=== PATIENT | male | born 1935 | race Caucasian/White ===

== ENCOUNTER 2016-07-07 04:50 | Inpatient (IN) | payer MEDICARE ==
[~2016-07-07] VITALS: Ht 175.3 cm; Wt 82.2 kg
[2016-07-07] MEDS ORDERED: KETO120S TP (05:42)
[2016-07-07] MEDS ORDERED: GLIM2TAB2 PO (05:42)
[2016-07-07] MEDS ORDERED: HALO5TAB PO (05:42)
[2016-07-07] MEDS ORDERED: HALO5AMP IM (05:42)
[2016-07-07] MEDS ORDERED: METH5TAB6 PO (05:42)
[2016-07-07] MEDS ORDERED: FOLI1TAB16 PO (05:42)
[2016-07-07] MEDS ORDERED: DOXA2TAB2 PO (05:42)
[2016-07-07] MEDS ORDERED: BUDE0.5A NEB (05:42)
[2016-07-07] MEDS ORDERED: FORM20VI NEB (05:42)
[2016-07-07] MEDS ORDERED: MULT-681 PO (05:45)
[2016-07-07] MEDS ORDERED: MAGN400O4 PO (05:45)
[2016-07-07] MEDS ORDERED: DABI150C PO (05:48)
[2016-07-07] MEDS ORDERED: NYST15CR TP (05:48)
[2016-07-07] MEDS ORDERED: QUET100T4 PO (05:50)
[2016-07-07] MEDS ORDERED: SOTA80TA PO (05:50)
[2016-07-07] MEDS ORDERED: QUET50TA5 PO (05:50)
[2016-07-07] MEDS ORDERED: TRAM50TA PO ×2 (05:52)
[2016-07-07] MEDS ORDERED: THIA100T8 PO (05:52)
[2016-07-07] MEDS ORDERED: ASCO500T2 PO (05:52)
[2016-07-07 05:55] LABS: ALBUMIN 3.3 g/dL (3.4-5.0); ALBUMIN/GLOBULIN RATIO 0.8 (1.0-1.7); CALCIUM 9.1 mg/dL (8.5-10.1); CREATININE 1.4 mg/dL (0.7-1.3); GFR 48.5; POTASSIUM 3.9 mmol/L (3.5-5.1); TOTAL BILIRUBIN 0.4 mg/dL (0.2-1.0); TOTAL PROTEIN 7.5 g/dL (6.4-8.2)
[2016-07-07] MEDS ORDERED: ZINC220C5 PO (05:57)
[2016-07-07] MEDS ORDERED: PROHEAL PO (05:57)
--- NOTE | 2016-07-07 05:58 | EKG ---
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
--- NOTE | 2016-07-07 06:02 | ED.ADGEN ---
Past History Past Medical History: A-Fib, COPD, Dementia, Diabetes, Hypertension, Other Past Surgical History: Pacemaker Alcohol Use: None Drug Use: None Adult General Chief Complaint Chief Complaint Agitation HPI HPI Patient is a 81-year-old snf patient with history of dementia with behavioral disturbance and presents for medical clearance for psychiatric admission. Patient reportedly was agitated at snf complaining of visual hallucination of insects [place] over patient's body. Patient given 15 mg of Haldol prior to ED arrival. History is limited given the patient's dementia and recent sedation. No other complaints per patient, EMS or NH staff reported. Review of Systems Review of Systems ROS as per HPI. Allergies Allergies Allergies Coded Allergies Type Severity Reaction Last Updated Verified No Known Drug Allergies 07/07/16 No Physical Exam Physical Exam Constitutional: Well developed, well nourished, no acute distress, non-toxic appearance. HENT: Normocephalic, atraumatic, bilateral external ears normal, oropharynx moist, no oral exudates, nose normal. Eyes: PERRL. Neck: Normal range of motion. Cardiovascular:Heart rate regular rhythm, no murmur. Lungs & Thorax: Bilateral breath sounds clear to auscultation. Abdomen: Bowel sounds normal, soft, no tenderness. Skin: Warm, dry, no erythema, no rash. Extremities: No tenderness. Neurologic: Alert and oriented X 1, normal motor function, normal sensory function, no focal deficits noted. Psychologic: Affect, flat. Current Patient Data Vital Signs Vital Signs Date Time Temp Pulse Resp B/P Pulse Ox O2 Delivery O2 Flow Rate FiO2 07/07/16 04:55 97.9 81 20 93 Room Air EKG EKG [] Radiology/Procedures Radiology/Procedures [] Impressions: Agitation Course & Med Decision Making Course & Med Decision Making Pertinent Labs and Imaging studies reviewed. (See chart for details) [Work up pending. ] Final Impression Final Impression [1. Agitation 2. Medical clearance for psychiatric admission] Problems: Dragon Disclaimer Dragon Disclaimer This electronic medical record was generated, in whole or in part, using a voice recognition dictation system. KATHERYN RENDON DO Jul 07, 2016 06:01
--- NOTE | 2016-07-07 06:02 | RAD ---
Examination: CT head without contrast History: History of altered mental status, confusion. Exposure: One or more of the following dose reduction technique were utilized for this examination: 1. Automated exposure control. 2.Adjustment of MA and /or KV according to patient size. 3. Use of iterative reconstruction technique. COMPARISON 06/20/2016. Findings : There is no evidence of midline shift. Mild bilateral periventricular white matter hypodensities likely chronic small vessel ischemic disease. There is no acute intracranial bleed or extra-axial fluid collection identified. The basal cisterns are not effaced. Mild prominent appearing ventricles likely age-related cerebral atrophic changes. The visualized paranasal sinuses, mastoid air cells are clear. IMPRESSION No acute intracranial findings. Electronically signed by: Tanner Casey (Jul 07, 2016 05:59:58)
[2016-07-07 06:19] LABS: BASO # 0.1 x10^3/uL (0.0-0.2); BASO % 1 % (0-3); EOS # 0.6 x10^3/uL (0.0-0.7); EOS % 8 % (0-3); HEMOGLOBIN 12.1 g/dL (13.0-17.5); LYMPH # 1.4 x10^3/uL (1.0-4.8); LYMPH % 20 % (24-48); MEAN CORPUSCULAR HEMOGLOBIN 27 pg (25-35); MEAN CORPUSCULAR HGB CONC 32 g/dL (31-37); MEAN CORPUSCULAR VOLUME 84 fL (79-100); MONO # 0.9 x10^3/uL (0.0-1.1); MONO % 12 % (0-9); NEUT # 4.2 x10^3uL (1.8-7.7); NEUT % 59 % (31-73); PLATELET COUNT 207 x10^3/uL (140-400); RED BLOOD COUNT 4.55 x10^6/uL (4.30-5.70); RED CELL DISTRIBUTION WIDTH 17.2 % (11.5-14.5); WHITE BLOOD COUNT 7.1 x10^3/uL (4.0-11.0)
[2016-07-07 06:28] LABS: BILIRUBIN,URINE NEG (NEG); CLARITY,URINE CLEAR; COLOR,URINE YELLOW; GLUCOSE,URINE 250 mg/dL (NEG); NITRITE,URINE NEG (NEG); UROBILINOGEN,URINE 0.2 mg/dL (0.2 mg/dL)
[2016-07-07 06:29] LABS: BACTERIA,URINE 0 /HPF (0-FEW); SQUAMOUS EPITHELIAL CELL,UR OCC /LPF; YEAST,URINE PRESENT /HPF
[2016-07-07] MEDS ORDERED: MAG HYDROX/AL HYDROX/SIMETH 30 ML ORAL.SUSP PO PRN (06:45)
[2016-07-07] MEDS ORDERED: ACETAMINOPHEN 325 MG TABLET PO PRN ×2 (06:45)
[2016-07-07] MEDS ORDERED: METHYL SALICYLATE/MENTHOL TOPICAL OINTMENT 29GM TUBE. TP PRN (06:45)
[2016-07-07] MEDS ORDERED: NYSTATIN 100,000 UNIT/GM TOPICAL CREAM 15GM TUBE. TP PRN (07:00)
[2016-07-07] MEDS: QUEtiapine 50 MG TABLET. PO SCH (08:43)
[2016-07-07] MEDS: ASCORBIC ACID 500 MG TABLET PO SCH ×2 (08:43→20:52)
[2016-07-07] MEDS: THIAMINE 100 MG TABLET. PO SCH (08:43)
[2016-07-07] MEDS: FOLIC ACID 1 MG TABLET PO SCH (08:43)
[2016-07-07] MEDS: TRAMADOL 50 MG TABLET. PO SCH ×2 (08:43→20:52)
[2016-07-07] MEDS: ZINC SULFATE 220 MG CAPSULE. PO SCH (08:43)
[2016-07-07] MEDS: MULTIVITAMIN with MINERAL TABLET. PO SCH (08:43)
[2016-07-07] MEDS: METHIMAZOLE 5 MG TABLET PO SCH ×3 (08:43→20:52)
[2016-07-07] MEDS: GLIMEPIRIDE 2 MG TABLET PO SCH ×2 (08:43→20:52)
[2016-07-07] MEDS: DABIGATRAN ETEXILATE 150 MG CAPSULE. PO SCH ×2 (08:44→20:52)
[2016-07-07] MEDS: DOXAZOSIN MESYLATE 1 MG TABLET PO SCH (08:44)
[2016-07-07] MEDS: SOTALOL 80 MG TABLET. PO SCH ×2 (08:44→20:52)
[2016-07-07] MEDS ORDERED: ALBUTEROL SULFATE 2.5 MG/3 ML NEBU. ONE (09:54)
[2016-07-07 10:16] VITALS: BP 192/54
[2016-07-07] MEDS: BUDESONIDE 0.5 MG/2 ML NEBU NEB SCH ×2 (10:17→20:29)
[2016-07-07 11:59] LABS: IRON,SERUM 36 ug/dL (65-175)
[2016-07-07] MEDS: ALBUTEROL SULFATE 2.5 MG/3 ML NEBU. NEB SCH ×3 (12:00→20:29)
[2016-07-07] MEDS: OLANZAPINE ZYDIS 5 MG TAB.RAPDIS PO PRN (12:45)
[2016-07-07 14:08] LABS: T3 TOTAL 164 ng/dL (71-180); THYROXINE 12.7 ug/dL (4.5-12.0)
[2016-07-07 16:11] VITALS: BP 150/60
[2016-07-07] MEDS: QUEtiapine 100 MG TABLET. PO SCH (20:52)
--- NOTE | 2016-07-07 21:57 | PDOC ---
Exam Lobito Demential Exam: Lobito Note: Please also refer to the separate dictated note~for this date of service dictated separately.~Patient seen individually. Discussed the patient with Nursing staff reviewed the chart.~Reviewed interim history and current functioning. Reviewed vital signs,~Labs/ Radiology~and current medications noted below. Continue current treatment with the changes noted in the dictated addendum note Assessment: Vital Signs: Vital Signs Date Time Temp Pulse Resp B/P Pulse Ox O2 Delivery O2 Flow Rate FiO2 07/07/16 21:52 18 95 Room Air 07/07/16 20:52 72 150/60 07/07/16 16:11 98.3 07/07/16 06:34 2 Labs: Laboratory Tests Test 07/07/16 05:15 07/07/16 05:55 07/07/16 11:53 07/07/16 16:59 White Blood Count 7.1x10^3/uL (4.0-11.0) Red Blood Count 4.55x10^6/uL (4.30-5.70) Hemoglobin 12.1g/dL (13.0-17.5) L Hematocrit 38.0% (39.0-53.0) L Mean Corpuscular Volume 84fL (79-100) Mean Corpuscular Hemoglobin 27pg (25-35) Mean Corpuscular Hemoglobin Concent 32g/dL (31-37) Red Cell Distribution Width 17.2% (11.5-14.5) H Platelet Count 207x10^3/uL (140-400) Neutrophils (%) (Auto) 59% (31-73) Lymphocytes (%) (Auto) 20% (24-48) L Monocytes (%) (Auto) 12% (0-9) H Eosinophils (%) (Auto) 8% (0-3) H Basophils (%) (Auto) 1% (0-3) Neutrophils # (Auto) 4.2x10^3uL (1.8-7.7) Lymphocytes # (Auto) 1.4x10^3/uL (1.0-4.8) Monocytes # (Auto) 0.9x10^3/uL (0.0-1.1) Eosinophils # (Auto) 0.6x10^3/uL (0.0-0.7) Basophils # (Auto) 0.1x10^3/uL (0.0-0.2) Prothrombin Time 10.5SEC (9.4-11.4) Prothrombin Time INR 1.0 (0.9-1.1) PTT 30SEC (23-33) Urine Collection Type Unknown Urine Color Yellow Urine Clarity Clear Urine pH 5.0 Urine Specific [place] 1.020 Urine Protein Neg (NEG-TRACE) Urine Glucose (UA) 250mg/dL (NEG) Urine Ketones (Stick) Negmg/dL (NEG) Urine Blood Neg (NEG) Urine Nitrite Neg (NEG) Urine Bilirubin Neg (NEG) Urine Urobilinogen Dipstick 0.2mg/dL (0.2 mg/dL) Urine Leukocyte Esterase Neg (NEG) Urine RBC 1-2/HPF (0-2) Urine WBC 1-4/HPF (0-4) Urine Squamous Epithelial Cells Occ/LPF Urine Bacteria 0/HPF (0-FEW) Urine Yeast Present/HPF Sodium Level 143mmol/L (136-145) Potassium Level 3.9mmol/L (3.5-5.1) Chloride Level 108mmol/L (98-107) H Carbon Dioxide Level 24mmol/L (21-32) Anion Gap 11 (6-14) Blood Urea Nitrogen 20mg/dL (8-26) Creatinine 1.4mg/dL (0.7-1.3) H Estimated GFR (Cockcroft-Gault) 48.5 BUN/Creatinine Ratio 14 (6-20) Glucose Level 168mg/dL (70-99) H Calcium Level 9.1mg/dL (8.5-10.1) Iron Level 36ug/dL (65-175) L Total Iron Binding Capacity 292ug/dL (250-450) Iron Saturation 12% (15-34) L Total Bilirubin 0.4mg/dL (0.2-1.0) Aspartate Amino Transferase (AST) 14U/L (15-37) L Alanine Aminotransferase (ALT) 15U/L (16-63) L Alkaline Phosphatase 92U/L (46-116) Total Protein 7.5g/dL (6.4-8.2) Albumin 3.3g/dL (3.4-5.0) L Albumin/Globulin Ratio 0.8 (1.0-1.7) L Triglycerides Level 102mg/dL (0-150) Cholesterol Level 149mg/dL (0-200) LDL Cholesterol, Calculated 104mg/dL (0-100) H VLDL Cholesterol, Calculated 20mg/dL (0-40) HDL Cholesterol 25mg/dL (40-60) L Cholesterol/HDL Ratio 5.0 25-Hydroxy Vitamin D Total Pending Thyroid Stimulating Hormone (TSH) < 0.007uIU/mL (0.358-3.740) Thyroxine (T4) 12.7ug/dL (4.5-12.0) H Total Triiodothyronine (TT3) 164ng/dL (71-180) RPR Titer Additional Testing Pending Magnesium Level 1.8mg/dL (1.8-2.4) Glucose (Fingerstick) 254mg/dL (70-99) H 167mg/dL (70-99) H Test 07/07/16 19:34 Glucose (Fingerstick) 161mg/dL (70-99) H Current Medications: Meds: Current Medications Acetaminophen (Tylenol) 650 mg PRN Q6HRS PRN PO PAIN / TEMP; Start 07/07/16 at 06:45; Status Cancel Acetaminophen (Tylenol) 650 mg PRN Q6HRS PRN PO PAIN / TEMP; Start 07/07/16 at 06:45 Multi-Ingredient Ointment (Analgesic [place]) 1 marilyn PRN QID PRN TP MUSCLE PAIN; Start 07/07/16 at 06:45 Al Hydroxide/Mg Hydroxide (Mylanta Plus Xs) 15 ml PRN AFTMEALHC PRN PO DYSPEPSIA; Start 07/07/16 at 06:45 Magnesium Hydroxide (Milk Of Magnesia) 2,400 mg PRN QHS PRN PO CONSTIPATION; Start 07/07/16 at 06:45 Quetiapine Fumarate (SEROquel) 50 mg DAILY PO Last administered on 07/07/16 08: 43; Start 07/07/16 at 09:00 Quetiapine Fumarate (SEROquel) 100 mg QHS PO Last administered on 07/07/16 20: 52; Start 07/07/16 at 21:00 Ascorbic Acid (Vitamin C) 500 mg BID PO Last administered on 07/07/16 20:52; Start 07/07/16 at 09:00 Budesonide (Pulmicort) 0.5 mg BID NEB Last administered on 07/07/16 20:29; Start 07/07/16 at 09:00 Dabigatran (Pradaxa) 150 mg BID PO Last administered on 07/07/16 20:52; Start 07/07/16 at 09:00 Folic Acid (Folic Acid) 1 mg DAILY PO Last administered on 07/07/16 08:43; Start 07/07/16 at 09:00 Glimepiride (Amaryl) 2 mg BID PO Last administered on 07/07/16 20:52; Start 07/07/16 at 09:00 Ketoconazole (Nizoral 2% Shampoo) 1 marilyn 3X/WEEK TP ; Start 07/09/16 at 09:00 Methimazole (Tapazole) 5 mg TID PO Last administered on 07/07/16 20:52; Start 07/07/16 at 09:00 Nystatin (Mycostatin) 1 marilyn PRN Q8HRS PRN TP Yeast; Start 07/07/16 at 07:00 Sotalol HCl (Betapace) 80 mg BID PO Last administered on 07/07/16 20:52; Start 07/07/16 at 09:00 Thiamine HCl (Vitamin B-1) 100 mg DAILY PO Last administered on 07/07/16 08:43 ; Start 07/07/16 at 09:00 Tramadol HCl (Ultram) 50 mg BID PO Last administered on 07/07/16 20:52; Start 07/07/16 at 09:00 Tramadol HCl (Ultram) 50 mg PRN Q6HRS PRN PO PAIN; Start 07/07/16 at 07:00 Zinc Sulfate (Orazinc) 220 mg DAILY PO Last administered on 07/07/16 08:43; Start 07/07/16 at 09:00 Doxazosin Mesylate (Cardura) 2 mg DAILY PO Last administered on 07/07/16 08:44 ; Start 07/07/16 at 09:00 Albuterol Sulfate (Ventolin) 2.5 mg Q6HRS NEB Last administered on 07/07/16 20: 29; Start 07/07/16 at 12:00 Multivitamins/ Calcium (Thera-M Plus) 1 tab DAILY PO Last administered on 08:43; Start 07/07/16 at 09:00 Olanzapine (Zyprexa Zydis) 2.5 mg PRN Q2HR PRN PO PSYCHOSIS Last administered on 07/07/16 12:45; Start 07/07/16 at 07:30 Albuterol Sulfate (Ventolin) 2.5 mg STK-MED ONCE .ROUTE Last administered on 10:17; Start 07/07/16 at 09:54; Stop 07/07/16 at 09:55; Status DC Rivastigmine (Exelon) 1 patch DAILY TD ; Start 07/08/16 at 09:00; Stop 07/13/16 at 08:59 Rivastigmine (Exelon) 1 patch DAILY TD ; Start 07/13/16 at 09:00 Memantine (Namenda) 5 mg DAILY PO ; Start 07/08/16 at 09:00; Stop 07/11/16 at 08: 59 Memantine (Namenda) 5 mg BID PO ; Start 07/11/16 at 09:00 Active Scripts Active Reported [Proheal] 30 Ml PO BID 30 Days Zinc Sulfate 220 Mg Capsule 220 Mg PO DAILY 30 Days Vitamin C (Ascorbic Acid) 500 Mg Tablet 500 Mg PO BID 30 Days Tramadol Hcl (Tramadol HCl) 50 Mg Tablet 50 Mg PO BID Tramadol Hcl (Tramadol HCl) 50 Mg Tablet 50 Mg PO PRN Q6HRS PRN Thiamine Hcl 100 Mg Tablet 100 Mg PO DAILY Sotalol (Sotalol Hcl) 80 Mg Tablet 80 Mg PO BID Seroquel (Quetiapine Fumarate) 100 Mg Tablet 100 Mg PO QHS Seroquel (Quetiapine Fumarate) 50 Mg Tablet 50 Mg PO DAILY Pradaxa (Dabigatran Etexilate Mesylate) 150 Mg Capsule 150 Mg PO BID Nystatin 15 Gm Cream..g. 1 Marilyn TP PRN Q8HRS PRN Multi-Day Plus Minerals Tablet (Multivitamin-Min/Iron/FA/Vit K) 1 Each Tablet 1 Tab PO DAILY 30 Days Milk Of Magnesia (Magnesium Hydroxide) 400 Mg/5 Ml Oral.susp 2,400 Mg PO PRN DAILY PRN Methimazole 5 Mg Tablet 5 Mg PO TID Ketoconazole 120 Ml Shampoo 1 Marilyn TP TWICE WEEKLY Glimepiride 2 Mg Tablet 2 Mg PO BID Perforomist (Formoterol Fumarate) 20 Mcg/2 Ml Vial.neb 20 Mcg NEB BID Folic Acid 1 Mg Tablet 1 Mg PO DAILY Doxazosin Mesylate 2 Mg Tablet 2 Mg PO DAILY Budesonide 0.5 Mg/2 Ml Ampul.neb 0.5 Mg NEB BID Diagnosis: Problems: (1) Dementia with behavioral disturbance MARY MAGALLANES MD Jul 07, 2016 21:57
[2016-07-07 23:06] LABS: HEMOGLOBIN A1C 6.3 % (4.8-5.6)
--- NOTE | 2016-07-08 00:50 | ACF ---
Admission Criteria Forms PSYCHIATRIC DISORDERS Clinical Indications for Inpatient Care (Place 'X' for any and all applicable criteria): Ongoing inpatient care may be needed for ANY ONE of the following(1)(2)(3)(4)(6) (7)(8): [ ]I. Danger to self or others not manageable at lower level of care. [ ]II. Grave disability (eg, inability to perform self care necessary at lower level of care) [X]III. Agitation or inappropriate behavior interfering with care for primary condition (eg, attempting to discontinue lines or drains prematurely, unable to cooperate with respiratory care) [ ]IV. Severe disability or disorder indicated by ALL of the following: [ ]a) Severe behavioral health disorder-related symptoms or condition indicated by ANY ONE of the following: [ ]i) Severe problem with cognition, memory, judgment, or impulse control [ ]ii) Severe clinical manifestations (eg, hallucinations, delusions, other acute psychotic symptoms, lyla, extreme agitation or anxiety) [ ]b) Patient management at lower level of care is not feasible until acute intervention or modification is initiated. Extended stay beyond goal length of stay for the primary condition may be indicated when ANY ONE of the following is present: (1)(2)(3)(4): [ ]a) Patient is a danger to self or others and not manageable at lower level of care. [ ]b) Behavior crisis management, including physical or chemical restraints, is required and is not available at a lower level of care. [ ]c) Behavioral symptoms (e.g., agitation, somnolence, inappropriate behavior) are present, and are not manageable at a lower level of care. [ ]d) Patient cannot understand follow-up treatment and crisis plan. [ ]e) Provider and supports are not sufficiently available at lower level of care. [ ]f) Patient cannot participate (e.g., verify absence of plan for harm) and is in needed of monitoring. The original [employer] content created by [employer] has been revised. The portions of the content which have been revised are identified through the use of italic text or in bold, and [facility] has neither reviewed nor approved the modified material. All other unmodified content is copyright [facility] [employer]. Please see references footnoted in the original [facility] edition 2016 Admission Criteria Met?: Yes KENYETTA NAIK Jul 08, 2016 00:49
[2016-07-08] MEDS: ALBUTEROL SULFATE 2.5 MG/3 ML NEBU. NEB SCH ×4 (05:21→20:24)
[2016-07-08 06:08] VITALS: BP 169/83
[2016-07-08] MEDS: FOLIC ACID 1 MG TABLET PO SCH (07:18)
[2016-07-08] MEDS: DABIGATRAN ETEXILATE 150 MG CAPSULE. PO SCH ×2 (07:18→20:10)
[2016-07-08] MEDS: METHIMAZOLE 5 MG TABLET PO SCH ×4 (07:18→20:11)
[2016-07-08] MEDS: ASCORBIC ACID 500 MG TABLET PO SCH ×2 (07:18→20:11)
[2016-07-08] MEDS: THIAMINE 100 MG TABLET. PO SCH (07:18)
[2016-07-08] MEDS: ZINC SULFATE 220 MG CAPSULE. PO SCH (07:18)
[2016-07-08] MEDS: TRAMADOL 50 MG TABLET. PO SCH ×2 (07:19→20:11)
[2016-07-08] MEDS: SOTALOL 80 MG TABLET. PO SCH ×2 (07:19→20:08)
[2016-07-08] MEDS: GLIMEPIRIDE 2 MG TABLET PO SCH ×2 (07:19→20:09)
[2016-07-08] MEDS: MULTIVITAMIN with MINERAL TABLET. PO SCH (07:19)
[2016-07-08] MEDS: QUEtiapine 50 MG TABLET. PO SCH (07:19)
[2016-07-08] MEDS: DOXAZOSIN MESYLATE 1 MG TABLET PO SCH (07:19)
[2016-07-08] MEDS: RIVASTIGMINE 4.6MG PATCH. TD SCH (08:11)
[2016-07-08] MEDS: MEMANTINE 5 MG TABLET. PO SCH (08:11)
[2016-07-08] MEDS ORDERED: FERROUS SULFATE 325 MG TABLET PO SCH (10:00)
[2016-07-08] MEDS: BUDESONIDE 0.5 MG/2 ML NEBU NEB SCH ×2 (10:08→20:24)
[2016-07-08 15:43] VITALS: BP 142/68
[2016-07-08] MEDS: QUEtiapine 100 MG TABLET. PO SCH (20:10)
[2016-07-08] MEDS: FERROUS SULFATE 325 MG TABLET PO SCH (20:14)
[2016-07-08] MEDS: CARBIDOPA/LEVODOPA 25/100MG TABLET PO SCH (20:15)
--- NOTE | 2016-07-08 20:35 | PDOC ---
Exam Lobito Demential Exam: Lobito Note: Please also refer to the separate dictated note~for this date of service dictated separately.~Patient seen individually. Discussed the patient with Nursing staff reviewed the chart.~Reviewed interim history and current functioning. Reviewed vital signs,~Labs/ Radiology~and current medications noted below. Continue current treatment with the changes noted in the dictated addendum note Assessment: Vital Signs: Vital Signs Date Time Temp Pulse Resp B/P Pulse Ox O2 Delivery O2 Flow Rate FiO2 07/08/16 20:25 96 Room Air 07/08/16 20:11 18 07/08/16 20:08 62 142/68 07/08/16 15:43 97.9 07/07/16 06:34 2 I&O Intake and Output 07/08/16 07:00 Intake Total 240 ml Balance 240 ml Intake Oral 240 ml Labs: Laboratory Tests Test 07/08/16 07:56 07/08/16 11:14 07/08/16 16:11 07/08/16 19:48 Glucose (Fingerstick) 149mg/dL (70-99) H 181mg/dL (70-99) H 176mg/dL (70-99) H 206mg/dL (70-99) H Current Medications: Meds: Current Medications Acetaminophen (Tylenol) 650 mg PRN Q6HRS PRN PO PAIN / TEMP; Start 07/07/16 at 06:45; Status Cancel Acetaminophen (Tylenol) 650 mg PRN Q6HRS PRN PO PAIN / TEMP; Start 07/07/16 at 06:45 Multi-Ingredient Ointment (Analgesic [place]) 1 marilyn PRN QID PRN TP MUSCLE PAIN; Start 07/07/16 at 06:45 Al Hydroxide/Mg Hydroxide (Mylanta Plus Xs) 15 ml PRN AFTMEALHC PRN PO DYSPEPSIA; Start 07/07/16 at 06:45 Magnesium Hydroxide (Milk Of Magnesia) 2,400 mg PRN QHS PRN PO CONSTIPATION; Start 07/07/16 at 06:45 Quetiapine Fumarate (SEROquel) 50 mg DAILY PO Last administered on 07/08/16 07: 19; Start 07/07/16 at 09:00 Quetiapine Fumarate (SEROquel) 100 mg QHS PO Last administered on 07/08/16 20: 10; Start 07/07/16 at 21:00 Ascorbic Acid (Vitamin C) 500 mg BID PO Last administered on 07/08/16 20:11; Start 07/07/16 at 09:00 Budesonide (Pulmicort) 0.5 mg BID NEB Last administered on 07/08/16 20:24; Start 07/07/16 at 09:00 Dabigatran (Pradaxa) 150 mg BID PO Last administered on 07/08/16 20:10; Start 07/07/16 at 09:00 Folic Acid (Folic Acid) 1 mg DAILY PO Last administered on 07/08/16 07:18; Start 07/07/16 at 09:00 Glimepiride (Amaryl) 2 mg BID PO Last administered on 07/08/16 07:19; Start 07/07/16 at 09:00; Stop 07/08/16 at 15:30; Status DC Ketoconazole (Nizoral 2% Shampoo) 1 marilyn 3X/WEEK TP ; Start 07/09/16 at 09:00 Methimazole (Tapazole) 5 mg TID PO Last administered on 07/08/16 07:18; Start 07/07/16 at 09:00; Stop 07/08/16 at 15:30; Status DC Nystatin (Mycostatin) 1 marilyn PRN Q8HRS PRN TP Yeast; Start 07/07/16 at 07:00 Sotalol HCl (Betapace) 80 mg BID PO Last administered on 07/08/16 20:08; Start 07/07/16 at 09:00 Thiamine HCl (Vitamin B-1) 100 mg DAILY PO Last administered on 07/08/16 07:18 ; Start 07/07/16 at 09:00 Tramadol HCl (Ultram) 50 mg BID PO Last administered on 07/08/16 20:11; Start 07/07/16 at 09:00 Tramadol HCl (Ultram) 50 mg PRN Q6HRS PRN PO PAIN; Start 07/07/16 at 07:00 Zinc Sulfate (Orazinc) 220 mg DAILY PO Last administered on 07/08/16 07:18; Start 07/07/16 at 09:00 Doxazosin Mesylate (Cardura) 2 mg DAILY PO Last administered on 07/08/16 07:19 ; Start 07/07/16 at 09:00 Albuterol Sulfate (Ventolin) 2.5 mg Q6HRS NEB Last administered on 07/08/16 20: 24; Start 07/07/16 at 12:00 Multivitamins/ Calcium (Thera-M Plus) 1 tab DAILY PO Last administered on 07:19; Start 07/07/16 at 09:00 Olanzapine (Zyprexa Zydis) 2.5 mg PRN Q2HR PRN PO PSYCHOSIS Last administered on 07/07/16 12:45; Start 07/07/16 at 07:30 Albuterol Sulfate (Ventolin) 2.5 mg STK-MED ONCE .ROUTE Last administered on 10:17; Start 07/07/16 at 09:54; Stop 07/07/16 at 09:55; Status DC Rivastigmine (Exelon) 1 patch DAILY TD Last administered on 07/08/16 08:11; Start 07/08/16 at 09:00; Stop 07/13/16 at 08:59 Rivastigmine (Exelon) 1 patch DAILY TD ; Start 07/13/16 at 09:00 Memantine (Namenda) 5 mg DAILY PO Last administered on 07/08/16 08:11; Start at 09:00; Stop 07/11/16 at 08:59 Memantine (Namenda) 5 mg BID PO ; Start 07/11/16 at 09:00 Ferrous Sulfate (Feosol) 325 mg BID PO ; Start 07/08/16 at 10:00; Status Cancel Ferrous Sulfate (Feosol) 325 mg BID PO Last administered on 07/08/16 20:14; Start 07/08/16 at 21:00 Glimepiride (Amaryl) 4 mg DAILY PO ; Start 07/09/16 at 09:00 Methimazole (Tapazole) 10 mg TID PO Last administered on 07/08/16 20:11; Start 07/08/16 at 21:00 Glimepiride (Amaryl) 2 mg QHS PO Last administered on 07/08/16 20:09; Start 07/08/16 at 21:00 Carbidopa/Levodopa (Sinemet 25/100) 1 tab TID PO Last administered on 07/08/16t 20:15; Start 07/08/16 at 21:00 Active Scripts Active Reported [Proheal] 30 Ml PO BID 30 Days Zinc Sulfate 220 Mg Capsule 220 Mg PO DAILY 30 Days Vitamin C (Ascorbic Acid) 500 Mg Tablet 500 Mg PO BID 30 Days Tramadol Hcl (Tramadol HCl) 50 Mg Tablet 50 Mg PO BID Tramadol Hcl (Tramadol HCl) 50 Mg Tablet 50 Mg PO PRN Q6HRS PRN Thiamine Hcl 100 Mg Tablet 100 Mg PO DAILY Sotalol (Sotalol Hcl) 80 Mg Tablet 80 Mg PO BID Seroquel (Quetiapine Fumarate) 100 Mg Tablet 100 Mg PO QHS Seroquel (Quetiapine Fumarate) 50 Mg Tablet 50 Mg PO DAILY Pradaxa (Dabigatran Etexilate Mesylate) 150 Mg Capsule 150 Mg PO BID Nystatin 15 Gm Cream..g. 1 Marilyn TP PRN Q8HRS PRN Multi-Day Plus Minerals Tablet (Multivitamin-Min/Iron/FA/Vit K) 1 Each Tablet 1 Tab PO DAILY 30 Days Milk Of Magnesia (Magnesium Hydroxide) 400 Mg/5 Ml Oral.susp 2,400 Mg PO PRN DAILY PRN Methimazole 5 Mg Tablet 5 Mg PO TID Ketoconazole 120 Ml Shampoo 1 Marilyn TP TWICE WEEKLY Glimepiride 2 Mg Tablet 2 Mg PO BID Perforomist (Formoterol Fumarate) 20 Mcg/2 Ml Vial.neb 20 Mcg NEB BID Folic Acid 1 Mg Tablet 1 Mg PO DAILY Doxazosin Mesylate 2 Mg Tablet 2 Mg PO DAILY Budesonide 0.5 Mg/2 Ml Ampul.neb 0.5 Mg NEB BID Diagnosis: Problems: (1) Dementia with behavioral disturbance MARY MAGALLANES MD Jul 08, 2016 20:35
--- NOTE | 2016-07-08 21:56 | HP ---
ADMIT DATE: 07/08/2016 PSYCHIATRIC ADMISSION HISTORY/EVALUATION IDENTIFYING DATA: The patient is an 81-year-old male referred to us from [facility] by Dr. Stanley, his primary care physician on account of worsening hallucinations within the context of his Lewy body dementia. He believes he is covered in spiders, physically combative with staff, hitting, kicking. Symptoms have been worsening for the past several weeks. He has failed outpatient psychiatric interventions unmanageable at the facility where he is being administered Haldol intramuscular PRNs with no response. CHIEF COMPLAINT: "No." The patient is quite confused, sedated. HISTORY OF PRESENT ILLNESS: The patient has a history of dementia, Lewy body type. He has been having worsening hallucinations as noted above over the past few weeks and worsening confusion. He has had sleep and appetite changes. No active suicidal or homicidal ideation. He has had significant mood vacillations, but no clear history of bipolar disorder. PAST PSYCHIATRIC HISTORY: As above. PAST MEDICAL HISTORY: The patient was seen at the [facility] Emergency Room prior to admission, found to be medically stable to be on our unit. He has a history of atrial fibrillation, COPD, diabetes mellitus, hypertension, has a pacemaker in place. The patient had been given 15 mg of Haldol prior to arrival at the Emergency Department. DRUG ALLERGIES: Negative. VITAL SIGNS: Temperature 97.9, pulse 81, O2 sats 93% on room air, respirations 20. CURRENT PSYCHOTROPICS: Namenda 5 mg twice a day, which was increased from his previous 5 mg a day, Zyprexa was added p.r.n. He is also on Seroquel 50 mg in the morning, 100 mg at night, Exelon patch started 4.6 mg a day, increasing in 5 days to 9.5 mg a day. Also on thiamine 100 mg a day. CODE STATUS: DNR. FAMILY HISTORY: Noncontributory. SOCIAL HISTORY: No alcohol or drug abuse, physical, sexual or elder abuse history is noted. He is not known to be a perpetrator. MENTAL STATUS EXAMINATION: The patient was seen individually. He is in a Broda chair, extremely sedated, oriented to himself, not very verbally interactive. Insight, judgment, recent and remote memory, attention, concentration, fund of knowledge poor, consistent with his diagnosis mentioned above. IMPRESSION: Major neurocognitive disorder, Lewy body type with delusion, depression, behavioral disturbance; anxiety disorder, unspecified; impulse control disorder, unspecified. Rest diagnoses as noted above. PLAN: Admit to the geropsychiatry unit at [facility]. I will see the patient daily individually. Request medical followup with Dr. Antonio/Dr. Sampson. Minimize usage of psychotropics since the patient has received fairly high dosages of Haldol prior to arrival on our unit. Given his history of Lewy body dementia, I would like to avoid any other psychotropics till we can see improvement in his sedation. We will make further changes as clinically indicated. MARY MAGALLANES MD DR: MARIBEL/harshad JOB#: [id number] / [id number]
--- NOTE | 2016-07-08 22:52 | CONS ---
DATE OF CONSULTATION: 07/08/2016 REASON FOR CONSULTATION: Medical management. HISTORY OF PRESENT ILLNESS: The patient is an 81-year-old male patient who came from [facility] on the account of severe hallucination thinks he is covered in spiders, agitated, aggressive, combative with staff, hitting and kicking, recent trial discontinuation of psych medication all this in the background of Lewy body dementia with behavioral disorder and was [facility] for inpatient psychiatric stabilization. PAST MEDICAL HISTORY: Significant for hypertension, type 2 diabetes, chronic obstructive pulmonary disease, atrial fibrillation, sick sinus syndrome, status post pacemaker, sleep apnea, dysphagia, congestive heart failure, encephalopathy and Lewy body dementia. He is also an hyperthyroid. PAST SURGICAL HISTORY: Unremarkable. FAMILY HISTORY: Noncontributory. SOCIAL HISTORY: He is a resident at [facility] and [facility]. He does not smoke, drink alcohol or use recreational drugs. REVIEW OF SYSTEMS: Unobtainable. ALLERGIES: He has no known drug allergies. MEDICATIONS: He is currently on following medications: He is on ascorbic acid 500 mg twice a day, budesonide 0.5 mg twice a day, Pradaxa 150 mg p.o. b.i.d. Zosyn mesylate 2 mg daily, folic acid 1 mg once a day, formoterol fumarate 20 mcg by nebulizer twice a day, glimepiride 2 mg twice a day, ketoconazole 120 mL shampoo twice weekly, milk of magnesia 30 mL p.o. daily p.r.n. for constipation, methimazole 5 mg 3 t.i.d., multivitamin with mineral 1 tablet once a day, quetiapine fumarate, Seroquel 50 mg daily, Seroquel 100 mg at bedtime, thiamine 100 mg once a day, tramadol 50 mg every 6 hours, tramadol 50 mg twice a day scheduled his zinc sulfate 220 mg once a day. REVIEW OF SYSTEMS: GENERAL: The patient is resting slightly propped up in his recliner in no apparent respiratory distress. He is pale, not jaundice, cyanosis, or thyromegaly. No jugular venous distention. No limb edema. VITAL SIGNS: His heart rate was 59, blood pressure 169/83, temperature was 97.8, respiratory rate was 18 and oxygen saturation was 96%. HEAD, EYES, EARS, NOSE AND THROAT: Showed normocephalic, atraumatic. NECK: Supple. HEART: Showed normal first and second heart sounds with no gallop, rub or murmur. CHEST: Clear to auscultation. No crepitation or rhonchi. ABDOMEN: Distended, soft, nontender. No guarding or rigidity. No organomegaly. Hernial orifices intact. Bowel sounds normal. NEUROLOGIC: He was demented, but without any obvious lateralizing sign. He is what seems to be parkinsonian tremors in his right upper extremity has extremely rigid and probably has Parkinson disease. LABORATORY DATA: His lab work showed a serum sodium 143, potassium 3.9, chloride 108, bicarbonate 24, anion gap of 11, BUN 20, creatinine 1.4, estimated GFR was 48.5 mL per minute, his glucose 168, calcium was 9.1. Total bilirubin, AST, ALT, alkaline phosphatase were normal. Total protein was 7.5, albumin 3.3. His TSH is undetectable at 0.007. His hemoglobin A1c was 6.3% and magnesium was 1.8. Serum iron was 36, total iron binding capacity was 292 and percent saturation was 12%. Serum triglycerides were 102, total cholesterol was 149, LDL was 104, VLDL was 20, HDL cholesterol was 25. His total T4 was 12.7 and total T3 was 164. His white cell count was 7100, hemoglobin 12, hematocrit 38, MCV 84 and platelet count 207,000 with normal manual differential. Urinalysis was essentially unremarkable it was negative for nitrite and leukocyte esterase. There were only 1-2 RBCs, 1-4 WBCs, and no bacteria. IMPRESSION: In summary, this is an 81-year-old male patient, a resident at [facility] who was admitted on the account of increasing hallucination thinks he is covered with spiders, agitated, aggressive, combative with staff , hitting, and kicking. There was a recent trial discontinuation of his psych medication all this in the background of Lewy body dementia with behavioral disorder. The patient has multiple medical problems. His blood sugar is suboptimally controlled, although hemoglobin A1c was only 6.3%. His blood sugar is consistently high. He is hypothyroid. His TSH is almost undetectable. He is on methimazole 5 mg 3 times a day. I am not sure when he was started on this and he probably this needs to be increased. The third problem is that his dementia; however, he has features consistent with parkinsonism and I will consult Dr. Mendoza to evaluate him. I will increase his morning ____ to 4 mg and probably increase his methimazole to 10 mg 3 times a day, and repeat his thyroid, T3, T4, free T4 in a weeks' time. Ultimately, he probably would benefit from radioactive ablation of his thyroid. ANNEL GREGOIRO MD DR: ALEXANDER/harshad JOB#: [id number] / [id number]
[2016-07-09] MEDS: OLANZAPINE ZYDIS 5 MG TAB.RAPDIS PO PRN (01:19)
[2016-07-09] MEDS: TRAMADOL 50 MG TABLET. PO SCH ×2 (01:19→01:29)
[2016-07-09] MEDS: ALBUTEROL SULFATE 2.5 MG/3 ML NEBU. NEB SCH ×3 (04:57→19:17)
[2016-07-09 06:08] LABS: RPR REFLEX Non Reactive (Non Reactive)
[2016-07-09 06:31] VITALS: BP 124/54
[2016-07-09] MEDS: CARBIDOPA/LEVODOPA 25/100MG TABLET PO SCH ×3 (08:18→19:33)
[2016-07-09] MEDS: FERROUS SULFATE 325 MG TABLET PO SCH ×2 (08:18→19:33)
[2016-07-09] MEDS: ZINC SULFATE 220 MG CAPSULE. PO SCH (08:18)
[2016-07-09] MEDS: ASCORBIC ACID 500 MG TABLET PO SCH ×2 (08:19→19:33)
[2016-07-09] MEDS: FOLIC ACID 1 MG TABLET PO SCH (08:19)
[2016-07-09] MEDS: MEMANTINE 5 MG TABLET. PO SCH (08:19)
[2016-07-09] MEDS: QUEtiapine 50 MG TABLET. PO SCH (08:19)
[2016-07-09] MEDS: MULTIVITAMIN with MINERAL TABLET. PO SCH (08:20)
[2016-07-09] MEDS: THIAMINE 100 MG TABLET. PO SCH (08:20)
[2016-07-09] MEDS: DABIGATRAN ETEXILATE 150 MG CAPSULE. PO SCH ×2 (08:20→19:33)
[2016-07-09] MEDS: METHIMAZOLE 5 MG TABLET PO SCH ×3 (08:21→19:34)
[2016-07-09] MEDS: RIVASTIGMINE 4.6MG PATCH. TD SCH (08:22)
[2016-07-09] MEDS: DOXAZOSIN MESYLATE 1 MG TABLET PO SCH (08:26)
[2016-07-09] MEDS: SOTALOL 80 MG TABLET. PO SCH ×2 (08:26→19:35)
[2016-07-09] MEDS: GLIMEPIRIDE 2 MG TABLET PO SCH ×2 (08:27→19:33)
[2016-07-09] MEDS: KETOCONAZOLE 2% SHAMPOO 120ML BOTTLE. TP SCH (09:00)
[2016-07-09] MEDS: BUDESONIDE 0.5 MG/2 ML NEBU NEB SCH ×2 (09:00→19:17)
[2016-07-09 16:37] VITALS: BP 100/67
[2016-07-09] MEDS: QUEtiapine 100 MG TABLET. PO SCH (19:33)
[2016-07-09] MEDS: TRAMADOL 50 MG TABLET. PO PRN (19:33)
[2016-07-09] MEDS: MAGNESIUM HYDROXIDE 2,400 MG/30 ML ORAL.SUSP. PO PRN (19:36)
--- NOTE | 2016-07-09 21:03 | PDOC ---
Exam Lobito Demential Exam: Lobito Note: Please also refer to the separate dictated note~for this date of service dictated separately.~Patient seen individually. Discussed the patient with Nursing staff reviewed the chart.~Reviewed interim history and current functioning. Reviewed vital signs,~Labs/ Radiology~and current medications noted below. Continue current treatment with the changes noted in the dictated addendum note Assessment: Vital Signs: Vital Signs Date Time Temp Pulse Resp B/P Pulse Ox O2 Delivery O2 Flow Rate FiO2 07/09/16 20:33 Room Air 07/09/16 19:20 97 07/09/16 16:37 97.6 70 18 100/67 07/07/16 06:34 2 I&O Intake and Output 07/09/16 07:00 Intake Total 290 ml Balance 290 ml Intake Oral 290 ml # Voids 1 Labs: Laboratory Tests Test 07/09/16 07:26 07/09/16 11:34 07/09/16 16:46 07/09/16 19:28 Glucose (Fingerstick) 152mg/dL (70-99) H 226mg/dL (70-99) H 348mg/dL (70-99) H 356mg/dL (70-99) H Current Medications: Meds: Current Medications Acetaminophen (Tylenol) 650 mg PRN Q6HRS PRN PO PAIN / TEMP; Start 07/07/16 at 06:45; Status Cancel Acetaminophen (Tylenol) 650 mg PRN Q6HRS PRN PO PAIN / TEMP; Start 07/07/16 at 06:45 Multi-Ingredient Ointment (Analgesic Independence) 1 marilyn PRN QID PRN TP MUSCLE PAIN; Start 07/07/16 at 06:45 Al Hydroxide/Mg Hydroxide (Mylanta Plus Xs) 15 ml PRN AFTMEALHC PRN PO DYSPEPSIA; Start 07/07/16 at 06:45 Magnesium Hydroxide (Milk Of Magnesia) 2,400 mg PRN QHS PRN PO CONSTIPATION Last administered on 07/09/16 19:36; Start 07/07/16 at 06:45 Quetiapine Fumarate (SEROquel) 50 mg DAILY PO Last administered on 07/09/16 08: 19; Start 07/07/16 at 09:00 Quetiapine Fumarate (SEROquel) 100 mg QHS PO Last administered on 07/09/16 19: 33; Start 07/07/16 at 21:00 Ascorbic Acid (Vitamin C) 500 mg BID PO Last administered on 07/09/16 19:33; Start 07/07/16 at 09:00 Budesonide (Pulmicort) 0.5 mg BID NEB Last administered on 07/09/16 19:17; Start 07/07/16 at 09:00 Dabigatran (Pradaxa) 150 mg BID PO Last administered on 07/09/16 19:33; Start 07/07/16 at 09:00 Folic Acid (Folic Acid) 1 mg DAILY PO Last administered on 07/09/16 08:19; Start 07/07/16 at 09:00 Glimepiride (Amaryl) 2 mg BID PO Last administered on 07/08/16 07:19; Start 07/07/16 at 09:00; Stop 07/08/16 at 15:30; Status DC Ketoconazole (Nizoral 2% Shampoo) 1 marilyn 3X/WEEK TP ; Start 07/09/16 at 09:00 Methimazole (Tapazole) 5 mg TID PO Last administered on 07/08/16 07:18; Start 07/07/16 at 09:00; Stop 07/08/16 at 15:30; Status DC Nystatin (Mycostatin) 1 marilyn PRN Q8HRS PRN TP Yeast; Start 07/07/16 at 07:00 Sotalol HCl (Betapace) 80 mg BID PO Last administered on 07/09/16 08:26; Start 07/07/16 at 09:00 Thiamine HCl (Vitamin B-1) 100 mg DAILY PO Last administered on 07/09/16 08:20 ; Start 07/07/16 at 09:00 Tramadol HCl (Ultram) 50 mg BID PO Last administered on 07/09/16 01:19; Start 07/07/16 at 09:00 Tramadol HCl (Ultram) 50 mg PRN Q6HRS PRN PO PAIN Last administered on 19:33; Start 07/07/16 at 07:00 Zinc Sulfate (Orazinc) 220 mg DAILY PO Last administered on 07/09/16 08:18; Start 07/07/16 at 09:00 Doxazosin Mesylate (Cardura) 2 mg DAILY PO Last administered on 07/09/16 08:26 ; Start 07/07/16 at 09:00 Albuterol Sulfate (Ventolin) 2.5 mg Q6HRS NEB Last administered on 07/09/16 19: 17; Start 07/07/16 at 12:00 Multivitamins/ Calcium (Thera-M Plus) 1 tab DAILY PO Last administered on 08:20; Start 07/07/16 at 09:00 Olanzapine (Zyprexa Zydis) 2.5 mg PRN Q2HR PRN PO PSYCHOSIS Last administered on 07/07/16 12:45; Start 07/07/16 at 07:30 Albuterol Sulfate (Ventolin) 2.5 mg STK-MED ONCE .ROUTE Last administered on 10:17; Start 07/07/16 at 09:54; Stop 07/07/16 at 09:55; Status DC Rivastigmine (Exelon) 1 patch DAILY TD Last administered on 07/09/16 08:22; Start 07/08/16 at 09:00; Stop 07/13/16 at 08:59 Rivastigmine (Exelon) 1 patch DAILY TD ; Start 07/13/16 at 09:00 Memantine (Namenda) 5 mg DAILY PO Last administered on 07/09/16 08:19; Start at 09:00; Stop 07/11/16 at 08:59 Memantine (Namenda) 5 mg BID PO ; Start 07/11/16 at 09:00 Ferrous Sulfate (Feosol) 325 mg BID PO ; Start 07/08/16 at 10:00; Status Cancel Ferrous Sulfate (Feosol) 325 mg BID PO Last administered on 07/09/16 19:33; Start 07/08/16 at 21:00 Glimepiride (Amaryl) 4 mg DAILY PO Last administered on 07/09/16 08:27; Start 07/09/16 at 09:00 Methimazole (Tapazole) 10 mg TID PO Last administered on 07/09/16 19:34; Start 07/08/16 at 21:00 Glimepiride (Amaryl) 2 mg QHS PO Last administered on 07/09/16 19:33; Start 07/08/16 at 21:00 Carbidopa/Levodopa (Sinemet 25/100) 1 tab TID PO Last administered on 07/09/16 19:33; Start 07/08/16 at 21:00 Active Scripts Active Reported [Proheal] 30 Ml PO BID 30 Days Zinc Sulfate 220 Mg Capsule 220 Mg PO DAILY 30 Days Vitamin C (Ascorbic Acid) 500 Mg Tablet 500 Mg PO BID 30 Days Tramadol Hcl (Tramadol HCl) 50 Mg Tablet 50 Mg PO BID Tramadol Hcl (Tramadol HCl) 50 Mg Tablet 50 Mg PO PRN Q6HRS PRN Thiamine Hcl 100 Mg Tablet 100 Mg PO DAILY Sotalol (Sotalol Hcl) 80 Mg Tablet 80 Mg PO BID Seroquel (Quetiapine Fumarate) 100 Mg Tablet 100 Mg PO QHS Seroquel (Quetiapine Fumarate) 50 Mg Tablet 50 Mg PO DAILY Pradaxa (Dabigatran Etexilate Mesylate) 150 Mg Capsule 150 Mg PO BID Nystatin 15 Gm Cream..g. 1 Marilyn TP PRN Q8HRS PRN Multi-Day Plus Minerals Tablet (Multivitamin-Min/Iron/FA/Vit K) 1 Each Tablet 1 Tab PO DAILY 30 Days Milk Of Magnesia (Magnesium Hydroxide) 400 Mg/5 Ml Oral.susp 2,400 Mg PO PRN DAILY PRN Methimazole 5 Mg Tablet 5 Mg PO TID Ketoconazole 120 Ml Shampoo 1 Marilyn TP TWICE WEEKLY Glimepiride 2 Mg Tablet 2 Mg PO BID Perforomist (Formoterol Fumarate) 20 Mcg/2 Ml Vial.neb 20 Mcg NEB BID Folic Acid 1 Mg Tablet 1 Mg PO DAILY Doxazosin Mesylate 2 Mg Tablet 2 Mg PO DAILY Budesonide 0.5 Mg/2 Ml Ampul.neb 0.5 Mg NEB BID Diagnosis: Problems: (1) Dementia with behavioral disturbance MARY MAGALLANES MD Jul 09, 2016 21:03
--- NOTE | 2016-07-09 22:17 | PN ---
DATE: 07/08/2016 PSYCHIATRIC PROGRESS NOTE This is a late entry for 07/08/2016 covers elements not covered in my initial note. SUBJECTIVE: Per nursing report, the patient has been very stiff. Dr. Mendoza did a Neurology consult, started on Sinemet. Appetite is poor. Thyroid status is being stabilized per Dr. Antonio/Dr. Sampson. REVIEW OF SYSTEMS: He is in a Broda chair, not very interactive. No CV, , pulmonary, eye, ENT system symptoms on review. MENTAL STATUS EXAM: Oriented to himself. Insight, judgment, recent and remote memory, attention, concentration, fund of knowledge poor, consistent with his diagnosis mentioned in my initial note. Major neurocognitive disorder, Lewy body type with delusion, depression, behavioral disturbance; anxiety disorder, unspecified. PLAN: From a psychiatric standpoint, continue Seroquel along with Zyprexa p.r.n., Exelon patch, increasing to 9.5 mg a day, Namenda, increasing to 5 mg twice a day. Adjust further as clinically indicated. MAN Heaven MAGALLANES MD DR: MARIBEL/harshad JOB#: [id number] / [id number]
[2016-07-10 02:09] LABS: VITAMIN D25(OH)TOTAL 28.9 ng/mL (30.0-100.0)
--- NOTE | 2016-07-10 05:00 | CONS ---
DATE OF CONSULTATION: 07/08/2016 REFERRING PHYSICIAN: Dr. Lima/Dr. Sampson. REASON FOR CONSULTATION: Dementia of Lewy body dementia and severe stiffness. HISTORY OF PRESENT ILLNESS: This is an 81-year-old right-handed white male who was [facility] because of increasing symptoms of agitation, depressions and behavior disturbances. The patient has had a longstanding history of Lewy body dementia associated with tremors of the upper extremity and severe generalized stiffness of the upper and lower extremities, which provides him from being active or walking. The patient is unable to provide any informations. His behavior disturbance is described as hallucinations, agitations, aggressive, combative with staff, hitting and kicking. He failed current psychiatric care. PAST MEDICAL HISTORY: Significant for Lewy body dementia, hypertension, diabetes mellitus type 2, COPD, history of atrial fibrillation, status post pacemaker placement, obstructive sleep apnea, dysphagia, hyperthyroidism. PAST SURGICAL HISTORY: Status post pacemaker placement. FAMILY HISTORY: Noncontributory. SOCIAL HISTORY: The patient is a resident at [facility]. There is no history of smoking, alcohol drinking, or illicit drug use. CURRENT HOME MEDICATIONS: Exelon patch 1 patch daily, Namenda 5 mg b.i.d., Amaryl 4 mg daily, glimepiride 2 mg at bedtime, tapazole 10 mg t.i.d., ferrous sulfate 325 mg b.i.d., Namenda 5 mg daily, Seroquel 100 mg at bedtime, albuterol inhalers, multivitamins, Cardura 2 mg daily, tramadol 50 mg b.i.d. for pain, vitamin B1, sotalol 80 mg b.i.d., folic acid 1 mg b.i.d., Pulmicort 0.5 mg b.i.d., vitamin C, olanzapine 2.5 mg q. 2 hours p.r.n. for agitation and psychosis, magnesium, and Tylenol p.r.n. ALLERGIES: No known drug allergies. REVIEW OF SYSTEMS: A 10-point review of system was performed and consistent with generalized stiffness and resting tremors of both upper extremities and difficulty to walk along with confusion and disorientation due to underlying dementia. PHYSICAL EXAMINATION: GENERAL: Well-developed, well-nourished white male, not in acute distress. He weighs 185.6 pounds. VITAL SIGNS: Blood pressure is ____, respiratory rate is 17, pulse is 62 and regular, temperature 97.7, oxygen saturation is 97% on room air. HEENT: Normocephalic, atraumatic, otherwise unremarkable. NECK: Supple. Neck is supple, is rigid. Negative for carotid bruit, lymphadenopathy, JVD or thyromegaly. LUNGS: With diminished breath sounds throughout. No wheezing. CARDIOVASCULAR: Regular rate and rhythm, normal S1, S2. ABDOMEN: Soft. Bowel sounds positive. EXTREMITIES: Negative for cyanosis, clubbing or pitting edema. NEUROLOGICAL EXAM: Mental Status: The patient is awake, but disoriented to time, place, and person. The speech is fluent. It is difficult to evaluate his language. The patient does not follow any commands. Memory, judgment, and abstract thinking are markedly impaired. CRANIAL NERVES: The pupils are reactive to light and accommodation. Extraocular movements are intact. There is no nystagmus. There is no facial motor or sensory deficit. Hearing appears to be intact. The palate is elevated symmetrically. Sternocleidomastoid muscles are powerful bilaterally. The patient shrugs his shoulder spontaneously. He does not follow commands and protrudes his tongue. Motor Examination: No focal muscle bulk was seen. The tone is increased in upper and lower extremities with resistance. The patient has a resting tremor of both upper extremities. The strength is 5/5 throughout. Sensory examination revealed normal pinprick and light touch senses throughout. Deep tendon reflexes were symmetric and hypoactive with absent Achilles responses. Gait not tested. LABORATORY DATA: CBC revealed white blood cells of 7.1 thousand, hemoglobin 12.1, hematocrit 38, and platelet count 207,000. Chemistry reveals sodium of 143, potassium 3.9, chloride 108, CO2 24, BUN 20, creatinine 1.4, glucose 168. Hemoglobin A1c is high at 6.3, calcium 9.1, magnesium 1.8. Iron is low at 36. Iron saturation is 12. Liver enzymes are low. Cardiac enzymes normal. Lipid profile revealed slightly elevated LDL and very low HDL. Urinalysis revealed no evidence of urinary tract infections. DIAGNOSTIC DATA: Initial non-enhanced head CT scan revealed no acute intracranial findings. IMPRESSION: 1. Longstanding history of Lewy body presented with dementia, increased rigidity and resting tremor. The patient is not on anti-Parkinson's medications. 2. Multiple medical problems includes hyperthyroidism, anemia, history of atrial fibrillations, chronic obstructive pulmonary disease, congestive heart failure, obstructive sleep apnea, hypertension and diabetes mellitus type 2. 3. Multiple psychiatric problems include dementia, high anxiety, behavior disturbances with intermittent psychosis. RECOMMENDATIONS: 1. We will start the patient on carbidopa/levodopa 25/100 t.i.d. 2. We will schedule the patient for dysphagia test. 3. Continue with current management initiated by Dr. Lima and Dr. Sampson. M Tonny JALLOH MD DR: ADRIANA/harshad JOB#: [id number] / [id number] AURELIA
--- NOTE | 2016-07-10 05:07 | PN ---
DATE: 07/09/2016 SUBJECTIVE: The patient is unable to provide any informations. He has difficulty to communicate and he does not complain. However, it was reported by the nursing staff that he refuse food. The patient has a history of dysphagia and he has been scheduled for dysphagia test tomorrow. OBJECTIVE: GENERAL: Well-developed, well-nourished white male, not in acute distress. He is restless and somewhat agitated, however, the speech is fluent, but confused and disoriented. He does not follow commands. He is very irritable. VITAL SIGNS: Blood pressure 142/68, respiratory rate 18, pulse 62, temperature is 97.9, oxygen saturation 95% on room air. HEENT: Normocephalic, atraumatic; otherwise, unremarkable. NECK: Slightly supple. Negative for carotid bruit, lymphadenopathy or thyromegaly. LUNGS: Clear to A and P. CARDIOVASCULAR: Regular rate and rhythm, normal S1 and S2. ABDOMEN: Soft, bowel sounds positive. EXTREMITIES: Negative for cyanosis, clubbing or pitting edema. NEUROLOGICAL EXAM: Mental Status: The patient is alert, but disoriented. The speech is fluent, but non-coherent. He does not follow any commands. Otherwise, mental status unchanged from yesterday. Cranial nerves appears to be intact. Motor examination: The patient has a resting tremor of both upper extremities. The tone is still rigid with some improvement from yesterday. The strength is 4/5 throughout. Sensory examination revealed normal pinprick and light touch senses. Deep tendon reflexes were hypoactive with absent Achilles responses. Gait not tested. IMPRESSION: 1. Lewy body dementia with resting tremor and increased rigidity. 2. Multiple medical and psychiatric care as outlined above. RECOMMENDATIONS: 1. We will continue with carbidopa/levodopa at 25/100 t.i.d. 2. Continue with current psychiatric and medical care and management. 3. Await for dysphagia test tomorrow. M Tonny JALLOH MD DR: ADRIANA/harshad JOB#: [id number] / [id number]
[2016-07-10 05:44] VITALS: BP 123/62
[2016-07-10] MEDS: ALBUTEROL SULFATE 2.5 MG/3 ML NEBU. NEB SCH ×5 (06:09→21:54)
[2016-07-10] MEDS: FERROUS SULFATE 325 MG TABLET PO SCH ×2 (09:49→20:09)
[2016-07-10] MEDS: MULTIVITAMIN with MINERAL TABLET. PO SCH (09:49)
[2016-07-10] MEDS: ZINC SULFATE 220 MG CAPSULE. PO SCH (09:49)
[2016-07-10] MEDS: CARBIDOPA/LEVODOPA 25/100MG TABLET PO SCH ×3 (09:49→20:09)
[2016-07-10] MEDS: MEMANTINE 5 MG TABLET. PO SCH (09:49)
[2016-07-10] MEDS: ASCORBIC ACID 500 MG TABLET PO SCH ×2 (09:50→20:09)
[2016-07-10] MEDS: GLIMEPIRIDE 2 MG TABLET PO SCH ×2 (09:50→20:09)
[2016-07-10] MEDS: QUEtiapine 50 MG TABLET. PO SCH (09:50)
[2016-07-10] MEDS: DABIGATRAN ETEXILATE 150 MG CAPSULE. PO SCH ×2 (09:50→20:08)
[2016-07-10] MEDS: THIAMINE 100 MG TABLET. PO SCH (09:50)
[2016-07-10] MEDS: FOLIC ACID 1 MG TABLET PO SCH (09:50)
[2016-07-10] MEDS: RIVASTIGMINE 4.6MG PATCH. TD SCH (09:51)
[2016-07-10] MEDS: TRAMADOL 50 MG TABLET. PO SCH ×2 (09:58→20:13)
[2016-07-10] MEDS: DOXAZOSIN MESYLATE 1 MG TABLET PO SCH (09:58)
[2016-07-10] MEDS: METHIMAZOLE 5 MG TABLET PO SCH ×3 (09:58→20:12)
[2016-07-10] MEDS: SOTALOL 80 MG TABLET. PO SCH ×2 (09:59→20:12)
[2016-07-10] MEDS: BUDESONIDE 0.5 MG/2 ML NEBU NEB SCH ×2 (11:01→21:00)
[2016-07-10 16:14] VITALS: BP 120/72
[2016-07-10] MEDS: QUEtiapine 100 MG TABLET. PO SCH (20:09)
--- NOTE | 2016-07-10 21:02 | PDOC ---
Exam Lobito Demential Exam: Lobito Note: Please also refer to the separate dictated note~for this date of service dictated separately.~Patient seen individually. Discussed the patient with Nursing staff reviewed the chart.~Reviewed interim history and current functioning. Reviewed vital signs,~Labs/ Radiology~and current medications noted below. Continue current treatment with the changes noted in the dictated addendum note Assessment: Vital Signs: Vital Signs Date Time Temp Pulse Resp B/P Pulse Ox O2 Delivery O2 Flow Rate FiO2 07/10/16 20:13 18 Room Air 07/10/16 20:12 70 120/72 07/10/16 16:14 97.8 96 07/07/16 06:34 2 I&O Intake and Output 07/10/16 07:00 Intake Total 410 ml Balance 410 ml Intake Oral 410 ml # Voids 3 Labs: Laboratory Tests Test 07/10/16 07:10 07/10/16 11:15 07/10/16 16:17 07/10/16 19:07 Glucose (Fingerstick) 162mg/dL (70-99) H 372mg/dL (70-99) H 257mg/dL (70-99) H 196mg/dL (70-99) H Current Medications: Meds: Current Medications Acetaminophen (Tylenol) 650 mg PRN Q6HRS PRN PO PAIN / TEMP; Start 07/07/16 at 06:45; Status Cancel Acetaminophen (Tylenol) 650 mg PRN Q6HRS PRN PO PAIN / TEMP; Start 07/07/16 at 06:45 Multi-Ingredient Ointment (Analgesic [place]) 1 marilyn PRN QID PRN TP MUSCLE PAIN; Start 07/07/16 at 06:45 Al Hydroxide/Mg Hydroxide (Mylanta Plus Xs) 15 ml PRN AFTMEALHC PRN PO DYSPEPSIA; Start 07/07/16 at 06:45 Magnesium Hydroxide (Milk Of Magnesia) 2,400 mg PRN QHS PRN PO CONSTIPATION Last administered on 07/09/16 19:36; Start 07/07/16 at 06:45 Quetiapine Fumarate (SEROquel) 50 mg DAILY PO Last administered on 07/10/16 09: 50; Start 07/07/16 at 09:00 Quetiapine Fumarate (SEROquel) 100 mg QHS PO Last administered on 07/10/16 20: 09; Start 07/07/16 at 21:00 Ascorbic Acid (Vitamin C) 500 mg BID PO Last administered on 07/10/16 20:09; Start 07/07/16 at 09:00 Budesonide (Pulmicort) 0.5 mg BID NEB Last administered on 07/10/16 11:01; Start 07/07/16 at 09:00 Dabigatran (Pradaxa) 150 mg BID PO Last administered on 07/10/16 20:08; Start 07/07/16 at 09:00 Folic Acid (Folic Acid) 1 mg DAILY PO Last administered on 07/10/16 09:50; Start 07/07/16 at 09:00 Glimepiride (Amaryl) 2 mg BID PO Last administered on 07/08/16 07:19; Start 07/07/16 at 09:00; Stop 07/08/16 at 15:30; Status DC Ketoconazole (Nizoral 2% Shampoo) 1 marilyn 3X/WEEK TP ; Start 07/09/16 at 09:00 Methimazole (Tapazole) 5 mg TID PO Last administered on 07/08/16 07:18; Start 07/07/16 at 09:00; Stop 07/08/16 at 15:30; Status DC Nystatin (Mycostatin) 1 marilyn PRN Q8HRS PRN TP Yeast; Start 07/07/16 at 07:00 Sotalol HCl (Betapace) 80 mg BID PO Last administered on 07/10/16 20:12; Start 07/07/16 at 09:00 Thiamine HCl (Vitamin B-1) 100 mg DAILY PO Last administered on 07/10/16 09:50 ; Start 07/07/16 at 09:00 Tramadol HCl (Ultram) 50 mg BID PO Last administered on 07/10/16 20:13; Start 07/07/16 at 09:00 Tramadol HCl (Ultram) 50 mg PRN Q6HRS PRN PO PAIN Last administered on 19:33; Start 07/07/16 at 07:00 Zinc Sulfate (Orazinc) 220 mg DAILY PO Last administered on 07/10/16 09:49; Start 07/07/16 at 09:00 Doxazosin Mesylate (Cardura) 2 mg DAILY PO Last administered on 07/10/16 09:58 ; Start 07/07/16 at 09:00 Albuterol Sulfate (Ventolin) 2.5 mg Q6HRS NEB Last administered on 07/10/16 16: 04; Start 07/07/16 at 12:00 Multivitamins/ Calcium (Thera-M Plus) 1 tab DAILY PO Last administered on 09:49; Start 07/07/16 at 09:00 Olanzapine (Zyprexa Zydis) 2.5 mg PRN Q2HR PRN PO PSYCHOSIS Last administered on 07/07/16 12:45; Start 07/07/16 at 07:30 Albuterol Sulfate (Ventolin) 2.5 mg STK-MED ONCE .ROUTE Last administered on 10:17; Start 07/07/16 at 09:54; Stop 07/07/16 at 09:55; Status DC Rivastigmine (Exelon) 1 patch DAILY TD Last administered on 07/10/16 09:51; Start 07/08/16 at 09:00; Stop 07/13/16 at 08:59 Rivastigmine (Exelon) 1 patch DAILY TD ; Start 07/13/16 at 09:00 Memantine (Namenda) 5 mg DAILY PO Last administered on 07/10/16 09:49; Start at 09:00; Stop 07/11/16 at 08:59 Memantine (Namenda) 5 mg BID PO ; Start 07/11/16 at 09:00 Ferrous Sulfate (Feosol) 325 mg BID PO ; Start 07/08/16 at 10:00; Status Cancel Ferrous Sulfate (Feosol) 325 mg BID PO Last administered on 07/10/16 20:09; Start 07/08/16 at 21:00 Glimepiride (Amaryl) 4 mg DAILY PO Last administered on 07/10/16 09:50; Start 07/09/16 at 09:00 Methimazole (Tapazole) 10 mg TID PO Last administered on 07/10/16 20:12; Start 07/08/16 at 21:00 Glimepiride (Amaryl) 2 mg QHS PO Last administered on 07/10/16 20:09; Start 07/08/16 at 21:00 Carbidopa/Levodopa (Sinemet 25/100) 1 tab TID PO Last administered on 07/10/16 20:09; Start 07/08/16 at 21:00 Active Scripts Active Reported [Proheal] 30 Ml PO BID 30 Days Zinc Sulfate 220 Mg Capsule 220 Mg PO DAILY 30 Days Vitamin C (Ascorbic Acid) 500 Mg Tablet 500 Mg PO BID 30 Days Tramadol Hcl (Tramadol HCl) 50 Mg Tablet 50 Mg PO BID Tramadol Hcl (Tramadol HCl) 50 Mg Tablet 50 Mg PO PRN Q6HRS PRN Thiamine Hcl 100 Mg Tablet 100 Mg PO DAILY Sotalol (Sotalol Hcl) 80 Mg Tablet 80 Mg PO BID Seroquel (Quetiapine Fumarate) 100 Mg Tablet 100 Mg PO QHS Seroquel (Quetiapine Fumarate) 50 Mg Tablet 50 Mg PO DAILY Pradaxa (Dabigatran Etexilate Mesylate) 150 Mg Capsule 150 Mg PO BID Nystatin 15 Gm Cream..g. 1 Marilyn TP PRN Q8HRS PRN Multi-Day Plus Minerals Tablet (Multivitamin-Min/Iron/FA/Vit K) 1 Each Tablet 1 Tab PO DAILY 30 Days Milk Of Magnesia (Magnesium Hydroxide) 400 Mg/5 Ml Oral.susp 2,400 Mg PO PRN DAILY PRN Methimazole 5 Mg Tablet 5 Mg PO TID Ketoconazole 120 Ml Shampoo 1 Marilyn TP TWICE WEEKLY Glimepiride 2 Mg Tablet 2 Mg PO BID Perforomist (Formoterol Fumarate) 20 Mcg/2 Ml Vial.neb 20 Mcg NEB BID Folic Acid 1 Mg Tablet 1 Mg PO DAILY Doxazosin Mesylate 2 Mg Tablet 2 Mg PO DAILY Budesonide 0.5 Mg/2 Ml Ampul.neb 0.5 Mg NEB BID Diagnosis: Problems: (1) Dementia with behavioral disturbance MARY MAGALLANES MD Jul 10, 2016 21:02
--- NOTE | 2016-07-11 03:15 | PN ---
DATE: 07/09/2016 PSYCHIATRIC PROGRESS NOTE This is a late entry for 07/09/2016 covers elements not covered in my initial note. SUBJECTIVE: The patient has been more alert. He remains on Sinemet per Dr. Mendoza for his Parkinson's, but he has been stiff, but this is even better. He is feeding himself. REVIEW OF SYSTEMS: Ambulation impaired in a Broda chair. No CV, , pulmonary, eye, ENT system symptoms on review. Reliability poor. MENTAL STATUS EXAM: Oriented to himself. Insight, judgment, recent and remote memory, attention, concentration, fund of knowledge poor, consistent with his diagnosis mentioned in my initial note. PLAN: Continue current psychotropics including Seroquel, Exelon patch has been increased as has been Namenda. Adjust further as clinically indicated. MAN Heaven MAGALLANES MD DR: MARIBEL/harshad JOB#: [id number] / [id number]
[2016-07-11] MEDS: ALBUTEROL SULFATE 2.5 MG/3 ML NEBU. NEB SCH ×3 (05:30→15:45)
[2016-07-11] MEDS: BUDESONIDE 0.5 MG/2 ML NEBU NEB SCH (05:30)
[2016-07-11 05:47] VITALS: BP 138/86
[2016-07-11] MEDS: KETOCONAZOLE 2% SHAMPOO 120ML BOTTLE. TP SCH (09:00)
[2016-07-11] MEDS: DABIGATRAN ETEXILATE 150 MG CAPSULE. PO SCH ×2 (09:44→19:49)
[2016-07-11] MEDS: METHIMAZOLE 5 MG TABLET PO SCH ×3 (09:45→19:52)
[2016-07-11] MEDS: SOTALOL 80 MG TABLET. PO SCH ×2 (09:45→19:53)
[2016-07-11] MEDS: MULTIVITAMIN with MINERAL TABLET. PO SCH (09:45)
[2016-07-11] MEDS: FOLIC ACID 1 MG TABLET PO SCH (09:45)
[2016-07-11] MEDS: THIAMINE 100 MG TABLET. PO SCH (09:45)
[2016-07-11] MEDS: MEMANTINE 5 MG TABLET. PO SCH ×2 (09:46→19:50)
[2016-07-11] MEDS: FERROUS SULFATE 325 MG TABLET PO SCH ×2 (09:46→19:50)
[2016-07-11] MEDS: ZINC SULFATE 220 MG CAPSULE. PO SCH (09:46)
[2016-07-11] MEDS: CARBIDOPA/LEVODOPA 25/100MG TABLET PO SCH ×3 (09:46→19:50)
[2016-07-11] MEDS: ASCORBIC ACID 500 MG TABLET PO SCH ×2 (09:47→19:50)
[2016-07-11] MEDS: QUEtiapine 50 MG TABLET. PO SCH (09:47)
[2016-07-11] MEDS: GLIMEPIRIDE 2 MG TABLET PO SCH ×2 (09:47→19:50)
[2016-07-11] MEDS: RIVASTIGMINE 4.6MG PATCH. TD SCH (09:48)
[2016-07-11] MEDS: TRAMADOL 50 MG TABLET. PO SCH ×2 (09:50→19:52)
[2016-07-11] MEDS: DOXAZOSIN MESYLATE 1 MG TABLET PO SCH (09:51)
[2016-07-11 16:19] VITALS: BP 152/79
[2016-07-11] MEDS: QUEtiapine 100 MG TABLET. PO SCH (19:51)
--- NOTE | 2016-07-11 21:07 | PDOC ---
Exam Lobito Demential Exam: Lobito Note: Please also refer to the separate dictated note~for this date of service dictated separately.~Patient seen individually. Discussed the patient with Nursing staff reviewed the chart.~Reviewed interim history and current functioning. Reviewed vital signs,~Labs/ Radiology~and current medications noted below. Continue current treatment with the changes noted in the dictated addendum note Assessment: Vital Signs: Vital Signs Date Time Temp Pulse Resp B/P Pulse Ox O2 Delivery O2 Flow Rate FiO2 07/11/16 19:53 75 152/79 07/11/16 19:52 18 96 Room Air 07/11/16 16:19 97.5 07/07/16 06:34 2 I&O Intake and Output 07/11/16 07:00 Intake Total 840 ml Balance 840 ml Intake Oral 840 ml # Voids 2 Labs: Laboratory Tests Test 07/11/16 07:17 07/11/16 11:33 07/11/16 16:44 07/11/16 19:29 Glucose (Fingerstick) 137mg/dL (70-99) H 214mg/dL (70-99) H 294mg/dL (70-99) H 220mg/dL (70-99) H Current Medications: Meds: Current Medications Acetaminophen (Tylenol) 650 mg PRN Q6HRS PRN PO PAIN / TEMP; Start 07/07/16 at 06:45; Status Cancel Acetaminophen (Tylenol) 650 mg PRN Q6HRS PRN PO PAIN / TEMP; Start 07/07/16 at 06:45 Multi-Ingredient Ointment (Analgesic [place]) 1 marilyn PRN QID PRN TP MUSCLE PAIN; Start 07/07/16 at 06:45 Al Hydroxide/Mg Hydroxide (Mylanta Plus Xs) 15 ml PRN AFTMEALHC PRN PO DYSPEPSIA; Start 07/07/16 at 06:45 Magnesium Hydroxide (Milk Of Magnesia) 2,400 mg PRN QHS PRN PO CONSTIPATION Last administered on 07/09/16 19:36; Start 07/07/16 at 06:45 Quetiapine Fumarate (SEROquel) 50 mg DAILY PO Last administered on 07/11/16 09: 47; Start 07/07/16 at 09:00 Quetiapine Fumarate (SEROquel) 100 mg QHS PO Last administered on 07/11/16 19: 51; Start 07/07/16 at 21:00 Ascorbic Acid (Vitamin C) 500 mg BID PO Last administered on 07/11/16 19:50; Start 07/07/16 at 09:00 Budesonide (Pulmicort) 0.5 mg BID NEB Last administered on 07/11/16 05:30; Start 07/07/16 at 09:00 Dabigatran (Pradaxa) 150 mg BID PO Last administered on 07/11/16 19:49; Start 07/07/16 at 09:00 Folic Acid (Folic Acid) 1 mg DAILY PO Last administered on 07/11/16 09:45; Start 07/07/16 at 09:00 Glimepiride (Amaryl) 2 mg BID PO Last administered on 07/08/16 07:19; Start 07/07/16 at 09:00; Stop 07/08/16 at 15:30; Status DC Ketoconazole (Nizoral 2% Shampoo) 1 marilyn 3X/WEEK TP ; Start 07/09/16 at 09:00 Methimazole (Tapazole) 5 mg TID PO Last administered on 07/08/16 07:18; Start 07/07/16 at 09:00; Stop 07/08/16 at 15:30; Status DC Nystatin (Mycostatin) 1 marilyn PRN Q8HRS PRN TP Yeast; Start 07/07/16 at 07:00 Sotalol HCl (Betapace) 80 mg BID PO Last administered on 07/11/16 19:53; Start 07/07/16 at 09:00 Thiamine HCl (Vitamin B-1) 100 mg DAILY PO Last administered on 07/11/16 09:45 ; Start 07/07/16 at 09:00 Tramadol HCl (Ultram) 50 mg BID PO Last administered on 07/11/16 19:52; Start 07/07/16 at 09:00 Tramadol HCl (Ultram) 50 mg PRN Q6HRS PRN PO PAIN Last administered on 19:33; Start 07/07/16 at 07:00 Zinc Sulfate (Orazinc) 220 mg DAILY PO Last administered on 07/11/16 09:46; Start 07/07/16 at 09:00 Doxazosin Mesylate (Cardura) 2 mg DAILY PO Last administered on 07/11/16 09:51 ; Start 07/07/16 at 09:00 Albuterol Sulfate (Ventolin) 2.5 mg Q6HRS NEB Last administered on 07/11/16 15: 45; Start 07/07/16 at 12:00 Multivitamins/ Calcium (Thera-M Plus) 1 tab DAILY PO Last administered on 09:45; Start 07/07/16 at 09:00 Olanzapine (Zyprexa Zydis) 2.5 mg PRN Q2HR PRN PO PSYCHOSIS Last administered on 07/07/16 12:45; Start 07/07/16 at 07:30 Albuterol Sulfate (Ventolin) 2.5 mg STK-MED ONCE .ROUTE Last administered on 10:17; Start 07/07/16 at 09:54; Stop 07/07/16 at 09:55; Status DC Rivastigmine (Exelon) 1 patch DAILY TD Last administered on 07/11/16 09:48; Start 07/08/16 at 09:00; Stop 07/13/16 at 08:59 Rivastigmine (Exelon) 1 patch DAILY TD ; Start 07/13/16 at 09:00 Memantine (Namenda) 5 mg DAILY PO Last administered on 07/10/16 09:49; Start at 09:00; Stop 07/11/16 at 08:59; Status DC Memantine (Namenda) 5 mg BID PO Last administered on 07/11/16 19:50; Start 07/11 at 09:00 Ferrous Sulfate (Feosol) 325 mg BID PO ; Start 07/08/16 at 10:00; Status Cancel Ferrous Sulfate (Feosol) 325 mg BID PO Last administered on 07/11/16 19:50; Start 07/08/16 at 21:00 Glimepiride (Amaryl) 4 mg DAILY PO Last administered on 07/11/16 09:47; Start 07/09/16 at 09:00 Methimazole (Tapazole) 10 mg TID PO Last administered on 07/11/16 19:52; Start 07/08/16 at 21:00 Glimepiride (Amaryl) 2 mg QHS PO Last administered on 07/11/16 19:50; Start 07/08/16 at 21:00 Carbidopa/Levodopa (Sinemet 25/100) 1 tab TID PO Last administered on 07/11/16 19:50; Start 07/08/16 at 21:00 Sertraline HCl (Zoloft) 25 mg DAILY PO ; Start 07/12/16 at 09:00 Active Scripts Active Reported [Proheal] 30 Ml PO BID 30 Days Zinc Sulfate 220 Mg Capsule 220 Mg PO DAILY 30 Days Vitamin C (Ascorbic Acid) 500 Mg Tablet 500 Mg PO BID 30 Days Tramadol Hcl (Tramadol HCl) 50 Mg Tablet 50 Mg PO BID Tramadol Hcl (Tramadol HCl) 50 Mg Tablet 50 Mg PO PRN Q6HRS PRN Thiamine Hcl 100 Mg Tablet 100 Mg PO DAILY Sotalol (Sotalol Hcl) 80 Mg Tablet 80 Mg PO BID Seroquel (Quetiapine Fumarate) 100 Mg Tablet 100 Mg PO QHS Seroquel (Quetiapine Fumarate) 50 Mg Tablet 50 Mg PO DAILY Pradaxa (Dabigatran Etexilate Mesylate) 150 Mg Capsule 150 Mg PO BID Nystatin 15 Gm Cream..g. 1 Marilyn TP PRN Q8HRS PRN Multi-Day Plus Minerals Tablet (Multivitamin-Min/Iron/FA/Vit K) 1 Each Tablet 1 Tab PO DAILY 30 Days Milk Of Magnesia (Magnesium Hydroxide) 400 Mg/5 Ml Oral.susp 2,400 Mg PO PRN DAILY PRN Methimazole 5 Mg Tablet 5 Mg PO TID Ketoconazole 120 Ml Shampoo 1 Marilyn TP TWICE WEEKLY Glimepiride 2 Mg Tablet 2 Mg PO BID Perforomist (Formoterol Fumarate) 20 Mcg/2 Ml Vial.neb 20 Mcg NEB BID Folic Acid 1 Mg Tablet 1 Mg PO DAILY Doxazosin Mesylate 2 Mg Tablet 2 Mg PO DAILY Budesonide 0.5 Mg/2 Ml Ampul.neb 0.5 Mg NEB BID Diagnosis: Problems: (1) Dementia with behavioral disturbance MARY MAGALLANES MD Jul 11, 2016 21:07
--- NOTE | 2016-07-12 01:12 | PN ---
DATE: 07/10/2016 PSYCHIATRIC PROGRESS NOTE This is a late entry for 07/10/2016 and covers elements not covered in my initial note. SUBJECTIVE: Per nursing report, the patient remains confused, believes he is in [place], intermittently hallucinating, believes spiders are all over him. This is something he had experienced even before coming here, part of his Lewy body dementia. REVIEW OF SYSTEMS: Ambulation impaired, in a Broda chair. No CV, , eye, ENT or pulmonary system symptoms on review. Reliability poor. MENTAL STATUS EXAM: Oriented to himself. Insight, judgment, recent and remote memory, attention, concentration, fund of knowledge poor, consistent with his diagnosis mentioned in my initial note. PLAN: Continue Seroquel 50 mg in the morning, 100 at night, Zyprexa p.r.n., Exelon patch, increasing to 9.5 mg a day, Namenda increasing to 5 mg b.i.d. and we will start Zoloft 25 mg a day as well. Adjust further as clinically indicated. MAN Heaven MAGALLANES MD DR: MARIBEL/harshad JOB#: [id number] / [id number]
[2016-07-12 05:07] VITALS: BP 147/78
[2016-07-12] MEDS: BUDESONIDE 0.5 MG/2 ML NEBU NEB SCH ×3 (05:53→21:00)
[2016-07-12] MEDS: ALBUTEROL SULFATE 2.5 MG/3 ML NEBU. NEB SCH ×4 (05:55→23:08)
[2016-07-12] MEDS: MEMANTINE 5 MG TABLET. PO SCH ×2 (08:07→19:38)
[2016-07-12] MEDS: MULTIVITAMIN with MINERAL TABLET. PO SCH (08:07)
[2016-07-12] MEDS: FOLIC ACID 1 MG TABLET PO SCH (08:07)
[2016-07-12] MEDS: SOTALOL 80 MG TABLET. PO SCH ×2 (08:07→19:37)
[2016-07-12] MEDS: CARBIDOPA/LEVODOPA 25/100MG TABLET PO SCH ×3 (08:07→19:38)
[2016-07-12] MEDS: FERROUS SULFATE 325 MG TABLET PO SCH ×2 (08:07→19:38)
[2016-07-12] MEDS: METHIMAZOLE 5 MG TABLET PO SCH ×3 (08:07→19:40)
[2016-07-12] MEDS: DOXAZOSIN MESYLATE 1 MG TABLET PO SCH (08:08)
[2016-07-12] MEDS: TRAMADOL 50 MG TABLET. PO SCH ×2 (08:08→19:39)
[2016-07-12] MEDS: THIAMINE 100 MG TABLET. PO SCH (08:08)
[2016-07-12] MEDS: ZINC SULFATE 220 MG CAPSULE. PO SCH (08:08)
[2016-07-12] MEDS: ASCORBIC ACID 500 MG TABLET PO SCH ×2 (08:08→19:37)
[2016-07-12] MEDS: QUEtiapine 50 MG TABLET. PO SCH (08:08)
[2016-07-12] MEDS: DABIGATRAN ETEXILATE 150 MG CAPSULE. PO SCH ×2 (08:10→19:38)
[2016-07-12] MEDS: GLIMEPIRIDE 2 MG TABLET PO SCH ×2 (08:10→19:38)
[2016-07-12] MEDS: RIVASTIGMINE 4.6MG PATCH. TD SCH (08:11)
[2016-07-12] MEDS: SERTRALINE 25 MG TABLET. PO SCH (08:20)
[2016-07-12 15:44] VITALS: BP 126/73
[2016-07-12] MEDS: QUEtiapine 100 MG TABLET. PO SCH (19:37)
--- NOTE | 2016-07-12 21:19 | PDOC ---
Exam Lobito Demential Exam: Lobito Note: Please also refer to the separate dictated note~for this date of service dictated separately.~Patient seen individually. Discussed the patient with Nursing staff reviewed the chart.~Reviewed interim history and current functioning. Reviewed vital signs,~Labs/ Radiology~and current medications noted below. Continue current treatment with the changes noted in the dictated addendum note Assessment: Vital Signs: Vital Signs Date Time Temp Pulse Resp B/P Pulse Ox O2 Delivery O2 Flow Rate FiO2 07/12/16 19:39 97 Room Air 07/12/16 19:37 71 126/73 07/12/16 15:44 98.6 20 07/07/16 06:34 2 I&O Intake and Output 07/12/16 07:00 Intake Total 840 ml Balance 840 ml Intake Oral 840 ml Labs: Laboratory Tests Test 07/12/16 07:20 07/12/16 11:25 07/12/16 16:47 07/12/16 18:59 Glucose (Fingerstick) 126mg/dL (70-99) H 274mg/dL (70-99) H 224mg/dL (70-99) H 206mg/dL (70-99) H Current Medications: Meds: Current Medications Acetaminophen (Tylenol) 650 mg PRN Q6HRS PRN PO PAIN / TEMP; Start 07/07/16 at 06:45; Status Cancel Acetaminophen (Tylenol) 650 mg PRN Q6HRS PRN PO PAIN / TEMP; Start 07/07/16 at 06:45 Multi-Ingredient Ointment (Analgesic [place]) 1 marilyn PRN QID PRN TP MUSCLE PAIN; Start 07/07/16 at 06:45 Al Hydroxide/Mg Hydroxide (Mylanta Plus Xs) 15 ml PRN AFTMEALHC PRN PO DYSPEPSIA; Start 07/07/16 at 06:45 Magnesium Hydroxide (Milk Of Magnesia) 2,400 mg PRN QHS PRN PO CONSTIPATION Last administered on 07/09/16 19:36; Start 07/07/16 at 06:45 Quetiapine Fumarate (SEROquel) 50 mg DAILY PO Last administered on 07/12/16 08: 08; Start 07/07/16 at 09:00 Quetiapine Fumarate (SEROquel) 100 mg QHS PO Last administered on 07/12/16 19: 37; Start 07/07/16 at 21:00 Ascorbic Acid (Vitamin C) 500 mg BID PO Last administered on 07/12/16 19:37; Start 07/07/16 at 09:00 Budesonide (Pulmicort) 0.5 mg BID NEB Last administered on 07/12/16 05:56; Start 07/07/16 at 09:00 Dabigatran (Pradaxa) 150 mg BID PO Last administered on 07/12/16 19:38; Start 07/07/16 at 09:00 Folic Acid (Folic Acid) 1 mg DAILY PO Last administered on 07/12/16 08:07; Start 07/07/16 at 09:00 Glimepiride (Amaryl) 2 mg BID PO Last administered on 07/08/16 07:19; Start 07/07/16 at 09:00; Stop 07/08/16 at 15:30; Status DC Ketoconazole (Nizoral 2% Shampoo) 1 marilyn 3X/WEEK TP ; Start 07/09/16 at 09:00 Methimazole (Tapazole) 5 mg TID PO Last administered on 07/08/16 07:18; Start 07/07/16 at 09:00; Stop 07/08/16 at 15:30; Status DC Nystatin (Mycostatin) 1 marilyn PRN Q8HRS PRN TP Yeast; Start 07/07/16 at 07:00 Sotalol HCl (Betapace) 80 mg BID PO Last administered on 07/12/16 19:37; Start 07/07/16 at 09:00 Thiamine HCl (Vitamin B-1) 100 mg DAILY PO Last administered on 07/12/16 08:08 ; Start 07/07/16 at 09:00 Tramadol HCl (Ultram) 50 mg BID PO Last administered on 07/12/16 19:39; Start 07/07/16 at 09:00 Tramadol HCl (Ultram) 50 mg PRN Q6HRS PRN PO PAIN Last administered on 19:33; Start 07/07/16 at 07:00 Zinc Sulfate (Orazinc) 220 mg DAILY PO Last administered on 07/12/16 08:08; Start 07/07/16 at 09:00 Doxazosin Mesylate (Cardura) 2 mg DAILY PO Last administered on 07/12/16 08:08 ; Start 07/07/16 at 09:00 Albuterol Sulfate (Ventolin) 2.5 mg Q6HRS NEB Last administered on 07/12/16 15: 22; Start 07/07/16 at 12:00 Multivitamins/ Calcium (Thera-M Plus) 1 tab DAILY PO Last administered on 08:07; Start 07/07/16 at 09:00 Olanzapine (Zyprexa Zydis) 2.5 mg PRN Q2HR PRN PO PSYCHOSIS Last administered on 07/07/16 12:45; Start 07/07/16 at 07:30 Albuterol Sulfate (Ventolin) 2.5 mg STK-MED ONCE .ROUTE Last administered on 10:17; Start 07/07/16 at 09:54; Stop 07/07/16 at 09:55; Status DC Rivastigmine (Exelon) 1 patch DAILY TD Last administered on 07/12/16 08:11; Start 07/08/16 at 09:00; Stop 07/13/16 at 08:59 Rivastigmine (Exelon) 1 patch DAILY TD ; Start 07/13/16 at 09:00 Memantine (Namenda) 5 mg DAILY PO Last administered on 07/10/16 09:49; Start at 09:00; Stop 07/11/16 at 08:59; Status DC Memantine (Namenda) 5 mg BID PO Last administered on 07/12/16 19:38; Start 07/11 at 09:00 Ferrous Sulfate (Feosol) 325 mg BID PO ; Start 07/08/16 at 10:00; Status Cancel Ferrous Sulfate (Feosol) 325 mg BID PO Last administered on 07/12/16 19:38; Start 07/08/16 at 21:00 Glimepiride (Amaryl) 4 mg DAILY PO Last administered on 07/12/16 08:10; Start 07/09/16 at 09:00 Methimazole (Tapazole) 10 mg TID PO Last administered on 07/12/16 19:40; Start 07/08/16 at 21:00 Glimepiride (Amaryl) 2 mg QHS PO Last administered on 07/12/16 19:38; Start 07/08/16 at 21:00 Carbidopa/Levodopa (Sinemet 25/100) 1 tab TID PO Last administered on 07/12/16 19:38; Start 07/08/16 at 21:00 Sertraline HCl (Zoloft) 25 mg DAILY PO Last administered on 07/12/16 08:20; Start 07/12/16 at 09:00 Active Scripts Active Reported [Proheal] 30 Ml PO BID 30 Days Zinc Sulfate 220 Mg Capsule 220 Mg PO DAILY 30 Days Vitamin C (Ascorbic Acid) 500 Mg Tablet 500 Mg PO BID 30 Days Tramadol Hcl (Tramadol HCl) 50 Mg Tablet 50 Mg PO BID Tramadol Hcl (Tramadol HCl) 50 Mg Tablet 50 Mg PO PRN Q6HRS PRN Thiamine Hcl 100 Mg Tablet 100 Mg PO DAILY Sotalol (Sotalol Hcl) 80 Mg Tablet 80 Mg PO BID Seroquel (Quetiapine Fumarate) 100 Mg Tablet 100 Mg PO QHS Seroquel (Quetiapine Fumarate) 50 Mg Tablet 50 Mg PO DAILY Pradaxa (Dabigatran Etexilate Mesylate) 150 Mg Capsule 150 Mg PO BID Nystatin 15 Gm Cream..g. 1 Marilyn TP PRN Q8HRS PRN Multi-Day Plus Minerals Tablet (Multivitamin-Min/Iron/FA/Vit K) 1 Each Tablet 1 Tab PO DAILY 30 Days Milk Of Magnesia (Magnesium Hydroxide) 400 Mg/5 Ml Oral.susp 2,400 Mg PO PRN DAILY PRN Methimazole 5 Mg Tablet 5 Mg PO TID Ketoconazole 120 Ml Shampoo 1 Marilyn TP TWICE WEEKLY Glimepiride 2 Mg Tablet 2 Mg PO BID Perforomist (Formoterol Fumarate) 20 Mcg/2 Ml Vial.neb 20 Mcg NEB BID Folic Acid 1 Mg Tablet 1 Mg PO DAILY Doxazosin Mesylate 2 Mg Tablet 2 Mg PO DAILY Budesonide 0.5 Mg/2 Ml Ampul.neb 0.5 Mg NEB BID Diagnosis: Problems: (1) Dementia with behavioral disturbance (2) Anxiety disorder (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
[2016-07-13 05:42] VITALS: BP 134/55
[2016-07-13] MEDS: ALBUTEROL SULFATE 2.5 MG/3 ML NEBU. NEB SCH ×4 (06:00→21:00)
[2016-07-13] MEDS: CARBIDOPA/LEVODOPA 25/100MG TABLET PO SCH ×3 (07:56→19:36)
[2016-07-13] MEDS: MULTIVITAMIN with MINERAL TABLET. PO SCH (07:56)
[2016-07-13] MEDS: FOLIC ACID 1 MG TABLET PO SCH (07:56)
[2016-07-13] MEDS: MEMANTINE 5 MG TABLET. PO SCH ×2 (07:57→19:35)
[2016-07-13] MEDS: ZINC SULFATE 220 MG CAPSULE. PO SCH (07:57)
[2016-07-13] MEDS: DABIGATRAN ETEXILATE 150 MG CAPSULE. PO SCH ×2 (07:57→19:36)
[2016-07-13] MEDS: FERROUS SULFATE 325 MG TABLET PO SCH ×2 (07:57→19:35)
[2016-07-13] MEDS: SERTRALINE 25 MG TABLET. PO SCH (07:57)
[2016-07-13] MEDS: QUEtiapine 50 MG TABLET. PO SCH (07:57)
[2016-07-13] MEDS: GLIMEPIRIDE 2 MG TABLET PO SCH ×2 (07:57→19:35)
[2016-07-13] MEDS: ASCORBIC ACID 500 MG TABLET PO SCH ×2 (07:57→19:35)
[2016-07-13] MEDS: THIAMINE 100 MG TABLET. PO SCH (07:57)
[2016-07-13] MEDS: RIVASTIGMINE 9.5MG PATCH. TD SCH (08:01)
[2016-07-13] MEDS: TRAMADOL 50 MG TABLET. PO SCH ×2 (08:01→19:36)
[2016-07-13] MEDS: METHIMAZOLE 5 MG TABLET PO SCH ×3 (08:02→19:36)
[2016-07-13] MEDS: SOTALOL 80 MG TABLET. PO SCH ×2 (08:02→19:37)
[2016-07-13] MEDS: DOXAZOSIN MESYLATE 1 MG TABLET PO SCH (08:02)
[2016-07-13] MEDS: KETOCONAZOLE 2% SHAMPOO 120ML BOTTLE. TP SCH (08:03)
[2016-07-13] MEDS: BUDESONIDE 0.5 MG/2 ML NEBU NEB SCH ×2 (11:41→21:00)
[2016-07-13 16:16] VITALS: BP 125/74
[2016-07-13 18:48] LABS: CLARITY,URINE CLEAR; COLOR,URINE YELLOW
[2016-07-13 18:50] LABS: BILIRUBIN,URINE NEG (NEG); GLUCOSE,URINE NEG (NEG)
[2016-07-13 18:51] LABS: AMORPHOUS SEDIMENT,UR PRESENT /HPF; BACTERIA,URINE 0 /HPF (0-FEW); NITRITE,URINE NEG (NEG); SQUAMOUS EPITHELIAL CELL,UR OCC /LPF; UROBILINOGEN,URINE 0.2 mg/dL (0.2 mg/dL); YEAST,URINE PRESENT /HPF
[2016-07-13] MEDS: QUEtiapine 100 MG TABLET. PO SCH (19:36)
--- NOTE | 2016-07-13 21:11 | PDOC ---
Exam Lobito Demential Exam: Lobito Note: Please also refer to the separate dictated note~for this date of service dictated separately.~Patient seen individually. Discussed the patient with Nursing staff reviewed the chart.~Reviewed interim history and current functioning. Reviewed vital signs,~Labs/ Radiology~and current medications noted below. Continue current treatment with the changes noted in the dictated addendum note Assessment: Vital Signs: Vital Signs Date Time Temp Pulse Resp B/P Pulse Ox O2 Delivery O2 Flow Rate FiO2 07/13/16 19:37 71 125/74 07/13/16 19:36 Room Air 07/13/16 16:16 97.6 16 94 I&O Intake and Output 07/13/16 07:00 Intake Total 1320 ml Balance 1320 ml Intake Oral 1320 ml Labs: Laboratory Tests Test 07/13/16 07:33 07/13/16 11:35 07/13/16 16:13 07/13/16 18:10 Glucose (Fingerstick) 147mg/dL (70-99) H 255mg/dL (70-99) H 241mg/dL (70-99) H Urine Collection Type U cath Urine Color Yellow Urine Clarity Clear Urine pH 5.0 Urine Specific [place] 1.020 Urine Protein Neg (NEG-TRACE) Urine Glucose (UA) Negmg/dL (NEG) Urine Ketones (Stick) Negmg/dL (NEG) Urine Blood Mod (NEG) Urine Nitrite Neg (NEG) Urine Bilirubin Neg (NEG) Urine Urobilinogen Dipstick 0.2mg/dL (0.2 mg/dL) Urine Leukocyte Esterase Small (NEG) Urine RBC 1-2/HPF (0-2) Urine WBC 1-4/HPF (0-4) Urine Squamous Epithelial Cells Occ/LPF Urine Amorphous Sediment Present/HPF Urine Bacteria 0/HPF (0-FEW) Urine Mucus Slight/LPF Urine Yeast Present/HPF Test 07/13/16 19:26 Glucose (Fingerstick) 240mg/dL (70-99) H Current Medications: Meds: Current Medications Acetaminophen (Tylenol) 650 mg PRN Q6HRS PRN PO PAIN / TEMP; Start 07/07/16 at 06:45; Status Cancel Acetaminophen (Tylenol) 650 mg PRN Q6HRS PRN PO PAIN / TEMP; Start 07/07/16 at 06:45 Multi-Ingredient Ointment (Analgesic [place]) 1 marilyn PRN QID PRN TP MUSCLE PAIN; Start 07/07/16 at 06:45 Al Hydroxide/Mg Hydroxide (Mylanta Plus Xs) 15 ml PRN AFTMEALHC PRN PO DYSPEPSIA; Start 07/07/16 at 06:45 Magnesium Hydroxide (Milk Of Magnesia) 2,400 mg PRN QHS PRN PO CONSTIPATION Last administered on 07/09/16 19:36; Start 07/07/16 at 06:45 Quetiapine Fumarate (SEROquel) 50 mg DAILY PO Last administered on 07/13/16 07: 57; Start 07/07/16 at 09:00 Quetiapine Fumarate (SEROquel) 100 mg QHS PO Last administered on 07/13/16 19: 36; Start 07/07/16 at 21:00 Ascorbic Acid (Vitamin C) 500 mg BID PO Last administered on 07/13/16 19:35; Start 07/07/16 at 09:00 Budesonide (Pulmicort) 0.5 mg BID NEB Last administered on 07/13/16 11:41; Start 07/07/16 at 09:00 Dabigatran (Pradaxa) 150 mg BID PO Last administered on 07/13/16 19:36; Start 07/07/16 at 09:00 Folic Acid (Folic Acid) 1 mg DAILY PO Last administered on 07/13/16 07:56; Start 07/07/16 at 09:00 Glimepiride (Amaryl) 2 mg BID PO Last administered on 07/08/16 07:19; Start 07/07/16 at 09:00; Stop 07/08/16 at 15:30; Status DC Ketoconazole (Nizoral 2% Shampoo) 1 marilyn 3X/WEEK TP ; Start 07/09/16 at 09:00 Methimazole (Tapazole) 5 mg TID PO Last administered on 07/08/16 07:18; Start 07/07/16 at 09:00; Stop 07/08/16 at 15:30; Status DC Nystatin (Mycostatin) 1 marilyn PRN Q8HRS PRN TP Yeast; Start 07/07/16 at 07:00 Sotalol HCl (Betapace) 80 mg BID PO Last administered on 07/13/16 19:37; Start 07/07/16 at 09:00 Thiamine HCl (Vitamin B-1) 100 mg DAILY PO Last administered on 07/13/16 07:57 ; Start 07/07/16 at 09:00 Tramadol HCl (Ultram) 50 mg BID PO Last administered on 07/13/16 19:36; Start 07/07/16 at 09:00 Tramadol HCl (Ultram) 50 mg PRN Q6HRS PRN PO PAIN Last administered on 19:33; Start 07/07/16 at 07:00 Zinc Sulfate (Orazinc) 220 mg DAILY PO Last administered on 07/13/16 07:57; Start 07/07/16 at 09:00 Doxazosin Mesylate (Cardura) 2 mg DAILY PO Last administered on 07/13/16 08:02 ; Start 07/07/16 at 09:00 Albuterol Sulfate (Ventolin) 2.5 mg Q6HRS NEB Last administered on 07/13/16 11: 41; Start 07/07/16 at 12:00 Multivitamins/ Calcium (Thera-M Plus) 1 tab DAILY PO Last administered on 07:56; Start 07/07/16 at 09:00 Olanzapine (Zyprexa Zydis) 2.5 mg PRN Q2HR PRN PO PSYCHOSIS Last administered on 07/07/16 12:45; Start 07/07/16 at 07:30 Albuterol Sulfate (Ventolin) 2.5 mg STK-MED ONCE .ROUTE Last administered on 10:17; Start 07/07/16 at 09:54; Stop 07/07/16 at 09:55; Status DC Rivastigmine (Exelon) 1 patch DAILY TD Last administered on 07/12/16 08:11; Start 07/08/16 at 09:00; Stop 07/13/16 at 08:59; Status DC Rivastigmine (Exelon) 1 patch DAILY TD Last administered on 07/13/16 08:01; Start 07/13/16 at 09:00 Memantine (Namenda) 5 mg DAILY PO Last administered on 07/10/16 09:49; Start at 09:00; Stop 07/11/16 at 08:59; Status DC Memantine (Namenda) 5 mg BID PO Last administered on 07/13/16 19:35; Start 07/11 at 09:00 Ferrous Sulfate (Feosol) 325 mg BID PO ; Start 07/08/16 at 10:00; Status Cancel Ferrous Sulfate (Feosol) 325 mg BID PO Last administered on 07/13/16 19:35; Start 07/08/16 at 21:00 Glimepiride (Amaryl) 4 mg DAILY PO Last administered on 07/13/16 07:57; Start 07/09/16 at 09:00 Methimazole (Tapazole) 10 mg TID PO Last administered on 07/13/16 19:36; Start 07/08/16 at 21:00 Glimepiride (Amaryl) 2 mg QHS PO Last administered on 07/13/16 19:35; Start 07/08/16 at 21:00 Carbidopa/Levodopa (Sinemet 25/100) 1 tab TID PO Last administered on 07/13/16 19:36; Start 07/08/16 at 21:00 Sertraline HCl (Zoloft) 25 mg DAILY PO Last administered on 07/13/16 07:57; Start 07/12/16 at 09:00 Active Scripts Active Reported [Proheal] 30 Ml PO BID 30 Days Zinc Sulfate 220 Mg Capsule 220 Mg PO DAILY 30 Days Vitamin C (Ascorbic Acid) 500 Mg Tablet 500 Mg PO BID 30 Days Tramadol Hcl (Tramadol HCl) 50 Mg Tablet 50 Mg PO BID Tramadol Hcl (Tramadol HCl) 50 Mg Tablet 50 Mg PO PRN Q6HRS PRN Thiamine Hcl 100 Mg Tablet 100 Mg PO DAILY Sotalol (Sotalol Hcl) 80 Mg Tablet 80 Mg PO BID Seroquel (Quetiapine Fumarate) 100 Mg Tablet 100 Mg PO QHS Seroquel (Quetiapine Fumarate) 50 Mg Tablet 50 Mg PO DAILY Pradaxa (Dabigatran Etexilate Mesylate) 150 Mg Capsule 150 Mg PO BID Nystatin 15 Gm Cream..g. 1 Marilyn TP PRN Q8HRS PRN Multi-Day Plus Minerals Tablet (Multivitamin-Min/Iron/FA/Vit K) 1 Each Tablet 1 Tab PO DAILY 30 Days Milk Of Magnesia (Magnesium Hydroxide) 400 Mg/5 Ml Oral.susp 2,400 Mg PO PRN DAILY PRN Methimazole 5 Mg Tablet 5 Mg PO TID Ketoconazole 120 Ml Shampoo 1 Marilyn TP TWICE WEEKLY Glimepiride 2 Mg Tablet 2 Mg PO BID Perforomist (Formoterol Fumarate) 20 Mcg/2 Ml Vial.neb 20 Mcg NEB BID Folic Acid 1 Mg Tablet 1 Mg PO DAILY Doxazosin Mesylate 2 Mg Tablet 2 Mg PO DAILY Budesonide 0.5 Mg/2 Ml Ampul.neb 0.5 Mg NEB BID Diagnosis: Problems: (1) Dementia with behavioral disturbance (2) Anxiety disorder (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
--- NOTE | 2016-07-14 00:36 | PN ---
DATE: 07/11/2016 PSYCHIATRIC PROGRESS NOTE This is a late entry for 07/11/2016, covers elements not covered in my initial note. SUBJECTIVE: The patient was staffed a treatment team meeting with the entire team and seen individually as well. He reportedly tried to punch the nursing staff, was anxious, restless, disorganized, consistent with his Lewy body dementia. He gets somewhat psychotic intermittently. Slept about 6-1/2 hours. Appetite 60%. REVIEW OF SYSTEMS: Ambulation impaired. No CV, , pulmonary, eye system symptoms on review, in a Broda chair. MENTAL STATUS EXAM: Oriented to himself. Insight, judgment, recent and remote memory, attention, concentration, fund of knowledge poor, consistent with his diagnosis mentioned in my initial note. PLAN: Start Zoloft 25 mg a day. Maintain the rest of the psychotropics. Adjust as indicated. Reviewed risk-benefit ratio of drug and reactions. MARY MAGALLANES MD DR: MARIBEL/harshad JOB#: [id number] / [id number]
--- NOTE | 2016-07-14 00:39 | PN ---
DATE: 07/12/2016 PSYCHIATRIC PROGRESS NOTE This is a late entry for 07/12/2016, covers elements not covered in my initial note. SUBJECTIVE: Overall, the patient has had no hallucinations the morning of 07/12/2016, takes his medications whole. He is quite hard of hearing. REVIEW OF SYSTEMS: Impaired ambulation in a Broda chair. No CV, , pulmonary, eye system symptoms on review. Reliability poor. MENTAL STATUS EXAM: Oriented to himself. Insight, judgment, recent and remote memory, attention, concentration, fund of knowledge poor, consistent with his diagnoses mentioned in my initial note. PLAN: Continue current psychotropics including Seroquel, Zoloft, Exelon, Namenda, Zyprexa as p.r.n. Adjust as clinically indicated. MAN Heaven MAGALLANES MD DR: MARIBEL/harshad JOB#: [id number] / [id number]
[2016-07-14] MEDS: ALBUTEROL SULFATE 2.5 MG/3 ML NEBU. NEB SCH ×4 (05:06→20:13)
[2016-07-14 05:34] VITALS: BP 113/71
[2016-07-14 06:16] LABS: BASO # 0.1 x10^3/uL (0.0-0.2); BASO % 1 % (0-3); EOS # 0.7 x10^3/uL (0.0-0.7); EOS % 8 % (0-3); HEMATOCRIT 40.6 % (39.0-53.0); LYMPH # 1.3 x10^3/uL (1.0-4.8); LYMPH % 16 % (24-48); MEAN CORPUSCULAR HEMOGLOBIN 27 pg (25-35); MEAN CORPUSCULAR HGB CONC 32 g/dL (31-37); MEAN CORPUSCULAR VOLUME 84 fL (79-100); MONO # 0.9 x10^3/uL (0.0-1.1); MONO % 10 % (0-9); NEUT # 5.5 x10^3uL (1.8-7.7); NEUT % 65 % (31-73); PLATELET COUNT 219 x10^3/uL (140-400); RED BLOOD COUNT 4.82 x10^6/uL (4.30-5.70); RED CELL DISTRIBUTION WIDTH 16.7 % (11.5-14.5); WHITE BLOOD COUNT 8.6 x10^3/uL (4.0-11.0)
[2016-07-14 06:26] LABS: ALBUMIN 3.4 g/dL (3.4-5.0); ALBUMIN/GLOBULIN RATIO 0.8 (1.0-1.7); CALCIUM 9.4 mg/dL (8.5-10.1); CREATININE 1.5 mg/dL (0.7-1.3); GFR 44.8; POTASSIUM 4.4 mmol/L (3.5-5.1); TOTAL BILIRUBIN 0.3 mg/dL (0.2-1.0); TOTAL PROTEIN 7.6 g/dL (6.4-8.2)
[2016-07-14] MEDS: CARBIDOPA/LEVODOPA 25/100MG TABLET PO SCH ×4 (07:47→19:29)
[2016-07-14] MEDS: SOTALOL 80 MG TABLET. PO SCH ×2 (07:47→19:29)
[2016-07-14] MEDS: TRAMADOL 50 MG TABLET. PO SCH ×2 (07:48→19:32)
[2016-07-14] MEDS: ZINC SULFATE 220 MG CAPSULE. PO SCH (07:48)
[2016-07-14] MEDS: FOLIC ACID 1 MG TABLET PO SCH (07:48)
[2016-07-14] MEDS: MULTIVITAMIN with MINERAL TABLET. PO SCH (07:48)
[2016-07-14] MEDS: SERTRALINE 25 MG TABLET. PO SCH (07:48)
[2016-07-14] MEDS: MEMANTINE 5 MG TABLET. PO SCH ×2 (07:48→19:29)
[2016-07-14] MEDS: GLIMEPIRIDE 2 MG TABLET PO SCH ×2 (07:48→19:27)
[2016-07-14] MEDS: FERROUS SULFATE 325 MG TABLET PO SCH ×2 (07:48→19:29)
[2016-07-14] MEDS: DABIGATRAN ETEXILATE 150 MG CAPSULE. PO SCH ×2 (07:48→19:29)
[2016-07-14] MEDS: THIAMINE 100 MG TABLET. PO SCH (07:48)
[2016-07-14] MEDS: ASCORBIC ACID 500 MG TABLET PO SCH ×2 (07:49→19:30)
[2016-07-14] MEDS: RIVASTIGMINE 9.5MG PATCH. TD SCH (07:49)
[2016-07-14] MEDS: QUEtiapine 50 MG TABLET. PO SCH (07:49)
[2016-07-14] MEDS: METHIMAZOLE 5 MG TABLET PO SCH ×3 (07:50→19:30)
[2016-07-14] MEDS: DOXAZOSIN MESYLATE 1 MG TABLET PO SCH (07:51)
[2016-07-14] MEDS: BUDESONIDE 0.5 MG/2 ML NEBU NEB SCH ×2 (11:23→20:13)
[2016-07-14 15:41] VITALS: BP 116/70
[2016-07-14] MEDS ORDERED: INSULIN ASPART 300 UNITS/3 ML INSULN.PEN SQ ONE (17:00)
[2016-07-14] MEDS ORDERED: DEXTROSE 50% 25 GM / 50ML DISP.SYRIN. IV PRN (17:00)
[2016-07-14] MEDS: INSULIN ASPART 300 UNITS/3 ML INSULN.PEN SQ SCH (17:00)
[2016-07-14] MEDS ORDERED: DEXTROSE ORAL GEL 15 GM TUBE. PO PRN (17:00)
[2016-07-14] MEDS: QUEtiapine 100 MG TABLET. PO SCH (19:29)
--- NOTE | 2016-07-14 21:59 | PDOC ---
Exam Lobito Demential Exam: Lobito Note: Please also refer to the separate dictated note~for this date of service dictated separately.~Patient seen individually. Discussed the patient with Nursing staff reviewed the chart.~Reviewed interim history and current functioning. Reviewed vital signs,~Labs/ Radiology~and current medications noted below. Continue current treatment with the changes noted in the dictated addendum note Assessment: Vital Signs: Vital Signs Date Time Temp Pulse Resp B/P Pulse Ox O2 Delivery O2 Flow Rate FiO2 07/14/16 20:39 Room Air 07/14/16 20:15 95 07/14/16 19:29 72 116/71 07/14/16 15:41 97.5 18 I&O Intake and Output 07/14/16 07:00 Intake Total 720 ml Balance 720 ml Intake Oral 720 ml # Bowel Movements 1 Labs: Laboratory Tests Test 07/14/16 05:57 07/14/16 07:08 07/14/16 11:08 07/14/16 16:44 White Blood Count 8.6x10^3/uL (4.0-11.0) Red Blood Count 4.82x10^6/uL (4.30-5.70) Hemoglobin 13.0g/dL (13.0-17.5) Hematocrit 40.6% (39.0-53.0) Mean Corpuscular Volume 84fL (79-100) Mean Corpuscular Hemoglobin 27pg (25-35) Mean Corpuscular Hemoglobin Concent 32g/dL (31-37) Red Cell Distribution Width 16.7% (11.5-14.5) H Platelet Count 219x10^3/uL (140-400) Neutrophils (%) (Auto) 65% (31-73) Lymphocytes (%) (Auto) 16% (24-48) L Monocytes (%) (Auto) 10% (0-9) H Eosinophils (%) (Auto) 8% (0-3) H Basophils (%) (Auto) 1% (0-3) Neutrophils # (Auto) 5.5x10^3uL (1.8-7.7) Lymphocytes # (Auto) 1.3x10^3/uL (1.0-4.8) Monocytes # (Auto) 0.9x10^3/uL (0.0-1.1) Eosinophils # (Auto) 0.7x10^3/uL (0.0-0.7) Basophils # (Auto) 0.1x10^3/uL (0.0-0.2) Sodium Level 145mmol/L (136-145) Potassium Level 4.4mmol/L (3.5-5.1) Chloride Level 110mmol/L (98-107) H Carbon Dioxide Level 26mmol/L (21-32) Anion Gap 9 (6-14) Blood Urea Nitrogen 37mg/dL (8-26) H Creatinine 1.5mg/dL (0.7-1.3) H Estimated GFR (Cockcroft-Gault) 44.8 BUN/Creatinine Ratio 25 (6-20) H Glucose Level 196mg/dL (70-99) H Calcium Level 9.4mg/dL (8.5-10.1) Total Bilirubin 0.3mg/dL (0.2-1.0) Aspartate Amino Transferase (AST) 16U/L (15-37) Alanine Aminotransferase (ALT) 14U/L (16-63) L Alkaline Phosphatase 89U/L (46-116) Total Protein 7.6g/dL (6.4-8.2) Albumin 3.4g/dL (3.4-5.0) Albumin/Globulin Ratio 0.8 (1.0-1.7) L Glucose (Fingerstick) 184mg/dL (70-99) H 258mg/dL (70-99) H 300mg/dL (70-99) H Test 07/14/16 19:01 Glucose (Fingerstick) 224mg/dL (70-99) H Current Medications: Meds: Current Medications Acetaminophen (Tylenol) 650 mg PRN Q6HRS PRN PO PAIN / TEMP; Start 07/07/16 at 06:45; Status Cancel Acetaminophen (Tylenol) 650 mg PRN Q6HRS PRN PO PAIN / TEMP; Start 07/07/16 at 06:45 Multi-Ingredient Ointment (Analgesic [place]) 1 marilyn PRN QID PRN TP MUSCLE PAIN; Start 07/07/16 at 06:45 Al Hydroxide/Mg Hydroxide (Mylanta Plus Xs) 15 ml PRN AFTMEALHC PRN PO DYSPEPSIA; Start 07/07/16 at 06:45 Magnesium Hydroxide (Milk Of Magnesia) 2,400 mg PRN QHS PRN PO CONSTIPATION Last administered on 07/09/16 19:36; Start 07/07/16 at 06:45 Quetiapine Fumarate (SEROquel) 50 mg DAILY PO Last administered on 07/14/16 07: 49; Start 07/07/16 at 09:00 Quetiapine Fumarate (SEROquel) 100 mg QHS PO Last administered on 07/14/16 19: 29; Start 07/07/16 at 21:00 Ascorbic Acid (Vitamin C) 500 mg BID PO Last administered on 07/14/16 19:30; Start 07/07/16 at 09:00 Budesonide (Pulmicort) 0.5 mg BID NEB Last administered on 07/14/16 20:13; Start 07/07/16 at 09:00 Dabigatran (Pradaxa) 150 mg BID PO Last administered on 07/14/16 19:29; Start 07/07/16 at 09:00 Folic Acid (Folic Acid) 1 mg DAILY PO Last administered on 07/14/16 07:48; Start 07/07/16 at 09:00 Glimepiride (Amaryl) 2 mg BID PO Last administered on 07/08/16 07:19; Start 07/07/16 at 09:00; Stop 07/08/16 at 15:30; Status DC Ketoconazole (Nizoral 2% Shampoo) 1 marilyn 3X/WEEK TP ; Start 07/09/16 at 09:00 Methimazole (Tapazole) 5 mg TID PO Last administered on 07/08/16 07:18; Start 07/07/16 at 09:00; Stop 07/08/16 at 15:30; Status DC Nystatin (Mycostatin) 1 marilyn PRN Q8HRS PRN TP Yeast; Start 07/07/16 at 07:00 Sotalol HCl (Betapace) 80 mg BID PO Last administered on 07/14/16 19:29; Start 07/07/16 at 09:00 Thiamine HCl (Vitamin B-1) 100 mg DAILY PO Last administered on 07/14/16 07:48 ; Start 07/07/16 at 09:00 Tramadol HCl (Ultram) 50 mg BID PO Last administered on 07/14/16 19:32; Start 07/07/16 at 09:00 Tramadol HCl (Ultram) 50 mg PRN Q6HRS PRN PO PAIN Last administered on 19:33; Start 07/07/16 at 07:00 Zinc Sulfate (Orazinc) 220 mg DAILY PO Last administered on 07/14/16 07:48; Start 07/07/16 at 09:00 Doxazosin Mesylate (Cardura) 2 mg DAILY PO Last administered on 07/14/16 07:51 ; Start 07/07/16 at 09:00 Albuterol Sulfate (Ventolin) 2.5 mg Q6HRS NEB Last administered on 07/14/16 20: 13; Start 07/07/16 at 12:00 Multivitamins/ Calcium (Thera-M Plus) 1 tab DAILY PO Last administered on 07:48; Start 07/07/16 at 09:00 Olanzapine (Zyprexa Zydis) 2.5 mg PRN Q2HR PRN PO PSYCHOSIS Last administered on 07/07/16 12:45; Start 07/07/16 at 07:30 Albuterol Sulfate (Ventolin) 2.5 mg STK-MED ONCE .ROUTE Last administered on 10:17; Start 07/07/16 at 09:54; Stop 07/07/16 at 09:55; Status DC Rivastigmine (Exelon) 1 patch DAILY TD Last administered on 07/12/16 08:11; Start 07/08/16 at 09:00; Stop 07/13/16 at 08:59; Status DC Rivastigmine (Exelon) 1 patch DAILY TD Last administered on 07/14/16 07:49; Start 07/13/16 at 09:00 Memantine (Namenda) 5 mg DAILY PO Last administered on 07/10/16 09:49; Start at 09:00; Stop 07/11/16 at 08:59; Status DC Memantine (Namenda) 5 mg BID PO Last administered on 07/14/16 19:29; Start 07/11 at 09:00 Ferrous Sulfate (Feosol) 325 mg BID PO ; Start 07/08/16 at 10:00; Status Cancel Ferrous Sulfate (Feosol) 325 mg BID PO Last administered on 07/14/16 19:29; Start 07/08/16 at 21:00 Glimepiride (Amaryl) 4 mg DAILY PO Last administered on 07/14/16 07:48; Start 07/09/16 at 09:00 Methimazole (Tapazole) 10 mg TID PO Last administered on 07/14/16 19:30; Start 07/08/16 at 21:00 Glimepiride (Amaryl) 2 mg QHS PO Last administered on 07/14/16 19:27; Start 07/08/16 at 21:00 Carbidopa/Levodopa (Sinemet 25/100) 1 tab TID PO Last administered on 07/14/16 07:47; Start 07/08/16 at 21:00; Stop 07/14/16 at 10:57; Status DC Sertraline HCl (Zoloft) 25 mg DAILY PO Last administered on 07/14/16 07:48; Start 07/12/16 at 09:00 Carbidopa/Levodopa (Sinemet 25/100) 1 tab QID PO Last administered on 07/14/16 19:29; Start 07/14/16 at 13:00 Insulin Aspart (Novolog) 0-5 UNITS TIDWMEALS SQ ; Start 07/14/16 at 17:00 Dextrose 12.5 gm PRN Q15MIN PRN IV SEE COMMENTS; Start 07/14/16 at 17:00 Glucose (Insta-Glucose) 15 gm PRN Q15MIN PRN PO LOW BLOOD SUGAR; Start 07/14/16 at 17:00 Insulin Aspart (Novolog) 10 units 1X ONCE SQ Last administered on 07/14/16 17: 24; Start 07/14/16 at 17:00; Stop 07/14/16 at 17:01; Status DC Active Scripts Active Reported [Proheal] 30 Ml PO BID 30 Days Zinc Sulfate 220 Mg Capsule 220 Mg PO DAILY 30 Days Vitamin C (Ascorbic Acid) 500 Mg Tablet 500 Mg PO BID 30 Days Tramadol Hcl (Tramadol HCl) 50 Mg Tablet 50 Mg PO BID Tramadol Hcl (Tramadol HCl) 50 Mg Tablet 50 Mg PO PRN Q6HRS PRN Thiamine Hcl 100 Mg Tablet 100 Mg PO DAILY Sotalol (Sotalol Hcl) 80 Mg Tablet 80 Mg PO BID Seroquel (Quetiapine Fumarate) 100 Mg Tablet 100 Mg PO QHS Seroquel (Quetiapine Fumarate) 50 Mg Tablet 50 Mg PO DAILY Pradaxa (Dabigatran Etexilate Mesylate) 150 Mg Capsule 150 Mg PO BID Nystatin 15 Gm Cream..g. 1 Marilyn TP PRN Q8HRS PRN Multi-Day Plus Minerals Tablet (Multivitamin-Min/Iron/FA/Vit K) 1 Each Tablet 1 Tab PO DAILY 30 Days Milk Of Magnesia (Magnesium Hydroxide) 400 Mg/5 Ml Oral.susp 2,400 Mg PO PRN DAILY PRN Methimazole 5 Mg Tablet 5 Mg PO TID Ketoconazole 120 Ml Shampoo 1 Marilyn TP TWICE WEEKLY Glimepiride 2 Mg Tablet 2 Mg PO BID Perforomist (Formoterol Fumarate) 20 Mcg/2 Ml Vial.neb 20 Mcg NEB BID Folic Acid 1 Mg Tablet 1 Mg PO DAILY Doxazosin Mesylate 2 Mg Tablet 2 Mg PO DAILY Budesonide 0.5 Mg/2 Ml Ampul.neb 0.5 Mg NEB BID Diagnosis: Problems: (1) Dementia with behavioral disturbance (2) Anxiety disorder (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
[2016-07-15] MEDS: ALBUTEROL SULFATE 2.5 MG/3 ML NEBU. NEB SCH ×4 (05:17→21:43)
[2016-07-15 05:52] VITALS: BP 122/69
[2016-07-15] MEDS: MEMANTINE 5 MG TABLET. PO SCH (07:54)
[2016-07-15] MEDS: FERROUS SULFATE 325 MG TABLET PO SCH ×3 (07:54→20:14)
[2016-07-15] MEDS: SERTRALINE 25 MG TABLET. PO SCH (07:54)
[2016-07-15] MEDS: ASCORBIC ACID 500 MG TABLET PO SCH ×3 (07:54→20:15)
[2016-07-15] MEDS: DABIGATRAN ETEXILATE 150 MG CAPSULE. PO SCH ×3 (07:54→20:15)
[2016-07-15] MEDS: MULTIVITAMIN with MINERAL TABLET. PO SCH (07:54)
[2016-07-15] MEDS: FOLIC ACID 1 MG TABLET PO SCH (07:54)
[2016-07-15] MEDS: THIAMINE 100 MG TABLET. PO SCH (07:54)
[2016-07-15] MEDS: CARBIDOPA/LEVODOPA 25/100MG TABLET PO SCH ×5 (07:55→20:15)
[2016-07-15] MEDS: RIVASTIGMINE 9.5MG PATCH. TD SCH (07:55)
[2016-07-15] MEDS: QUEtiapine 50 MG TABLET. PO SCH (07:55)
[2016-07-15] MEDS: TRAMADOL 50 MG TABLET. PO SCH ×3 (07:55→20:15)
[2016-07-15] MEDS: ZINC SULFATE 220 MG CAPSULE. PO SCH (07:55)
[2016-07-15] MEDS: GLIMEPIRIDE 2 MG TABLET PO SCH ×3 (07:55→20:14)
[2016-07-15] MEDS: SOTALOL 80 MG TABLET. PO SCH ×3 (07:56→20:14)
[2016-07-15] MEDS: METHIMAZOLE 5 MG TABLET PO SCH ×4 (07:57→20:15)
[2016-07-15] MEDS: DOXAZOSIN MESYLATE 1 MG TABLET PO SCH (07:59)
[2016-07-15] MEDS: INSULIN ASPART 300 UNITS/3 ML INSULN.PEN SQ SCH ×3 (08:01→17:18)
[2016-07-15] MEDS: BUDESONIDE 0.5 MG/2 ML NEBU NEB SCH ×2 (09:59→21:43)
[2016-07-15 15:52] VITALS: BP 115/79
[2016-07-15] MEDS: QUEtiapine 100 MG TABLET. PO SCH ×2 (19:44→20:15)
[2016-07-15] MEDS: MEMANTINE 10 MG TABLET. PO SCH ×2 (19:47→20:14)
--- NOTE | 2016-07-15 19:49 | PN ---
DATE: 07/13/2016 PSYCHIATRIC PROGRESS NOTE This is a late entry for 07/13/2016, covers elements not covered in my initial note. SUBJECTIVE: Overall, the patient is more alert on 07/13/2016 participated in group, slightly stiff. We will defer to Dr. Antonio/Dr. Mendoza. The morning of 07/13/2016, he was agitated, kicking staff. UA ordered yesterday, result awaited. REVIEW OF SYSTEMS: Ambulation impaired, in his wheelchair. No CV, , pulmonary, eye system symptoms on review. Reliability poor. MENTAL STATUS EXAM: Oriented to himself. Insight, judgment, recent and remote memory, attention, concentration, fund of knowledge poor, consistent with his diagnosis mentioned in my initial note. PLAN: Continue current psychotropics mentioned in my initial note. Increase Zoloft, perhaps to 50 mg a day in the next day or two depending on his progress. MAN Heaven MAGALLANES MD DR: MARIBEL/harshad JOB#: [id number] / [id number]
--- NOTE | 2016-07-15 19:55 | PN ---
DATE: 07/14/2016 PSYCHIATRIC PROGRESS NOTE This is a late entry for 07/14/2016, covers elements not covered in my initial note. SUBJECTIVE: UA is negative. Overall, the patient has been compliant, delusional, confused. Blood sugar increased. Insulin was adjusted, propelling self in wheelchair usually backwards, talking about "meeting his maker." REVIEW OF SYSTEMS: Ambulation impaired in his wheelchair. No CV, , pulmonary, eye, ENT system symptoms on review. Reliability poor. MENTAL STATUS EXAM: Oriented to himself, paranoid, suspicious as I met with him. Insight, judgment, recent and remote memory, attention, concentration, fund of knowledge poor, consistent with his diagnosis mentioned in my initial note. PLAN: Increase Exelon patch from 9.5 mg to 13.3 mg a day, Namenda from 5 mg b.i.d. to 10 mg b.i.d., Zoloft from 25 mg a day to 50 mg a day. Continue Seroquel 50 mg a.m., 100 mg at bedtime, Zyprexa p.r.n. Adjust further as clinically indicated. MAN Heaven MAGALLANES MD DR: MARIBEL/harshad JOB#: [id number] / [id number]
--- NOTE | 2016-07-15 20:57 | PDOC ---
Exam Lobito Demential Exam: Lobito Note: Please also refer to the separate dictated note~for this date of service dictated separately.~Patient seen individually. Discussed the patient with Nursing staff reviewed the chart.~Reviewed interim history and current functioning. Reviewed vital signs,~Labs/ Radiology~and current medications noted below. Continue current treatment with the changes noted in the dictated addendum note Assessment: Vital Signs: Vital Signs Date Time Temp Pulse Resp B/P Pulse Ox O2 Delivery O2 Flow Rate FiO2 07/15/16 15:52 97.4 125 20 115/79 96 Room Air I&O Intake and Output 07/15/16 07:00 Intake Total 840 ml Balance 840 ml Intake Oral 840 ml # Voids 3 # Bowel Movements 2 Labs: Laboratory Tests Test 07/15/16 07:21 07/15/16 11:35 07/15/16 16:58 07/15/16 19:02 Glucose (Fingerstick) 167mg/dL (70-99) H 245mg/dL (70-99) H 261mg/dL (70-99) H 280mg/dL (70-99) H Current Medications: Meds: Current Medications Acetaminophen (Tylenol) 650 mg PRN Q6HRS PRN PO PAIN / TEMP; Start 07/07/16 at 06:45; Status Cancel Acetaminophen (Tylenol) 650 mg PRN Q6HRS PRN PO PAIN / TEMP; Start 07/07/16 at 06:45 Multi-Ingredient Ointment (Analgesic [place]) 1 marilyn PRN QID PRN TP MUSCLE PAIN; Start 07/07/16 at 06:45 Al Hydroxide/Mg Hydroxide (Mylanta Plus Xs) 15 ml PRN AFTMEALHC PRN PO DYSPEPSIA; Start 07/07/16 at 06:45 Magnesium Hydroxide (Milk Of Magnesia) 2,400 mg PRN QHS PRN PO CONSTIPATION Last administered on 07/09/16 19:36; Start 07/07/16 at 06:45 Quetiapine Fumarate (SEROquel) 50 mg DAILY PO Last administered on 07/15/16 07: 55; Start 07/07/16 at 09:00 Quetiapine Fumarate (SEROquel) 100 mg QHS PO Last administered on 07/14/16 19: 29; Start 07/07/16 at 21:00 Ascorbic Acid (Vitamin C) 500 mg BID PO Last administered on 07/15/16 07:54; Start 07/07/16 at 09:00 Budesonide (Pulmicort) 0.5 mg BID NEB Last administered on 07/15/16 09:59; Start 07/07/16 at 09:00 Dabigatran (Pradaxa) 150 mg BID PO Last administered on 07/15/16 07:54; Start 07/07/16 at 09:00 Folic Acid (Folic Acid) 1 mg DAILY PO Last administered on 07/15/16 07:54; Start 07/07/16 at 09:00 Glimepiride (Amaryl) 2 mg BID PO Last administered on 07/08/16 07:19; Start 07/07/16 at 09:00; Stop 07/08/16 at 15:30; Status DC Ketoconazole (Nizoral 2% Shampoo) 1 marilyn 3X/WEEK TP ; Start 07/09/16 at 09:00 Methimazole (Tapazole) 5 mg TID PO Last administered on 07/08/16 07:18; Start 07/07/16 at 09:00; Stop 07/08/16 at 15:30; Status DC Nystatin (Mycostatin) 1 marilyn PRN Q8HRS PRN TP Yeast; Start 07/07/16 at 07:00 Sotalol HCl (Betapace) 80 mg BID PO Last administered on 07/15/16 07:56; Start 07/07/16 at 09:00 Thiamine HCl (Vitamin B-1) 100 mg DAILY PO Last administered on 07/15/16 07:54 ; Start 07/07/16 at 09:00 Tramadol HCl (Ultram) 50 mg BID PO Last administered on 07/15/16 07:55; Start 07/07/16 at 09:00 Tramadol HCl (Ultram) 50 mg PRN Q6HRS PRN PO PAIN Last administered on 19:33; Start 07/07/16 at 07:00 Zinc Sulfate (Orazinc) 220 mg DAILY PO Last administered on 07/15/16 07:55; Start 07/07/16 at 09:00 Doxazosin Mesylate (Cardura) 2 mg DAILY PO Last administered on 07/15/16 07:59 ; Start 07/07/16 at 09:00 Albuterol Sulfate (Ventolin) 2.5 mg Q6HRS NEB Last administered on 07/15/16 15: 35; Start 07/07/16 at 12:00 Multivitamins/ Calcium (Thera-M Plus) 1 tab DAILY PO Last administered on 07:54; Start 07/07/16 at 09:00 Olanzapine (Zyprexa Zydis) 2.5 mg PRN Q2HR PRN PO PSYCHOSIS Last administered on 07/07/16 12:45; Start 07/07/16 at 07:30 Albuterol Sulfate (Ventolin) 2.5 mg STK-MED ONCE .ROUTE Last administered on 10:17; Start 07/07/16 at 09:54; Stop 07/07/16 at 09:55; Status DC Rivastigmine (Exelon) 1 patch DAILY TD Last administered on 07/12/16 08:11; Start 07/08/16 at 09:00; Stop 07/13/16 at 08:59; Status DC Rivastigmine (Exelon) 1 patch DAILY TD Last administered on 07/15/16 07:55; Start 07/13/16 at 09:00; Stop 07/15/16 at 11:56; Status DC Memantine (Namenda) 5 mg DAILY PO Last administered on 07/10/16 09:49; Start at 09:00; Stop 07/11/16 at 08:59; Status DC Memantine (Namenda) 5 mg BID PO Last administered on 07/15/16 07:54; Start 07/11 at 09:00; Stop 07/15/16 at 11:56; Status DC Ferrous Sulfate (Feosol) 325 mg BID PO ; Start 07/08/16 at 10:00; Status Cancel Ferrous Sulfate (Feosol) 325 mg BID PO Last administered on 07/15/16 07:54; Start 07/08/16 at 21:00 Glimepiride (Amaryl) 4 mg DAILY PO Last administered on 07/15/16 07:55; Start 07/09/16 at 09:00 Methimazole (Tapazole) 10 mg TID PO Last administered on 07/15/16 12:47; Start 07/08/16 at 21:00 Glimepiride (Amaryl) 2 mg QHS PO Last administered on 07/14/16 19:27; Start 07/08/16 at 21:00 Carbidopa/Levodopa (Sinemet 25/100) 1 tab TID PO Last administered on 07/14/16 07:47; Start 07/08/16 at 21:00; Stop 07/14/16 at 10:57; Status DC Sertraline HCl (Zoloft) 25 mg DAILY PO Last administered on 07/15/16 07:54; Start 07/12/16 at 09:00; Stop 07/15/16 at 11:56; Status DC Carbidopa/Levodopa (Sinemet 25/100) 1 tab QID PO Last administered on 07/15/16 17:19; Start 07/14/16 at 13:00 Insulin Aspart (Novolog) 0-5 UNITS TIDWMEALS SQ Last administered on 07/15/16 17:18; Start 07/14/16 at 17:00 Dextrose 12.5 gm PRN Q15MIN PRN IV SEE COMMENTS; Start 07/14/16 at 17:00 Glucose (Insta-Glucose) 15 gm PRN Q15MIN PRN PO LOW BLOOD SUGAR; Start 07/14/16 at 17:00 Insulin Aspart (Novolog) 10 units 1X ONCE SQ Last administered on 07/14/16 17: 24; Start 07/14/16 at 17:00; Stop 07/14/16 at 17:01; Status DC Rivastigmine (Exelon 13.3mg) 1 patch DAILY TD ; Start 07/16/16 at 09:00 Memantine (Namenda) 10 mg BID PO ; Start 07/15/16 at 21:00 Sertraline HCl (Zoloft) 50 mg DAILY PO ; Start 07/16/16 at 09:00 Active Scripts Active Reported [Proheal] 30 Ml PO BID 30 Days Zinc Sulfate 220 Mg Capsule 220 Mg PO DAILY 30 Days Vitamin C (Ascorbic Acid) 500 Mg Tablet 500 Mg PO BID 30 Days Tramadol Hcl (Tramadol HCl) 50 Mg Tablet 50 Mg PO BID Tramadol Hcl (Tramadol HCl) 50 Mg Tablet 50 Mg PO PRN Q6HRS PRN Thiamine Hcl 100 Mg Tablet 100 Mg PO DAILY Sotalol (Sotalol Hcl) 80 Mg Tablet 80 Mg PO BID Seroquel (Quetiapine Fumarate) 100 Mg Tablet 100 Mg PO QHS Seroquel (Quetiapine Fumarate) 50 Mg Tablet 50 Mg PO DAILY Pradaxa (Dabigatran Etexilate Mesylate) 150 Mg Capsule 150 Mg PO BID Nystatin 15 Gm Cream..g. 1 Marilyn TP PRN Q8HRS PRN Multi-Day Plus Minerals Tablet (Multivitamin-Min/Iron/FA/Vit K) 1 Each Tablet 1 Tab PO DAILY 30 Days Milk Of Magnesia (Magnesium Hydroxide) 400 Mg/5 Ml Oral.susp 2,400 Mg PO PRN DAILY PRN Methimazole 5 Mg Tablet 5 Mg PO TID Ketoconazole 120 Ml Shampoo 1 Marilyn TP TWICE WEEKLY Glimepiride 2 Mg Tablet 2 Mg PO BID Perforomist (Formoterol Fumarate) 20 Mcg/2 Ml Vial.neb 20 Mcg NEB BID Folic Acid 1 Mg Tablet 1 Mg PO DAILY Doxazosin Mesylate 2 Mg Tablet 2 Mg PO DAILY Budesonide 0.5 Mg/2 Ml Ampul.neb 0.5 Mg NEB BID Diagnosis: Problems: (1) Dementia with behavioral disturbance (2) Anxiety disorder (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
--- NOTE | 2016-07-15 23:43 | PN ---
DATE: 07/12/2016 SUBJECTIVE: The patient denies any new medical or neurological complaints; however, he has had slowly progressive dementia and unable to provide any concrete informations. OBJECTIVE: GENERAL: Well-developed, well-nourished white male, not in acute distress. VITAL SIGNS: Blood pressure 126/73, respiratory rate 20, pulse is ____ and regular, afebrile, oxygen saturation is 97% on room air. HEENT: Normocephalic, atraumatic, otherwise unremarkable. NECK: Supple. Negative for carotid bruit, lymphadenopathy or thyromegaly. LUNGS: Clear to A and P. CARDIOVASCULAR: Regular rate and rhythm, normal S1, S2. ABDOMEN: Soft. Bowel sounds positive. EXTREMITIES: Negative for cyanosis, clubbing, pitting edema. NEUROLOGICAL EXAM: Mental Status: The patient is alert, but disoriented. Speech is fluent. The patient has impaired memory, judgment and abstract thinking. Cranial nerves are grossly intact. MOTOR: No focal muscle bulk was seen. The tone is increased in the upper extremities. The strength is 4/5 throughout. Sensory examination revealed normal pinprick and light touch senses throughout. Deep tendon reflexes were hypoactive with absent Achilles responses. GAIT: The patient ambulates with a wheelchair. IMPRESSION: 1. Dementia with symptoms of Parkinsonism. 2. Multiple medical problems include history of atrial fibrillations, hyperthyroidism, vitamin D deficiency, anemia. 3. Multiple psychiatric problems include anxiety, behavior disturbances and intermittent psychosis. RECOMMENDATIONS: Continue with current medical and psychiatric care. M Tonny JALLOH MD DR: ADRIANA/harshad JOB#: [id number] / [id number]
--- NOTE | 2016-07-16 00:23 | PN ---
DATE: 07/10/2016 SUBJECTIVE: The patient denies any new medical neurological complaints. He eats and drinks well. He has not had any fall. He uses a walker for ambulation and most of the time he stay in a wheelchair. MEDICATIONS: Continue with sotalol and Pradaxa as the patient has history of paroxysmal atrial fibrillation. OBJECTIVE GENERAL: Well-developed, well-nourished white male, not in acute distress. VITAL SIGNS: Blood pressure 120/72, respiratory rate 18, pulse is 70, oxygen saturation 96% on room air, afebrile. HEENT: Normocephalic, atraumatic, otherwise unremarkable. NECK: Supple. Negative for carotid bruit, lymphadenopathy, or thyromegaly. LUNGS: Clear to A and P. CARDIOVASCULAR: Regular rhythm, normal S1 and S2. ABDOMEN: Soft, bowel sounds positive. EXTREMITIES: Negative for cyanosis, clubbing, or pitting edema. NEUROLOGICAL: Mental Status: The patient is alert, but disoriented to time, place, and person. Speech is fluent. There is no language dysfunction. Memory, judgment, and abstract thinking are impaired. The patient denies hallucination or delusion. Cranial nerves are grossly intact. Motor Examination: No focal muscle bulk was seen. The tone is normal. The strength is 4/5 throughout. The patient continues to have generalized rigidity, more prominent on the upper extremities. Sensory examination: Normal to pinprick and light touch senses. Deep tendon reflexes were hypoactive with absent Achilles responses. Gait: The patient has unsteady stance. IMPRESSION: 1. Lewy body dementia with symptoms of parkinsonisms. 2. Multiple medical problems include hypertension, anemia, diabetes mellitus type 2, COPD, and hyperthyroidism. RECOMMENDATIONS: 1. Treat the underlying dementia and continue with Exelon patches 13.3 mg once daily, Namenda 10 mg p.o. b.i.d. 2. Continue with current include ferrous sulfate, Tapazole, albuterol inhaler and Cardura. 3. Continue with current psychiatric care with Seroquel and supplements. M Tonny JALLOH MD DR: ADRIANA/harshad JOB#: [id number] / [id number]
[2016-07-16] MEDS: ALBUTEROL SULFATE 2.5 MG/3 ML NEBU. NEB SCH ×4 (05:39→19:57)
[2016-07-16 05:55] VITALS: BP 169/81
[2016-07-16] MEDS: INSULIN ASPART 300 UNITS/3 ML INSULN.PEN SQ SCH ×3 (08:30→16:59)
[2016-07-16] MEDS: GLIMEPIRIDE 2 MG TABLET PO SCH (08:31)
[2016-07-16] MEDS: DABIGATRAN ETEXILATE 150 MG CAPSULE. PO SCH ×2 (08:32→20:05)
[2016-07-16] MEDS: THIAMINE 100 MG TABLET. PO SCH (08:32)
[2016-07-16] MEDS: MEMANTINE 10 MG TABLET. PO SCH ×2 (08:32→20:09)
[2016-07-16] MEDS: FOLIC ACID 1 MG TABLET PO SCH (08:32)
[2016-07-16] MEDS: ASCORBIC ACID 500 MG TABLET PO SCH ×2 (08:32→20:08)
[2016-07-16] MEDS: MULTIVITAMIN with MINERAL TABLET. PO SCH (08:32)
[2016-07-16] MEDS: TRAMADOL 50 MG TABLET. PO SCH ×2 (08:32→20:09)
[2016-07-16] MEDS: FERROUS SULFATE 325 MG TABLET PO SCH ×2 (08:32→20:05)
[2016-07-16] MEDS: ZINC SULFATE 220 MG CAPSULE. PO SCH (08:32)
[2016-07-16] MEDS: CARBIDOPA/LEVODOPA 25/100MG TABLET PO SCH ×4 (08:32→20:08)
[2016-07-16] MEDS: QUEtiapine 50 MG TABLET. PO SCH (08:32)
[2016-07-16] MEDS: SOTALOL 80 MG TABLET. PO SCH ×2 (08:34→20:10)
[2016-07-16] MEDS: METHIMAZOLE 5 MG TABLET PO SCH ×3 (08:34→20:04)
[2016-07-16] MEDS: DOXAZOSIN MESYLATE 1 MG TABLET PO SCH (08:34)
[2016-07-16] MEDS: SERTRALINE 50 MG TABLET. PO SCH (08:37)
[2016-07-16] MEDS: RIVASTIGMINE 13.3MG PATCH. TD SCH (08:38)
[2016-07-16] MEDS: KETOCONAZOLE 2% SHAMPOO 120ML BOTTLE. TP SCH (08:39)
[2016-07-16] MEDS: BUDESONIDE 0.5 MG/2 ML NEBU NEB SCH ×2 (11:22→19:57)
[2016-07-16] MEDS ORDERED: DEXTROSE 50% 25 GM / 50ML DISP.SYRIN. IV PRN (12:45)
[2016-07-16 15:16] VITALS: BP 127/77
[2016-07-16] MEDS: QUEtiapine 100 MG TABLET. PO SCH (20:07)
[2016-07-16] MEDS: GLIMEPIRIDE 4 MG TABLET PO SCH (20:08)
--- NOTE | 2016-07-16 20:54 | PDOC ---
Exam Lobito Demential Exam: Lobito Note: Please also refer to the separate dictated note~for this date of service dictated separately.~Patient seen individually. Discussed the patient with Nursing staff reviewed the chart.~Reviewed interim history and current functioning. Reviewed vital signs,~Labs/ Radiology~and current medications noted below. Continue current treatment with the changes noted in the dictated addendum note Assessment: Vital Signs: Vital Signs Date Time Temp Pulse Resp B/P Pulse Ox O2 Delivery O2 Flow Rate FiO2 07/16/16 20:10 75 127/77 07/16/16 20:09 18 Room Air 07/16/16 19:58 98 07/16/16 15:16 98.0 I&O Intake and Output 07/16/16 07:00 Intake Total 1080 ml Balance 1080 ml Intake Oral 1080 ml # Voids 3 Labs: Laboratory Tests Test 07/16/16 07:17 07/16/16 08:59 07/16/16 11:18 07/16/16 16:39 Glucose (Fingerstick) 164mg/dL (70-99) H 287mg/dL (70-99) H 229mg/dL (70-99) H Free Thyroxine 1.58ng/dL (0.76-1.46) H Free Triiodothyronine (T3) pg/mL 4.16pg/mL (2.18-3.98) H Test 07/16/16 19:17 Glucose (Fingerstick) 216mg/dL (70-99) H Current Medications: Meds: Current Medications Acetaminophen (Tylenol) 650 mg PRN Q6HRS PRN PO PAIN / TEMP; Start 07/07/16 at 06:45; Status Cancel Acetaminophen (Tylenol) 650 mg PRN Q6HRS PRN PO PAIN / TEMP; Start 07/07/16 at 06:45 Multi-Ingredient Ointment (Analgesic [place]) 1 marilyn PRN QID PRN TP MUSCLE PAIN; Start 07/07/16 at 06:45 Al Hydroxide/Mg Hydroxide (Mylanta Plus Xs) 15 ml PRN AFTMEALHC PRN PO DYSPEPSIA; Start 07/07/16 at 06:45 Magnesium Hydroxide (Milk Of Magnesia) 2,400 mg PRN QHS PRN PO CONSTIPATION Last administered on 07/09/16t 19:36; Start 07/07/16 at 06:45 Quetiapine Fumarate (SEROquel) 50 mg DAILY PO Last administered on 07/16/16 08 :32; Start 07/07/16 at 09:00 Quetiapine Fumarate (SEROquel) 100 mg QHS PO Last administered on 07/16/16 20: 07; Start 07/07/16 at 21:00 Ascorbic Acid (Vitamin C) 500 mg BID PO Last administered on 07/16/16 20:08; Start 07/07/16 at 09:00 Budesonide (Pulmicort) 0.5 mg BID NEB Last administered on 07/16/16 19:57; Start 07/07/16 at 09:00 Dabigatran (Pradaxa) 150 mg BID PO Last administered on 07/16/16 20:05; Start 07/07/16 at 09:00 Folic Acid (Folic Acid) 1 mg DAILY PO Last administered on 07/16/16 08:32; Start 07/07/16 at 09:00 Glimepiride (Amaryl) 2 mg BID PO Last administered on 07/08/16 07:19; Start 07/07/16 at 09:00; Stop 07/08/16 at 15:30; Status DC Ketoconazole (Nizoral 2% Shampoo) 1 marilyn 3X/WEEK TP ; Start 07/09/16 at 09:00 Methimazole (Tapazole) 5 mg TID PO Last administered on 07/08/16 07:18; Start 07/07/16 at 09:00; Stop 07/08/16 at 15:30; Status DC Nystatin (Mycostatin) 1 marilyn PRN Q8HRS PRN TP Yeast; Start 07/07/16 at 07:00 Sotalol HCl (Betapace) 80 mg BID PO Last administered on 07/16/16 20:10; Start 07/07/16 at 09:00 Thiamine HCl (Vitamin B-1) 100 mg DAILY PO Last administered on 07/16/16 08:32 ; Start 07/07/16 at 09:00 Tramadol HCl (Ultram) 50 mg BID PO Last administered on 07/16/16 20:09; Start 07/07/16 at 09:00 Tramadol HCl (Ultram) 50 mg PRN Q6HRS PRN PO PAIN Last administered on 19:33; Start 07/07/16 at 07:00 Zinc Sulfate (Orazinc) 220 mg DAILY PO Last administered on 07/16/16 08:32; Start 07/07/16 at 09:00 Doxazosin Mesylate (Cardura) 2 mg DAILY PO Last administered on 07/16/16 08:34 ; Start 07/07/16 at 09:00 Albuterol Sulfate (Ventolin) 2.5 mg Q6HRS NEB Last administered on 07/16/16 19 :57; Start 07/07/16 at 12:00 Multivitamins/ Calcium (Thera-M Plus) 1 tab DAILY PO Last administered on 08:32; Start 07/07/16 at 09:00 Olanzapine (Zyprexa Zydis) 2.5 mg PRN Q2HR PRN PO PSYCHOSIS Last administered on 07/07/16 12:45; Start 07/07/16 at 07:30 Albuterol Sulfate (Ventolin) 2.5 mg STK-MED ONCE .ROUTE Last administered on 10:17; Start 07/07/16 at 09:54; Stop 07/07/16 at 09:55; Status DC Rivastigmine (Exelon) 1 patch DAILY TD Last administered on 07/12/16 08:11; Start 07/08/16 at 09:00; Stop 07/13/16 at 08:59; Status DC Rivastigmine (Exelon) 1 patch DAILY TD Last administered on 07/15/16 07:55; Start 07/13/16 at 09:00; Stop 07/15/16 at 11:56; Status DC Memantine (Namenda) 5 mg DAILY PO Last administered on 07/10/16 09:49; Start at 09:00; Stop 07/11/16 at 08:59; Status DC Memantine (Namenda) 5 mg BID PO Last administered on 07/15/16 07:54; Start 07/11 at 09:00; Stop 07/15/16 at 11:56; Status DC Ferrous Sulfate (Feosol) 325 mg BID PO ; Start 07/08/16 at 10:00; Status Cancel Ferrous Sulfate (Feosol) 325 mg BID PO Last administered on 07/16/16 20:05; Start 07/08/16 at 21:00 Glimepiride (Amaryl) 4 mg DAILY PO Last administered on 07/16/16 08:31; Start 07/09/16 at 09:00; Stop 07/16/16 at 12:32; Status DC Methimazole (Tapazole) 10 mg TID PO Last administered on 07/16/16 20:04; Start 07/08/16 at 21:00 Glimepiride (Amaryl) 2 mg QHS PO Last administered on 07/14/16 19:27; Start 07/08/16 at 21:00; Stop 07/16/16 at 12:32; Status DC Carbidopa/Levodopa (Sinemet 25/100) 1 tab TID PO Last administered on 07/14/16 07:47; Start 07/08/16 at 21:00; Stop 07/14/16 at 10:57; Status DC Sertraline HCl (Zoloft) 25 mg DAILY PO Last administered on 07/15/16 07:54; Start 07/12/16 at 09:00; Stop 07/15/16 at 11:56; Status DC Carbidopa/Levodopa (Sinemet 25/100) 1 tab QID PO Last administered on 20:08; Start 07/14/16 at 13:00 Insulin Aspart (Novolog) 0-5 UNITS TIDWMEALS SQ Last administered on 07/16/16 08:30; Start 07/14/16 at 17:00; Stop 07/16/16 at 12:33; Status DC Dextrose 12.5 gm PRN Q15MIN PRN IV SEE COMMENTS; Start 07/14/16 at 17:00; Stop 07/16/16 at 12:33; Status DC Glucose (Insta-Glucose) 15 gm PRN Q15MIN PRN PO LOW BLOOD SUGAR; Start 07/14/16 at 17:00 Insulin Aspart (Novolog) 10 units 1X ONCE SQ Last administered on 07/14/16 17: 24; Start 07/14/16 at 17:00; Stop 07/14/16 at 17:01; Status DC Rivastigmine (Exelon 13.3mg) 1 patch DAILY TD Last administered on 07/16/16 08 :38; Start 07/16/16 at 09:00 Memantine (Namenda) 10 mg BID PO Last administered on 07/16/16 20:09; Start at 21:00 Sertraline HCl (Zoloft) 50 mg DAILY PO Last administered on 07/16/16 08:37; Start 07/16/16 at 09:00 Glimepiride (Amaryl) 4 mg BID PO Last administered on 07/16/16 20:08; Start at 21:00 Insulin Aspart (Novolog) 0-7 UNITS TIDAC SQ Last administered on 07/16/16 16: 59; Start 07/16/16 at 16:30 Dextrose 12.5 gm PRN Q15MIN PRN IV SEE COMMENTS; Start 07/16/16 at 12:45 Active Scripts Active Reported [Proheal] 30 Ml PO BID 30 Days Zinc Sulfate 220 Mg Capsule 220 Mg PO DAILY 30 Days Vitamin C (Ascorbic Acid) 500 Mg Tablet 500 Mg PO BID 30 Days Tramadol Hcl (Tramadol HCl) 50 Mg Tablet 50 Mg PO BID Tramadol Hcl (Tramadol HCl) 50 Mg Tablet 50 Mg PO PRN Q6HRS PRN Thiamine Hcl 100 Mg Tablet 100 Mg PO DAILY Sotalol (Sotalol Hcl) 80 Mg Tablet 80 Mg PO BID Seroquel (Quetiapine Fumarate) 100 Mg Tablet 100 Mg PO QHS Seroquel (Quetiapine Fumarate) 50 Mg Tablet 50 Mg PO DAILY Pradaxa (Dabigatran Etexilate Mesylate) 150 Mg Capsule 150 Mg PO BID Nystatin 15 Gm Cream..g. 1 Marilyn TP PRN Q8HRS PRN Multi-Day Plus Minerals Tablet (Multivitamin-Min/Iron/FA/Vit K) 1 Each Tablet 1 Tab PO DAILY 30 Days Milk Of Magnesia (Magnesium Hydroxide) 400 Mg/5 Ml Oral.susp 2,400 Mg PO PRN DAILY PRN Methimazole 5 Mg Tablet 5 Mg PO TID Ketoconazole 120 Ml Shampoo 1 Marilyn TP TWICE WEEKLY Glimepiride 2 Mg Tablet 2 Mg PO BID Perforomist (Formoterol Fumarate) 20 Mcg/2 Ml Vial.neb 20 Mcg NEB BID Folic Acid 1 Mg Tablet 1 Mg PO DAILY Doxazosin Mesylate 2 Mg Tablet 2 Mg PO DAILY Budesonide 0.5 Mg/2 Ml Ampul.neb 0.5 Mg NEB BID Diagnosis: Problems: (1) Dementia with behavioral disturbance (2) Anxiety disorder (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
--- NOTE | 2016-07-16 23:28 | PN ---
DATE: 07/15/2016 PSYCHIATRIC PROGRESS NOTE This is late entry of 07/15/2016, covers elements not covered in my initial note. SUBJECTIVE: Overall, the patient is doing better. He takes his medications whole. Per nursing report, Sinemet was increased per Dr. Mendoza. He is less stiff, but still unable to ambulate and is in a Broda chair. He at times propels himself in the wheelchair backwards in the hallways. REVIEW OF SYSTEMS: Impaired ambulation, hard of hearing, I had to talk loudly into his ear. No CV, , pulmonary, eye system symptoms on review. Reliability poor. MENTAL STATUS EXAMINATION: Oriented to himself. Insight, judgment, recent and remote memory, attention, concentration, fund of knowledge poor, consistent with his diagnosis. IMPRESSION: Major neurocognitive disorder, Lewy body type with depression, delusion, behavioral disturbance. Rest unchanged. PLAN: Continue current psychotropics. Adjust Seroquel further, if mood lability persists, may need to use Depakote, if needed BuSpar for anxiety. MAN Heaven MAGALLANES MD DR: MARIBEL/harshad JOB#: [id number] / [id number]
[2016-07-17] MEDS: ALBUTEROL SULFATE 2.5 MG/3 ML NEBU. NEB SCH ×4 (05:34→20:37)
[2016-07-17 06:13] VITALS: BP 131/75
[2016-07-17] MEDS: INSULIN ASPART 300 UNITS/3 ML INSULN.PEN SQ SCH ×3 (07:30→16:40)
[2016-07-17] MEDS: METHIMAZOLE 5 MG TABLET PO SCH ×3 (08:55→19:48)
[2016-07-17] MEDS: SOTALOL 80 MG TABLET. PO SCH ×2 (08:56→19:48)
[2016-07-17] MEDS: DOXAZOSIN MESYLATE 1 MG TABLET PO SCH (08:56)
[2016-07-17] MEDS: DABIGATRAN ETEXILATE 150 MG CAPSULE. PO SCH ×2 (08:56→19:46)
[2016-07-17] MEDS: FOLIC ACID 1 MG TABLET PO SCH (08:56)
[2016-07-17] MEDS: SERTRALINE 50 MG TABLET. PO SCH (08:57)
[2016-07-17] MEDS: MULTIVITAMIN with MINERAL TABLET. PO SCH (08:57)
[2016-07-17] MEDS: QUEtiapine 50 MG TABLET. PO SCH (08:57)
[2016-07-17] MEDS: THIAMINE 100 MG TABLET. PO SCH (08:57)
[2016-07-17] MEDS: MEMANTINE 10 MG TABLET. PO SCH ×2 (08:57→19:46)
[2016-07-17] MEDS: CARBIDOPA/LEVODOPA 25/100MG TABLET PO SCH ×4 (08:57→19:46)
[2016-07-17] MEDS: ZINC SULFATE 220 MG CAPSULE. PO SCH (08:57)
[2016-07-17] MEDS: FERROUS SULFATE 325 MG TABLET PO SCH ×2 (08:57→19:46)
[2016-07-17] MEDS: ASCORBIC ACID 500 MG TABLET PO SCH ×2 (08:57→19:46)
[2016-07-17] MEDS: GLIMEPIRIDE 4 MG TABLET PO SCH ×2 (08:57→19:46)
[2016-07-17] MEDS: TRAMADOL 50 MG TABLET. PO SCH ×2 (09:00→19:49)
[2016-07-17] MEDS: BUDESONIDE 0.5 MG/2 ML NEBU NEB SCH ×2 (09:00→20:37)
[2016-07-17] MEDS: RIVASTIGMINE 13.3MG PATCH. TD SCH (09:00)
[2016-07-17 15:41] VITALS: BP 142/73
[2016-07-17] MEDS: QUEtiapine 100 MG TABLET. PO SCH (19:46)
--- NOTE | 2016-07-17 20:57 | PDOC ---
Exam Lobito Demential Exam: Lobito Note: Please also refer to the separate dictated note~for this date of service dictated separately.~Patient seen individually. Discussed the patient with Nursing staff reviewed the chart.~Reviewed interim history and current functioning. Reviewed vital signs,~Labs/ Radiology~and current medications noted below. Continue current treatment with the changes noted in the dictated addendum note Assessment: Vital Signs: Vital Signs Date Time Temp Pulse Resp B/P Pulse Ox O2 Delivery O2 Flow Rate FiO2 07/17/16 19:49 16 96 Room Air 07/17/16 19:48 71 142/73 07/17/16 15:41 97.6 I&O Intake and Output 07/17/16 07:00 Intake Total 960 ml Balance 960 ml Intake Oral 960 ml Labs: Laboratory Tests Test 07/17/16 07:26 07/17/16 11:26 07/17/16 16:21 07/17/16 18:51 Glucose (Fingerstick) 151mg/dL (70-99) H 291mg/dL (70-99) H 264mg/dL (70-99) H 232mg/dL (70-99) H Current Medications: Meds: Current Medications Acetaminophen (Tylenol) 650 mg PRN Q6HRS PRN PO PAIN / TEMP; Start 07/07/16 at 06:45; Status Cancel Acetaminophen (Tylenol) 650 mg PRN Q6HRS PRN PO PAIN / TEMP; Start 07/07/16 at 06:45 Multi-Ingredient Ointment (Analgesic Brackney) 1 marilyn PRN QID PRN TP MUSCLE PAIN; Start 07/07/16 at 06:45 Al Hydroxide/Mg Hydroxide (Mylanta Plus Xs) 15 ml PRN AFTMEALHC PRN PO DYSPEPSIA; Start 07/07/16 at 06:45 Magnesium Hydroxide (Milk Of Magnesia) 2,400 mg PRN QHS PRN PO CONSTIPATION Last administered on 07/09/16 19:36; Start 07/07/16 at 06:45 Quetiapine Fumarate (SEROquel) 50 mg DAILY PO Last administered on 07/17/16 08 :57; Start 07/07/16 at 09:00 Quetiapine Fumarate (SEROquel) 100 mg QHS PO Last administered on 07/17/16 19: 46; Start 07/07/16 at 21:00 Ascorbic Acid (Vitamin C) 500 mg BID PO Last administered on 07/17/16 19:46; Start 07/07/16 at 09:00 Budesonide (Pulmicort) 0.5 mg BID NEB Last administered on 07/16/16 19:57; Start 07/07/16 at 09:00 Dabigatran (Pradaxa) 150 mg BID PO Last administered on 07/17/16 19:46; Start 07/07/16 at 09:00 Folic Acid (Folic Acid) 1 mg DAILY PO Last administered on 07/17/16 08:56; Start 07/07/16 at 09:00 Glimepiride (Amaryl) 2 mg BID PO Last administered on 07/08/16 07:19; Start 07/07/16 at 09:00; Stop 07/08/16 at 15:30; Status DC Ketoconazole (Nizoral 2% Shampoo) 1 marilyn 3X/WEEK TP ; Start 07/09/16 at 09:00 Methimazole (Tapazole) 5 mg TID PO Last administered on 07/08/16 07:18; Start 07/07/16 at 09:00; Stop 07/08/16 at 15:30; Status DC Nystatin (Mycostatin) 1 marilyn PRN Q8HRS PRN TP Yeast; Start 07/07/16 at 07:00 Sotalol HCl (Betapace) 80 mg BID PO Last administered on 07/17/16 19:48; Start 07/07/16 at 09:00 Thiamine HCl (Vitamin B-1) 100 mg DAILY PO Last administered on 07/17/16 08:57 ; Start 07/07/16 at 09:00 Tramadol HCl (Ultram) 50 mg BID PO Last administered on 07/17/16 19:49; Start 07/07/16 at 09:00 Tramadol HCl (Ultram) 50 mg PRN Q6HRS PRN PO PAIN Last administered on 19:33; Start 07/07/16 at 07:00 Zinc Sulfate (Orazinc) 220 mg DAILY PO Last administered on 07/17/16 08:57; Start 07/07/16 at 09:00 Doxazosin Mesylate (Cardura) 2 mg DAILY PO Last administered on 07/17/16 08:56 ; Start 07/07/16 at 09:00 Albuterol Sulfate (Ventolin) 2.5 mg Q6HRS NEB Last administered on 07/17/16 05 :34; Start 07/07/16 at 12:00 Multivitamins/ Calcium (Thera-M Plus) 1 tab DAILY PO Last administered on 08:57; Start 07/07/16 at 09:00 Olanzapine (Zyprexa Zydis) 2.5 mg PRN Q2HR PRN PO PSYCHOSIS Last administered on 07/07/16 12:45; Start 07/07/16 at 07:30 Albuterol Sulfate (Ventolin) 2.5 mg STK-MED ONCE .ROUTE Last administered on 10:17; Start 07/07/16 at 09:54; Stop 07/07/16 at 09:55; Status DC Rivastigmine (Exelon) 1 patch DAILY TD Last administered on 07/12/16 08:11; Start 07/08/16 at 09:00; Stop 07/13/16 at 08:59; Status DC Rivastigmine (Exelon) 1 patch DAILY TD Last administered on 07/15/16 07:55; Start 07/13/16 at 09:00; Stop 07/15/16 at 11:56; Status DC Memantine (Namenda) 5 mg DAILY PO Last administered on 07/10/16 09:49; Start at 09:00; Stop 07/11/16 at 08:59; Status DC Memantine (Namenda) 5 mg BID PO Last administered on 07/15/16 07:54; Start 07/11 at 09:00; Stop 07/15/16 at 11:56; Status DC Ferrous Sulfate (Feosol) 325 mg BID PO ; Start 07/08/16 at 10:00; Status Cancel Ferrous Sulfate (Feosol) 325 mg BID PO Last administered on 07/17/16 19:46; Start 07/08/16 at 21:00 Glimepiride (Amaryl) 4 mg DAILY PO Last administered on 07/16/16 08:31; Start 07/09/16 at 09:00; Stop 07/16/16 at 12:32; Status DC Methimazole (Tapazole) 10 mg TID PO Last administered on 07/17/16 19:48; Start 07/08/16 at 21:00 Glimepiride (Amaryl) 2 mg QHS PO Last administered on 07/14/16 19:27; Start 07/08/16 at 21:00; Stop 07/16/16 at 12:32; Status DC Carbidopa/Levodopa (Sinemet 25/100) 1 tab TID PO Last administered on 07/14/16 07:47; Start 07/08/16 at 21:00; Stop 07/14/16 at 10:57; Status DC Sertraline HCl (Zoloft) 25 mg DAILY PO Last administered on 07/15/16 07:54; Start 07/12/16 at 09:00; Stop 07/15/16 at 11:56; Status DC Carbidopa/Levodopa (Sinemet 25/100) 1 tab QID PO Last administered on 19:46; Start 07/14/16 at 13:00 Insulin Aspart (Novolog) 0-5 UNITS TIDWMEALS SQ Last administered on 07/16/16 08:30; Start 07/14/16 at 17:00; Stop 07/16/16 at 12:33; Status DC Dextrose 12.5 gm PRN Q15MIN PRN IV SEE COMMENTS; Start 07/14/16 at 17:00; Stop 07/16/16 at 12:33; Status DC Glucose (Insta-Glucose) 15 gm PRN Q15MIN PRN PO LOW BLOOD SUGAR; Start 07/14/16 at 17:00 Insulin Aspart (Novolog) 10 units 1X ONCE SQ Last administered on 07/14/16 17: 24; Start 07/14/16 at 17:00; Stop 07/14/16 at 17:01; Status DC Rivastigmine (Exelon 13.3mg) 1 patch DAILY TD Last administered on 07/17/16 09 :00; Start 07/16/16 at 09:00 Memantine (Namenda) 10 mg BID PO Last administered on 07/17/16 19:46; Start at 21:00 Sertraline HCl (Zoloft) 50 mg DAILY PO Last administered on 07/17/16 08:57; Start 07/16/16 at 09:00 Glimepiride (Amaryl) 4 mg BID PO Last administered on 07/17/16 19:46; Start at 21:00 Insulin Aspart (Novolog) 0-7 UNITS TIDAC SQ Last administered on 07/17/16 16: 40; Start 07/16/16 at 16:30 Dextrose 12.5 gm PRN Q15MIN PRN IV SEE COMMENTS; Start 07/16/16 at 12:45 Active Scripts Active Reported [Proheal] 30 Ml PO BID 30 Days Zinc Sulfate 220 Mg Capsule 220 Mg PO DAILY 30 Days Vitamin C (Ascorbic Acid) 500 Mg Tablet 500 Mg PO BID 30 Days Tramadol Hcl (Tramadol HCl) 50 Mg Tablet 50 Mg PO BID Tramadol Hcl (Tramadol HCl) 50 Mg Tablet 50 Mg PO PRN Q6HRS PRN Thiamine Hcl 100 Mg Tablet 100 Mg PO DAILY Sotalol (Sotalol Hcl) 80 Mg Tablet 80 Mg PO BID Seroquel (Quetiapine Fumarate) 100 Mg Tablet 100 Mg PO QHS Seroquel (Quetiapine Fumarate) 50 Mg Tablet 50 Mg PO DAILY Pradaxa (Dabigatran Etexilate Mesylate) 150 Mg Capsule 150 Mg PO BID Nystatin 15 Gm Cream..g. 1 Marilyn TP PRN Q8HRS PRN Multi-Day Plus Minerals Tablet (Multivitamin-Min/Iron/FA/Vit K) 1 Each Tablet 1 Tab PO DAILY 30 Days Milk Of Magnesia (Magnesium Hydroxide) 400 Mg/5 Ml Oral.susp 2,400 Mg PO PRN DAILY PRN Methimazole 5 Mg Tablet 5 Mg PO TID Ketoconazole 120 Ml Shampoo 1 Marilyn TP TWICE WEEKLY Glimepiride 2 Mg Tablet 2 Mg PO BID Perforomist (Formoterol Fumarate) 20 Mcg/2 Ml Vial.neb 20 Mcg NEB BID Folic Acid 1 Mg Tablet 1 Mg PO DAILY Doxazosin Mesylate 2 Mg Tablet 2 Mg PO DAILY Budesonide 0.5 Mg/2 Ml Ampul.neb 0.5 Mg NEB BID Diagnosis: Problems: (1) Dementia with behavioral disturbance (2) Anxiety disorder (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
--- NOTE | 2016-07-17 22:56 | PN ---
DATE: 07/16/2016 PSYCHIATRIC PROGRESS NOTE This is late entry of 07/16/2016, covers elements not covered in my initial note. SUBJECTIVE: The patient remains confused, keeps to himself, tried to put himself in bed, was found on the floor with a pillow, comfortable. No injuries noted. Insulin has been adjusted per Dr. Antonio. REVIEW OF SYSTEMS: Ambulation impaired, in the Broda chair. No CV, , pulmonary, eye, ENT system symptoms on review. MENTAL STATUS EXAMINATION: Oriented to himself. Insight, judgment, recent and remote memory, attention, concentration, fund of knowledge poor, consistent with his diagnosis mentioned in my initial note. PLAN: Continue psychotropics noted in my initial note, adjust as indicated. MAN Heaven MAGALLANES MD DR: MARIBEL/harshad JOB#: [id number] / [id number]
[2016-07-18 05:08] VITALS: BP 117/52
[2016-07-18] MEDS: ALBUTEROL SULFATE 2.5 MG/3 ML NEBU. NEB SCH ×4 (05:36→20:20)
[2016-07-18] MEDS: INSULIN ASPART 300 UNITS/3 ML INSULN.PEN SQ SCH ×3 (07:30→17:02)
[2016-07-18] MEDS: MEMANTINE 10 MG TABLET. PO SCH ×2 (08:55→19:20)
[2016-07-18] MEDS: ASCORBIC ACID 500 MG TABLET PO SCH ×2 (08:55→19:20)
[2016-07-18] MEDS: FOLIC ACID 1 MG TABLET PO SCH (08:55)
[2016-07-18] MEDS: DABIGATRAN ETEXILATE 150 MG CAPSULE. PO SCH ×2 (08:55→19:20)
[2016-07-18] MEDS: QUEtiapine 50 MG TABLET. PO SCH (08:55)
[2016-07-18] MEDS: ZINC SULFATE 220 MG CAPSULE. PO SCH (08:55)
[2016-07-18] MEDS: FERROUS SULFATE 325 MG TABLET PO SCH ×2 (08:56→19:20)
[2016-07-18] MEDS: MULTIVITAMIN with MINERAL TABLET. PO SCH (08:56)
[2016-07-18] MEDS: RIVASTIGMINE 13.3MG PATCH. TD SCH (08:56)
[2016-07-18] MEDS: THIAMINE 100 MG TABLET. PO SCH (08:56)
[2016-07-18] MEDS: CARBIDOPA/LEVODOPA 25/100MG TABLET PO SCH ×4 (08:56→19:20)
[2016-07-18] MEDS: SERTRALINE 50 MG TABLET. PO SCH (08:56)
[2016-07-18] MEDS: GLIMEPIRIDE 4 MG TABLET PO SCH ×2 (08:56→19:20)
[2016-07-18] MEDS: OLANZAPINE ZYDIS 5 MG TAB.RAPDIS PO PRN (08:59)
[2016-07-18] MEDS: KETOCONAZOLE 2% SHAMPOO 120ML BOTTLE. TP SCH (09:00)
[2016-07-18] MEDS: METHIMAZOLE 5 MG TABLET PO SCH ×3 (09:00→19:21)
[2016-07-18] MEDS: BUDESONIDE 0.5 MG/2 ML NEBU NEB SCH ×2 (09:00→20:19)
[2016-07-18] MEDS: TRAMADOL 50 MG TABLET. PO SCH ×2 (09:00→19:22)
[2016-07-18] MEDS: SOTALOL 80 MG TABLET. PO SCH ×2 (09:01→19:21)
[2016-07-18] MEDS: DOXAZOSIN MESYLATE 1 MG TABLET PO SCH (09:02)
[2016-07-18 15:44] VITALS: BP 113/61
[2016-07-18] MEDS: QUEtiapine 100 MG TABLET. PO SCH (19:20)
[2016-07-18] MEDS: MAGNESIUM HYDROXIDE 2,400 MG/30 ML ORAL.SUSP. PO PRN (19:45)
--- NOTE | 2016-07-18 20:59 | PDOC ---
Exam Lobito Demential Exam: Lobito Note: Please also refer to the separate dictated note~for this date of service dictated separately.~Patient seen individually. Discussed the patient with Nursing staff reviewed the chart.~Reviewed interim history and current functioning. Reviewed vital signs,~Labs/ Radiology~and current medications noted below. Continue current treatment with the changes noted in the dictated addendum note Assessment: Vital Signs: Vital Signs Date Time Temp Pulse Resp B/P Pulse Ox O2 Delivery O2 Flow Rate FiO2 07/18/16 19:22 18 95 Room Air 07/18/16 19:21 80 113/61 07/18/16 15:44 97.4 I&O Intake and Output 07/18/16 07:00 Intake Total 1080 ml Balance 1080 ml Intake Oral 1080 ml # Voids 2 Labs: Laboratory Tests Test 07/18/16 07:37 07/18/16 12:19 07/18/16 16:55 Glucose (Fingerstick) 135mg/dL (70-99) H 183mg/dL (70-99) H 194mg/dL (70-99) H Current Medications: Meds: Current Medications Acetaminophen (Tylenol) 650 mg PRN Q6HRS PRN PO PAIN / TEMP; Start 07/07/16 at 06:45; Status Cancel Acetaminophen (Tylenol) 650 mg PRN Q6HRS PRN PO PAIN / TEMP; Start 07/07/16 at 06:45 Multi-Ingredient Ointment (Analgesic Bard) 1 marilyn PRN QID PRN TP MUSCLE PAIN; Start 07/07/16 at 06:45 Al Hydroxide/Mg Hydroxide (Mylanta Plus Xs) 15 ml PRN AFTMEALHC PRN PO DYSPEPSIA; Start 07/07/16 at 06:45 Magnesium Hydroxide (Milk Of Magnesia) 2,400 mg PRN QHS PRN PO CONSTIPATION Last administered on 07/18/16 19:45; Start 07/07/16 at 06:45 Quetiapine Fumarate (SEROquel) 50 mg DAILY PO Last administered on 07/18/16 08 :55; Start 07/07/16 at 09:00 Quetiapine Fumarate (SEROquel) 100 mg QHS PO Last administered on 07/18/16 19: 20; Start 07/07/16 at 21:00 Ascorbic Acid (Vitamin C) 500 mg BID PO Last administered on 07/18/16 19:20; Start 07/07/16 at 09:00 Budesonide (Pulmicort) 0.5 mg BID NEB Last administered on 07/16/16 19:57; Start 07/07/16 at 09:00 Dabigatran (Pradaxa) 150 mg BID PO Last administered on 07/18/16 19:20; Start 07/07/16 at 09:00 Folic Acid (Folic Acid) 1 mg DAILY PO Last administered on 07/18/16 08:55; Start 07/07/16 at 09:00 Glimepiride (Amaryl) 2 mg BID PO Last administered on 07/08/16 07:19; Start 07/07/16 at 09:00; Stop 07/08/16 at 15:30; Status DC Ketoconazole (Nizoral 2% Shampoo) 1 marilyn 3X/WEEK TP ; Start 07/09/16 at 09:00 Methimazole (Tapazole) 5 mg TID PO Last administered on 07/08/16 07:18; Start 07/07/16 at 09:00; Stop 07/08/16 at 15:30; Status DC Nystatin (Mycostatin) 1 marilyn PRN Q8HRS PRN TP Yeast; Start 07/07/16 at 07:00 Sotalol HCl (Betapace) 80 mg BID PO Last administered on 07/18/16 19:21; Start 07/07/16 at 09:00 Thiamine HCl (Vitamin B-1) 100 mg DAILY PO Last administered on 07/18/16 08:56 ; Start 07/07/16 at 09:00 Tramadol HCl (Ultram) 50 mg BID PO Last administered on 07/18/16 19:22; Start 07/07/16 at 09:00 Tramadol HCl (Ultram) 50 mg PRN Q6HRS PRN PO PAIN Last administered on 19:33; Start 07/07/16 at 07:00 Zinc Sulfate (Orazinc) 220 mg DAILY PO Last administered on 07/18/16 08:55; Start 07/07/16 at 09:00 Doxazosin Mesylate (Cardura) 2 mg DAILY PO Last administered on 07/18/16 09:02 ; Start 07/07/16 at 09:00 Albuterol Sulfate (Ventolin) 2.5 mg Q6HRS NEB Last administered on 07/17/16 05 :34; Start 07/07/16 at 12:00 Multivitamins/ Calcium (Thera-M Plus) 1 tab DAILY PO Last administered on 08:56; Start 07/07/16 at 09:00 Olanzapine (Zyprexa Zydis) 2.5 mg PRN Q2HR PRN PO PSYCHOSIS Last administered on 07/18/16 08:59; Start 07/07/16 at 07:30 Albuterol Sulfate (Ventolin) 2.5 mg STK-MED ONCE .ROUTE Last administered on 10:17; Start 07/07/16 at 09:54; Stop 07/07/16 at 09:55; Status DC Rivastigmine (Exelon) 1 patch DAILY TD Last administered on 07/12/16 08:11; Start 07/08/16 at 09:00; Stop 07/13/16 at 08:59; Status DC Rivastigmine (Exelon) 1 patch DAILY TD Last administered on 07/15/16 07:55; Start 07/13/16 at 09:00; Stop 07/15/16 at 11:56; Status DC Memantine (Namenda) 5 mg DAILY PO Last administered on 07/10/16 09:49; Start at 09:00; Stop 07/11/16 at 08:59; Status DC Memantine (Namenda) 5 mg BID PO Last administered on 07/15/16 07:54; Start 07/11 at 09:00; Stop 07/15/16 at 11:56; Status DC Ferrous Sulfate (Feosol) 325 mg BID PO ; Start 07/08/16 at 10:00; Status Cancel Ferrous Sulfate (Feosol) 325 mg BID PO Last administered on 07/18/16 19:20; Start 07/08/16 at 21:00 Glimepiride (Amaryl) 4 mg DAILY PO Last administered on 07/16/16 08:31; Start 07/09/16 at 09:00; Stop 07/16/16 at 12:32; Status DC Methimazole (Tapazole) 10 mg TID PO Last administered on 07/18/16 19:21; Start 07/08/16 at 21:00 Glimepiride (Amaryl) 2 mg QHS PO Last administered on 07/14/16 19:27; Start 07/08/16 at 21:00; Stop 07/16/16 at 12:32; Status DC Carbidopa/Levodopa (Sinemet 25/100) 1 tab TID PO Last administered on 07/14/16 07:47; Start 07/08/16 at 21:00; Stop 07/14/16 at 10:57; Status DC Sertraline HCl (Zoloft) 25 mg DAILY PO Last administered on 07/15/16 07:54; Start 07/12/16 at 09:00; Stop 07/15/16 at 11:56; Status DC Carbidopa/Levodopa (Sinemet 25/100) 1 tab QID PO Last administered on 19:20; Start 07/14/16 at 13:00 Insulin Aspart (Novolog) 0-5 UNITS TIDWMEALS SQ Last administered on 07/16/16 08:30; Start 07/14/16 at 17:00; Stop 07/16/16 at 12:33; Status DC Dextrose 12.5 gm PRN Q15MIN PRN IV SEE COMMENTS; Start 07/14/16 at 17:00; Stop 07/16/16 at 12:33; Status DC Glucose (Insta-Glucose) 15 gm PRN Q15MIN PRN PO LOW BLOOD SUGAR; Start 07/14/16 at 17:00 Insulin Aspart (Novolog) 10 units 1X ONCE SQ Last administered on 07/14/16 17: 24; Start 07/14/16 at 17:00; Stop 07/14/16 at 17:01; Status DC Rivastigmine (Exelon 13.3mg) 1 patch DAILY TD Last administered on 07/18/16 08 :56; Start 07/16/16 at 09:00 Memantine (Namenda) 10 mg BID PO Last administered on 07/18/16 19:20; Start at 21:00 Sertraline HCl (Zoloft) 50 mg DAILY PO Last administered on 07/18/16 08:56; Start 07/16/16 at 09:00 Glimepiride (Amaryl) 4 mg BID PO Last administered on 07/18/16 19:20; Start at 21:00 Insulin Aspart (Novolog) 0-7 UNITS TIDAC SQ Last administered on 07/18/16 17: 02; Start 07/16/16 at 16:30 Dextrose 12.5 gm PRN Q15MIN PRN IV SEE COMMENTS; Start 07/16/16 at 12:45 Active Scripts Active Reported [Proheal] 30 Ml PO BID 30 Days Zinc Sulfate 220 Mg Capsule 220 Mg PO DAILY 30 Days Vitamin C (Ascorbic Acid) 500 Mg Tablet 500 Mg PO BID 30 Days Tramadol Hcl (Tramadol HCl) 50 Mg Tablet 50 Mg PO BID Tramadol Hcl (Tramadol HCl) 50 Mg Tablet 50 Mg PO PRN Q6HRS PRN Thiamine Hcl 100 Mg Tablet 100 Mg PO DAILY Sotalol (Sotalol Hcl) 80 Mg Tablet 80 Mg PO BID Seroquel (Quetiapine Fumarate) 100 Mg Tablet 100 Mg PO QHS Seroquel (Quetiapine Fumarate) 50 Mg Tablet 50 Mg PO DAILY Pradaxa (Dabigatran Etexilate Mesylate) 150 Mg Capsule 150 Mg PO BID Nystatin 15 Gm Cream..g. 1 Marilyn TP PRN Q8HRS PRN Multi-Day Plus Minerals Tablet (Multivitamin-Min/Iron/FA/Vit K) 1 Each Tablet 1 Tab PO DAILY 30 Days Milk Of Magnesia (Magnesium Hydroxide) 400 Mg/5 Ml Oral.susp 2,400 Mg PO PRN DAILY PRN Methimazole 5 Mg Tablet 5 Mg PO TID Ketoconazole 120 Ml Shampoo 1 Marilyn TP TWICE WEEKLY Glimepiride 2 Mg Tablet 2 Mg PO BID Perforomist (Formoterol Fumarate) 20 Mcg/2 Ml Vial.neb 20 Mcg NEB BID Folic Acid 1 Mg Tablet 1 Mg PO DAILY Doxazosin Mesylate 2 Mg Tablet 2 Mg PO DAILY Budesonide 0.5 Mg/2 Ml Ampul.neb 0.5 Mg NEB BID Diagnosis: Problems: (1) Dementia with behavioral disturbance (2) Anxiety disorder (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
--- NOTE | 2016-07-18 21:59 | PN ---
DATE: 07/17/2016 PSYCHIATRIC PROGRESS NOTE This is late entry of 07/17/2016, covers elements not covered in my initial note. SUBJECTIVE: The patient is n.p.o. because of silent aspiration. He is confused, at times believes he is in a train. REVIEW OF SYSTEMS: Ambulation impaired, in his Broda chair, hard of hearing. No CV, , pulmonary, eye system symptoms on review. Reliability poor. MENTAL STATUS EXAMINATION: Oriented to himself. Insight, judgment, recent and remote memory, attention, concentration, fund of knowledge poor, consistent with his diagnosis mentioned in my initial note. IMPRESSION: Major neurocognitive disorder, Lewy body type with delusion, depression, behavioral disturbance. Rest diagnoses unchanged. PLAN: Maintain Seroquel 50 a.m., 100 at bedtime, Zyprexa p.r.n., Exelon patch 13.3 mg a day, Namenda 10 b.i.d., Zoloft 50 mg a day. Adjust further as clinically indicated. MAN Heaven MAGALLANES MD DR: MARIBEL/harshad JOB#: [id number] / [id number]
[2016-07-19] MEDS: ALBUTEROL SULFATE 2.5 MG/3 ML NEBU. NEB SCH ×3 (05:23→18:00)
[2016-07-19 05:37] VITALS: BP 126/78
[2016-07-19] MEDS: TRAMADOL 50 MG TABLET. PO PRN (05:53)
[2016-07-19] MEDS: INSULIN ASPART 300 UNITS/3 ML INSULN.PEN SQ SCH ×3 (07:30→17:34)
[2016-07-19] MEDS: ASCORBIC ACID 500 MG TABLET PO SCH ×2 (07:34→19:44)
[2016-07-19] MEDS: FOLIC ACID 1 MG TABLET PO SCH (07:34)
[2016-07-19] MEDS: FERROUS SULFATE 325 MG TABLET PO SCH ×2 (07:34→19:42)
[2016-07-19] MEDS: ZINC SULFATE 220 MG CAPSULE. PO SCH (07:34)
[2016-07-19] MEDS: MEMANTINE 10 MG TABLET. PO SCH ×2 (07:34→19:42)
[2016-07-19] MEDS: TRAMADOL 50 MG TABLET. PO SCH ×2 (07:35→19:46)
[2016-07-19] MEDS: GLIMEPIRIDE 4 MG TABLET PO SCH ×2 (07:35→19:40)
[2016-07-19] MEDS: CARBIDOPA/LEVODOPA 25/100MG TABLET PO SCH ×4 (07:35→19:43)
[2016-07-19] MEDS: THIAMINE 100 MG TABLET. PO SCH (07:35)
[2016-07-19] MEDS: QUEtiapine 50 MG TABLET. PO SCH (07:35)
[2016-07-19] MEDS: MULTIVITAMIN with MINERAL TABLET. PO SCH (07:35)
[2016-07-19] MEDS: SERTRALINE 50 MG TABLET. PO SCH (07:35)
[2016-07-19] MEDS: DABIGATRAN ETEXILATE 150 MG CAPSULE. PO SCH ×2 (07:35→19:43)
[2016-07-19] MEDS: RIVASTIGMINE 13.3MG PATCH. TD SCH (07:36)
[2016-07-19] MEDS: SOTALOL 80 MG TABLET. PO SCH ×2 (07:37→19:42)
[2016-07-19] MEDS: METHIMAZOLE 5 MG TABLET PO SCH ×3 (07:37→19:44)
[2016-07-19] MEDS: DOXAZOSIN MESYLATE 1 MG TABLET PO SCH (07:38)
[2016-07-19] MEDS: BUDESONIDE 0.5 MG/2 ML NEBU NEB SCH ×3 (11:58→20:46)
[2016-07-19 12:59] LABS: BACTERIA,URINE FEW /HPF (0-FEW); BILIRUBIN,URINE NEG (NEG); CLARITY,URINE CLEAR; COLOR,URINE YELLOW; GLUCOSE,URINE 100 mg/dL (NEG); NITRITE,URINE NEG (NEG); RBC,URINE 0 /HPF (0-2); UROBILINOGEN,URINE 0.2 mg/dL (0.2 mg/dL)
[2016-07-19 13:00] LABS: AMORPHOUS SEDIMENT,UR PRESENT /HPF; SPERM,URINE PRESENT /HPF; SQUAMOUS EPITHELIAL CELL,UR OCC /LPF; YEAST,URINE PRESENT /HPF
[2016-07-19 15:35] VITALS: BP 135/92
[2016-07-19] MEDS: QUEtiapine 100 MG TABLET. PO SCH (19:43)
[2016-07-19] MEDS: OLANZAPINE ZYDIS 5 MG TAB.RAPDIS PO PRN (20:58)
--- NOTE | 2016-07-19 21:02 | PDOC ---
Exam Lobito Demential Exam: Lobito Note: Please also refer to the separate dictated note~for this date of service dictated separately.~Patient seen individually. Discussed the patient with Nursing staff reviewed the chart.~Reviewed interim history and current functioning. Reviewed vital signs,~Labs/ Radiology~and current medications noted below. Continue current treatment with the changes noted in the dictated addendum note Assessment: Vital Signs: Vital Signs Date Time Temp Pulse Resp B/P Pulse Ox O2 Delivery O2 Flow Rate FiO2 07/19/16 19:46 99 Room Air 07/19/16 19:42 70 135/92 07/19/16 15:35 97.2 18 I&O Intake and Output 07/19/16 07:00 Intake Total 840 ml Balance 840 ml Intake Oral 840 ml # Voids 2 # Bowel Movements 2 Labs: Laboratory Tests Test 07/19/16 07:05 07/19/16 11:43 07/19/16 12:45 07/19/16 16:25 Glucose (Fingerstick) 139mg/dL (70-99) H 252mg/dL (70-99) H 170mg/dL (70-99) H Urine Collection Type Unknown Urine Color Yellow Urine Clarity Clear Urine pH 5.0 Urine Specific [place] 1.015 Urine Protein Neg (NEG-TRACE) Urine Glucose (UA) 100mg/dL (NEG) Urine Ketones (Stick) Negmg/dL (NEG) Urine Blood Neg (NEG) Urine Nitrite Neg (NEG) Urine Bilirubin Neg (NEG) Urine Urobilinogen Dipstick 0.2mg/dL (0.2 mg/dL) Urine Leukocyte Esterase Neg (NEG) Urine RBC 0/HPF (0-2) Urine WBC 1-4/HPF (0-4) Urine Squamous Epithelial Cells Occ/LPF Urine Amorphous Sediment Present/HPF Urine Bacteria Few/HPF (0-FEW) Urine Mucus Slight/LPF Urine Yeast Present/HPF Urine Sperm Present/HPF Test 07/19/16 19:22 Glucose (Fingerstick) 181mg/dL (70-99) H Current Medications: Meds: Current Medications Acetaminophen (Tylenol) 650 mg PRN Q6HRS PRN PO PAIN / TEMP; Start 07/07/16 at 06:45; Status Cancel Acetaminophen (Tylenol) 650 mg PRN Q6HRS PRN PO PAIN / TEMP; Start 07/07/16 at 06:45 Multi-Ingredient Ointment (Analgesic [place]) 1 marilyn PRN QID PRN TP MUSCLE PAIN; Start 07/07/16 at 06:45 Al Hydroxide/Mg Hydroxide (Mylanta Plus Xs) 15 ml PRN AFTMEALHC PRN PO DYSPEPSIA; Start 07/07/16 at 06:45 Magnesium Hydroxide (Milk Of Magnesia) 2,400 mg PRN QHS PRN PO CONSTIPATION Last administered on 07/18/16 19:45; Start 07/07/16 at 06:45 Quetiapine Fumarate (SEROquel) 50 mg DAILY PO Last administered on 07/19/16 07 :35; Start 07/07/16 at 09:00 Quetiapine Fumarate (SEROquel) 100 mg QHS PO Last administered on 07/19/16 19: 43; Start 07/07/16 at 21:00 Ascorbic Acid (Vitamin C) 500 mg BID PO Last administered on 07/19/16 19:44; Start 07/07/16 at 09:00 Budesonide (Pulmicort) 0.5 mg BID NEB Last administered on 07/19/16 11:58; Start 07/07/16 at 09:00 Dabigatran (Pradaxa) 150 mg BID PO Last administered on 07/19/16 19:43; Start 07/07/16 at 09:00 Folic Acid (Folic Acid) 1 mg DAILY PO Last administered on 07/19/16 07:34; Start 07/07/16 at 09:00 Glimepiride (Amaryl) 2 mg BID PO Last administered on 07/08/16 07:19; Start 07/07/16 at 09:00; Stop 07/08/16 at 15:30; Status DC Ketoconazole (Nizoral 2% Shampoo) 1 marilyn 3X/WEEK TP ; Start 07/09/16 at 09:00 Methimazole (Tapazole) 5 mg TID PO Last administered on 07/08/16 07:18; Start 07/07/16 at 09:00; Stop 07/08/16 at 15:30; Status DC Nystatin (Mycostatin) 1 marilyn PRN Q8HRS PRN TP Yeast; Start 07/07/16 at 07:00 Sotalol HCl (Betapace) 80 mg BID PO Last administered on 07/19/16 19:42; Start 07/07/16 at 09:00 Thiamine HCl (Vitamin B-1) 100 mg DAILY PO Last administered on 07/19/16 07:35 ; Start 07/07/16 at 09:00 Tramadol HCl (Ultram) 50 mg BID PO Last administered on 07/19/16 19:46; Start 07/07/16 at 09:00 Tramadol HCl (Ultram) 50 mg PRN Q6HRS PRN PO PAIN Last administered on 05:53; Start 07/07/16 at 07:00 Zinc Sulfate (Orazinc) 220 mg DAILY PO Last administered on 07/19/16 07:34; Start 07/07/16 at 09:00 Doxazosin Mesylate (Cardura) 2 mg DAILY PO Last administered on 07/19/16 07:38 ; Start 07/07/16 at 09:00 Albuterol Sulfate (Ventolin) 2.5 mg Q6HRS NEB Last administered on 07/19/16 11 :57; Start 07/07/16 at 12:00 Multivitamins/ Calcium (Thera-M Plus) 1 tab DAILY PO Last administered on 07:35; Start 07/07/16 at 09:00 Olanzapine (Zyprexa Zydis) 2.5 mg PRN Q2HR PRN PO PSYCHOSIS Last administered on 07/19/16 20:58; Start 07/07/16 at 07:30 Albuterol Sulfate (Ventolin) 2.5 mg STK-MED ONCE .ROUTE Last administered on 10:17; Start 07/07/16 at 09:54; Stop 07/07/16 at 09:55; Status DC Rivastigmine (Exelon) 1 patch DAILY TD Last administered on 07/12/16 08:11; Start 07/08/16 at 09:00; Stop 07/13/16 at 08:59; Status DC Rivastigmine (Exelon) 1 patch DAILY TD Last administered on 07/15/16 07:55; Start 07/13/16 at 09:00; Stop 07/15/16 at 11:56; Status DC Memantine (Namenda) 5 mg DAILY PO Last administered on 07/10/16 09:49; Start at 09:00; Stop 07/11/16 at 08:59; Status DC Memantine (Namenda) 5 mg BID PO Last administered on 07/15/16 07:54; Start 07/11 at 09:00; Stop 07/15/16 at 11:56; Status DC Ferrous Sulfate (Feosol) 325 mg BID PO ; Start 07/08/16 at 10:00; Status Cancel Ferrous Sulfate (Feosol) 325 mg BID PO Last administered on 07/19/16 19:42; Start 07/08/16 at 21:00 Glimepiride (Amaryl) 4 mg DAILY PO Last administered on 07/16/16 08:31; Start 07/09/16 at 09:00; Stop 07/16/16 at 12:32; Status DC Methimazole (Tapazole) 10 mg TID PO Last administered on 07/19/16 19:44; Start 07/08/16 at 21:00 Glimepiride (Amaryl) 2 mg QHS PO Last administered on 07/14/16 19:27; Start 07/08/16 at 21:00; Stop 07/16/16 at 12:32; Status DC Carbidopa/Levodopa (Sinemet 25/100) 1 tab TID PO Last administered on 07/14/16 07:47; Start 07/08/16 at 21:00; Stop 07/14/16 at 10:57; Status DC Sertraline HCl (Zoloft) 25 mg DAILY PO Last administered on 07/15/16 07:54; Start 07/12/16 at 09:00; Stop 07/15/16 at 11:56; Status DC Carbidopa/Levodopa (Sinemet 25/100) 1 tab QID PO Last administered on 19:43; Start 07/14/16 at 13:00 Insulin Aspart (Novolog) 0-5 UNITS TIDWMEALS SQ Last administered on 07/16/16 08:30; Start 07/14/16 at 17:00; Stop 07/16/16 at 12:33; Status DC Dextrose 12.5 gm PRN Q15MIN PRN IV SEE COMMENTS; Start 07/14/16 at 17:00; Stop 07/16/16 at 12:33; Status DC Glucose (Insta-Glucose) 15 gm PRN Q15MIN PRN PO LOW BLOOD SUGAR; Start 07/14/16 at 17:00 Insulin Aspart (Novolog) 10 units 1X ONCE SQ Last administered on 07/14/16 17: 24; Start 07/14/16 at 17:00; Stop 07/14/16 at 17:01; Status DC Rivastigmine (Exelon 13.3mg) 1 patch DAILY TD Last administered on 07/19/16 07 :36; Start 07/16/16 at 09:00 Memantine (Namenda) 10 mg BID PO Last administered on 07/19/16 19:42; Start at 21:00 Sertraline HCl (Zoloft) 50 mg DAILY PO Last administered on 07/19/16 07:35; Start 07/16/16 at 09:00 Glimepiride (Amaryl) 4 mg BID PO Last administered on 07/19/16 19:40; Start at 21:00 Insulin Aspart (Novolog) 0-7 UNITS TIDAC SQ Last administered on 07/19/16 17: 34; Start 07/16/16 at 16:30 Dextrose 12.5 gm PRN Q15MIN PRN IV SEE COMMENTS; Start 07/16/16 at 12:45 Active Scripts Active Reported [Proheal] 30 Ml PO BID 30 Days Zinc Sulfate 220 Mg Capsule 220 Mg PO DAILY 30 Days Vitamin C (Ascorbic Acid) 500 Mg Tablet 500 Mg PO BID 30 Days Tramadol Hcl (Tramadol HCl) 50 Mg Tablet 50 Mg PO BID Tramadol Hcl (Tramadol HCl) 50 Mg Tablet 50 Mg PO PRN Q6HRS PRN Thiamine Hcl 100 Mg Tablet 100 Mg PO DAILY Sotalol (Sotalol Hcl) 80 Mg Tablet 80 Mg PO BID Seroquel (Quetiapine Fumarate) 100 Mg Tablet 100 Mg PO QHS Seroquel (Quetiapine Fumarate) 50 Mg Tablet 50 Mg PO DAILY Pradaxa (Dabigatran Etexilate Mesylate) 150 Mg Capsule 150 Mg PO BID Nystatin 15 Gm Cream..g. 1 Marilyn TP PRN Q8HRS PRN Multi-Day Plus Minerals Tablet (Multivitamin-Min/Iron/FA/Vit K) 1 Each Tablet 1 Tab PO DAILY 30 Days Milk Of Magnesia (Magnesium Hydroxide) 400 Mg/5 Ml Oral.susp 2,400 Mg PO PRN DAILY PRN Methimazole 5 Mg Tablet 5 Mg PO TID Ketoconazole 120 Ml Shampoo 1 Marilyn TP TWICE WEEKLY Glimepiride 2 Mg Tablet 2 Mg PO BID Perforomist (Formoterol Fumarate) 20 Mcg/2 Ml Vial.neb 20 Mcg NEB BID Folic Acid 1 Mg Tablet 1 Mg PO DAILY Doxazosin Mesylate 2 Mg Tablet 2 Mg PO DAILY Budesonide 0.5 Mg/2 Ml Ampul.neb 0.5 Mg NEB BID Diagnosis: Problems: (1) Dementia with behavioral disturbance (2) Anxiety disorder (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
[2016-07-20] MEDS: ALBUTEROL SULFATE 2.5 MG/3 ML NEBU. NEB SCH ×5 (06:00→20:09)
[2016-07-20 06:27] VITALS: BP 171/78
[2016-07-20] MEDS: MEMANTINE 10 MG TABLET. PO SCH ×2 (08:36→20:13)
[2016-07-20] MEDS: QUEtiapine 50 MG TABLET. PO SCH (08:36)
[2016-07-20] MEDS: ASCORBIC ACID 500 MG TABLET PO SCH ×2 (08:36→20:13)
[2016-07-20] MEDS: THIAMINE 100 MG TABLET. PO SCH (08:36)
[2016-07-20] MEDS: GLIMEPIRIDE 4 MG TABLET PO SCH ×2 (08:36→20:17)
[2016-07-20] MEDS: FERROUS SULFATE 325 MG TABLET PO SCH ×2 (08:36→20:13)
[2016-07-20] MEDS: CARBIDOPA/LEVODOPA 25/100MG TABLET PO SCH ×4 (08:36→20:12)
[2016-07-20] MEDS: MULTIVITAMIN with MINERAL TABLET. PO SCH (08:36)
[2016-07-20] MEDS: RIVASTIGMINE 13.3MG PATCH. TD SCH (08:36)
[2016-07-20] MEDS: DABIGATRAN ETEXILATE 150 MG CAPSULE. PO SCH ×2 (08:36→20:13)
[2016-07-20] MEDS: FOLIC ACID 1 MG TABLET PO SCH (08:36)
[2016-07-20] MEDS: ZINC SULFATE 220 MG CAPSULE. PO SCH (08:36)
[2016-07-20] MEDS: KETOCONAZOLE 2% SHAMPOO 120ML BOTTLE. TP SCH (08:37)
[2016-07-20] MEDS: SERTRALINE 50 MG TABLET. PO SCH (08:37)
[2016-07-20] MEDS: TRAMADOL 50 MG TABLET. PO SCH ×2 (08:38→20:16)
[2016-07-20] MEDS: SOTALOL 80 MG TABLET. PO SCH ×2 (08:39→20:17)
[2016-07-20] MEDS: METHIMAZOLE 5 MG TABLET PO SCH ×3 (08:39→20:16)
[2016-07-20] MEDS: DOXAZOSIN MESYLATE 1 MG TABLET PO SCH (08:39)
[2016-07-20] MEDS: INSULIN ASPART 300 UNITS/3 ML INSULN.PEN SQ SCH ×3 (08:44→17:18)
[2016-07-20] MEDS: BUDESONIDE 0.5 MG/2 ML NEBU NEB SCH ×2 (09:00→20:08)
[2016-07-20 15:52] VITALS: BP 147/80
--- NOTE | 2016-07-20 20:03 | PDOC ---
Exam Lobito Demential Exam: Lobito Note: Please also refer to the separate dictated note~for this date of service dictated separately.~Patient seen individually. Discussed the patient with Nursing staff reviewed the chart.~Reviewed interim history and current functioning. Reviewed vital signs,~Labs/ Radiology~and current medications noted below. Continue current treatment with the changes noted in the dictated addendum note Assessment: Vital Signs: Vital Signs Date Time Temp Pulse Resp B/P Pulse Ox O2 Delivery O2 Flow Rate FiO2 07/20/16 15:52 97.6 73 20 147/80 96 20 I&O Intake and Output 07/20/16 07:00 Intake Total 1320 ml Balance 1320 ml Intake Oral 1320 ml # Bowel Movements 1 Labs: Laboratory Tests Test 07/20/16 07:33 07/20/16 11:09 07/20/16 17:03 07/20/16 19:19 Glucose (Fingerstick) 193mg/dL (70-99) H 278mg/dL (70-99) H 160mg/dL (70-99) H 231mg/dL (70-99) H Current Medications: Meds: Current Medications Acetaminophen (Tylenol) 650 mg PRN Q6HRS PRN PO PAIN / TEMP; Start 07/07/16 at 06:45; Status Cancel Acetaminophen (Tylenol) 650 mg PRN Q6HRS PRN PO PAIN / TEMP; Start 07/07/16 at 06:45 Multi-Ingredient Ointment (Analgesic [place]) 1 marilyn PRN QID PRN TP MUSCLE PAIN; Start 07/07/16 at 06:45 Al Hydroxide/Mg Hydroxide (Mylanta Plus Xs) 15 ml PRN AFTMEALHC PRN PO DYSPEPSIA; Start 07/07/16 at 06:45 Magnesium Hydroxide (Milk Of Magnesia) 2,400 mg PRN QHS PRN PO CONSTIPATION Last administered on 07/18/16 19:45; Start 07/07/16 at 06:45 Quetiapine Fumarate (SEROquel) 50 mg DAILY PO Last administered on 07/20/16 08 :36; Start 07/07/16 at 09:00; Stop 07/20/16 at 18:02; Status DC Quetiapine Fumarate (SEROquel) 100 mg QHS PO Last administered on 07/19/16 19: 43; Start 07/07/16 at 21:00 Ascorbic Acid (Vitamin C) 500 mg BID PO Last administered on 07/20/16 08:36; Start 07/07/16 at 09:00 Budesonide (Pulmicort) 0.5 mg BID NEB Last administered on 07/19/16 11:58; Start 07/07/16 at 09:00 Dabigatran (Pradaxa) 150 mg BID PO Last administered on 07/20/16 08:36; Start 07/07/16 at 09:00 Folic Acid (Folic Acid) 1 mg DAILY PO Last administered on 07/20/16 08:36; Start 07/07/16 at 09:00 Glimepiride (Amaryl) 2 mg BID PO Last administered on 07/08/16 07:19; Start 07/07/16 at 09:00; Stop 07/08/16 at 15:30; Status DC Ketoconazole (Nizoral 2% Shampoo) 1 marilyn 3X/WEEK TP ; Start 07/09/16 at 09:00 Methimazole (Tapazole) 5 mg TID PO Last administered on 07/08/16 07:18; Start 07/07/16 at 09:00; Stop 07/08/16 at 15:30; Status DC Nystatin (Mycostatin) 1 marilyn PRN Q8HRS PRN TP Yeast; Start 07/07/16 at 07:00 Sotalol HCl (Betapace) 80 mg BID PO Last administered on 07/20/16 08:39; Start 07/07/16 at 09:00 Thiamine HCl (Vitamin B-1) 100 mg DAILY PO Last administered on 07/20/16 08:36 ; Start 07/07/16 at 09:00 Tramadol HCl (Ultram) 50 mg BID PO Last administered on 07/20/16 08:38; Start 07/07/16 at 09:00 Tramadol HCl (Ultram) 50 mg PRN Q6HRS PRN PO PAIN Last administered on 05:53; Start 07/07/16 at 07:00 Zinc Sulfate (Orazinc) 220 mg DAILY PO Last administered on 07/20/16 08:36; Start 07/07/16 at 09:00 Doxazosin Mesylate (Cardura) 2 mg DAILY PO Last administered on 07/20/16 08:39 ; Start 07/07/16 at 09:00 Albuterol Sulfate (Ventolin) 2.5 mg Q6HRS NEB Last administered on 07/19/16 11 :57; Start 07/07/16 at 12:00 Multivitamins/ Calcium (Thera-M Plus) 1 tab DAILY PO Last administered on 08:36; Start 07/07/16 at 09:00 Olanzapine (Zyprexa Zydis) 2.5 mg PRN Q2HR PRN PO PSYCHOSIS Last administered on 07/19/16 20:58; Start 07/07/16 at 07:30 Albuterol Sulfate (Ventolin) 2.5 mg STK-MED ONCE .ROUTE Last administered on 10:17; Start 07/07/16 at 09:54; Stop 07/07/16 at 09:55; Status DC Rivastigmine (Exelon) 1 patch DAILY TD Last administered on 07/12/16 08:11; Start 07/08/16 at 09:00; Stop 07/13/16 at 08:59; Status DC Rivastigmine (Exelon) 1 patch DAILY TD Last administered on 07/15/16 07:55; Start 07/13/16 at 09:00; Stop 07/15/16 at 11:56; Status DC Memantine (Namenda) 5 mg DAILY PO Last administered on 07/10/16 09:49; Start at 09:00; Stop 07/11/16 at 08:59; Status DC Memantine (Namenda) 5 mg BID PO Last administered on 07/15/16 07:54; Start 07/11 at 09:00; Stop 07/15/16 at 11:56; Status DC Ferrous Sulfate (Feosol) 325 mg BID PO ; Start 07/08/16 at 10:00; Status Cancel Ferrous Sulfate (Feosol) 325 mg BID PO Last administered on 07/20/16 08:36; Start 07/08/16 at 21:00 Glimepiride (Amaryl) 4 mg DAILY PO Last administered on 07/16/16 08:31; Start 07/09/16 at 09:00; Stop 07/16/16 at 12:32; Status DC Methimazole (Tapazole) 10 mg TID PO Last administered on 07/20/16 13:02; Start 07/08/16 at 21:00 Glimepiride (Amaryl) 2 mg QHS PO Last administered on 07/14/16 19:27; Start 07/08/16 at 21:00; Stop 07/16/16 at 12:32; Status DC Carbidopa/Levodopa (Sinemet 25/100) 1 tab TID PO Last administered on 07/14/16 07:47; Start 07/08/16 at 21:00; Stop 07/14/16 at 10:57; Status DC Sertraline HCl (Zoloft) 25 mg DAILY PO Last administered on 07/15/16 07:54; Start 07/12/16 at 09:00; Stop 07/15/16 at 11:56; Status DC Carbidopa/Levodopa (Sinemet 25/100) 1 tab QID PO Last administered on 17:16; Start 07/14/16 at 13:00 Insulin Aspart (Novolog) 0-5 UNITS TIDWMEALS SQ Last administered on 07/16/16 08:30; Start 07/14/16 at 17:00; Stop 07/16/16 at 12:33; Status DC Dextrose 12.5 gm PRN Q15MIN PRN IV SEE COMMENTS; Start 07/14/16 at 17:00; Stop 07/16/16 at 12:33; Status DC Glucose (Insta-Glucose) 15 gm PRN Q15MIN PRN PO LOW BLOOD SUGAR; Start 07/14/16 at 17:00 Insulin Aspart (Novolog) 10 units 1X ONCE SQ Last administered on 07/14/16 17: 24; Start 07/14/16 at 17:00; Stop 07/14/16 at 17:01; Status DC Rivastigmine (Exelon 13.3mg) 1 patch DAILY TD Last administered on 07/20/16 08 :36; Start 07/16/16 at 09:00 Memantine (Namenda) 10 mg BID PO Last administered on 07/20/16 08:36; Start at 21:00 Sertraline HCl (Zoloft) 50 mg DAILY PO Last administered on 07/20/16 08:37; Start 07/16/16 at 09:00 Glimepiride (Amaryl) 4 mg BID PO Last administered on 07/20/16 08:36; Start at 21:00 Insulin Aspart (Novolog) 0-7 UNITS TIDAC SQ Last administered on 07/20/16 17: 18; Start 07/16/16 at 16:30 Dextrose 12.5 gm PRN Q15MIN PRN IV SEE COMMENTS; Start 07/16/16 at 12:45 Quetiapine Fumarate (SEROquel) 25 mg TIDWMEALS PO ; Start 07/21/16 at 08:00 Active Scripts Active Reported [Proheal] 30 Ml PO BID 30 Days Zinc Sulfate 220 Mg Capsule 220 Mg PO DAILY 30 Days Vitamin C (Ascorbic Acid) 500 Mg Tablet 500 Mg PO BID 30 Days Tramadol Hcl (Tramadol HCl) 50 Mg Tablet 50 Mg PO BID Tramadol Hcl (Tramadol HCl) 50 Mg Tablet 50 Mg PO PRN Q6HRS PRN Thiamine Hcl 100 Mg Tablet 100 Mg PO DAILY Sotalol (Sotalol Hcl) 80 Mg Tablet 80 Mg PO BID Seroquel (Quetiapine Fumarate) 100 Mg Tablet 100 Mg PO QHS Seroquel (Quetiapine Fumarate) 50 Mg Tablet 50 Mg PO DAILY Pradaxa (Dabigatran Etexilate Mesylate) 150 Mg Capsule 150 Mg PO BID Nystatin 15 Gm Cream..g. 1 Marilyn TP PRN Q8HRS PRN Multi-Day Plus Minerals Tablet (Multivitamin-Min/Iron/FA/Vit K) 1 Each Tablet 1 Tab PO DAILY 30 Days Milk Of Magnesia (Magnesium Hydroxide) 400 Mg/5 Ml Oral.susp 2,400 Mg PO PRN DAILY PRN Methimazole 5 Mg Tablet 5 Mg PO TID Ketoconazole 120 Ml Shampoo 1 Marilyn TP TWICE WEEKLY Glimepiride 2 Mg Tablet 2 Mg PO BID Perforomist (Formoterol Fumarate) 20 Mcg/2 Ml Vial.neb 20 Mcg NEB BID Folic Acid 1 Mg Tablet 1 Mg PO DAILY Doxazosin Mesylate 2 Mg Tablet 2 Mg PO DAILY Budesonide 0.5 Mg/2 Ml Ampul.neb 0.5 Mg NEB BID Diagnosis: Problems: (1) Dementia with behavioral disturbance (2) Anxiety disorder (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
[2016-07-20] MEDS: QUEtiapine 100 MG TABLET. PO SCH (20:12)
--- NOTE | 2016-07-21 00:21 | PN ---
DATE: 07/18/2016 PSYCHIATRIC PROGRESS NOTE This is late entry of 07/18/2016, covers elements not covered in my initial note. SUBJECTIVE: The patient was agitated morning of 07/18/2016 per nursing report, quite hard of hearing, gets restless with ADLs redirected in the day room, resistive to cares, lowered himself to the floor. No injuries noted. REVIEW OF SYSTEMS: Hard of hearing, impaired ambulation in a Broda chair. No CV, , pulmonary, eye system symptoms on review. MENTAL STATUS EXAMIATION: Oriented to himself. Insight, judgment, recent and remote memory, attention, concentration, fund of knowledge poor, consistent with his diagnosis as mentioned in my initial note. PLAN: Continue current psychotropics mentioned in my initial note, may need to increase Zoloft further for mood, anxiety symptoms. Continue Seroquel, Zyprexa p.r.n., Exelon patch, Namenda for now. MARY MAGALLANES MD DR: MARIBEL/harshad JOB#: [id number] / [id number]
--- NOTE | 2016-07-21 00:25 | PN ---
DATE: 07/19/2016 PSYCHIATRIC PROGRESS NOTE This is late entry of 07/19/2016, covers elements not covered in my initial note. SUBJECTIVE: The patient was staffed at treatment team meeting with the entire team and seen individually. Per nursing report, he is more compliant with his medication assessment, looking for a train to get home, blood sugars elevated, being addressed per Dr. Sampson. We will check a UA on account of his ongoing agitation and psychosis. REVIEW OF SYSTEMS: No CV, , eye, ENT or pulmonary system symptoms on review. Reliability poor. MENTAL STATUS EXAMINATION: Oriented to himself. Insight, judgment, recent and remote memory, attention, concentration, fund of knowledge poor, consistent with his diagnosis mentioned in my initial note. IMPRESSION: Major neurocognitive disorder, Lewy body type with delusion, depression, behavioral disturbance. Rest diagnoses unchanged. PLAN: Continue psychotropics mentioned in my initial note, may need to adjust further as clinically indicated. MAN Heaven MAGALLANES MD DR: MARIBEL/harshad JOB#: [id number] / [id number]
[2016-07-21] MEDS: ALBUTEROL SULFATE 2.5 MG/3 ML NEBU. NEB SCH ×2 (05:08→11:41)
[2016-07-21 06:31] VITALS: BP 131/89
[2016-07-21] MEDS: INSULIN ASPART 300 UNITS/3 ML INSULN.PEN SQ SCH ×2 (07:30→09:30)
[2016-07-21] MEDS: QUEtiapine 50 MG TABLET. PO SCH ×2 (08:00→09:13)
[2016-07-21] MEDS: ZINC SULFATE 220 MG CAPSULE. PO SCH ×2 (09:00→09:08)
[2016-07-21] MEDS: MEMANTINE 10 MG TABLET. PO SCH (09:00)
[2016-07-21] MEDS: SOTALOL 80 MG TABLET. PO SCH ×2 (09:00→09:17)
[2016-07-21] MEDS: BUDESONIDE 0.5 MG/2 ML NEBU NEB SCH (09:00)
[2016-07-21] MEDS: DOXAZOSIN MESYLATE 1 MG TABLET PO SCH ×2 (09:00→09:18)
[2016-07-21] MEDS: FOLIC ACID 1 MG TABLET PO SCH ×2 (09:00→09:07)
[2016-07-21] MEDS: DABIGATRAN ETEXILATE 150 MG CAPSULE. PO SCH ×2 (09:00→09:08)
[2016-07-21] MEDS: FERROUS SULFATE 325 MG TABLET PO SCH ×2 (09:00→09:07)
[2016-07-21] MEDS: CARBIDOPA/LEVODOPA 25/100MG TABLET PO SCH ×2 (09:00→09:07)
[2016-07-21] MEDS: GLIMEPIRIDE 4 MG TABLET PO SCH ×2 (09:00→09:06)
[2016-07-21] MEDS: SERTRALINE 50 MG TABLET. PO SCH (09:07)
[2016-07-21] MEDS: THIAMINE 100 MG TABLET. PO SCH (09:08)
[2016-07-21] MEDS: TRAMADOL 50 MG TABLET. PO SCH (09:08)
[2016-07-21] MEDS: MULTIVITAMIN with MINERAL TABLET. PO SCH (09:08)
[2016-07-21] MEDS: ASCORBIC ACID 500 MG TABLET PO SCH (09:08)
[2016-07-21] MEDS: RIVASTIGMINE 13.3MG PATCH. TD SCH (09:09)
[2016-07-21] MEDS: METHIMAZOLE 5 MG TABLET PO SCH (09:18)
[2016-07-21 10:22] LABS: BASO # 0.1 x10^3/uL (0.0-0.2); BASO % 1 % (0-3); EOS # 0.5 x10^3/uL (0.0-0.7); EOS % 4 % (0-3); HEMATOCRIT 40.8 % (39.0-53.0); HEMOGLOBIN 12.9 g/dL (13.0-17.5); LYMPH # 1.7 x10^3/uL (1.0-4.8); LYMPH % 15 % (24-48); MEAN CORPUSCULAR HEMOGLOBIN 27 pg (25-35); MEAN CORPUSCULAR HGB CONC 32 g/dL (31-37); MEAN CORPUSCULAR VOLUME 85 fL (79-100); MONO # 0.9 x10^3/uL (0.0-1.1); MONO % 8 % (0-9); NEUT # 8.3 x10^3uL (1.8-7.7); NEUT % 72 % (31-73); PLATELET COUNT 200 x10^3/uL (140-400); RED CELL DISTRIBUTION WIDTH 16.8 % (11.5-14.5); WHITE BLOOD COUNT 11.5 x10^3/uL (4.0-11.0)
[2016-07-21 10:43] LABS: ALBUMIN 3.4 g/dL (3.4-5.0); ALBUMIN/GLOBULIN RATIO 0.8 (1.0-1.7); CALCIUM 9.3 mg/dL (8.5-10.1); CREATININE 1.4 mg/dL (0.7-1.3); GFR 48.5; MAGNESIUM 1.9 mg/dL (1.8-2.4); POTASSIUM 4.5 mmol/L (3.5-5.1); TOTAL BILIRUBIN 0.5 mg/dL (0.2-1.0); TOTAL PROTEIN 7.7 g/dL (6.4-8.2)
[2016-07-21 10:58] LABS: % BANDS 2 % (0-9); % BASOS 2 % (0-3); % EOS 4 % (0-5); % LYMPHS 14 % (24-48); % MONOS 6 % (0-10); % SEGS 72 % (35-66)
[2016-07-21 10:59] LABS: PLT ESTIMATE ADEQUATE (ADEQUATE); POLYCHROMASIA SLIGHT
[2016-07-21 11:01] LABS: OVALOCYTES OCC
[2016-07-21 11:02] LABS: ANISOCYTOSIS SLIGHT
[2016-07-21 11:03] LABS: MICROCYTOSIS SLIGHT
[2016-07-21] MEDS: OLANZAPINE ZYDIS 5 MG TAB.RAPDIS PO PRN (11:49)
[2016-07-21] MEDS ORDERED: IV NORMAL SALINE 1,000 ML BAG ONE (12:00)
--- NOTE | 2016-07-22 08:44 | DS ---
DATE OF DISCHARGE: 07/21/2016 DISCHARGE SUMMARY/PSYCHIATRIC PROGRESS NOTE This is a late entry for 07/21/2016. REASON FOR ADMISSION: Please refer to the admission history for details. Briefly, the patient is an 81-year-old male from [facility] referred by his primary care physician on account of severe hallucinations, believes he is covered in spiders, agitated, aggressive, combative with staff, hitting, kicking. Recent trial of discontinuation of psych medications had failed. He does have an established diagnosis of dementia, Lewy body type. SIGNIFICANT FINDINGS AND CLINICAL COURSE: Following admission, the patient was seen daily individually by myself, followed medically per Dr. Antonio/Dr. Sampson. He is quite restless, agitated, hard of hearing, remained in a Broda chair. Adjustments were made in his psychotropics and from a psychiatric standpoint, he is seemed to be doing better on a combination of Seroquel 25 mg 3 times a day and 100 mg at night, Zyprexa p.r.n., Exelon patch 13.3 mg a day, Namenda 10 b.i.d., Zoloft 50 mg a day. Initially on 07/21/2016 in the morning, he was doing better and then developed seizure-like activity and was transferred to medical surgical floor per Dr. Sampson for medical stabilization. No suicidal or homicidal ideation at discharge. FINAL DIAGNOSES: Major neurocognitive disorder, Lewy body type with delusion, depression, behavioral disturbance; anxiety disorder, unspecified; impulse control disorder, unspecified, seizure disorder, hard of hearing, impaired ambulation. Rest diagnosis is unchanged from admission. DISCHARGE MEDICATIONS: Please refer to the MRAD. DISCHARGE INSTRUCTIONS: We may consider having him back on our unit if clinically indicated once he is medically stable. MARY MAGALLANES MD DR: MARIBEL/harshad JOB#: [id number] / [id number]
--- NOTE | 2016-07-22 20:36 | PN ---
DATE: 07/20/2016 PSYCHIATRIC PROGRESS NOTE This is late entry of 07/20/2016, covers elements not covered in my initial note. SUBJECTIVE: Per nursing report, the previous night the patient was agitated, noncompliant with medications, yelling at staff, had to be syringed Zyprexa, agitated with Accu-Cheks and activities. He has done better during the day on 07/20/2016. REVIEW OF SYSTEMS: Ambulation impaired, in a Broda chair, hard of hearing. No CV, , pulmonary, eye system symptoms on review. Reliability poor. MENTAL STATUS EXAMINATION: Oriented to himself. Speech, often responses monosyllabic, pleasant as I met with him, smiling. Insight, judgment, recent and remote memory, attention, concentration, fund of knowledge poor, consistent with his diagnosis. IMPRESSION: Major neurocognitive disorder, Lewy body type with delusion, depression, behavioral disturbance. Rest diagnoses unchanged. PLAN: Increase Seroquel from 50 mg a.m., 100 at bedtime to 25 mg at 9:00 a.m., 1:00 p.m., 6 p.m., 100 mg at bedtime; continue Zyprexa p.r.n., Zoloft 50 mg a day, Namenda 10 b.i.d., Exelon patch 13.3 mg a day. Adjust further as clinically indicated. MARY MAGALLANES MD DR: MARIBEL/harshad JOB#: [id number] / [id number]
--- NOTE | 2016-07-22 20:54 | PN ---
DATE: 07/21/2016 PSYCHIATRIC PROGRESS NOTE This is a late entry for 07/21/2016, covers elements not covered in my initial note. SUBJECTIVE: Per nursing report, the patient remains confused, forgetful, but has not been agitated. REVIEW OF SYSTEMS: Hard of hearing, impaired ambulation in a Broda chair. No CV, , pulmonary, eye system symptoms on review. Reliability poor. MENTAL STATUS EXAMINATION: Oriented to himself. Insight, judgment, recent and remote memory, attention, concentration, fund of knowledge poor, consistent with his diagnosis. LABORATORY DATA: Reviewed. IMPRESSION: Noted in my initial note. PLAN: Continue current psychotropics. Adjust further as clinically indicated. MAN Heaven MAGALLANES MD DR: MARIBEL/harshad JOB#: [id number] / [id number]
== END 2016-07-21 12:20 | disposition short-term general hospital (02) | DRG 57 ==
LOC: ER 04:50 → GEROPSY 06:47
PROVIDERS: ADMIT Psychiatry & Neurology Psychiatry; ATTEND Psychiatry & Neurology Psychiatry
DX: G31.83 Neurocognitive disorder with Lewy bodies (principal); F02.81 Dementia in other diseases classified elsewhere, unspecified severity, with behavioral disturbance; G20 Parkinson's disease; E03.9 Hypothyroidism, unspecified; E11.9 Type 2 diabetes mellitus without complications; F41.9 Anxiety disorder, unspecified; F63.9 Impulse disorder, unspecified; G40.909 Epilepsy, unspecified, not intractable, without status epilepticus; G47.33 Obstructive sleep apnea (adult) (pediatric); H91.90 Unspecified hearing loss, unspecified ear; I50.9 Heart failure, unspecified; I48.91 Unspecified atrial fibrillation; I11.0 Hypertensive heart disease with heart failure; Z66 Do not resuscitate; J44.9 Chronic obstructive pulmonary disease, unspecified; I49.5 Sick sinus syndrome; E55.9 Vitamin D deficiency, unspecified; R13.10 Dysphagia, unspecified; E05.90 Thyrotoxicosis, unspecified without thyrotoxic crisis or storm; D64.9 Anemia, unspecified; F32.9 Major depressive disorder, single episode, unspecified; Z79.84 Long term (current) use of oral hypoglycemic drugs; Z79.899 Other long term (current) drug therapy; Z91.14 Patient's other noncompliance with medication regimen; Z95.0 Presence of cardiac pacemaker
CPT/HCPCS: 36415; 70450; 80053; 80061; 81001; 82306; 82553; 82607; 82947; 83036; 83540; 83550; 83735; 84436; 84439; 84443; 84480; 84481; 85007; 85027; 85610; 85730; 86592; 86593; 87086; 93005; 94640; J1815; J7613; J7626; 97530; 99285-25; J7030

== ENCOUNTER 2016-07-21 12:19 | Inpatient (IN) | payer MEDICARE ==
[~2016-07-21] VITALS: Ht 182.9 cm; Wt 84.4 kg
[~2016-07-21 12:19] MED LIST: ASCO500T2 PO; BUDE0.5A NEB; DABI150C PO; DOXA2TAB2 PO; FOLI1TAB16 PO; FORM20VI NEB; GLIM2TAB2 PO; HALO5AMP IM; HALO5TAB PO; KETO120S TP; MAGN400O4 PO; METH5TAB6 PO; MULT-681 PO; NYST15CR TP; PROHEAL PO; QUET100T4 PO; QUET50TA5 PO; SOTA80TA PO; THIA100T8 PO; TRAM50TA PO; ZINC220C5 PO
[2016-07-21 13:05] LABS: BASO % 1 % (0-3); EOS # 0.5 x10^3/uL (0.0-0.7); EOS % 4 % (0-3); HEMATOCRIT 39.8 % (39.0-53.0); HEMOGLOBIN 12.9 g/dL (13.0-17.5); LYMPH # 1.4 x10^3/uL (1.0-4.8); LYMPH % 12 % (24-48); MEAN CORPUSCULAR HEMOGLOBIN 27 pg (25-35); MEAN CORPUSCULAR HGB CONC 32 g/dL (31-37); MEAN CORPUSCULAR VOLUME 84 fL (79-100); MONO # 0.8 x10^3/uL (0.0-1.1); MONO % 8 % (0-9); NEUT # 8.2 x10^3uL (1.8-7.7); NEUT % 75 % (31-73); PLATELET COUNT 186 x10^3/uL (140-400); RED BLOOD COUNT 4.74 x10^6/uL (4.30-5.70); RED CELL DISTRIBUTION WIDTH 17.1 % (11.5-14.5); WHITE BLOOD COUNT 10.9 x10^3/uL (4.0-11.0)
[2016-07-21 13:13] LABS: ALBUMIN 3.4 g/dL (3.4-5.0); ALBUMIN/GLOBULIN RATIO 0.8 (1.0-1.7); CALCIUM 9.4 mg/dL (8.5-10.1); CREATININE 1.4 mg/dL (0.7-1.3); GFR 48.5; POTASSIUM 4.6 mmol/L (3.5-5.1); TOTAL BILIRUBIN 0.6 mg/dL (0.2-1.0); TOTAL PROTEIN 7.6 g/dL (6.4-8.2)
[2016-07-21 14:07] VITALS: BP 155/90
--- NOTE | 2016-07-21 15:01 | RAD ---
CHEST AP ONLY Clinical Indication: syncope episode Comparison: None. Technique: Single portable AP view of the chest is obtained. Findings: Interstitial opacities are seen within both lungs, predominantly within the perihilar regions. No significant pleural effusion or pneumothorax is present. Cardiomediastinal silhouette appears within normal limits of size. Visualized osseous structures and overlying soft tissues demonstrate no acute finding. Dual lead left chest pacemaker present with leads overlying the right heart. Degenerative changes of both glenohumeral joints present. IMPRESSION: Bilateral interstitial opacities, may represent edema or infiltrate.
[2016-07-21 15:28] VITALS: BP 187/77
[2016-07-21] MEDS ORDERED: MAGNESIUM HYDROXIDE 2,400 MG/30 ML ORAL.SUSP. PO PRN (15:45)
[2016-07-21] MEDS ORDERED: NYSTATIN 100,000 UNIT/GM TOPICAL CREAM 15GM TUBE. TP PRN (15:45)
[2016-07-21] MEDS ORDERED: TRAMADOL 50 MG TABLET. PO PRN (15:45)
[2016-07-21] MEDS: ALBUTEROL SULFATE 2.5 MG/3 ML NEBU. NEB SCH ×2 (16:47→20:06)
[2016-07-21] MEDS: PIP/TAZO PER PHARMACY MC PRN (16:50)
[2016-07-21] MEDS: VANCOMYCIN PER PHARMACY MC PRN (16:53)
[2016-07-21] MEDS: IV 1/2 NORMAL SALINE 1,000 ML IV SCH (17:00)
[2016-07-21] MEDS ORDERED: VANCOMYCIN 2 GM in IV NORMAL SALINE 500ML 500 ML IV ONE (17:00)
[2016-07-21] MEDS: PIPERACILLIN/TAZOBACTAM 4.5 GM in IV NORMAL SALINE 50ML 50 ML IV SCH ×2 (17:00→22:14)
[2016-07-21] MEDS: GLIMEPIRIDE 2 MG TABLET PO SCH (17:05)
--- NOTE | 2016-07-21 17:56 | HP ---
ADMIT DATE: 07/21/2016 HISTORY OF PRESENT ILLNESS: The patient is an 81-year-old male patient, who was transferred from [facility] for possible tonic-clonic seizure and postictal state. He apparently has been extremely agitated, restless, and was locked in the corridor. He refused his medications, he refused to eat and was banging the doors and all of a sudden he did not make any noise and the nursing quickly attended to him and he was basically on the floor, unresponsive. His vitals were stable. His blood sugar was ____ high, and they seemed to put him in a wheelchair and apparently he slumped back and rolled his eyes back and once started having what looked like tonic-clonic seizures and they have lowered him back to the floor and put him in a ____ bed, brought him down to [address] [place] [address]. At that time, he was in postictal state, unresponsive. However, by the time I saw him, he was awake, alert. In fact, he did even recognize me and his only complaint was pain in his left shoulder and left upper extremity that apparently is chronic. By the time he arrived to [address] [place] [address], he continued to be stable hemodynamically. He has had extensive lab work including CBC, which showed a normal white cell count. His chemistry was also normal. His D-dimer was slightly elevated at 0.78. We did start him on IV fluid. We will continue all his medication. We will also consult Dr. Mendoza. The patient himself is demented and sometimes becomes extremely confused. PAST MEDICAL HISTORY: Significant for hypertension, type 2 diabetes, chronic obstructive pulmonary disease, atrial fibrillation, sick sinus syndrome, status post pacemaker placement, he has obstructive sleep apnea, dysphagia, congestive heart failure, encephalopathy with Lewy body dementia. He is also known to have hyperthyroidism. PAST SURGICAL HISTORY: Unremarkable. FAMILY HISTORY: Noncontributory. SOCIAL HISTORY: He is a resident at [facility]. He does not smoke, drink alcohol or use any recreational drugs. REVIEW OF SYSTEMS: Unobtainable. ALLERGIES: He has no known drug allergies. MEDICATIONS: He is currently on following medications: He is on ascorbic acid 500 mg twice a day, budesonide for Pulmicort 0.5 mg by nebulizer twice a day. He is on Pradaxa 150 mg twice a day, doxazosin 2 mg daily, folic acid 1 mg once a day, formoterol fumarate 20 mcg in 2 mL by nebulizer twice a day, glimepiride 2 mg twice a day, ketoconazole shampoo twice a week, milk of magnesia 30 mL p.o. daily p.r.n. for constipation, methimazole 5 mg 3 times a day, multivitamin with mineral 1 tablet once a day, nystatin cream applied topically every 8 hours as needed. He is on quetiapine fumarate 100 mg at bedtime, sotalol 80 mg twice a day, thiamine 100 mg once a day, tramadol 50 mg every 6 hours and tramadol 50 mg twice a day, zinc sulfate 220 mg once a day. REVIEW OF SYSTEMS: Unobtainable. PHYSICAL EXAMINATION: GENERAL: When I examined him, he was resting, slightly propped up in bed, in no apparent distress. He was pale, but no jaundice, cyanosis or thyromegaly. No jugular venous distension. No limb edema. VITAL SIGNS: His heart rate was 80, blood pressure was 155/90, temperature was 97.5, respiratory rate was 16 and oxygen saturation was 100% on 2 liters of oxygen. HEAD, EYES, EARS, NOSE AND THROAT: Showed normocephalic, atraumatic. NECK: Supple. HEART: Showed normal first and second heart sounds with no gallop, rub or murmur. CHEST: Clear to auscultation. No crepitation or rhonchi. ABDOMEN: Distended, soft, nontender. No guarding or rigidity. No organomegaly. All hernial orifices intact. Bowel sounds normal. NEUROLOGIC: He is definitely awake, alert, responding at time, is known to have dementia. He is hard of hearing, but otherwise all his cranial nerves are intact. EXTREMITIES: He moves all extremities and lower extremities. He apparently wheeled himself around and able to walk with a walker. LABORATORY DATA: Showed a white cell count of 10,900, hemoglobin 13, hematocrit 39, MCV 84 and platelet count of 186,000 with normal manual differential. Serum sodium was 143, potassium 4.6, chloride 106, bicarbonate 27, anion gap of 10, BUN 27, creatinine 1.4, estimated GFR was 48 mL per minute. His glucose was 192, calcium was 9.4, lactic acid was 1, magnesium 2. Total bilirubin, AST, ALT were normal. Alkaline phosphatase slightly elevated. His total protein was 7.6, albumin 3.4. His D-dimer was high at 0.78 mg/dL; however, he is already on Pradaxa. He has had a chest x-ray, which showed that he has interstitial opacities, are seen within both lungs predominantly within the perihilar region. No significant pleural effusion or pneumothorax. ____ appears to be within normal limits in size. Visualized osseous structures and overlying soft tissue demonstrates no acute finding. ____ left chest and pacemaker present with the overlying right degenerative changes in both glenohumeral joint present. ASSESSMENT: In summary, this is an 81-year-old male patient, who apparently transferred to [address] [place] [address] with altered mental status, possible tonic-clonic seizures. There is no documented tongue biting or urine or bowel incontinence; however, the patient seemed to be in postictal state and level of consciousness removed after he was transferred to [address] [place] [address]. We will continue the IV fluids. We will continue with all his medication. Would consult Dr. Mendoza and decide on further management accordingly. ANNEL GREGORIO MD DR: ALEXANDER/harshad JOB#: [id number] / [id number]
[2016-07-21 19:08] VITALS: BP 154/82
[2016-07-21] MEDS: BUDESONIDE 0.5 MG/2 ML NEBU NEB SCH (20:06)
[2016-07-21] MEDS: DABIGATRAN ETEXILATE 150 MG CAPSULE. PO SCH (20:32)
[2016-07-21] MEDS: METHIMAZOLE 5 MG TABLET PO SCH (20:32)
[2016-07-21] MEDS: ASCORBIC ACID 500 MG TABLET PO SCH (20:32)
[2016-07-21] MEDS: SOTALOL 80 MG TABLET. PO SCH (20:32)
[2016-07-21] MEDS: QUEtiapine 100 MG TABLET. PO SCH (20:32)
[2016-07-21] MEDS: TRAMADOL 50 MG TABLET. PO SCH (20:33)
[2016-07-21] MEDS ORDERED: NON FORMULARY ITEM (Formoterol Fumarate (Perforomist) 20 MCG) NEB SCH (21:00)
[2016-07-21] MEDS ORDERED: PROHEAL PO SCH (21:00)
[2016-07-22 00:06] VITALS: BP 115/62
[2016-07-22] MEDS: PIPERACILLIN/TAZOBACTAM 4.5 GM in IV NORMAL SALINE 50ML 50 ML IV SCH ×4 (04:04→21:20)
[2016-07-22] MEDS: IV 1/2 NORMAL SALINE 1,000 ML IV SCH ×2 (04:34→17:16)
[2016-07-22 04:39] VITALS: BP 127/87
[2016-07-22] MEDS: ALBUTEROL SULFATE 2.5 MG/3 ML NEBU. NEB SCH ×4 (05:05→20:11)
[2016-07-22 06:15] LABS: BASO # 0.1 x10^3/uL (0.0-0.2); BASO % 1 % (0-3); EOS # 0.5 x10^3/uL (0.0-0.7); EOS % 5 % (0-3); HEMATOCRIT 35.6 % (39.0-53.0); HEMOGLOBIN 11.7 g/dL (13.0-17.5); LYMPH # 1.1 x10^3/uL (1.0-4.8); LYMPH % 10 % (24-48); MEAN CORPUSCULAR HEMOGLOBIN 27 pg (25-35); MEAN CORPUSCULAR HGB CONC 33 g/dL (31-37); MEAN CORPUSCULAR VOLUME 83 fL (79-100); MONO # 0.9 x10^3/uL (0.0-1.1); MONO % 8 % (0-9); NEUT % 76 % (31-73); PLATELET COUNT 159 x10^3/uL (140-400); RED BLOOD COUNT 4.29 x10^6/uL (4.30-5.70); RED CELL DISTRIBUTION WIDTH 16.8 % (11.5-14.5); WHITE BLOOD COUNT 10.5 x10^3/uL (4.0-11.0)
[2016-07-22 06:30] LABS: ALBUMIN 2.8 g/dL (3.4-5.0); ALBUMIN/GLOBULIN RATIO 0.8 (1.0-1.7); CALCIUM 8.7 mg/dL (8.5-10.1); CREATININE 1.3 mg/dL (0.7-1.3); GFR 52.9; TOTAL BILIRUBIN 0.8 mg/dL (0.2-1.0); TOTAL PROTEIN 6.5 g/dL (6.4-8.2)
--- NOTE | 2016-07-22 07:49 | CONS ---
DATE OF CONSULTATION: 07/21/2016 REASON FOR CONSULTATION: Acute mental status changes. REFERRING PHYSICIAN: Ariel Sampson MD HISTORY OF PRESENT ILLNESS: This is an 81-year-old right-handed white male who has had history of Lewy body dementia with Parkinsonism, was transferred from [facility] after he was found unresponsive following a spell of severe agitation and restlessness. The nursing staff described intermittent generalized seizure-like activities. The patient is unable to provide any information. He has had behavior disturbances. He was seen a few days earlier because of increasing symptoms of Parkinsonism as generalized rigidity, gait disturbances and tendency to fall. He was placed on carbidopa-levodopa ER t.i.d. with some improvement of his rigidity. Initial chest x-ray revealed evidence of bilateral opacities, rule out edema versus infiltrates. The patient was started on antibiotics by Dr. Sampson. PAST MEDICAL HISTORY: Significant for Lewy body dementia, hypertension, diabetes mellitus type 2, COPD, history of atrial fibrillation, obstructive sleep apnea and hyperthyroidism. PAST SURGICAL HISTORY: Significant for permanent pacemaker placement. FAMILY HISTORY: Not obtainable. SOCIAL HISTORY: No reported history of smoking, alcohol drinking or illicit drug use. CURRENT HOME MEDICATIONS: See MRAD, but antibiotics of vancomycin was added for possible underlying pneumonia. OTHER MEDICATIONS: Include Seroquel, folic acid, tramadol, sotalol, methimazole, Pradaxa, Pulmicort inhaler, vitamin C, albuterol inhaler, Zosyn. ALLERGIES: No known drug allergies. REVIEW OF SYSTEMS: A 10-point review of system was performed as mentioned above in the history of present illness. PHYSICAL EXAMINATION: GENERAL: Well-developed, well-nourished white male, not in acute distress. He weighs 189 pounds. VITAL SIGNS: Blood pressure 187/77, respiratory rate is 16, pulse is 78 and regular, temperature 98.1, oxygen saturation is 96% on room air. HEENT: Normocephalic, atraumatic, otherwise, unremarkable. NECK: Supple. Negative for carotid bruit, lymphadenopathy or thyromegaly. LUNGS: Clear to A and P. CARDIOVASCULAR: Regular rate and rhythm, normal S1, S2. There is no S3, S4 or murmur. ABDOMEN: Soft. Bowel sounds are positive. No palpable mass, organomegaly or tenderness. EXTREMITIES: Negative for cyanosis, clubbing or pitting edema. NEUROLOGICAL EXAM: Mental Status: The patient is alert and disoriented. He is very hard of hearing. He sometimes follow one-step commands. Language, memory, judgment and abstract thinking are impaired. The patient denies hallucination or delusion. CRANIAL NERVES: Pupils are equal and reactive to light and accommodation. The extraocular movements are intact. There is no nystagmus. There is no facial motor or sensory deficit. Hearing is markedly diminished bilaterally. The palate is elevated symmetrically. Sternocleidomastoid muscles are powerful bilaterally. The patient shrugs his shoulders symmetrically and protrudes his tongue in the midline. The strength is 4/5 in the left upper extremity secondary to pain of the left shoulder. The tone is increased in the upper and lower extremities. The sensory examination revealed normal pinprick and light touch senses. Deep tendon reflexes were symmetric and hypoactive with absent Achilles responses. Gait not tested. DIAGNOSTIC DATA: Chest x-ray from today revealed bilateral interstitial opacities, rule out ____ versus infiltrates. LABORATORY DATA: CBC revealed white blood cells of 10.9 thousand, hemoglobin 12.9, hematocrit 39.8, platelet count 186,000. Chemistry revealed sodium of 143, potassium 4.6, chloride 106, CO2 27, BUN 27, creatinine 1.4, glucose 192. Cardiac enzymes are normal. IMPRESSION: 1. Acute encephalopathy, probably infectious versus metabolic or toxic encephalopathy. 2. Dehydration and renal insufficiency. 3. Possible pneumonia, rule out pneumonia. 4. Multiple medical problems include Lewy body dementia, obstructive sleep apnea, chronic obstructive pulmonary disease, diabetes mellitus type 2, anxiety and behavior disturbances. RECOMMENDATIONS: 1. Continue with current management includes carbidopa/levodopa ER 25/100 t.i.d. 2. Continue with current management initiated by Dr. Sampson. M Tonny JALLOH MD DR: ADRIANA/harshad JOB#: [id number] / [id number]
[2016-07-22] MEDS: THIAMINE 100 MG TABLET. PO SCH (08:59)
[2016-07-22] MEDS: QUEtiapine 50 MG TABLET. PO SCH (08:59)
[2016-07-22] MEDS: FOLIC ACID 1 MG TABLET PO SCH (08:59)
[2016-07-22] MEDS: ZINC SULFATE 220 MG CAPSULE. PO SCH (08:59)
[2016-07-22] MEDS: SOTALOL 80 MG TABLET. PO SCH ×2 (08:59→20:01)
[2016-07-22] MEDS: GLIMEPIRIDE 2 MG TABLET PO SCH ×2 (08:59→17:16)
[2016-07-22] MEDS: MULTIVITAMIN with MINERAL TABLET. PO SCH (08:59)
[2016-07-22] MEDS: ASCORBIC ACID 500 MG TABLET PO SCH ×2 (08:59→20:01)
[2016-07-22] MEDS: TRAMADOL 50 MG TABLET. PO SCH ×2 (08:59→20:01)
[2016-07-22] MEDS: PIP/TAZO PER PHARMACY MC PRN (09:28)
[2016-07-22] MEDS: VANCOMYCIN PER PHARMACY MC PRN (09:29)
[2016-07-22] MEDS: DABIGATRAN ETEXILATE 150 MG CAPSULE. PO SCH ×2 (09:33→20:01)
[2016-07-22] MEDS: DOXAZOSIN MESYLATE 1 MG TABLET PO SCH (09:33)
[2016-07-22] MEDS: METHIMAZOLE 5 MG TABLET PO SCH ×3 (09:33→20:02)
[2016-07-22] MEDS: BUDESONIDE 0.5 MG/2 ML NEBU NEB SCH ×2 (11:12→20:11)
[2016-07-22 11:17] VITALS: BP 158/77
[2016-07-22 13:07] LABS: THYROXINE 9.5 ug/dL (4.5-12.0)
[2016-07-22 15:54] VITALS: BP 123/68
[2016-07-22] MEDS ORDERED: VANCOMYCIN 1.25 GM in IV NORMAL SALINE 250ML 250 ML IV SCH (17:00)
[2016-07-22] MEDS ORDERED: CARBIDOPA/LEVODOPA 25/100MG TABLET PO SCH (18:00)
[2016-07-22 19:43] VITALS: BP 144/71
[2016-07-22] MEDS: QUEtiapine 100 MG TABLET. PO SCH (20:01)
--- NOTE | 2016-07-22 21:16 | PDOC ---
Exam Lobito Demential Exam: Lobito Note: Please also refer to the separate dictated note~for this date of service dictated separately.~Patient seen individually. Discussed the patient with Nursing staff reviewed the chart.~Reviewed interim history and current functioning. Reviewed vital signs,~Labs/ Radiology~and current medications noted below. Continue current treatment with the changes noted in the dictated addendum note Assessment: Vital Signs: Vital Signs Date Time Temp Pulse Resp B/P Pulse Ox O2 Delivery O2 Flow Rate FiO2 07/22/16 21:01 Room Air 07/22/16 20:14 95 07/22/16 20:01 81 144/71 07/22/16 19:43 98.3 18 07/21/16 14:07 2.0 I&O Intake and Output 07/22/16 07:00 Intake Total 2487.34 ml Output Total 210 ml Balance 2277.34 ml Intake Oral 360 ml IV Total 2127.34 ml Output Urine Total 210 ml # Voids 4 Labs: Laboratory Tests Test 07/22/16 05:55 White Blood Count 10.5x10^3/uL (4.0-11.0) Red Blood Count 4.29x10^6/uL (4.30-5.70) L Hemoglobin 11.7g/dL (13.0-17.5) L Hematocrit 35.6% (39.0-53.0) L Mean Corpuscular Volume 83fL (79-100) Mean Corpuscular Hemoglobin 27pg (25-35) Mean Corpuscular Hemoglobin Concent 33g/dL (31-37) Red Cell Distribution Width 16.8% (11.5-14.5) H Platelet Count 159x10^3/uL (140-400) Neutrophils (%) (Auto) 76% (31-73) H Lymphocytes (%) (Auto) 10% (24-48) L Monocytes (%) (Auto) 8% (0-9) Eosinophils (%) (Auto) 5% (0-3) H Basophils (%) (Auto) 1% (0-3) Neutrophils # (Auto) 8.0x10^3uL (1.8-7.7) H Lymphocytes # (Auto) 1.1x10^3/uL (1.0-4.8) Monocytes # (Auto) 0.9x10^3/uL (0.0-1.1) Eosinophils # (Auto) 0.5x10^3/uL (0.0-0.7) Basophils # (Auto) 0.1x10^3/uL (0.0-0.2) Sodium Level 141mmol/L (136-145) Potassium Level 4.0mmol/L (3.5-5.1) Chloride Level 106mmol/L (98-107) Carbon Dioxide Level 24mmol/L (21-32) Anion Gap 11 (6-14) Blood Urea Nitrogen 18mg/dL (8-26) Creatinine 1.3mg/dL (0.7-1.3) Estimated GFR (Cockcroft-Gault) 52.9 BUN/Creatinine Ratio 14 (6-20) Glucose Level 72mg/dL (70-99) Calcium Level 8.7mg/dL (8.5-10.1) Total Bilirubin 0.8mg/dL (0.2-1.0) Aspartate Amino Transferase (AST) 19U/L (15-37) Alanine Aminotransferase (ALT) 30U/L (16-63) Alkaline Phosphatase 105U/L (46-116) Total Protein 6.5g/dL (6.4-8.2) Albumin 2.8g/dL (3.4-5.0) L Albumin/Globulin Ratio 0.8 (1.0-1.7) L Free Thyroxine 1.51ng/dL (0.76-1.46) H Thyroxine (T4) 9.5ug/dL (4.5-12.0) Total Triiodothyronine (TT3) 100ng/dL (71-180) Current Medications: Meds: Current Medications Ascorbic Acid (Vitamin C) 500 mg BID PO Last administered on 07/22/16 20:01; Start 07/21/16 at 21:00 Budesonide (Pulmicort) 0.5 mg BID NEB Last administered on 07/22/16 20:11; Start 07/21/16 at 21:00 Dabigatran (Pradaxa) 150 mg BID PO Last administered on 07/22/16 20:01; Start 07/21/16 at 21:00 Folic Acid (Folic Acid) 1 mg DAILY PO Last administered on 07/22/16 08:59; Start 07/22/16 at 09:00 Glimepiride (Amaryl) 2 mg BIDWMEALS PO Last administered on 07/22/16 17:16; Start 07/21/16 at 17:00 Ketoconazole (Nizoral 2% Shampoo) 1 marilyn WEEKLY TP ; Start 07/28/16 at 09:00 Magnesium Hydroxide (Milk Of Magnesia) 2,400 mg PRN DAILY PRN PO CONSTIPATION; Start 07/21/16 at 15:45 Methimazole (Tapazole) 10 mg TID PO Last administered on 07/22/16 20:02; Start 07/21/16 at 21:00 Nystatin (Mycostatin) 1 marilyn PRN Q8HRS PRN TP Yeast; Start 07/21/16 at 15:45 Quetiapine Fumarate (SEROquel) 50 mg DAILY PO Last administered on 07/22/16 08 :59; Start 07/22/16 at 09:00 Quetiapine Fumarate (SEROquel) 100 mg QHS PO Last administered on 07/22/16 20: 01; Start 07/21/16 at 21:00 Sotalol HCl (Betapace) 80 mg BID PO Last administered on 07/22/16 20:01; Start 07/21/16 at 21:00 Thiamine HCl (Vitamin B-1) 100 mg DAILY PO Last administered on 07/22/16 08:59 ; Start 07/22/16 at 09:00 Tramadol HCl (Ultram) 50 mg BID PO Last administered on 07/22/16 20:01; Start 07/21/16 at 21:00 Tramadol HCl (Ultram) 50 mg PRN Q6HRS PRN PO PAIN Last administered on 17:05; Start 07/21/16 at 15:45 Zinc Sulfate (Orazinc) 220 mg DAILY PO Last administered on 07/22/16 08:59; Start 07/22/16 at 09:00 Doxazosin Mesylate (Cardura) 2 mg DAILY PO Last administered on 07/22/16 09:33 ; Start 07/22/16 at 09:00 Non-Formulary Medication 20 mcg BID NEB COPD; Start 07/21/16 at 21:00; Status UNV Multivitamins/ Calcium (Thera-M Plus) 1 tab DAILY PO Last administered on 08:59; Start 07/22/16 at 09:00 Non-Formulary Medication 30 ml 30 ml BID PO Wound Healing; Start 07/21/16 at 21: 00; Status UNV Sodium Chloride (Iv Sodium Chloride 0.45%) 1,000 ml @ 75 mls/hr [id number] IV Last administered on 07/22/16 17:16; Start 07/21/16 at 15:45 Vancomycin HCl (Vanco Per Pharmacy) 1 each PRN DAILY PRN MC SEE COMMENTS Last administered on 07/22/16 09:29; Start 07/21/16 at 16:00 Piperacillin Sod/ Tazobactam Sod (Zosyn Per Pharmacy) 1 each PRN DAILY PRN MC SEE COMMENTS Last administered on 07/22/16 09:28; Start 07/21/16 at 16:00 Albuterol Sulfate 2.5 mg 2.5 mg RTQID NEB Last administered on 07/22/16 20:11 ; Start 07/21/16 at 16:00 Vancomycin HCl 2 gm/Sodium Chloride 500 ml @ 250 mls/hr 1X ONCE IV Last administered on 07/21/16 17:40; Start 07/21/16 at 17:00; Stop 07/21/16 at 19:00 ; Status DC Vancomycin HCl/ Sodium Chloride (Iv Sodium Chloride 0.9% 250ml) 250 ml @ 167 mls/hr Q24H IV Last administered on 07/22/16 17:17; Start 07/22/16 at 17:00 Vancomycin HCl 1 each 1 each 1X ONCE MC ; Start 07/23/16 at 16:30; Stop at 16:31 Piperacillin Sod/ Tazobactam Sod/ Sodium Chloride (Zosyn/Iv Sodium Chloride 0.9 % 50ml) 50 ml @ 100 mls/hr Q6H IV Last administered on 07/22/16 15:49; Start 07/21/16 at 16:00 Carbidopa/Levodopa (Sinemet 25/100) 1 tab [id number] PO Last administered on 17:16; Start 07/22/16 at 18:00; Stop 07/22/16 at 20:55; Status DC Carbidopa/Levodopa (Sinemet 25/100) 1 tab QID PO ; Start 07/22/16 at 21:00 Active Scripts Active Reported [Proheal] 30 Ml PO BID 30 Days Zinc Sulfate 220 Mg Capsule 220 Mg PO DAILY 30 Days Vitamin C (Ascorbic Acid) 500 Mg Tablet 500 Mg PO BID 30 Days Tramadol Hcl (Tramadol HCl) 50 Mg Tablet 50 Mg PO BID Tramadol Hcl (Tramadol HCl) 50 Mg Tablet 50 Mg PO PRN Q6HRS PRN Thiamine Hcl 100 Mg Tablet 100 Mg PO DAILY Sotalol (Sotalol Hcl) 80 Mg Tablet 80 Mg PO BID Seroquel (Quetiapine Fumarate) 100 Mg Tablet 100 Mg PO QHS Seroquel (Quetiapine Fumarate) 50 Mg Tablet 50 Mg PO DAILY Pradaxa (Dabigatran Etexilate Mesylate) 150 Mg Capsule 150 Mg PO BID Nystatin 15 Gm Cream..g. 1 Marilyn TP PRN Q8HRS PRN Multi-Day Plus Minerals Tablet (Multivitamin-Min/Iron/FA/Vit K) 1 Each Tablet 1 Tab PO DAILY 30 Days Milk Of Magnesia (Magnesium Hydroxide) 400 Mg/5 Ml Oral.susp 2,400 Mg PO PRN DAILY PRN Methimazole 5 Mg Tablet 5 Mg PO TID Ketoconazole 120 Ml Shampoo 1 Marilyn TP TWICE WEEKLY Glimepiride 2 Mg Tablet 2 Mg PO BID Perforomist (Formoterol Fumarate) 20 Mcg/2 Ml Vial.neb 20 Mcg NEB BID Folic Acid 1 Mg Tablet 1 Mg PO DAILY Doxazosin Mesylate 2 Mg Tablet 2 Mg PO DAILY Budesonide 0.5 Mg/2 Ml Ampul.neb 0.5 Mg NEB BID Diagnosis: Problems: (1) Dementia with behavioral disturbance (2) Anxiety disorder (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
[2016-07-22] MEDS: CARBIDOPA/LEVODOPA 25/100MG TABLET PO SCH (21:20)
[2016-07-22 22:46] VITALS: BP 131/60
[2016-07-23] MEDS: PIPERACILLIN/TAZOBACTAM 4.5 GM in IV NORMAL SALINE 50ML 50 ML IV SCH (03:04)
--- NOTE | 2016-07-23 05:09 | PN ---
DATE: 07/22/2016 SUBJECTIVE: The patient is an 81-year-old male seen in bed [address] [place] [address] for Psychiatric followup/consultation requested by Dr. Sampson after the patient was transferred [facility] to medical/surgical floor for dehydration, pneumonia after possible seizure episode on the [facility] and changed mental status. The patient was initially admitted to [facility] with agitation, aggression within the context of his Lewy body dementia while he was living at [facility]. He was being psychiatrically stabilized, doing better on a combination of Seroquel, Exelon patch, Namenda, Zoloft, and at this stage developed dehydration, change in mental status, possible seizure episode, was transferred to [address] [place] [address]. While on medical/surgical floor, the patient was doing reasonably well from a psychiatric standpoint. He is hard of hearing, impaired ambulation, confused, but no CV, , pulmonary system symptoms on review. Reliability poor. MENTAL STATUS EXAM: Oriented to himself, quite sedated. Insight, judgment, recent and remote memory, attention, concentration, fund of knowledge poor, consistent with his diagnosis mentioned in my initial note. IMPRESSION: Major neurocognitive disorder, Lewy body type with delusion; depression; behavioral disturbance; anxiety disorder, unspecified; impulse control disorder, unspecified, pneumonia, dehydration, history of seizure disorder. Rest diagnoses unchanged. PLAN: From a psychiatric standpoint, continue current psychotropics mentioned in my initial note. Adjust further as clinically indicated. MARY MAGALLANES MD DR: MARIBEL/harshad JOB#: [id number] / [id number]
[2016-07-23 05:15] VITALS: BP 126/78
[2016-07-23] MEDS: ALBUTEROL SULFATE 2.5 MG/3 ML NEBU. NEB SCH ×2 (05:56→12:16)
[2016-07-23 06:27] LABS: HEMATOCRIT 36.4 % (39.0-53.0); HEMOGLOBIN 11.7 g/dL (13.0-17.5); RED BLOOD COUNT 4.29 x10^6/uL (4.30-5.70); WHITE BLOOD COUNT 8.9 x10^3/uL (4.0-11.0)
[2016-07-23 06:36] LABS: CALCIUM 8.4 mg/dL (8.5-10.1); CREATININE 1.4 mg/dL (0.7-1.3); GFR 48.5; POTASSIUM 4.1 mmol/L (3.5-5.1)
[2016-07-23] MEDS: IV 1/2 NORMAL SALINE 1,000 ML IV SCH (07:45)
[2016-07-23] MEDS: FOLIC ACID 1 MG TABLET PO SCH (08:51)
[2016-07-23] MEDS: MULTIVITAMIN with MINERAL TABLET. PO SCH (08:51)
[2016-07-23] MEDS: THIAMINE 100 MG TABLET. PO SCH (08:51)
[2016-07-23] MEDS: CARBIDOPA/LEVODOPA 25/100MG TABLET PO SCH ×2 (08:52→14:00)
[2016-07-23] MEDS: QUEtiapine 50 MG TABLET. PO SCH (08:52)
[2016-07-23] MEDS: SOTALOL 80 MG TABLET. PO SCH (08:52)
[2016-07-23] MEDS: TRAMADOL 50 MG TABLET. PO SCH (08:52)
[2016-07-23] MEDS: GLIMEPIRIDE 2 MG TABLET PO SCH (08:53)
[2016-07-23] MEDS: ASCORBIC ACID 500 MG TABLET PO SCH (08:53)
[2016-07-23] MEDS: METHIMAZOLE 5 MG TABLET PO SCH ×2 (08:53→14:00)
[2016-07-23] MEDS: DABIGATRAN ETEXILATE 150 MG CAPSULE. PO SCH (08:53)
[2016-07-23] MEDS: ZINC SULFATE 220 MG CAPSULE. PO SCH (08:53)
[2016-07-23] MEDS ORDERED: DOXYCYCLINE HYCLATE 100 MG TABLET PO SCH (09:00)
[2016-07-23] MEDS: DOXAZOSIN MESYLATE 1 MG TABLET PO SCH (09:04)
--- NOTE | 2016-07-23 09:46 | PN ---
DATE: 07/22/2016 SUBJECTIVE: The patient denies any new medical or neurological complaints. He is very hard of hearing. He complains of ongoing pain of the left shoulder and decreased range of motion secondary to pain. He has not had any seizure like activities in the last 24 hours. He He drinks and eats well. OBJECTIVE: GENERAL: Well-developed, well-nourished white male, not in acute distress. VITAL SIGNS: Blood pressure 131/60, respiratory rate 20, pulse is 81 and regular, oxygen saturation is 96% on room air. HEENT: Normocephalic, atraumatic, otherwise unremarkable. NECK: Supple. Negative for carotid bruit, lymphadenopathy or thyromegaly. LUNGS: Clear to A and P. CARDIOVASCULAR: Regular rate and rhythm, normal S1, S2. ABDOMEN: Soft. Bowel sounds positive. EXTREMITIES: Negative for cyanosis, clubbing or pitting edema, decreased range of motion of the left shoulder secondary to severe pain. NEUROLOGIC: Mental Status: The patient is awake and alert, but disoriented to place and time. Speech is fluent. Apparently, there is no language dysfunction. Memory, judgment, abstraction thinking are markedly impaired. Cranial nerves are grossly intact. Motor: No focal muscle bulk was seen. The tone is normal. The strength is 5/5 throughout the right upper and lower extremities. Decreased range of questions of the left upper extremity secondary to severe pain. The patient has resting tremor of mild severity, confined mainly to the right hand. Sensory examination: Normal pinprick and light touch senses throughout. Deep tendon reflexes were symmetric and hypoactive without pathologic responses. Gait not tested. LABORATORY DATA: CBC revealed white blood cells of 10.5 thousand, hemoglobin 11.7, hematocrit 35.6, platelet count 159,000. Chemistry revealed sodium of 141, potassium 4, chloride 106, CO2 of 24, BUN 18, creatinine 1.3, glucose is 72. Thyroid profile revealed elevated T4 at 1.5. IMPRESSION: 1. Acute encephalopathy -- improved. 2. Possible pneumonia. 3. Resting tremor of the right hand consistent with ongoing dementia of Lewy body. 4. Multiple medical problems that include history of atrial fibrillations, COPD, sleep apneas, diabetes mellitus, anxiety and depression. 5. Dehydration. RECOMMENDATIONS: Continue with current management initiated by Dr. Sampson for pneumonia, otherwise continue with initial medications as well. M Tonny JALLOH MD DR: Henry JOB#: [id number] / [id number]
--- NOTE | 2016-07-23 09:54 | PN ---
DATE: 07/21/2016 SUBJECTIVE: The patient denies any new medical or neurological complaints. He has not had any seizure-like activities since transferred to [facility]. He eats and drinks well. He continues to complain of pain of the left shoulder and decreased range of motions. The patient continues to have mild resting tremor of the left hand. OBJECTIVE: GENERAL: A well-developed and well-nourished white male, not in acute distress. VITAL SIGNS: Blood pressure 126/78, respiratory rate 20, pulse is 80, temperature 97.1, and oxygen saturation 93% on room air. HEENT: Normocephalic and atraumatic, otherwise unremarkable. NECK: Supple. Negative for carotid bruit, lymphadenopathy, or thyromegaly. LUNGS: Clear to A and P. CARDIOVASCULAR: Regular rate and rhythm. Normal S1 and S2. ABDOMEN: Soft. Bowel sounds positive. EXTREMITIES: Negative for cyanosis, clubbing, or pitting edema. NEUROLOGICAL EXAM: MENTAL STATUS: The patient is alert and disoriented to time and place. The speech is fluent. There is no language dysfunction. Memory, judgment, and abstract thinking are markedly impaired. The patient denies hallucination or delusion. Cranial nerves are grossly intact. MOTOR EXAMINATION: No focal muscle bulk was seen. The tone is increased in the left upper extremity probably due to severe pain of the left shoulder. Mild resting tremor was noted and confined to right hand. It appears to be Parkinsonian like tremor. The strength is 4/5 throughout. Sensory examination revealed normal pinprick, light touch, vibratory, and position senses. Deep tendon reflexes were symmetric and hypoactive without pathologic responses. Gait not tested. LABORATORY DATA: CBC revealed white blood cells of 8.9 thousands, hemoglobin 11.7, hematocrit 36.4, and platelet count 138,000. Chemistry revealed sodium of 140, potassium 4.1, chloride 107, CO2 23, BUN 18, creatinine 1.4, chloride 1.4, and glucose 169. IMPRESSION: 1. Acute encephalopathy-improved. 2. Bilateral pneumonia-on antibiotics. 3. Dementia of Lewy body type associated with Parkinsonian like tremor confined to the right hand. 4. Multiple medical problems include history of atrial fibrillation, diabetes mellitus, history of seizure disorder of unknown etiology, dehydration, hypothyroidism, and severe pain of the left shoulder. RECOMMENDATIONS: 1. We will obtain an x-ray of the left shoulder. 2. Continue with current managements. M Tonny JALLOH MD DR: ADRIANA/harshad JOB#: [id number] / [id number]
[2016-07-23 11:34] VITALS: BP 132/76
[2016-07-23] MEDS: BUDESONIDE 0.5 MG/2 ML NEBU NEB SCH (12:15)
[2016-07-23] MEDS ORDERED: LIDOCAINE (700MG/PATCH) PATCH. TD SCH (13:00)
--- NOTE | 2016-07-23 13:03 | RAD ---
Indication pain. Internally and externally rotated views of the left shoulder as well as a Y view were obtained. There is a well-corticated bone fragment adjacent to the distal clavicle having a chronic appearance. This may be the result of old trauma. There are substantial degenerative changes at the glenohumeral joint. A definite acute finding about the shoulder is not seen. IMPRESSION: No acute finding. Substantial degenerative change at the glenohumeral joint
[2016-07-23] MEDS ORDERED: ACETAMINOPHEN 325 MG TABLET PO SCH (14:00)
[2016-07-23 16:05] VITALS: BP 134/88
--- NOTE | 2016-07-23 16:16 | RAD ---
AP chest, 07/23/2016: History: Follow-up pneumonia, shortness of breath, cough Comparison is made to a study from 07/21/2016. A left-sided transvenous pacemaker remains in place with 3 leads extending into the heart. The heart is within normal limits in size. The pulmonary vascularity is at the upper limits of normal. There is mild elevation of the right hemidiaphragm with mild atelectasis medially in the right base. The lungs are otherwise clear. There is no evidence of pleural fluid. IMPRESSION: 1. Borderline vascular congestion. 2. Mild elevation of the right hemidiaphragm with underlying right basilar atelectasis. A component of pneumonia cannot be excluded.
[2016-07-23] MEDS ORDERED: ALBU2.5V5 NEB (17:13)
[2016-07-23] MEDS ORDERED: DOXY100T PO (17:13)
[2016-07-23] MEDS ORDERED: LIDO700A4 TP (17:13)
[2016-07-23] MEDS ORDERED: CARB1TAB2 PO (17:13)
--- NOTE | 2016-07-26 14:30 | DS ---
DATE OF DISCHARGE: 07/23/2016 DISPOSITION: Transferred back up to the [facility]. DISCHARGE DIAGNOSES: Acute metabolic encephalopathy, improved; bilateral pneumonia, treated with antibiotics; dementia with Lewy body; atrial fibrillation; type 2 diabetes; seizure disorder; dehydration; hyperthyroidism; left shoulder pain. HOSPITAL COURSE: An 81-year-old who was transferred down from the [facility] with possible seizure and postictal state, agitation and restlessness and had not been taking his medications but in retrospect one hour before the patient became unresponsive, he had received Zyprexa Zydis. Subsequent chest x-ray showed atelectasis versus infiltrate and he was treated with antibiotics, but the patient did not exhibit much along the lines of respiratory problems. Did have a low grade fever of 99.5. [facility]. He remained confused, but more alert as this hospitalization went along. PHYSICAL EXAMINATION: VITAL SIGNS: On day of discharge, temperature 97.1, pulse 80, respirations 20, blood pressure 126/78, pulse ox is 93% on room air. GENERAL: Much more alert and cooperative. 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 LUNGS: Clear. CARDIOVASCULAR: Regular rhythm and rate, irregular. EXTREMITIES: Without edema. DISPOSITION: Back up to the [facility] for further intervention. PIERRE MALIN DO DR: ROOPA/harshad JOB#: [id number] / [id number]
[2016-07-28] MEDS ORDERED: KETOCONAZOLE 2% SHAMPOO 120ML BOTTLE. TP SCH (09:00)
== END 2016-07-23 16:17 | DRG 100 ==
LOC: 1 SOUTH 12:19 → EEVIPCON 12:19
PROVIDERS: ADMIT Internal Medicine; ATTEND Internal Medicine
DX: G40.909 Epilepsy, unspecified, not intractable, without status epilepticus (principal); J69.0 Pneumonitis due to inhalation of food and vomit; G93.40 Encephalopathy, unspecified; J44.0 Chronic obstructive pulmonary disease with (acute) lower respiratory infection; F02.81 Dementia in other diseases classified elsewhere, unspecified severity, with behavioral disturbance; E03.9 Hypothyroidism, unspecified; E11.9 Type 2 diabetes mellitus without complications; F01.50 Vascular dementia, unspecified severity, without behavioral disturbance, psychotic disturbance, mood disturbance, and anxiety; F32.9 Major depressive disorder, single episode, unspecified; F41.9 Anxiety disorder, unspecified; F63.9 Impulse disorder, unspecified; G31.83 Neurocognitive disorder with Lewy bodies; G47.33 Obstructive sleep apnea (adult) (pediatric); H91.90 Unspecified hearing loss, unspecified ear; I11.0 Hypertensive heart disease with heart failure; I48.91 Unspecified atrial fibrillation; I50.9 Heart failure, unspecified; N28.9 Disorder of kidney and ureter, unspecified; E86.0 Dehydration; I49.5 Sick sinus syndrome; R13.10 Dysphagia, unspecified; M25.512 Pain in left shoulder; Z95.0 Presence of cardiac pacemaker
CPT/HCPCS: 36415; 71010; 73030; 80048; 80053; 82947; 83605; 83735; 84436; 84439; 84480; 84484; 85027; 85379; 87641; 94640; J2543; J3370; J7030; J7040; J7050; J7613; J7626

== ENCOUNTER 2016-07-23 16:31 | Inpatient (IN) | payer MEDICARE ==
[~2016-07-23] VITALS: Ht 180.3 cm; Wt 85.4 kg
[2016-07-23 16:38] VITALS: BP 165/79
[2016-07-23] MEDS ORDERED: DOXY100T PO (17:13)
[2016-07-23] MEDS ORDERED: ALBU2.5V5 NEB (17:13)
[2016-07-23] MEDS ORDERED: CARB1TAB2 PO (17:13)
[2016-07-23] MEDS ORDERED: LIDO700A4 TP (17:13)
[2016-07-23] MEDS ORDERED: MAGNESIUM HYDROXIDE 2,400 MG/30 ML ORAL.SUSP. PO PRN (17:15)
[2016-07-23] MEDS ORDERED: NYSTATIN 100,000 UNIT/GM TOPICAL CREAM 15GM TUBE. TP PRN ×2 (17:15→17:45)
[2016-07-23] MEDS ORDERED: MAG HYDROX/AL HYDROX/SIMETH 30 ML ORAL.SUSP PO PRN (17:15)
[2016-07-23] MEDS ORDERED: ACETAMINOPHEN 325 MG TABLET PO PRN (17:15)
[2016-07-23] MEDS: SOTALOL 80 MG TABLET. PO SCH (20:36)
[2016-07-23] MEDS: QUEtiapine 100 MG TABLET. PO SCH (20:36)
[2016-07-23] MEDS: GLIMEPIRIDE 2 MG TABLET PO SCH (20:36)
[2016-07-23] MEDS: DABIGATRAN ETEXILATE 150 MG CAPSULE. PO SCH (20:37)
[2016-07-23] MEDS: METHIMAZOLE 5 MG TABLET PO SCH (20:37)
[2016-07-23] MEDS: TRAMADOL 50 MG TABLET. PO SCH (20:37)
[2016-07-23] MEDS: ASCORBIC ACID 500 MG TABLET PO SCH (20:37)
[2016-07-23] MEDS: BUDESONIDE 0.5 MG/2 ML NEBU NEB SCH (20:40)
--- NOTE | 2016-07-23 20:56 | PDOC ---
Exam Lobito Demential Exam: Lobito Note: Please also refer to the separate dictated note~for this date of service dictated separately.~Patient seen individually. Discussed the patient with Nursing staff reviewed the chart.~Reviewed interim history and current functioning. Reviewed vital signs,~Labs/ Radiology~and current medications noted below. Continue current treatment with the changes noted in the dictated addendum note Assessment: Vital Signs: Vital Signs Date Time Temp Pulse Resp B/P Pulse Ox O2 Delivery O2 Flow Rate FiO2 07/23/16 20:40 93 Room Air 07/23/16 20:37 16 07/23/16 20:36 80 165/79 07/23/16 16:38 98.8 Labs: Laboratory Tests Test 07/23/16 19:07 Glucose (Fingerstick) 256mg/dL (70-99) H Current Medications: Meds: Current Medications Ascorbic Acid (Vitamin C) 500 mg BID PO Last administered on 07/23/16 20:37; Start 07/23/16 at 21:00 Budesonide (Pulmicort) 0.5 mg BID NEB Last administered on 07/23/16 20:40; Start 07/23/16 at 21:00 Dabigatran (Pradaxa) 150 mg BID PO Last administered on 07/23/16 20:37; Start 07/23/16 at 21:00 Folic Acid (Folic Acid) 1 mg DAILY PO ; Start 07/24/16 at 09:00 Glimepiride (Amaryl) 2 mg BID PO Last administered on 07/23/16 20:36; Start at 21:00 Ketoconazole (Nizoral 2% Shampoo) 1 marilyn DAILY TP ; Start 07/24/16 at 09:00 Magnesium Hydroxide (Milk Of Magnesia) 2,400 mg PRN DAILY PRN PO CONSTIPATION; Start 07/23/16 at 17:15 Methimazole (Tapazole) 5 mg TID PO Last administered on 07/23/16 20:37; Start 07/23/16 at 21:00 Nystatin (Mycostatin) 1 marilyn PRN Q8HRS PRN TP Yeast; Start 07/23/16 at 17:15; Stop 07/23/16 at 17:32; Status DC Quetiapine Fumarate (SEROquel) 50 mg DAILY PO ; Start 07/24/16 at 09:00 Quetiapine Fumarate (SEROquel) 100 mg QHS PO Last administered on 07/23/16 20: 36; Start 07/23/16 at 21:00 Sotalol HCl (Betapace) 80 mg BID PO Last administered on 07/23/16 20:36; Start 07/23/16 at 21:00 Thiamine HCl (Vitamin B-1) 100 mg DAILY PO ; Start 07/24/16 at 09:00 Tramadol HCl (Ultram) 50 mg BID PO Last administered on 07/23/16 20:37; Start 07/23/16 at 21:00 Tramadol HCl (Ultram) 50 mg PRN Q6HRS PRN PO PAIN; Start 07/23/16 at 17:15 Zinc Sulfate (Orazinc) 220 mg DAILY PO ; Start 07/24/16 at 09:00 Doxazosin Mesylate (Cardura) 2 mg DAILY PO ; Start 07/24/16 at 09:00 Multivitamins/ Calcium (Thera-M Plus) 1 tab DAILY PO ; Start 07/24/16 at 09:00 Acetaminophen (Tylenol) 650 mg PRN Q6HRS PRN PO PAIN / TEMP; Start 07/23/16 at 17:15 Al Hydroxide/Mg Hydroxide (Mylanta Plus Xs) 15 ml PRN AFTMEALHC PRN PO DYSPEPSIA; Start 07/23/16 at 17:15 Nystatin (Mycostatin) 1 marilyn PRN Q8HRS PRN TP Yeast; Start 07/23/16 at 17:45 Active Scripts Active Reported Sinemet 25-100 Mg Tablet (Carbidopa/Levodopa) 1 Each Tablet 1 Tab PO TID Albuterol Sulfate Neb Soln (Albuterol Sulfate) 2.5 Mg/3 Ml Vial.neb 2.5 Mg NEB TID [Proheal] 30 Ml PO BID 30 Days Zinc Sulfate 220 Mg Capsule 220 Mg PO DAILY 30 Days Vitamin C (Ascorbic Acid) 500 Mg Tablet 500 Mg PO BID 30 Days Tramadol Hcl (Tramadol HCl) 50 Mg Tablet 50 Mg PO BID Tramadol Hcl (Tramadol HCl) 50 Mg Tablet 50 Mg PO PRN Q6HRS PRN Thiamine Hcl 100 Mg Tablet 100 Mg PO DAILY Sotalol (Sotalol Hcl) 80 Mg Tablet 80 Mg PO BID Seroquel (Quetiapine Fumarate) 100 Mg Tablet 100 Mg PO QHS Seroquel (Quetiapine Fumarate) 50 Mg Tablet 50 Mg PO DAILY Pradaxa (Dabigatran Etexilate Mesylate) 150 Mg Capsule 150 Mg PO BID Nystatin 15 Gm Cream..g. 1 Marilyn TP PRN Q8HRS PRN Multi-Day Plus Minerals Tablet (Multivitamin-Min/Iron/FA/Vit K) 1 Each Tablet 1 Tab PO DAILY 30 Days Milk Of Magnesia (Magnesium Hydroxide) 400 Mg/5 Ml Oral.susp 2,400 Mg PO PRN DAILY PRN Methimazole 5 Mg Tablet 5 Mg PO TID Ketoconazole 120 Ml Shampoo 1 Marilyn TP TWICE WEEKLY Glimepiride 2 Mg Tablet 2 Mg PO BID Perforomist (Formoterol Fumarate) 20 Mcg/2 Ml Vial.neb 20 Mcg NEB BID Folic Acid 1 Mg Tablet 1 Mg PO DAILY Doxazosin Mesylate 2 Mg Tablet 2 Mg PO DAILY Budesonide 0.5 Mg/2 Ml Ampul.neb 0.5 Mg NEB BID Lidoderm (Lidocaine) 700 Mg Adh..patch 1 Patch TP DAILY Doxycycline Hyclate 100 Mg Tablet 1 Tab PO BID Diagnosis: Problems: (1) Dementia with behavioral disturbance (2) Anxiety disorder (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
[2016-07-24 06:25] VITALS: BP 164/88
[2016-07-24] MEDS: METHIMAZOLE 5 MG TABLET PO SCH ×3 (08:01→19:33)
[2016-07-24] MEDS: DABIGATRAN ETEXILATE 150 MG CAPSULE. PO SCH ×2 (08:01→19:33)
[2016-07-24] MEDS: SOTALOL 80 MG TABLET. PO SCH ×2 (08:01→19:33)
[2016-07-24] MEDS: GLIMEPIRIDE 2 MG TABLET PO SCH ×2 (08:02→19:34)
[2016-07-24] MEDS: ASCORBIC ACID 500 MG TABLET PO SCH ×2 (08:02→19:34)
[2016-07-24] MEDS: FOLIC ACID 1 MG TABLET PO SCH (08:06)
[2016-07-24] MEDS: ZINC SULFATE 220 MG CAPSULE. PO SCH (08:06)
[2016-07-24] MEDS: THIAMINE 100 MG TABLET. PO SCH (08:06)
[2016-07-24] MEDS: TRAMADOL 50 MG TABLET. PO SCH ×2 (08:07→19:34)
[2016-07-24] MEDS: MULTIVITAMIN with MINERAL TABLET. PO SCH (08:07)
[2016-07-24] MEDS: QUEtiapine 50 MG TABLET. PO SCH (08:07)
[2016-07-24] MEDS: DOXAZOSIN MESYLATE 1 MG TABLET PO SCH (08:09)
[2016-07-24] MEDS: KETOCONAZOLE 2% SHAMPOO 120ML BOTTLE. TP SCH (08:09)
[2016-07-24] MEDS: BUDESONIDE 0.5 MG/2 ML NEBU NEB SCH ×2 (11:45→21:00)
[2016-07-24] MEDS ORDERED: DEXTROSE 50% 25 GM / 50ML DISP.SYRIN. IV PRN (11:45)
[2016-07-24] MEDS: INSULIN ASPART 300 UNITS/3 ML INSULN.PEN SQ SCH ×2 (11:55→16:49)
[2016-07-24 15:16] VITALS: BP 147/81
--- NOTE | 2016-07-24 17:52 | HP ---
ADMIT DATE: 07/23/2016 BRIEF ADMISSION NOTE HISTORY OF PRESENT ILLNESS: The patient is an 81-year-old male who was [facility] the [facility] on 07/23/2016 after a stay [facility] where he was admitted for seizure-like activity. The patient also has been admission from 07/2016. The patient has had to stay down [facility] and he has full H and P on either of those admissions. Please refer to those for further information. The patient will be followed on the [facility]. PIERRE MALIN DO DR: ROOPA/harshad JOB#: [id number] / [id number]
--- NOTE | 2016-07-24 18:02 | HP ---
ADMIT DATE: 07/23/2016 PSYCHIATRIC ADMISSION HISTORY/EVALUATION This is a late entry of 07/13/2016 and covers elements not covered in my initial note. IDENTIFYING DATA: The patient is an 81-year-old male with a diagnosis of Lewy body dementia who was initially admitted to our unit from [facility] on account of marked psychotic symptoms, agitation, aggression within the context of his above diagnosis and the Parkinson's disease. He has been psychiatrically stabilized, but then had change in mentation, possible seizure-like activity and was transferred to [address] [place] [address]. He has been medically stabilized, continued to be intermittently psychotic, restless, agitated with mood lability and referred back for inpatient psychiatric stabilization. CHIEF COMPLAINT: "I'm okay." The patient is quite confused, extremely hard of hearing in a Broda chair, but did respond to my initial greeting and questioning his chief complaint." HISTORY OF PRESENT ILLNESS: The patient has a history of dementia, Lewy body type. He had been residing at [facility] and was getting agitated, aggressive, psychotic, believing the spiders all over him when he was initially referred to us. No clear symptoms of bipolar disorder, suicidal, or homicidal ideation. While on [address] [place] [address], the patient was being made medically stabilized. He was getting agitated, swinging at staff, pulling out his IV, angry with marked mood lability thus resulting in this referral back to us. PAST PSYCHIATRIC HISTORY: As above. MEDICAL HISTORY: Positive for Lower body dementia, hypertension, atrial fibrillation, COPD, diabetes mellitus, chronic pain, sick sinus syndrome with pacemaker, sleep apnea, dysphagia, CHF, Parkinson's, hard of hearing. DRUG ALLERGIES: Negative. FAMILY HISTORY: Noncontributory. SOCIAL HISTORY: No history of alcohol, drug abuse, physical, sexual or elder abuse history is not known to be a perpetrator. MENTAL STATUS EXAMINATION: The patient is oriented to himself, hard of hearing in a Broda chair. Insight, judgment, recent and remote memory, attention, concentration, fund of knowledge poor, consistent with his diagnosis. Vitals are mentioned in my initial note. IMPRESSION: Major neurocognitive disorder, Lewy body type with delusion, depression, behavioral disturbance; anxiety disorder, unspecified; impulse control disorder, unspecified. Rest diagnoses as above. PLAN: Admit to the geropsychiatry unit at [facility]. I will see the patient daily individually from a psychiatric standpoint medical followup with Dr. Antonio/Dr. Sampson. I have reviewed the patient's EMRAD and we will continue current psychotropics, observe baseline, then adjust as clinically indicated. MAN Heaven MAGALLANES MD DR: MARIBEL/harshad JOB#: [id number] / [id number]
[2016-07-24] MEDS: QUEtiapine 100 MG TABLET. PO SCH (19:34)
--- NOTE | 2016-07-24 20:58 | PDOC ---
Exam Lobito Demential Exam: Lobito Note: Please also refer to the separate dictated note~for this date of service dictated separately.~Patient seen individually. Discussed the patient with Nursing staff reviewed the chart.~Reviewed interim history and current functioning. Reviewed vital signs,~Labs/ Radiology~and current medications noted below. Continue current treatment with the changes noted in the dictated addendum note Assessment: Vital Signs: Vital Signs Date Time Temp Pulse Resp B/P Pulse Ox O2 Delivery O2 Flow Rate FiO2 07/24/16 19:34 18 94 Room Air 07/24/16 19:33 63 147/81 07/24/16 15:16 97.7 I&O Intake and Output 07/24/16 07:00 Intake Total 240 ml Balance 240 ml Intake Oral 240 ml # Voids 3 Labs: Laboratory Tests Test 07/24/16 07:08 07/24/16 11:01 07/24/16 16:44 07/24/16 19:02 Glucose (Fingerstick) 111mg/dL (70-99) H 301mg/dL (70-99) H 204mg/dL (70-99) H 208mg/dL (70-99) H Current Medications: Meds: Current Medications Ascorbic Acid (Vitamin C) 500 mg BID PO Last administered on 07/24/16 19:34; Start 07/23/16 at 21:00 Budesonide (Pulmicort) 0.5 mg BID NEB Last administered on 07/24/16 11:45; Start 07/23/16 at 21:00 Dabigatran (Pradaxa) 150 mg BID PO Last administered on 07/24/16 19:33; Start 07/23/16 at 21:00 Folic Acid (Folic Acid) 1 mg DAILY PO Last administered on 07/24/16 08:06; Start 07/24/16 at 09:00 Glimepiride (Amaryl) 2 mg BID PO Last administered on 07/24/16 19:34; Start at 21:00 Ketoconazole (Nizoral 2% Shampoo) 1 marilyn DAILY TP Last administered on 08:09; Start 07/24/16 at 09:00 Magnesium Hydroxide (Milk Of Magnesia) 2,400 mg PRN DAILY PRN PO CONSTIPATION; Start 07/23/16 at 17:15 Methimazole (Tapazole) 5 mg TID PO Last administered on 07/24/16 19:33; Start 07/23/16 at 21:00 Nystatin (Mycostatin) 1 marilyn PRN Q8HRS PRN TP Yeast; Start 07/23/16 at 17:15; Stop 07/23/16 at 17:32; Status DC Quetiapine Fumarate (SEROquel) 50 mg DAILY PO Last administered on 07/24/16 08 :07; Start 07/24/16 at 09:00 Quetiapine Fumarate (SEROquel) 100 mg QHS PO Last administered on 07/24/16 19: 34; Start 07/23/16 at 21:00 Sotalol HCl (Betapace) 80 mg BID PO Last administered on 07/24/16 19:33; Start 07/23/16 at 21:00 Thiamine HCl (Vitamin B-1) 100 mg DAILY PO Last administered on 07/24/16 08:06 ; Start 07/24/16 at 09:00 Tramadol HCl (Ultram) 50 mg BID PO Last administered on 07/24/16 19:34; Start 07/23/16 at 21:00 Tramadol HCl (Ultram) 50 mg PRN Q6HRS PRN PO PAIN; Start 07/23/16 at 17:15 Zinc Sulfate (Orazinc) 220 mg DAILY PO Last administered on 07/24/16 08:06; Start 07/24/16 at 09:00 Doxazosin Mesylate (Cardura) 2 mg DAILY PO Last administered on 07/24/16 08:09 ; Start 07/24/16 at 09:00 Multivitamins/ Calcium (Thera-M Plus) 1 tab DAILY PO Last administered on 08:07; Start 07/24/16 at 09:00 Acetaminophen (Tylenol) 650 mg PRN Q6HRS PRN PO PAIN / TEMP; Start 07/23/16 at 17:15 Al Hydroxide/Mg Hydroxide (Mylanta Plus Xs) 15 ml PRN AFTMEALHC PRN PO DYSPEPSIA; Start 07/23/16 at 17:15 Nystatin (Mycostatin) 1 marilyn PRN Q8HRS PRN TP Yeast; Start 07/23/16 at 17:45 Insulin Aspart (Novolog) 0-5 UNITS TIDWMEALS SQ Last administered on 07/24/16t 16:49; Start 07/24/16 at 12:00 Dextrose 12.5 gm PRN Q15MIN PRN IV SEE COMMENTS; Start 07/24/16 at 11:45 Active Scripts Active Reported Sinemet 25-100 Mg Tablet (Carbidopa/Levodopa) 1 Each Tablet 1 Tab PO TID Albuterol Sulfate Neb Soln (Albuterol Sulfate) 2.5 Mg/3 Ml Vial.neb 2.5 Mg NEB TID [Proheal] 30 Ml PO BID 30 Days Zinc Sulfate 220 Mg Capsule 220 Mg PO DAILY 30 Days Vitamin C (Ascorbic Acid) 500 Mg Tablet 500 Mg PO BID 30 Days Tramadol Hcl (Tramadol HCl) 50 Mg Tablet 50 Mg PO BID Tramadol Hcl (Tramadol HCl) 50 Mg Tablet 50 Mg PO PRN Q6HRS PRN Thiamine Hcl 100 Mg Tablet 100 Mg PO DAILY Sotalol (Sotalol Hcl) 80 Mg Tablet 80 Mg PO BID Seroquel (Quetiapine Fumarate) 100 Mg Tablet 100 Mg PO QHS Seroquel (Quetiapine Fumarate) 50 Mg Tablet 50 Mg PO DAILY Pradaxa (Dabigatran Etexilate Mesylate) 150 Mg Capsule 150 Mg PO BID Nystatin 15 Gm Cream..g. 1 Marilyn TP PRN Q8HRS PRN Multi-Day Plus Minerals Tablet (Multivitamin-Min/Iron/FA/Vit K) 1 Each Tablet 1 Tab PO DAILY 30 Days Milk Of Magnesia (Magnesium Hydroxide) 400 Mg/5 Ml Oral.susp 2,400 Mg PO PRN DAILY PRN Methimazole 5 Mg Tablet 5 Mg PO TID Ketoconazole 120 Ml Shampoo 1 Marilyn TP TWICE WEEKLY Glimepiride 2 Mg Tablet 2 Mg PO BID Perforomist (Formoterol Fumarate) 20 Mcg/2 Ml Vial.neb 20 Mcg NEB BID Folic Acid 1 Mg Tablet 1 Mg PO DAILY Doxazosin Mesylate 2 Mg Tablet 2 Mg PO DAILY Budesonide 0.5 Mg/2 Ml Ampul.neb 0.5 Mg NEB BID Lidoderm (Lidocaine) 700 Mg Adh..patch 1 Patch TP DAILY Doxycycline Hyclate 100 Mg Tablet 1 Tab PO BID Diagnosis: Problems: (1) Dementia with behavioral disturbance (2) Anxiety disorder (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
[2016-07-25 06:38] LABS: BASO # 0.1 x10^3/uL (0.0-0.2); BASO % 1 % (0-3); EOS # 0.5 x10^3/uL (0.0-0.7); EOS % 4 % (0-3); LYMPH # 1.4 x10^3/uL (1.0-4.8); LYMPH % 12 % (24-48); MEAN CORPUSCULAR HEMOGLOBIN 27 pg (25-35); MEAN CORPUSCULAR HGB CONC 33 g/dL (31-37); MEAN CORPUSCULAR VOLUME 84 fL (79-100); MONO # 1.2 x10^3/uL (0.0-1.1); MONO % 11 % (0-9); NEUT # 8.4 x10^3uL (1.8-7.7); NEUT % 73 % (31-73); PLATELET COUNT 166 x10^3/uL (140-400); RED BLOOD COUNT 4.41 x10^6/uL (4.30-5.70); RED CELL DISTRIBUTION WIDTH 16.4 % (11.5-14.5); WHITE BLOOD COUNT 11.5 x10^3/uL (4.0-11.0)
[2016-07-25 06:49] LABS: ALBUMIN 3.2 g/dL (3.4-5.0); ALBUMIN/GLOBULIN RATIO 0.7 (1.0-1.7); CALCIUM 9.1 mg/dL (8.5-10.1); CREATININE 1.3 mg/dL (0.7-1.3); GFR 52.9; POTASSIUM 4.2 mmol/L (3.5-5.1); TOTAL PROTEIN 7.6 g/dL (6.4-8.2)
[2016-07-25 07:10] VITALS: BP 167/84
[2016-07-25] MEDS: DABIGATRAN ETEXILATE 150 MG CAPSULE. PO SCH ×2 (07:52→20:10)
[2016-07-25] MEDS: THIAMINE 100 MG TABLET. PO SCH (07:52)
[2016-07-25] MEDS: METHIMAZOLE 5 MG TABLET PO SCH ×3 (07:52→20:09)
[2016-07-25] MEDS: FOLIC ACID 1 MG TABLET PO SCH (07:52)
[2016-07-25] MEDS: MULTIVITAMIN with MINERAL TABLET. PO SCH (07:53)
[2016-07-25] MEDS: SOTALOL 80 MG TABLET. PO SCH ×2 (07:53→20:10)
[2016-07-25] MEDS: ASCORBIC ACID 500 MG TABLET PO SCH ×2 (07:53→20:11)
[2016-07-25] MEDS: QUEtiapine 50 MG TABLET. PO SCH (07:53)
[2016-07-25] MEDS: GLIMEPIRIDE 2 MG TABLET PO SCH ×2 (07:53→20:10)
[2016-07-25] MEDS: ZINC SULFATE 220 MG CAPSULE. PO SCH (07:53)
[2016-07-25] MEDS: DOXAZOSIN MESYLATE 1 MG TABLET PO SCH (07:53)
[2016-07-25] MEDS: TRAMADOL 50 MG TABLET. PO SCH ×2 (07:56→20:10)
[2016-07-25] MEDS: INSULIN ASPART 300 UNITS/3 ML INSULN.PEN SQ SCH ×3 (08:03→17:41)
[2016-07-25] MEDS: KETOCONAZOLE 2% SHAMPOO 120ML BOTTLE. TP SCH (09:00)
[2016-07-25] MEDS: BUDESONIDE 0.5 MG/2 ML NEBU NEB SCH ×2 (10:55→21:00)
[2016-07-25] MEDS ORDERED: ALBUTEROL SULFATE 2.5 MG/3 ML NEBU. NEB SCH (14:00)
[2016-07-25] MEDS: CARBIDOPA/LEVODOPA 25/100MG TABLET PO SCH ×2 (14:56→20:10)
[2016-07-25] MEDS: ALBUTEROL SULFATE 2.5 MG/3 ML NEBU. NEB SCH ×2 (16:00→20:00)
[2016-07-25 16:12] VITALS: BP 148/61
[2016-07-25] MEDS: QUEtiapine 100 MG TABLET. PO SCH (20:10)
--- NOTE | 2016-07-25 20:13 | PN ---
DATE: 07/24/2016 PSYCHIATRIC PROGRESS NOTE This is late entry of 07/24/2016, covers elements not covered in my initial note. SUBJECTIVE: The patient remains confused, has not been aggressive, gets a little anxious, restless at times. REVIEW OF SYSTEMS: Impaired ambulation in a Broda chair, hard of hearing, I had to talk loudly into his ear. No CV, , pulmonary, eye system symptoms on review. MENTAL STATUS EXAMINATION: Oriented to himself. Insight, judgment, recent and remote memory, attention, concentration, fund of knowledge poor, consistent with his diagnosis mentioned in my initial note. PLAN: Continue Seroquel 50 mg a.m., 100 at bedtime, maintain, rest unchanged. We will go ahead and add Zoloft 50 mg a day and make further adjustments as clinically indicated. MAN Heaven MAGALLANES MD DR: MARIBEL/harshad JOB#: [id number] / [id number]
--- NOTE | 2016-07-25 20:56 | PDOC ---
Exam Lobito Demential Exam: Lobito Note: Please also refer to the separate dictated note~for this date of service dictated separately.~Patient seen individually. Discussed the patient with Nursing staff reviewed the chart.~Reviewed interim history and current functioning. Reviewed vital signs,~Labs/ Radiology~and current medications noted below. Continue current treatment with the changes noted in the dictated addendum note Assessment: Vital Signs: Vital Signs Date Time Temp Pulse Resp B/P Pulse Ox O2 Delivery O2 Flow Rate FiO2 07/25/16 20:10 18 96 Room Air 07/25/16 20:10 70 148/61 07/25/16 16:12 97.6 I&O Intake and Output 07/25/16 07:00 Intake Total 1200 ml Balance 1200 ml Intake Oral 1200 ml Labs: Laboratory Tests Test 07/25/16 06:11 07/25/16 07:14 07/25/16 11:45 07/25/16 16:49 White Blood Count 11.5x10^3/uL (4.0-11.0) H Red Blood Count 4.41x10^6/uL (4.30-5.70) Hemoglobin 12.0g/dL (13.0-17.5) L Hematocrit 37.0% (39.0-53.0) L Mean Corpuscular Volume 84fL (79-100) Mean Corpuscular Hemoglobin 27pg (25-35) Mean Corpuscular Hemoglobin Concent 33g/dL (31-37) Red Cell Distribution Width 16.4% (11.5-14.5) H Platelet Count 166x10^3/uL (140-400) Neutrophils (%) (Auto) 73% (31-73) Lymphocytes (%) (Auto) 12% (24-48) L Monocytes (%) (Auto) 11% (0-9) H Eosinophils (%) (Auto) 4% (0-3) H Basophils (%) (Auto) 1% (0-3) Neutrophils # (Auto) 8.4x10^3uL (1.8-7.7) H Lymphocytes # (Auto) 1.4x10^3/uL (1.0-4.8) Monocytes # (Auto) 1.2x10^3/uL (0.0-1.1) H Eosinophils # (Auto) 0.5x10^3/uL (0.0-0.7) Basophils # (Auto) 0.1x10^3/uL (0.0-0.2) Sodium Level 139mmol/L (136-145) Potassium Level 4.2mmol/L (3.5-5.1) Chloride Level 104mmol/L (98-107) Carbon Dioxide Level 26mmol/L (21-32) Anion Gap 9 (6-14) Blood Urea Nitrogen 19mg/dL (8-26) Creatinine 1.3mg/dL (0.7-1.3) Estimated GFR (Cockcroft-Gault) 52.9 BUN/Creatinine Ratio 15 (6-20) Glucose Level 141mg/dL (70-99) H Calcium Level 9.1mg/dL (8.5-10.1) Total Bilirubin 1.0mg/dL (0.2-1.0) Aspartate Amino Transferase (AST) 19U/L (15-37) Alanine Aminotransferase (ALT) 31U/L (16-63) Alkaline Phosphatase 93U/L (46-116) Total Protein 7.6g/dL (6.4-8.2) Albumin 3.2g/dL (3.4-5.0) L Albumin/Globulin Ratio 0.7 (1.0-1.7) L Glucose (Fingerstick) 172mg/dL (70-99) H 213mg/dL (70-99) H 187mg/dL (70-99) H Test 07/25/16 19:13 Glucose (Fingerstick) 277mg/dL (70-99) H Current Medications: Meds: Current Medications Ascorbic Acid (Vitamin C) 500 mg BID PO Last administered on 07/25/16 20:11; Start 07/23/16 at 21:00 Budesonide (Pulmicort) 0.5 mg BID NEB Last administered on 07/25/16 10:55; Start 07/23/16 at 21:00 Dabigatran (Pradaxa) 150 mg BID PO Last administered on 07/25/16 20:10; Start 07/23/16 at 21:00 Folic Acid (Folic Acid) 1 mg DAILY PO Last administered on 07/25/16 07:52; Start 07/24/16 at 09:00 Glimepiride (Amaryl) 2 mg BID PO Last administered on 07/25/16 20:10; Start at 21:00 Ketoconazole (Nizoral 2% Shampoo) 1 marilyn DAILY TP Last administered on 08:09; Start 07/24/16 at 09:00 Magnesium Hydroxide (Milk Of Magnesia) 2,400 mg PRN DAILY PRN PO CONSTIPATION; Start 07/23/16 at 17:15 Methimazole (Tapazole) 5 mg TID PO Last administered on 07/25/16 07:52; Start 07/23/16 at 21:00; Stop 07/25/16 at 13:32; Status DC Nystatin (Mycostatin) 1 marilyn PRN Q8HRS PRN TP Yeast; Start 07/23/16 at 17:15; Stop 07/23/16 at 17:32; Status DC Quetiapine Fumarate (SEROquel) 50 mg DAILY PO Last administered on 07/25/16 07 :53; Start 07/24/16 at 09:00 Quetiapine Fumarate (SEROquel) 100 mg QHS PO Last administered on 07/25/16 20: 10; Start 07/23/16 at 21:00 Sotalol HCl (Betapace) 80 mg BID PO Last administered on 07/25/16 20:10; Start 07/23/16 at 21:00 Thiamine HCl (Vitamin B-1) 100 mg DAILY PO Last administered on 07/25/16 07:52 ; Start 07/24/16 at 09:00 Tramadol HCl (Ultram) 50 mg BID PO Last administered on 07/25/16 20:10; Start 07/23/16 at 21:00 Tramadol HCl (Ultram) 50 mg PRN Q6HRS PRN PO PAIN; Start 07/23/16 at 17:15 Zinc Sulfate (Orazinc) 220 mg DAILY PO Last administered on 07/25/16 07:53; Start 07/24/16 at 09:00 Doxazosin Mesylate (Cardura) 2 mg DAILY PO Last administered on 07/25/16 07:53 ; Start 07/24/16 at 09:00 Multivitamins/ Calcium (Thera-M Plus) 1 tab DAILY PO Last administered on 07:53; Start 07/24/16 at 09:00 Acetaminophen (Tylenol) 650 mg PRN Q6HRS PRN PO PAIN / TEMP; Start 07/23/16 at 17:15 Al Hydroxide/Mg Hydroxide (Mylanta Plus Xs) 15 ml PRN AFTMEALHC PRN PO DYSPEPSIA; Start 07/23/16 at 17:15 Nystatin (Mycostatin) 1 marilyn PRN Q8HRS PRN TP Yeast; Start 07/23/16 at 17:45 Insulin Aspart (Novolog) 0-5 UNITS TIDWMEALS SQ Last administered on 07/25/16 17:41; Start 07/24/16 at 12:00 Dextrose 12.5 gm PRN Q15MIN PRN IV SEE COMMENTS; Start 07/24/16 at 11:45 Albuterol Sulfate (Ventolin) 2.5 mg TID NEB ; Start 07/25/16 at 14:00; Stop at 14:00; Status DC Carbidopa/Levodopa (Sinemet 25/100) 1 tab TID PO Last administered on 20:10; Start 07/25/16 at 14:00 Lidocaine (Lidoderm) 1 patch DAILY TP ; Start 07/26/16 at 09:00 Non-Formulary Medication 20 mcg BID NEB COPD; Start 07/25/16 at 21:00; Stop at 21:00; Status DC Methimazole (Tapazole) 10 mg TID PO Last administered on 07/25/16 20:09; Start 07/25/16 at 14:00 Albuterol Sulfate (Ventolin) 2.5 mg RTQID NEB ; Start 07/25/16 at 16:00 Active Scripts Active Reported Lidoderm (Lidocaine) 700 Mg Adh..patch 1 Patch TP DAILY Doxycycline Hyclate 100 Mg Tablet 1 Tab PO BID Sinemet 25-100 Mg Tablet (Carbidopa/Levodopa) 1 Each Tablet 1 Tab PO TID Albuterol Sulfate Neb Soln (Albuterol Sulfate) 2.5 Mg/3 Ml Vial.neb 2.5 Mg NEB TID [Proheal] 30 Ml PO BID 30 Days Zinc Sulfate 220 Mg Capsule 220 Mg PO DAILY 30 Days Vitamin C (Ascorbic Acid) 500 Mg Tablet 500 Mg PO BID 30 Days Tramadol Hcl (Tramadol HCl) 50 Mg Tablet 50 Mg PO BID Tramadol Hcl (Tramadol HCl) 50 Mg Tablet 50 Mg PO PRN Q6HRS PRN Thiamine Hcl 100 Mg Tablet 100 Mg PO DAILY Sotalol (Sotalol Hcl) 80 Mg Tablet 80 Mg PO BID Seroquel (Quetiapine Fumarate) 100 Mg Tablet 100 Mg PO QHS Seroquel (Quetiapine Fumarate) 50 Mg Tablet 50 Mg PO DAILY Pradaxa (Dabigatran Etexilate Mesylate) 150 Mg Capsule 150 Mg PO BID Nystatin 15 Gm Cream..g. 1 Marilyn TP PRN Q8HRS PRN Multi-Day Plus Minerals Tablet (Multivitamin-Min/Iron/FA/Vit K) 1 Each Tablet 1 Tab PO DAILY 30 Days Milk Of Magnesia (Magnesium Hydroxide) 400 Mg/5 Ml Oral.susp 2,400 Mg PO PRN DAILY PRN Methimazole 5 Mg Tablet 5 Mg PO TID Ketoconazole 120 Ml Shampoo 1 Marilyn TP TWICE WEEKLY Glimepiride 2 Mg Tablet 2 Mg PO BID Perforomist (Formoterol Fumarate) 20 Mcg/2 Ml Vial.neb 20 Mcg NEB BID Folic Acid 1 Mg Tablet 1 Mg PO DAILY Doxazosin Mesylate 2 Mg Tablet 2 Mg PO DAILY Budesonide 0.5 Mg/2 Ml Ampul.neb 0.5 Mg NEB BID Diagnosis: Problems: (1) Dementia with behavioral disturbance (2) Anxiety disorder (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
[2016-07-25] MEDS ORDERED: NON FORMULARY ITEM (Formoterol Fumarate (Perforomist) 20 MCG) NEB SCH (21:00)
[2016-07-26 05:43] VITALS: BP 120/67
[2016-07-26] MEDS: ALBUTEROL SULFATE 2.5 MG/3 ML NEBU. NEB SCH ×4 (05:46→20:42)
[2016-07-26] MEDS: TRAMADOL 50 MG TABLET. PO PRN ×2 (06:07→09:06)
[2016-07-26] MEDS: INSULIN ASPART 300 UNITS/3 ML INSULN.PEN SQ SCH ×3 (08:00→17:28)
[2016-07-26] MEDS: QUEtiapine 50 MG TABLET. PO SCH (08:56)
[2016-07-26] MEDS: CARBIDOPA/LEVODOPA 25/100MG TABLET PO SCH ×4 (08:56→19:47)
[2016-07-26] MEDS: ZINC SULFATE 220 MG CAPSULE. PO SCH (08:56)
[2016-07-26] MEDS: MULTIVITAMIN with MINERAL TABLET. PO SCH (08:56)
[2016-07-26] MEDS: GLIMEPIRIDE 2 MG TABLET PO SCH ×2 (08:57→19:47)
[2016-07-26] MEDS: THIAMINE 100 MG TABLET. PO SCH (08:57)
[2016-07-26] MEDS: DOXAZOSIN MESYLATE 1 MG TABLET PO SCH (08:57)
[2016-07-26] MEDS: FOLIC ACID 1 MG TABLET PO SCH (08:57)
[2016-07-26] MEDS: METHIMAZOLE 5 MG TABLET PO SCH ×4 (08:57→19:48)
[2016-07-26] MEDS: SOTALOL 80 MG TABLET. PO SCH ×2 (08:58→19:51)
[2016-07-26] MEDS: ASCORBIC ACID 500 MG TABLET PO SCH ×2 (08:58→19:47)
[2016-07-26] MEDS: DABIGATRAN ETEXILATE 150 MG CAPSULE. PO SCH ×2 (08:58→19:47)
[2016-07-26] MEDS: KETOCONAZOLE 2% SHAMPOO 120ML BOTTLE. TP SCH (09:03)
[2016-07-26] MEDS: LIDOCAINE (700MG/PATCH) PATCH. TP SCH (09:06)
[2016-07-26] MEDS: TRAMADOL 50 MG TABLET. PO SCH ×2 (09:07→19:47)
[2016-07-26] MEDS: BUDESONIDE 0.5 MG/2 ML NEBU NEB SCH ×2 (11:20→20:42)
[2016-07-26 15:37] VITALS: BP 144/78
[2016-07-26] MEDS: QUEtiapine 100 MG TABLET. PO SCH (19:47)
--- NOTE | 2016-07-26 21:01 | PDOC ---
Exam Lobito Demential Exam: Lobito Note: Please also refer to the separate dictated note~for this date of service dictated separately.~Patient seen individually. Discussed the patient with Nursing staff reviewed the chart.~Reviewed interim history and current functioning. Reviewed vital signs,~Labs/ Radiology~and current medications noted below. Continue current treatment with the changes noted in the dictated addendum note Assessment: Vital Signs: Vital Signs Date Time Temp Pulse Resp B/P Pulse Ox O2 Delivery O2 Flow Rate FiO2 07/26/16 19:51 72 144/78 07/26/16 19:47 18 Room Air 07/26/16 15:37 98.0 92 I&O Intake and Output 07/26/16 07:00 Intake Total 960 ml Balance 960 ml Intake Oral 960 ml Labs: Laboratory Tests Test 07/26/16 07:10 07/26/16 11:06 07/26/16 16:28 07/26/16 19:20 Glucose (Fingerstick) 134mg/dL (70-99) H 263mg/dL (70-99) H 184mg/dL (70-99) H 170mg/dL (70-99) H Current Medications: Meds: Current Medications Ascorbic Acid (Vitamin C) 500 mg BID PO Last administered on 07/26/16 19:47; Start 07/23/16 at 21:00 Budesonide (Pulmicort) 0.5 mg BID NEB Last administered on 07/26/16 20:42; Start 07/23/16 at 21:00 Dabigatran (Pradaxa) 150 mg BID PO Last administered on 07/26/16 19:47; Start 07/23/16 at 21:00 Folic Acid (Folic Acid) 1 mg DAILY PO Last administered on 07/26/16 08:57; Start 07/24/16 at 09:00 Glimepiride (Amaryl) 2 mg BID PO Last administered on 07/26/16 19:47; Start at 21:00 Ketoconazole (Nizoral 2% Shampoo) 1 marilyn DAILY TP Last administered on 09:03; Start 07/24/16 at 09:00 Magnesium Hydroxide (Milk Of Magnesia) 2,400 mg PRN DAILY PRN PO CONSTIPATION; Start 07/23/16 at 17:15 Methimazole (Tapazole) 5 mg TID PO Last administered on 07/25/16 07:52; Start 07/23/16 at 21:00; Stop 07/25/16 at 13:32; Status DC Nystatin (Mycostatin) 1 marilyn PRN Q8HRS PRN TP Yeast; Start 07/23/16 at 17:15; Stop 07/23/16 at 17:32; Status DC Quetiapine Fumarate (SEROquel) 50 mg DAILY PO Last administered on 07/26/16 08 :56; Start 07/24/16 at 09:00 Quetiapine Fumarate (SEROquel) 100 mg QHS PO Last administered on 07/26/16 19: 47; Start 07/23/16 at 21:00 Sotalol HCl (Betapace) 80 mg BID PO Last administered on 07/26/16 19:51; Start 07/23/16 at 21:00 Thiamine HCl (Vitamin B-1) 100 mg DAILY PO Last administered on 07/26/16 08:57 ; Start 07/24/16 at 09:00 Tramadol HCl (Ultram) 50 mg BID PO Last administered on 07/26/16 19:47; Start 07/23/16 at 21:00 Tramadol HCl (Ultram) 50 mg PRN Q6HRS PRN PO PAIN Last administered on 06:07; Start 07/23/16 at 17:15 Zinc Sulfate (Orazinc) 220 mg DAILY PO Last administered on 07/26/16 08:56; Start 07/24/16 at 09:00 Doxazosin Mesylate (Cardura) 2 mg DAILY PO Last administered on 07/26/16 08:57 ; Start 07/24/16 at 09:00 Multivitamins/ Calcium (Thera-M Plus) 1 tab DAILY PO Last administered on 08:56; Start 07/24/16 at 09:00 Acetaminophen (Tylenol) 650 mg PRN Q6HRS PRN PO PAIN / TEMP; Start 07/23/16 at 17:15 Al Hydroxide/Mg Hydroxide (Mylanta Plus Xs) 15 ml PRN AFTMEALHC PRN PO DYSPEPSIA; Start 07/23/16 at 17:15 Nystatin (Mycostatin) 1 marilyn PRN Q8HRS PRN TP Yeast; Start 07/23/16 at 17:45 Insulin Aspart (Novolog) 0-5 UNITS TIDWMEALS SQ Last administered on 07/26/16 17:28; Start 07/24/16 at 12:00 Dextrose 12.5 gm PRN Q15MIN PRN IV SEE COMMENTS; Start 07/24/16 at 11:45 Albuterol Sulfate (Ventolin) 2.5 mg TID NEB ; Start 07/25/16 at 14:00; Stop at 14:00; Status DC Carbidopa/Levodopa (Sinemet 25/100) 1 tab TID PO Last administered on 19:47; Start 07/25/16 at 14:00 Lidocaine (Lidoderm) 1 patch DAILY TP Last administered on 07/26/16 09:06; Start 07/26/16 at 09:00 Non-Formulary Medication 20 mcg BID NEB COPD; Start 07/25/16 at 21:00; Stop at 21:00; Status DC Methimazole (Tapazole) 10 mg TID PO Last administered on 07/26/16 19:48; Start 07/25/16 at 14:00 Albuterol Sulfate (Ventolin) 2.5 mg RTQID NEB Last administered on 07/26/16 20 :42; Start 07/25/16 at 16:00 Active Scripts Active Reported Lidoderm (Lidocaine) 700 Mg Adh..patch 1 Patch TP DAILY Doxycycline Hyclate 100 Mg Tablet 1 Tab PO BID Sinemet 25-100 Mg Tablet (Carbidopa/Levodopa) 1 Each Tablet 1 Tab PO TID Albuterol Sulfate Neb Soln (Albuterol Sulfate) 2.5 Mg/3 Ml Vial.neb 2.5 Mg NEB TID [Proheal] 30 Ml PO BID 30 Days Zinc Sulfate 220 Mg Capsule 220 Mg PO DAILY 30 Days Vitamin C (Ascorbic Acid) 500 Mg Tablet 500 Mg PO BID 30 Days Tramadol Hcl (Tramadol HCl) 50 Mg Tablet 50 Mg PO BID Tramadol Hcl (Tramadol HCl) 50 Mg Tablet 50 Mg PO PRN Q6HRS PRN Thiamine Hcl 100 Mg Tablet 100 Mg PO DAILY Sotalol (Sotalol Hcl) 80 Mg Tablet 80 Mg PO BID Seroquel (Quetiapine Fumarate) 100 Mg Tablet 100 Mg PO QHS Seroquel (Quetiapine Fumarate) 50 Mg Tablet 50 Mg PO DAILY Pradaxa (Dabigatran Etexilate Mesylate) 150 Mg Capsule 150 Mg PO BID Nystatin 15 Gm Cream..g. 1 Marilyn TP PRN Q8HRS PRN Multi-Day Plus Minerals Tablet (Multivitamin-Min/Iron/FA/Vit K) 1 Each Tablet 1 Tab PO DAILY 30 Days Milk Of Magnesia (Magnesium Hydroxide) 400 Mg/5 Ml Oral.susp 2,400 Mg PO PRN DAILY PRN Methimazole 5 Mg Tablet 5 Mg PO TID Ketoconazole 120 Ml Shampoo 1 Marilyn TP TWICE WEEKLY Glimepiride 2 Mg Tablet 2 Mg PO BID Perforomist (Formoterol Fumarate) 20 Mcg/2 Ml Vial.neb 20 Mcg NEB BID Folic Acid 1 Mg Tablet 1 Mg PO DAILY Doxazosin Mesylate 2 Mg Tablet 2 Mg PO DAILY Budesonide 0.5 Mg/2 Ml Ampul.neb 0.5 Mg NEB BID Diagnosis: Problems: (1) Dementia with behavioral disturbance (2) Anxiety disorder (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
[2016-07-27] MEDS: ALBUTEROL SULFATE 2.5 MG/3 ML NEBU. NEB SCH ×4 (06:12→19:44)
[2016-07-27] MEDS: INSULIN ASPART 300 UNITS/3 ML INSULN.PEN SQ SCH ×3 (08:00→17:31)
[2016-07-27 09:00] VITALS: BP 146/65
[2016-07-27] MEDS: KETOCONAZOLE 2% SHAMPOO 120ML BOTTLE. TP SCH (09:00)
[2016-07-27] MEDS: THIAMINE 100 MG TABLET. PO SCH (09:36)
[2016-07-27] MEDS: QUEtiapine 50 MG TABLET. PO SCH (09:36)
[2016-07-27] MEDS: DABIGATRAN ETEXILATE 150 MG CAPSULE. PO SCH ×2 (09:36→20:33)
[2016-07-27] MEDS: MULTIVITAMIN with MINERAL TABLET. PO SCH (09:36)
[2016-07-27] MEDS: ZINC SULFATE 220 MG CAPSULE. PO SCH (09:36)
[2016-07-27] MEDS: FOLIC ACID 1 MG TABLET PO SCH (09:36)
[2016-07-27] MEDS: ASCORBIC ACID 500 MG TABLET PO SCH ×2 (09:36→20:33)
[2016-07-27] MEDS: GLIMEPIRIDE 2 MG TABLET PO SCH ×2 (09:36→20:36)
[2016-07-27] MEDS: CARBIDOPA/LEVODOPA 25/100MG TABLET PO SCH ×3 (09:36→20:36)
[2016-07-27] MEDS: LIDOCAINE (700MG/PATCH) PATCH. TP SCH (09:38)
[2016-07-27] MEDS: TRAMADOL 50 MG TABLET. PO SCH ×2 (10:01→20:36)
[2016-07-27] MEDS: DOXAZOSIN MESYLATE 1 MG TABLET PO SCH (10:02)
[2016-07-27] MEDS: METHIMAZOLE 5 MG TABLET PO SCH ×3 (10:03→20:39)
[2016-07-27] MEDS: SOTALOL 80 MG TABLET. PO SCH ×2 (10:04→20:39)
[2016-07-27] MEDS: BUDESONIDE 0.5 MG/2 ML NEBU NEB SCH ×2 (11:10→19:44)
[2016-07-27 15:22] VITALS: BP 126/75
[2016-07-27] MEDS: QUEtiapine 100 MG TABLET. PO SCH (20:36)
--- NOTE | 2016-07-27 20:54 | PDOC ---
Exam Lobito Demential Exam: Lobito Note: Please also refer to the separate dictated note~for this date of service dictated separately.~Patient seen individually. Discussed the patient with Nursing staff reviewed the chart.~Reviewed interim history and current functioning. Reviewed vital signs,~Labs/ Radiology~and current medications noted below. Continue current treatment with the changes noted in the dictated addendum note Assessment: Vital Signs: Vital Signs Date Time Temp Pulse Resp B/P Pulse Ox O2 Delivery O2 Flow Rate FiO2 07/27/16 20:39 70 126/75 07/27/16 20:36 18 Room Air 07/27/16 19:45 96 07/27/16 15:22 97.4 I&O Intake and Output 07/27/16 07:00 Intake Total 960 ml Output Total 250 ml Balance 710 ml Intake Oral 960 ml Output Urine Total 250 ml # Bowel Movements 1 Labs: Laboratory Tests Test 07/27/16 07:10 07/27/16 11:21 07/27/16 16:01 07/27/16 19:11 Glucose (Fingerstick) 120mg/dL (70-99) H 238mg/dL (70-99) H 226mg/dL (70-99) H 266mg/dL (70-99) H Current Medications: Meds: Current Medications Ascorbic Acid (Vitamin C) 500 mg BID PO Last administered on 07/27/16 20:33; Start 07/23/16 at 21:00 Budesonide (Pulmicort) 0.5 mg BID NEB Last administered on 07/27/16 19:44; Start 07/23/16 at 21:00 Dabigatran (Pradaxa) 150 mg BID PO Last administered on 07/27/16 20:33; Start 07/23/16 at 21:00 Folic Acid (Folic Acid) 1 mg DAILY PO Last administered on 07/27/16 09:36; Start 07/24/16 at 09:00 Glimepiride (Amaryl) 2 mg BID PO Last administered on 07/27/16 20:36; Start at 21:00 Ketoconazole (Nizoral 2% Shampoo) 1 marilyn DAILY TP Last administered on 09:03; Start 07/24/16 at 09:00 Magnesium Hydroxide (Milk Of Magnesia) 2,400 mg PRN DAILY PRN PO CONSTIPATION; Start 07/23/16 at 17:15 Methimazole (Tapazole) 5 mg TID PO Last administered on 07/25/16 07:52; Start 07/23/16 at 21:00; Stop 07/25/16 at 13:32; Status DC Nystatin (Mycostatin) 1 marilyn PRN Q8HRS PRN TP Yeast; Start 07/23/16 at 17:15; Stop 07/23/16 at 17:32; Status DC Quetiapine Fumarate (SEROquel) 50 mg DAILY PO Last administered on 07/27/16 09 :36; Start 07/24/16 at 09:00 Quetiapine Fumarate (SEROquel) 100 mg QHS PO Last administered on 07/27/16 20: 36; Start 07/23/16 at 21:00 Sotalol HCl (Betapace) 80 mg BID PO Last administered on 07/27/16 20:39; Start 07/23/16 at 21:00 Thiamine HCl (Vitamin B-1) 100 mg DAILY PO Last administered on 07/27/16 09:36 ; Start 07/24/16 at 09:00 Tramadol HCl (Ultram) 50 mg BID PO Last administered on 07/27/16 20:36; Start 07/23/16 at 21:00 Tramadol HCl (Ultram) 50 mg PRN Q6HRS PRN PO PAIN Last administered on 06:07; Start 07/23/16 at 17:15 Zinc Sulfate (Orazinc) 220 mg DAILY PO Last administered on 07/27/16 09:36; Start 07/24/16 at 09:00 Doxazosin Mesylate (Cardura) 2 mg DAILY PO Last administered on 07/27/16 10:02 ; Start 07/24/16 at 09:00 Multivitamins/ Calcium (Thera-M Plus) 1 tab DAILY PO Last administered on 09:36; Start 07/24/16 at 09:00 Acetaminophen (Tylenol) 650 mg PRN Q6HRS PRN PO PAIN / TEMP; Start 07/23/16 at 17:15 Al Hydroxide/Mg Hydroxide (Mylanta Plus Xs) 15 ml PRN AFTMEALHC PRN PO DYSPEPSIA; Start 07/23/16 at 17:15 Nystatin (Mycostatin) 1 marilyn PRN Q8HRS PRN TP Yeast; Start 07/23/16 at 17:45 Insulin Aspart (Novolog) 0-5 UNITS TIDWMEALS SQ Last administered on 07/27/16 17:31; Start 07/24/16 at 12:00 Dextrose 12.5 gm PRN Q15MIN PRN IV SEE COMMENTS; Start 07/24/16 at 11:45 Albuterol Sulfate (Ventolin) 2.5 mg TID NEB ; Start 07/25/16 at 14:00; Stop at 14:00; Status DC Carbidopa/Levodopa (Sinemet 25/100) 1 tab TID PO Last administered on 20:36; Start 07/25/16 at 14:00 Lidocaine (Lidoderm) 1 patch DAILY TP Last administered on 07/27/16 09:38; Start 07/26/16 at 09:00 Non-Formulary Medication 20 mcg BID NEB COPD; Start 07/25/16 at 21:00; Stop at 21:00; Status DC Methimazole (Tapazole) 10 mg TID PO Last administered on 07/27/16 20:39; Start 07/25/16 at 14:00 Albuterol Sulfate (Ventolin) 2.5 mg RTQID NEB Last administered on 07/27/16 19 :44; Start 07/25/16 at 16:00 Sertraline HCl (Zoloft) 50 mg DAILY PO ; Start 07/28/16 at 09:00 Active Scripts Active Reported Lidoderm (Lidocaine) 700 Mg Adh..patch 1 Patch TP DAILY Doxycycline Hyclate 100 Mg Tablet 1 Tab PO BID Sinemet 25-100 Mg Tablet (Carbidopa/Levodopa) 1 Each Tablet 1 Tab PO TID Albuterol Sulfate Neb Soln (Albuterol Sulfate) 2.5 Mg/3 Ml Vial.neb 2.5 Mg NEB TID [Proheal] 30 Ml PO BID 30 Days Zinc Sulfate 220 Mg Capsule 220 Mg PO DAILY 30 Days Vitamin C (Ascorbic Acid) 500 Mg Tablet 500 Mg PO BID 30 Days Tramadol Hcl (Tramadol HCl) 50 Mg Tablet 50 Mg PO BID Tramadol Hcl (Tramadol HCl) 50 Mg Tablet 50 Mg PO PRN Q6HRS PRN Thiamine Hcl 100 Mg Tablet 100 Mg PO DAILY Sotalol (Sotalol Hcl) 80 Mg Tablet 80 Mg PO BID Seroquel (Quetiapine Fumarate) 100 Mg Tablet 100 Mg PO QHS Seroquel (Quetiapine Fumarate) 50 Mg Tablet 50 Mg PO DAILY Pradaxa (Dabigatran Etexilate Mesylate) 150 Mg Capsule 150 Mg PO BID Nystatin 15 Gm Cream..g. 1 Marilyn TP PRN Q8HRS PRN Multi-Day Plus Minerals Tablet (Multivitamin-Min/Iron/FA/Vit K) 1 Each Tablet 1 Tab PO DAILY 30 Days Milk Of Magnesia (Magnesium Hydroxide) 400 Mg/5 Ml Oral.susp 2,400 Mg PO PRN DAILY PRN Methimazole 5 Mg Tablet 5 Mg PO TID Ketoconazole 120 Ml Shampoo 1 Marilyn TP TWICE WEEKLY Glimepiride 2 Mg Tablet 2 Mg PO BID Perforomist (Formoterol Fumarate) 20 Mcg/2 Ml Vial.neb 20 Mcg NEB BID Folic Acid 1 Mg Tablet 1 Mg PO DAILY Doxazosin Mesylate 2 Mg Tablet 2 Mg PO DAILY Budesonide 0.5 Mg/2 Ml Ampul.neb 0.5 Mg NEB BID Diagnosis: Problems: (1) Dementia with behavioral disturbance (2) Anxiety disorder (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
--- NOTE | 2016-07-27 22:13 | PN ---
DATE: 07/25/2016 PSYCHIATRIC PROGRESS NOTE This is late entry of 07/25/2016, covers elements not covered in my initial note. SUBJECTIVE: Per nursing report, the patient remains restless, anxious, was restarted on Sinemet and Tapazole that were inadvertently missed at transfer back on our unit after medical surgical stabilization. He gets intermittently agitated, told the nursing staff "I am going to hit you." REVIEW OF SYSTEMS: Hard of hearing, impaired ambulation in a Broda chair. No CV, , pulmonary, eye system symptoms on review. Reliability poor. MENTAL STATUS EXAMINATION: Oriented to himself. Insight, judgment, recent and remote memory, attention, concentration, fund of knowledge poor, consistent with his diagnosis of major neurocognitive disorder, Lewy body with delusion, depression, behavioral disturbance. Rest diagnosis unchanged from initial note. PLAN: Continue psychotropics mentioned in my initial note including the Seroquel, adjust further as clinically indicated. MARY MAGALLANES MD DR: MARIBEL/harshad JOB#: [id number] / [id number]
--- NOTE | 2016-07-27 22:16 | PN ---
DATE: 07/26/2016 PSYCHIATRIC PROGRESS NOTE This is late entry of 07/26/2016, covers elements not covered in my initial note. SUBJECTIVE: The patient was staffed at treatment team meeting morning of 07/26/2016, seen individually on evening of 07/26/2016. Appetite 100%, sleeping 7-1/2 hours. REVIEW OF SYSTEMS: Hard of hearing, impaired ambulation in a Broda chair. No CV, , pulmonary, eye system symptoms on review. Reliability poor. MENTAL STATUS EXAMINATION: Oriented to himself. Insight, judgment, recent and remote memory, attention, concentration, fund of knowledge poor, consistent with his diagnosis mentioned in my initial note. PLAN: Continue psychotropics including Seroquel. We will add Zoloft 50 mg a day. Make further adjustments as clinically indicated. MAN Heaven MAGALLANES MD DR: MARIBEL/harshad JOB#: [id number] / [id number]
[2016-07-28] MEDS: ALBUTEROL SULFATE 2.5 MG/3 ML NEBU. NEB SCH ×4 (05:13→20:03)
[2016-07-28 06:24] VITALS: BP 150/79
[2016-07-28] MEDS: INSULIN ASPART 300 UNITS/3 ML INSULN.PEN SQ SCH ×3 (08:00→17:22)
[2016-07-28] MEDS: QUEtiapine 50 MG TABLET. PO SCH (08:17)
[2016-07-28] MEDS: MULTIVITAMIN with MINERAL TABLET. PO SCH (08:17)
[2016-07-28] MEDS: DABIGATRAN ETEXILATE 150 MG CAPSULE. PO SCH ×2 (08:17→19:30)
[2016-07-28] MEDS: ZINC SULFATE 220 MG CAPSULE. PO SCH (08:17)
[2016-07-28] MEDS: FOLIC ACID 1 MG TABLET PO SCH (08:17)
[2016-07-28] MEDS: CARBIDOPA/LEVODOPA 25/100MG TABLET PO SCH ×3 (08:17→19:30)
[2016-07-28] MEDS: ASCORBIC ACID 500 MG TABLET PO SCH ×2 (08:17→19:31)
[2016-07-28] MEDS: THIAMINE 100 MG TABLET. PO SCH (08:18)
[2016-07-28] MEDS: GLIMEPIRIDE 2 MG TABLET PO SCH ×2 (08:18→19:35)
[2016-07-28] MEDS: TRAMADOL 50 MG TABLET. PO SCH ×2 (08:21→19:30)
[2016-07-28] MEDS: SERTRALINE 25 MG TABLET. PO SCH (08:22)
[2016-07-28] MEDS: LIDOCAINE (700MG/PATCH) PATCH. TP SCH (08:23)
[2016-07-28] MEDS: KETOCONAZOLE 2% SHAMPOO 120ML BOTTLE. TP SCH (08:23)
[2016-07-28] MEDS: SOTALOL 80 MG TABLET. PO SCH ×2 (08:24→19:35)
[2016-07-28] MEDS: DOXAZOSIN MESYLATE 1 MG TABLET PO SCH (08:24)
[2016-07-28] MEDS: METHIMAZOLE 5 MG TABLET PO SCH ×3 (08:24→19:31)
[2016-07-28] MEDS: BUDESONIDE 0.5 MG/2 ML NEBU NEB SCH ×2 (12:12→20:04)
[2016-07-28] MEDS: QUEtiapine 100 MG TABLET. PO SCH (19:30)
[2016-07-28] MEDS: MEMANTINE 5 MG TABLET. PO SCH (19:35)
--- NOTE | 2016-07-28 21:04 | PDOC ---
Exam Lobito Demential Exam: Lobito Note: Please also refer to the separate dictated note~for this date of service dictated separately.~Patient seen individually. Discussed the patient with Nursing staff reviewed the chart.~Reviewed interim history and current functioning. Reviewed vital signs,~Labs/ Radiology~and current medications noted below. Continue current treatment with the changes noted in the dictated addendum note Assessment: Vital Signs: Vital Signs Date Time Temp Pulse Resp B/P Pulse Ox O2 Delivery O2 Flow Rate FiO2 07/28/16 20:05 97 Room Air 07/28/16 19:35 70 150/79 07/28/16 06:24 97.6 20 I&O Intake and Output 07/28/16 07:00 Intake Total 1200 ml Balance 1200 ml Intake Oral 1200 ml Labs: Laboratory Tests Test 07/28/16 07:16 07/28/16 11:43 07/28/16 16:52 07/28/16 19:21 Glucose (Fingerstick) 130mg/dL (70-99) H 173mg/dL (70-99) H 292mg/dL (70-99) H 273mg/dL (70-99) H Current Medications: Meds: Current Medications Ascorbic Acid (Vitamin C) 500 mg BID PO Last administered on 07/28/16 19:31; Start 07/23/16 at 21:00 Budesonide (Pulmicort) 0.5 mg BID NEB Last administered on 07/28/16 20:04; Start 07/23/16 at 21:00 Dabigatran (Pradaxa) 150 mg BID PO Last administered on 07/28/16 19:30; Start 07/23/16 at 21:00 Folic Acid (Folic Acid) 1 mg DAILY PO Last administered on 07/28/16 08:17; Start 07/24/16 at 09:00 Glimepiride (Amaryl) 2 mg BID PO Last administered on 07/28/16 19:35; Start at 21:00 Ketoconazole (Nizoral 2% Shampoo) 1 marilyn DAILY TP Last administered on 08:23; Start 07/24/16 at 09:00 Magnesium Hydroxide (Milk Of Magnesia) 2,400 mg PRN DAILY PRN PO CONSTIPATION; Start 07/23/16 at 17:15 Methimazole (Tapazole) 5 mg TID PO Last administered on 07/25/16 07:52; Start 07/23/16 at 21:00; Stop 07/25/16 at 13:32; Status DC Nystatin (Mycostatin) 1 marilyn PRN Q8HRS PRN TP Yeast; Start 07/23/16 at 17:15; Stop 07/23/16 at 17:32; Status DC Quetiapine Fumarate (SEROquel) 50 mg DAILY PO Last administered on 07/28/16 08 :17; Start 07/24/16 at 09:00 Quetiapine Fumarate (SEROquel) 100 mg QHS PO Last administered on 07/28/16 19: 30; Start 07/23/16 at 21:00 Sotalol HCl (Betapace) 80 mg BID PO Last administered on 07/28/16 19:35; Start 07/23/16 at 21:00 Thiamine HCl (Vitamin B-1) 100 mg DAILY PO Last administered on 07/28/16 08:18 ; Start 07/24/16 at 09:00 Tramadol HCl (Ultram) 50 mg BID PO Last administered on 07/28/16 19:30; Start 07/23/16 at 21:00 Tramadol HCl (Ultram) 50 mg PRN Q6HRS PRN PO PAIN Last administered on 06:07; Start 07/23/16 at 17:15 Zinc Sulfate (Orazinc) 220 mg DAILY PO Last administered on 07/28/16 08:17; Start 07/24/16 at 09:00 Doxazosin Mesylate (Cardura) 2 mg DAILY PO Last administered on 07/28/16 08:24 ; Start 07/24/16 at 09:00 Multivitamins/ Calcium (Thera-M Plus) 1 tab DAILY PO Last administered on 08:17; Start 07/24/16 at 09:00 Acetaminophen (Tylenol) 650 mg PRN Q6HRS PRN PO PAIN / TEMP; Start 07/23/16 at 17:15 Al Hydroxide/Mg Hydroxide (Mylanta Plus Xs) 15 ml PRN AFTMEALHC PRN PO DYSPEPSIA; Start 07/23/16 at 17:15 Nystatin (Mycostatin) 1 marilyn PRN Q8HRS PRN TP Yeast; Start 07/23/16 at 17:45 Insulin Aspart (Novolog) 0-5 UNITS TIDWMEALS SQ Last administered on 07/28/16 17:22; Start 07/24/16 at 12:00 Dextrose 12.5 gm PRN Q15MIN PRN IV SEE COMMENTS; Start 07/24/16 at 11:45 Albuterol Sulfate (Ventolin) 2.5 mg TID NEB ; Start 07/25/16 at 14:00; Stop at 14:00; Status DC Carbidopa/Levodopa (Sinemet 25/100) 1 tab TID PO Last administered on 19:30; Start 07/25/16 at 14:00 Lidocaine (Lidoderm) 1 patch DAILY TP Last administered on 07/28/16 08:23; Start 07/26/16 at 09:00 Non-Formulary Medication 20 mcg BID NEB COPD; Start 07/25/16 at 21:00; Stop at 21:00; Status DC Methimazole (Tapazole) 10 mg TID PO Last administered on 07/28/16 19:31; Start 07/25/16 at 14:00 Albuterol Sulfate (Ventolin) 2.5 mg RTQID NEB Last administered on 07/28/16 20 :03; Start 07/25/16 at 16:00 Sertraline HCl (Zoloft) 50 mg DAILY PO Last administered on 07/28/16 08:22; Start 07/28/16 at 09:00 Rivastigmine (Exelon) 1 patch DAILY TD ; Start 07/29/16 at 09:00; Stop 07/31/16 at 09:01 Rivastigmine (Exelon) 1 patch DAILY TD ; Start 08/01/16 at 09:00 Memantine (Namenda) 5 mg HS PO Last administered on 07/28/16 19:35; Start at 21:00; Stop 07/30/16 at 21:01 Memantine (Namenda) 5 mg BID PO ; Start 07/31/16 at 09:00 Active Scripts Active Reported Lidoderm (Lidocaine) 700 Mg Adh..patch 1 Patch TP DAILY Doxycycline Hyclate 100 Mg Tablet 1 Tab PO BID Sinemet 25-100 Mg Tablet (Carbidopa/Levodopa) 1 Each Tablet 1 Tab PO TID Albuterol Sulfate Neb Soln (Albuterol Sulfate) 2.5 Mg/3 Ml Vial.neb 2.5 Mg NEB TID [Proheal] 30 Ml PO BID 30 Days Zinc Sulfate 220 Mg Capsule 220 Mg PO DAILY 30 Days Vitamin C (Ascorbic Acid) 500 Mg Tablet 500 Mg PO BID 30 Days Tramadol Hcl (Tramadol HCl) 50 Mg Tablet 50 Mg PO BID Tramadol Hcl (Tramadol HCl) 50 Mg Tablet 50 Mg PO PRN Q6HRS PRN Thiamine Hcl 100 Mg Tablet 100 Mg PO DAILY Sotalol (Sotalol Hcl) 80 Mg Tablet 80 Mg PO BID Seroquel (Quetiapine Fumarate) 100 Mg Tablet 100 Mg PO QHS Seroquel (Quetiapine Fumarate) 50 Mg Tablet 50 Mg PO DAILY Pradaxa (Dabigatran Etexilate Mesylate) 150 Mg Capsule 150 Mg PO BID Nystatin 15 Gm Cream..g. 1 Marilyn TP PRN Q8HRS PRN Multi-Day Plus Minerals Tablet (Multivitamin-Min/Iron/FA/Vit K) 1 Each Tablet 1 Tab PO DAILY 30 Days Milk Of Magnesia (Magnesium Hydroxide) 400 Mg/5 Ml Oral.susp 2,400 Mg PO PRN DAILY PRN Methimazole 5 Mg Tablet 5 Mg PO TID Ketoconazole 120 Ml Shampoo 1 Marilyn TP TWICE WEEKLY Glimepiride 2 Mg Tablet 2 Mg PO BID Perforomist (Formoterol Fumarate) 20 Mcg/2 Ml Vial.neb 20 Mcg NEB BID Folic Acid 1 Mg Tablet 1 Mg PO DAILY Doxazosin Mesylate 2 Mg Tablet 2 Mg PO DAILY Budesonide 0.5 Mg/2 Ml Ampul.neb 0.5 Mg NEB BID Diagnosis: Problems: (1) Dementia with behavioral disturbance (2) Anxiety disorder (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
[2016-07-29] MEDS: ALBUTEROL SULFATE 2.5 MG/3 ML NEBU. NEB SCH ×4 (04:58→20:08)
[2016-07-29] MEDS: INSULIN ASPART 300 UNITS/3 ML INSULN.PEN SQ SCH ×3 (08:00→17:34)
[2016-07-29] MEDS: KETOCONAZOLE 2% SHAMPOO 120ML BOTTLE. TP SCH (09:00)
--- NOTE | 2016-07-29 09:01 | PN ---
DATE: 07/28/2016 PSYCHIATRIC PROGRESS NOTE This is a late entry of 07/28/2016 covers elements not covered in my initial note. SUBJECTIVE: Per nursing report, the patient gets combative, resistive at times refused Accu-Cheks and then did okay, irritable with a.m. medications took them later. REVIEW OF SYSTEMS: Hard of hearing, impaired ambulation in a Broda chair. No CV, , pulmonary, eye system symptoms on review. MENTAL STATUS EXAM: Oriented to himself. Insight, judgment, recent and remote memory, attention, concentration, fund of knowledge poor, consistent with his diagnosis as mentioned in my initial note. PLAN: Start Exelon patch 4.6 mg a day for 3 days, then 9.5 mg a day, Namenda 5 mg a day for 3 days and 5 mg b.i.d. We will increase further thereafter. Continue Seroquel, Zoloft. Adjust further as clinically indicated. MAN Heaven MAGALLANES MD DR: MARIBEL/harshad JOB#: [id number] / [id number]
[2016-07-29] MEDS: SERTRALINE 25 MG TABLET. PO SCH (09:04)
[2016-07-29] MEDS: FOLIC ACID 1 MG TABLET PO SCH (09:05)
[2016-07-29] MEDS: THIAMINE 100 MG TABLET. PO SCH (09:05)
[2016-07-29] MEDS: CARBIDOPA/LEVODOPA 25/100MG TABLET PO SCH ×4 (09:05→19:39)
[2016-07-29] MEDS: QUEtiapine 50 MG TABLET. PO SCH (09:05)
[2016-07-29] MEDS: GLIMEPIRIDE 2 MG TABLET PO SCH ×2 (09:05→19:39)
[2016-07-29] MEDS: ZINC SULFATE 220 MG CAPSULE. PO SCH (09:05)
[2016-07-29] MEDS: DABIGATRAN ETEXILATE 150 MG CAPSULE. PO SCH ×2 (09:05→19:37)
[2016-07-29] MEDS: ASCORBIC ACID 500 MG TABLET PO SCH ×2 (09:05→19:39)
--- NOTE | 2016-07-29 09:05 | PN ---
DATE: 07/27/2016 This late entry for 07/27/2016 covers elements not covered in my initial note. SUBJECTIVE: Per nursing report, the patient did well, during the day was laughing, has not been threatening, somewhat delusional that someone was watching him, talked about fishing in [place] with seals and barracuda. Some of his verbalizations are disorganized consistent with his diagnosis. REVIEW OF SYSTEMS: Ambulation impaired, in a Broda chair, hard of hearing, I had to talk loudly into his ear. No CV, , pulmonary, eye system symptoms on review. MENTAL STATUS EXAM: Oriented to himself. Insight, judgment, recent and remote memory, attention, concentration, fund of knowledge poor, consistent with his diagnosis. IMPRESSION: Major neurocognitive disorder, Lewy body with delusion, depression, behavioral disturbance. Rest unchanged. PLAN: Continue Seroquel, Zoloft for now. Consider restarting Exelon patch and Namenda given his diagnosis of Lewy body dementia. Make further adjustments as clinically indicated. MAN Heaven MAGALLANES MD DR: MARIBEL/harshad JOB#: [id number] / [id number]
[2016-07-29] MEDS: LIDOCAINE (700MG/PATCH) PATCH. TP SCH (09:08)
[2016-07-29] MEDS: SOTALOL 80 MG TABLET. PO SCH ×2 (09:14→19:45)
[2016-07-29] MEDS: TRAMADOL 50 MG TABLET. PO SCH ×2 (09:15→19:38)
[2016-07-29] MEDS: RIVASTIGMINE 4.6MG PATCH. TD SCH (09:15)
[2016-07-29] MEDS: MULTIVITAMIN with MINERAL TABLET. PO SCH (09:15)
[2016-07-29] MEDS: METHIMAZOLE 5 MG TABLET PO SCH ×3 (09:15→19:37)
[2016-07-29] MEDS: DOXAZOSIN MESYLATE 1 MG TABLET PO SCH (09:16)
[2016-07-29] MEDS: BUDESONIDE 0.5 MG/2 ML NEBU NEB SCH ×2 (12:55→20:08)
[2016-07-29 17:00] VITALS: BP 134/75
[2016-07-29] MEDS: QUEtiapine 100 MG TABLET. PO SCH (19:39)
[2016-07-29] MEDS: MEMANTINE 5 MG TABLET. PO SCH (19:42)
--- NOTE | 2016-07-29 20:55 | PDOC ---
Exam Lobito Demential Exam: Lobito Note: Please also refer to the separate dictated note~for this date of service dictated separately.~Patient seen individually. Discussed the patient with Nursing staff reviewed the chart.~Reviewed interim history and current functioning. Reviewed vital signs,~Labs/ Radiology~and current medications noted below. Continue current treatment with the changes noted in the dictated addendum note Assessment: Vital Signs: Vital Signs Date Time Temp Pulse Resp B/P Pulse Ox O2 Delivery O2 Flow Rate FiO2 07/29/16 20:10 95 Room Air 07/29/16 19:45 87 134/75 07/29/16 17:00 97.2 18 I&O Intake and Output 07/29/16 07:00 Intake Total 720 ml Balance 720 ml Intake Oral 720 ml Labs: Laboratory Tests Test 07/29/16 07:15 07/29/16 11:44 07/29/16 17:10 07/29/16 19:04 Glucose (Fingerstick) 135mg/dL (70-99) H 264mg/dL (70-99) H 253mg/dL (70-99) H 256mg/dL (70-99) H Current Medications: Meds: Current Medications Ascorbic Acid (Vitamin C) 500 mg BID PO Last administered on 07/29/16 19:39; Start 07/23/16 at 21:00 Budesonide (Pulmicort) 0.5 mg BID NEB Last administered on 07/29/16 20:08; Start 07/23/16 at 21:00 Dabigatran (Pradaxa) 150 mg BID PO Last administered on 07/29/16 19:37; Start 07/23/16 at 21:00 Folic Acid (Folic Acid) 1 mg DAILY PO Last administered on 07/29/16 09:05; Start 07/24/16 at 09:00 Glimepiride (Amaryl) 2 mg BID PO Last administered on 07/29/16 19:39; Start at 21:00 Ketoconazole (Nizoral 2% Shampoo) 1 marilyn DAILY TP Last administered on 08:23; Start 07/24/16 at 09:00 Magnesium Hydroxide (Milk Of Magnesia) 2,400 mg PRN DAILY PRN PO CONSTIPATION; Start 07/23/16 at 17:15 Methimazole (Tapazole) 5 mg TID PO Last administered on 07/25/16 07:52; Start 07/23/16 at 21:00; Stop 07/25/16 at 13:32; Status DC Nystatin (Mycostatin) 1 marilyn PRN Q8HRS PRN TP Yeast; Start 07/23/16 at 17:15; Stop 07/23/16 at 17:32; Status DC Quetiapine Fumarate (SEROquel) 50 mg DAILY PO Last administered on 07/29/16 09 :05; Start 07/24/16 at 09:00 Quetiapine Fumarate (SEROquel) 100 mg QHS PO Last administered on 07/29/16 19: 39; Start 07/23/16 at 21:00 Sotalol HCl (Betapace) 80 mg BID PO Last administered on 07/29/16 19:45; Start 07/23/16 at 21:00 Thiamine HCl (Vitamin B-1) 100 mg DAILY PO Last administered on 07/29/16 09:05 ; Start 07/24/16 at 09:00 Tramadol HCl (Ultram) 50 mg BID PO Last administered on 07/29/16 19:38; Start 07/23/16 at 21:00 Tramadol HCl (Ultram) 50 mg PRN Q6HRS PRN PO PAIN Last administered on 06:07; Start 07/23/16 at 17:15 Zinc Sulfate (Orazinc) 220 mg DAILY PO Last administered on 07/29/16 09:05; Start 07/24/16 at 09:00 Doxazosin Mesylate (Cardura) 2 mg DAILY PO Last administered on 07/29/16 09:16 ; Start 07/24/16 at 09:00 Multivitamins/ Calcium (Thera-M Plus) 1 tab DAILY PO Last administered on 09:15; Start 07/24/16 at 09:00 Acetaminophen (Tylenol) 650 mg PRN Q6HRS PRN PO PAIN / TEMP; Start 07/23/16 at 17:15 Al Hydroxide/Mg Hydroxide (Mylanta Plus Xs) 15 ml PRN AFTMEALHC PRN PO DYSPEPSIA; Start 07/23/16 at 17:15 Nystatin (Mycostatin) 1 marilyn PRN Q8HRS PRN TP Yeast; Start 07/23/16 at 17:45 Insulin Aspart (Novolog) 0-5 UNITS TIDWMEALS SQ Last administered on 07/29/16 17:34; Start 07/24/16 at 12:00 Dextrose 12.5 gm PRN Q15MIN PRN IV SEE COMMENTS; Start 07/24/16 at 11:45 Albuterol Sulfate (Ventolin) 2.5 mg TID NEB ; Start 07/25/16 at 14:00; Stop at 14:00; Status DC Carbidopa/Levodopa (Sinemet 25/100) 1 tab TID PO Last administered on 13:23; Start 07/25/16 at 14:00; Stop 07/29/16 at 15:02; Status DC Lidocaine (Lidoderm) 1 patch DAILY TP Last administered on 07/29/16 09:08; Start 07/26/16 at 09:00 Non-Formulary Medication 20 mcg BID NEB COPD; Start 07/25/16 at 21:00; Stop at 21:00; Status DC Methimazole (Tapazole) 10 mg TID PO Last administered on 07/29/16 19:37; Start 07/25/16 at 14:00 Albuterol Sulfate (Ventolin) 2.5 mg RTQID NEB Last administered on 07/29/16 20 :08; Start 07/25/16 at 16:00 Sertraline HCl (Zoloft) 50 mg DAILY PO Last administered on 07/29/16 09:04; Start 07/28/16 at 09:00 Rivastigmine (Exelon) 1 patch DAILY TD Last administered on 07/29/16 09:15; Start 07/29/16 at 09:00; Stop 07/31/16 at 09:01 Rivastigmine (Exelon) 1 patch DAILY TD ; Start 08/01/16 at 09:00 Memantine (Namenda) 5 mg HS PO Last administered on 07/29/16 19:42; Start at 21:00; Stop 07/30/16 at 21:01 Memantine (Namenda) 5 mg BID PO ; Start 07/31/16 at 09:00 Carbidopa/Levodopa (Sinemet 25/100) 1 tab QID PO Last administered on t 19:39; Start 07/29/16 at 17:00 Active Scripts Active Reported Lidoderm (Lidocaine) 700 Mg Adh..patch 1 Patch TP DAILY Doxycycline Hyclate 100 Mg Tablet 1 Tab PO BID Sinemet 25-100 Mg Tablet (Carbidopa/Levodopa) 1 Each Tablet 1 Tab PO TID Albuterol Sulfate Neb Soln (Albuterol Sulfate) 2.5 Mg/3 Ml Vial.neb 2.5 Mg NEB TID [Proheal] 30 Ml PO BID 30 Days Zinc Sulfate 220 Mg Capsule 220 Mg PO DAILY 30 Days Vitamin C (Ascorbic Acid) 500 Mg Tablet 500 Mg PO BID 30 Days Tramadol Hcl (Tramadol HCl) 50 Mg Tablet 50 Mg PO BID Tramadol Hcl (Tramadol HCl) 50 Mg Tablet 50 Mg PO PRN Q6HRS PRN Thiamine Hcl 100 Mg Tablet 100 Mg PO DAILY Sotalol (Sotalol Hcl) 80 Mg Tablet 80 Mg PO BID Seroquel (Quetiapine Fumarate) 100 Mg Tablet 100 Mg PO QHS Seroquel (Quetiapine Fumarate) 50 Mg Tablet 50 Mg PO DAILY Pradaxa (Dabigatran Etexilate Mesylate) 150 Mg Capsule 150 Mg PO BID Nystatin 15 Gm Cream..g. 1 Marilyn TP PRN Q8HRS PRN Multi-Day Plus Minerals Tablet (Multivitamin-Min/Iron/FA/Vit K) 1 Each Tablet 1 Tab PO DAILY 30 Days Milk Of Magnesia (Magnesium Hydroxide) 400 Mg/5 Ml Oral.susp 2,400 Mg PO PRN DAILY PRN Methimazole 5 Mg Tablet 5 Mg PO TID Ketoconazole 120 Ml Shampoo 1 Marilyn TP TWICE WEEKLY Glimepiride 2 Mg Tablet 2 Mg PO BID Perforomist (Formoterol Fumarate) 20 Mcg/2 Ml Vial.neb 20 Mcg NEB BID Folic Acid 1 Mg Tablet 1 Mg PO DAILY Doxazosin Mesylate 2 Mg Tablet 2 Mg PO DAILY Budesonide 0.5 Mg/2 Ml Ampul.neb 0.5 Mg NEB BID Diagnosis: Problems: (1) Dementia with behavioral disturbance (2) Anxiety disorder (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
[2016-07-30] MEDS ORDERED: ACET325T9 PO (03:02)
[2016-07-30] MEDS ORDERED: MAG355OR17 PO (03:06)
[2016-07-30] MEDS ORDERED: INSU100I17 SQ (03:18)
[2016-07-30] MEDS: ALBUTEROL SULFATE 2.5 MG/3 ML NEBU. NEB SCH ×2 (05:04→05:05)
[2016-07-30 06:51] VITALS: BP 84/61
[2016-07-30 08:22] VITALS: BP 175/95
[2016-07-30] MEDS: METHIMAZOLE 5 MG TABLET PO SCH (08:22)
[2016-07-30] MEDS: ZINC SULFATE 220 MG CAPSULE. PO SCH (08:22)
[2016-07-30] MEDS: DOXAZOSIN MESYLATE 1 MG TABLET PO SCH (08:23)
[2016-07-30] MEDS: DABIGATRAN ETEXILATE 150 MG CAPSULE. PO SCH (08:23)
[2016-07-30] MEDS: FOLIC ACID 1 MG TABLET PO SCH (08:24)
[2016-07-30] MEDS: TRAMADOL 50 MG TABLET. PO SCH (08:24)
[2016-07-30] MEDS: ASCORBIC ACID 500 MG TABLET PO SCH (08:24)
[2016-07-30] MEDS: THIAMINE 100 MG TABLET. PO SCH (08:24)
[2016-07-30] MEDS: SERTRALINE 25 MG TABLET. PO SCH (08:24)
[2016-07-30] MEDS: CARBIDOPA/LEVODOPA 25/100MG TABLET PO SCH (08:24)
[2016-07-30] MEDS: GLIMEPIRIDE 2 MG TABLET PO SCH (08:24)
[2016-07-30] MEDS: MULTIVITAMIN with MINERAL TABLET. PO SCH (08:24)
[2016-07-30] MEDS: QUEtiapine 50 MG TABLET. PO SCH (08:24)
[2016-07-30 08:25] VITALS: BP 175/95
[2016-07-30] MEDS: KETOCONAZOLE 2% SHAMPOO 120ML BOTTLE. TP SCH (08:25)
[2016-07-30] MEDS: LIDOCAINE (700MG/PATCH) PATCH. TP SCH (08:25)
[2016-07-30] MEDS: RIVASTIGMINE 4.6MG PATCH. TD SCH (08:25)
[2016-07-30] MEDS: SOTALOL 80 MG TABLET. PO SCH (08:25)
[2016-07-30] MEDS: INSULIN ASPART 300 UNITS/3 ML INSULN.PEN SQ SCH (08:31)
--- NOTE | 2016-07-30 15:17 | PN ---
DATE: 07/29/2016 PSYCHIATRIC PROGRESS NOTE This is late entry of 07/29/2016, covers elements not covered in my initial note. SUBJECTIVE: Overall, the patient remains confused, withdrawn, not aggressive per nursing report. REVIEW OF SYSTEMS: Hard of hearing, impaired ambulation in a Broda chair. No CV, , pulmonary, eye system symptoms on review. MENTAL STATUS EXAMINATION: Oriented to himself. Speech coherent, often responses monosyllabic. Insight, judgment, recent and remote memory, attention, concentration, fund of knowledge poor, consistent with his diagnosis mentioned in my initial note. PLAN: Continue current psychotropics per my initial note. MAN Heaven MAGALLANES MD DR: MARIBEL/harshad JOB#: [id number] / [id number]
[2016-07-31] MEDS ORDERED: MEMANTINE 5 MG TABLET. PO SCH (09:00)
--- NOTE | 2016-07-31 22:13 | DS ---
DATE OF DISCHARGE: 07/30/2016 DISCHARGE SUMMARY/PSYCHIATRIC PROGRESS NOTE REASON FOR ADMISSION: Please refer to the admission history for details. Briefly, the patient is an 81-year-old male with the diagnosis of Lewy body dementia, referred to us initially from the [facility] and then returned back to our unit after medical stabilization on for a questionable seizure disorder. The patient was still angry, aggressive, disruptive, swinging at staff, resistive with care, psychotic. He is extremely hard of hearing, confused, forgetful due to his Lewy body dementia and behaviors were deemed dangerous needing further inpatient psychiatric stabilization. SIGNIFICANT FINDINGS AND CLINICAL COURSE: Following admission, the patient was seen daily individually by myself from a psychiatric standpoint, medically per Dr. Antonio/Dr. Sampson. He remained quite confused, hard of hearing, agitated and aggressive at times. Adjustments were made in his psychotropics and he seemed to respond to a combination of Namenda, which has been increased from 5 mg a day to 5 mg twice a day, Exelon patch 9.6 mg a day, Zoloft 50 mg a day, Seroquel 50 mg in the morning, 100 at night. He is followed from a neurological standpoint per Dr. Mendoza and remained on Sinemet for his Parkinson's. Prior to discharge on 07/30/2016 temperature 97.6, BP 150/80, pulse 70, respirations 20 and O2 sats 96%. REVIEW OF SYSTEMS: Hard of hearing, impaired ambulation in a Broda chair. No CV, , pulmonary, eye system symptoms on review. Reliability poor. MENTAL STATUS EXAMINATION: Oriented to himself. Insight, judgment, recent and remote memory, attention, concentration, fund of knowledge poor, consistent with his diagnosis. LABORATORY DATA: Reviewed. FINAL DIAGNOSES: Major neurocognitive disorder, Lewy body type with delusion, depression, behavioral disturbance; anxiety disorder, unspecified; impulse control disorder, unspecified. Rest diagnoses unchanged from admission. DISCHARGE MEDICATIONS: Please refer to the [facility]. DISCHARGE INSTRUCTIONS: Outpatient psychiatric and medical followup at the [facility]. MARY MAGALLANES MD DR: MARIBEL/harshad JOB#: [id number] / [id number]
[2016-08-01] MEDS ORDERED: RIVASTIGMINE 9.5MG PATCH. TD SCH (09:00)
== END 2016-07-30 09:00 | DRG 57 ==
LOC: GEROPSY 16:31
PROVIDERS: ADMIT Psychiatry & Neurology Psychiatry; ATTEND Psychiatry & Neurology Psychiatry
DX: G31.83 Neurocognitive disorder with Lewy bodies (principal); F02.81 Dementia in other diseases classified elsewhere, unspecified severity, with behavioral disturbance; E11.9 Type 2 diabetes mellitus without complications; F32.9 Major depressive disorder, single episode, unspecified; F41.9 Anxiety disorder, unspecified; F63.9 Impulse disorder, unspecified; H91.90 Unspecified hearing loss, unspecified ear; I11.0 Hypertensive heart disease with heart failure; I48.91 Unspecified atrial fibrillation; I50.9 Heart failure, unspecified; J44.9 Chronic obstructive pulmonary disease, unspecified; G89.29 Other chronic pain; I49.5 Sick sinus syndrome; R13.10 Dysphagia, unspecified; Z79.899 Other long term (current) drug therapy
CPT/HCPCS: 36415; 80053; 82947; 85027; 94640; J1815; J7613; J7626

== ENCOUNTER 2016-09-05 17:58 | Inpatient (IN) | payer MEDICARE ==
[~2016-09-05] VITALS: Ht 180.3 cm; Wt 79.0 kg
[~2016-09-05 17:58] MED LIST changes: +ACET325T9 PO; +ALBU2.5V5 NEB; -BUDE0.5A NEB; +BUDE0.5A11 NEB; +CARB1TAB2 PO; +DOXY100T PO; +INSU100I17 SQ; +LIDO700A4 TP; +MAG355OR17 PO; -MAGN400O4 PO; +MAGN400O7 PO; -SOTA80TA PO; +SOTA80TA48 PO
[2016-09-05 18:46] LABS: BASO # 0.1 x10^3/uL (0.0-0.2); BASO % 1 % (0-3); EOS # 0.6 x10^3/uL (0.0-0.7); EOS % 7 % (0-3); HEMATOCRIT 40.9 % (39.0-53.0); HEMOGLOBIN 13.8 g/dL (13.0-17.5); LYMPH # 1.5 x10^3/uL (1.0-4.8); LYMPH % 19 % (24-48); MEAN CORPUSCULAR HEMOGLOBIN 28 pg (25-35); MEAN CORPUSCULAR HGB CONC 34 g/dL (31-37); MEAN CORPUSCULAR VOLUME 82 fL (79-100); MONO # 0.9 x10^3/uL (0.0-1.1); MONO % 11 % (0-9); NEUT # 4.8 x10^3uL (1.8-7.7); NEUT % 62 % (31-73); PLATELET COUNT 201 x10^3/uL (140-400); RED BLOOD COUNT 5.01 x10^6/uL (4.30-5.70); RED CELL DISTRIBUTION WIDTH 16.7 % (11.5-14.5); WHITE BLOOD COUNT 7.8 x10^3/uL (4.0-11.0)
[2016-09-05 18:59] LABS: ALBUMIN 3.4 g/dL (3.4-5.0); ALBUMIN/GLOBULIN RATIO 0.8 (1.0-1.7); CALCIUM 9.1 mg/dL (8.5-10.1); CREATININE 1.4 mg/dL (0.7-1.3); GFR 48.5; MAGNESIUM 1.9 mg/dL (1.8-2.4); POTASSIUM 4.1 mmol/L (3.5-5.1); TOTAL BILIRUBIN 0.3 mg/dL (0.2-1.0); TOTAL PROTEIN 7.8 g/dL (6.4-8.2)
--- NOTE | 2016-09-05 19:13 | ED.ADGEN ---
Past History Past Medical History: A-Fib, CHF, COPD, Dementia, Diabetes, Hypertension, Pneumonia, Other Past Surgical History: Other Alcohol Use: None Drug Use: None Adult General HPI HPI Patient is a 81-year-old man, history of fluid body dementia, atrial fibrillation, CHF, hypertension, hyperlipidemia, who presents to the emergency department with report of suicidal ideation, with a plan to strangle himself with shoelaces. Patient reported to the long-term staff that he was "heartbroken about the of his ", patient was found to have a sling which he wears for an old humerus fracture wrapped around his neck, there was no compromise to his airway reported per nursing staff. Patient was transferred to the emergency department for evaluation with plan to admit to the [facility]. Patient admitted to the psychiatric unit previously. At this time the patient is denying any complaints, and states he is "here because they say that I was suicidal, and the ambulance just brought me", he is at baseline mental status per report, oriented to self and to place in the ED, denying all complaints, with vital signs within normal limits. Review of Systems Review of Systems Constitutional: Denies fever or chills [] Eyes: Denies change in visual acuity, redness, or eye pain [] HENT: Denies nasal congestion or sore throat [] Respiratory: Denies cough or shortness of breath [] Cardiovascular: No additional information not addressed in HPI [] GI: Denies abdominal pain, nausea, vomiting, bloody stools or diarrhea [] : Denies dysuria or hematuria [] Musculoskeletal: Denies back pain or joint pain [] Integument: Denies rash or skin lesions [] Neurologic: Denies headache, focal weakness or sensory changes [] Endocrine: Denies polyuria or polydipsia [] Allergies Allergies Allergies Coded Allergies Type Severity Reaction Last Updated Verified No Known Drug Allergies 07/07/16 No Physical Exam Physical Exam Constitutional: Well developed, well nourished, no acute distress, non-toxic appearance. [] HENT: Normocephalic, atraumatic, bilateral external ears normal, oropharynx moist, no oral exudates, nose normal. [] Eyes: PERRLA, EOMI, conjunctiva normal, no discharge. [] Neck: Normal range of motion, no tenderness, supple, no stridor. [Patient with no arango or signs of trauma on the neck, no stridorous stated. No signs of injury.] Cardiovascular:Heart rate regular rhythm, no murmur , S1, S2, rubs or gallops. [ ] Lungs & Thorax: Bilateral breath sounds clear to auscultation [] Abdomen: Bowel sounds normal, soft, no tenderness, no masses, no pulsatile masses. [] Skin: Warm, dry, no erythema, no rash. [] Back: No tenderness, no CVA tenderness. [] Extremities: No tenderness, no cyanosis, no clubbing, ROM intact, no edema. Negative Homans sign. [] Neurologic: Alert and oriented X 2, normal motor function, normal sensory function, no focal deficits noted. [] Psychologic: Affect normal, judgement normal, mood normal. [] Current Patient Data Vital Signs Vital Signs Date Time Temp Pulse Resp B/P (MAP) Pulse Ox O2 Delivery O2 Flow Rate FiO2 09/05/16 18:22 97.9 70 20 95 Room Air Lab Results Laboratory Tests Test 09/05/16 18:20 White Blood Count 7.8 x10^3/uL (4.0-11.0) Red Blood Count 5.01 x10^6/uL (4.30-5.70) Hemoglobin 13.8 g/dL (13.0-17.5) Hematocrit 40.9 % (39.0-53.0) Mean Corpuscular Volume 82 fL (79-100) Mean Corpuscular Hemoglobin 28 pg (25-35) Mean Corpuscular Hemoglobin Concent 34 g/dL (31-37) Red Cell Distribution Width 16.7 % (11.5-14.5) H Platelet Count 201 x10^3/uL (140-400) Neutrophils (%) (Auto) 62 % (31-73) Lymphocytes (%) (Auto) 19 % (24-48) L Monocytes (%) (Auto) 11 % (0-9) H Eosinophils (%) (Auto) 7 % (0-3) H Basophils (%) (Auto) 1 % (0-3) Neutrophils # (Auto) 4.8 x10^3uL (1.8-7.7) Lymphocytes # (Auto) 1.5 x10^3/uL (1.0-4.8) Monocytes # (Auto) 0.9 x10^3/uL (0.0-1.1) Eosinophils # (Auto) 0.6 x10^3/uL (0.0-0.7) Basophils # (Auto) 0.1 x10^3/uL (0.0-0.2) Sodium Level 141 mmol/L (136-145) Potassium Level 4.1 mmol/L (3.5-5.1) Chloride Level 106 mmol/L (98-107) Carbon Dioxide Level 25 mmol/L (21-32) Anion Gap 10 (6-14) Blood Urea Nitrogen 22 mg/dL (8-26) Creatinine 1.4 mg/dL (0.7-1.3) H Estimated GFR (Cockcroft-Gault) 48.5 BUN/Creatinine Ratio 16 (6-20) Glucose Level 167 mg/dL (70-99) H Calcium Level 9.1 mg/dL (8.5-10.1) Magnesium Level 1.9 mg/dL (1.8-2.4) Total Bilirubin 0.3 mg/dL (0.2-1.0) Aspartate Amino Transferase (AST) 10 U/L (15-37) L Alanine Aminotransferase (ALT) 17 U/L (16-63) Alkaline Phosphatase 104 U/L (46-116) Total Protein 7.8 g/dL (6.4-8.2) Albumin 3.4 g/dL (3.4-5.0) Albumin/Globulin Ratio 0.8 (1.0-1.7) L EKG EKG EC: Sinus rhythm, heart rate 70 bpm, paced rhythm, QTC of 502, MA of 326 , QRS is 24, limited evaluation due to paced rhythm, does not meet STEMI criteria. As interpreted by me. [] Radiology/Procedures Radiology/Procedures Not indicated. [] Course & Med Decision Making Course & Med Decision Making Pertinent Labs and Imaging studies reviewed. (See chart for details) Patient received medical screening examination in the emergency department, labs obtained, consistent with patient's previous laboratory studies. Patient on one-to-one observation in the emergency department due to his concern for suicidal ideation with attempt. Patient this time as stated is denying any suicidal ideation, however he states he is very sad about the of his , and is occasionally tearful. Patient medically cleared in the emergency department, and admitted to the geriatric psychiatric unit without issue by Dr. Lima. Final Impression Final Impression [] Problems: Dragon Disclaimer Dragon Disclaimer This electronic medical record was generated, in whole or in part, using a voice recognition dictation system. Departure: Disposition: 09 ADMITTED INPATIENT Condition: STABLE TONIA PANTOJA DO September 05, 2016 19:13
[2016-09-05 21:05] LABS: AMPHETAMINE/METHAMPHETAMINE NEG (NEG); BARBITURATES NEG (NEG); BENZODIAZEPINES NEG (NEG); CANNABINOIDS NEG (NEG); COCAINE NEG (NEG); METHADONE NEG (NEG); OPIATES NEG (NEG); PHENCYCLIDINE NEG (NEG)
[2016-09-05] MEDS ORDERED: DICL100G18 TP (21:05)
[2016-09-05] MEDS ORDERED: RIVA1PAT23 TD (21:05)
[2016-09-05] MEDS ORDERED: MEMA10TA PO (21:06)
--- NOTE | 2016-09-05 21:15 | NUR ---
Admission Note Patient arrived via EMS from ER. Patient is an 81 year old male with a primary diagnosis of Lewy Body Dementia with Depression. Patient is resistive with cares upon arrival. Patient very agitated and states that he thinks all of us are police and that we hurt his arm when we arrested him. Patient very paranoid and delusional at this time and is unable to be redirected at this time. Patient reassured multiple times that he is in the hospital and not in longterm and that we are nurses and not police but patient states he doesn't care what we say he knows we are all dispatcher radioactive waste disposal. Patient lung sounds are clear, heart sounds are regular and bowels are active in all 4 quadrants. Patient has a wound located on coccyx photos taken and dressing applied. Patient pulses are equal and palpable bilaterally, skin turgor is elastic. Patient given PRN pain medication for complaints of left arm and shoulder pain. Patient is currently resting in bed.
[2016-09-05] MEDS ORDERED: METHYL SALICYLATE/MENTHOL TOPICAL OINTMENT 29GM TUBE. TP PRN (21:30)
[2016-09-05 21:34] LABS: CLARITY,URINE CLEAR; COLOR,URINE YELLOW; GLUCOSE,URINE 500 mg/dL (NEG)
[2016-09-05 21:35] LABS: BILIRUBIN,URINE NEG (NEG); NITRITE,URINE NEG (NEG); UROBILINOGEN,URINE 0.2 mg/dL (0.2 mg/dL)
[2016-09-05 21:39] LABS: BACTERIA,URINE 0 /HPF (0-FEW); SQUAMOUS EPITHELIAL CELL,UR FEW /LPF; YEAST,URINE PRESENT /HPF
[2016-09-05 21:40] VITALS: BP 163/80
[2016-09-05 21:40] LABS: HYALINE CASTS, URINE FEW /HPF
[2016-09-05] MEDS ORDERED: MAG HYDROX/AL HYDROX/SIMETH 30 ML ORAL.SUSP PO PRN (21:45)
[2016-09-05] MEDS ORDERED: ACETAMINOPHEN 500 MG TABLET PO ONE (22:15)
[2016-09-05] MEDS: MEMANTINE 5 MG TABLET. PO SCH (22:17)
[2016-09-05] MEDS: traMADol 50 MG TABLET PO PRN (22:18)
[2016-09-05] MEDS: QUEtiapine 100 MG TABLET. PO SCH (22:18)
--- NOTE | 2016-09-05 23:56 | EKG ---
[address] [address] Test Date: 2016-09-05 Test Time: 18:31:32 Pat Name: JED ADLER Department: Room: [address] [place] [address] Gender: M Drilling Engineer: : [id number] Requested By: TONIA PANTOJA Order Number: [id number] Reading MD: Nii Smith Measurements Intervals [place] Rate: 70 P: 0 WV: 326 QRS: -178 QRSD: 24 T: -14 QT: 462 QTc: 502 Interpretive Statements SUSPECT BI-V PACED RHYTHM POSSIBLE UNDERLYING SINUS RHYTHM Electronically Signed On 09-09-2016 12:55:10 CDT by Nii Smith
[2016-09-06] MEDS ORDERED: ACETAMINOPHEN 325 MG TABLET PO SCH
--- NOTE | 2016-09-06 02:28 | ACF ---
Admission Criteria Forms PSYCHIATRIC DISORDERS Clinical Indications for Inpatient Care (Place 'X' for any and all applicable criteria): Ongoing inpatient care may be needed for ANY ONE of the following(1)(2)(3)(4)(6) (7)(8): [X ]I. Danger to self or others not manageable at lower level of care. [ ]II. Grave disability (eg, inability to perform self care necessary at lower level of care) [ ]III. Agitation or inappropriate behavior interfering with care for primary condition (eg, attempting to discontinue lines or drains prematurely, unable to cooperate with respiratory care) [ ]IV. Severe disability or disorder indicated by ALL of the following: [ ]a) Severe behavioral health disorder-related symptoms or condition indicated by ANY ONE of the following: [ ]i) Severe problem with cognition, memory, judgment, or impulse control [ ]ii) Severe clinical manifestations (eg, hallucinations, delusions, other acute psychotic symptoms, lyla, extreme agitation or anxiety) [ ]b) Patient management at lower level of care is not feasible until acute intervention or modification is initiated. Extended stay beyond goal length of stay for the primary condition may be indicated when ANY ONE of the following is present: (1)(2)(3)(4): [ ]a) Patient is a danger to self or others and not manageable at lower level of care. [ ]b) Behavior crisis management, including physical or chemical restraints, is required and is not available at a lower level of care. [ ]c) Behavioral symptoms (e.g., agitation, somnolence, inappropriate behavior) are present, and are not manageable at a lower level of care. [ ]d) Patient cannot understand follow-up treatment and crisis plan. [ ]e) Provider and supports are not sufficiently available at lower level of care. [ ]f) Patient cannot participate (e.g., verify absence of plan for harm) and is in needed of monitoring. The original [facility] [employer] [employer] content created by [employer] has been revised. The portions of the content which have been revised are identified through the use of italic text or in bold, and [facility] has neither reviewed nor approved the modified material. All other unmodified content is copyright [facility]. Please see references footnoted in the original [facility] edition 2016 Admission Criteria Met?: Yes ENID FRANKEL Sep 06, 2016 02:28
[2016-09-06 05:44] VITALS: BP 127/56
--- NOTE | 2016-09-06 07:34 | NUR ---
SW reviewed Pt insurance upon admit. Face sheet, C-Snap and intake state Pt's insurance is Medicare and Blue Cross and Blue Shield supplement.
[2016-09-06] MEDS: MEMANTINE 5 MG TABLET. PO SCH (07:38)
[2016-09-06] MEDS: QUEtiapine 50 MG TABLET. PO SCH ×2 (08:28→11:28)
[2016-09-06] MEDS: traMADol 50 MG TABLET PO SCH ×2 (08:29→20:26)
[2016-09-06] MEDS ORDERED: RIVASTIGMINE 9.5MG PATCH. TD SCH (09:00)
[2016-09-06] MEDS ORDERED: NYSTATIN 100,000 UNIT/GM TOPICAL CREAM 15GM TUBE. TP PRN (10:30)
[2016-09-06] MEDS ORDERED: MAGNESIUM HYDROXIDE 2,400 MG/30 ML ORAL.SUSP. PO PRN (10:30)
[2016-09-06] MEDS: THIAMINE 100 MG TABLET. PO SCH (11:27)
[2016-09-06] MEDS: GLIMEPIRIDE 2 MG TABLET PO SCH ×2 (11:28→20:21)
[2016-09-06] MEDS: FOLIC ACID 1 MG TABLET PO SCH (11:28)
[2016-09-06] MEDS: DABIGATRAN ETEXILATE 150 MG CAPSULE. PO SCH ×2 (11:28→20:22)
--- NOTE | 2016-09-06 11:46 | ACF ---
Admission Criteria Forms PSYCHIATRIC DISORDERS Clinical Indications for Inpatient Care (Place 'X' for any and all applicable criteria): Ongoing inpatient care may be needed for ANY ONE of the following(1)(2)(3)(4)(6) (7)(8): [X]I. Danger to self or others not manageable at lower level of care. [ ]II. Grave disability (eg, inability to perform self care necessary at lower level of care) [ ]III. Agitation or inappropriate behavior interfering with care for primary condition (eg, attempting to discontinue lines or drains prematurely, unable to cooperate with respiratory care) [ ]IV. Severe disability or disorder indicated by ALL of the following: [ ]a) Severe behavioral health disorder-related symptoms or condition indicated by ANY ONE of the following: [ ]i) Severe problem with cognition, memory, judgment, or impulse control [ ]ii) Severe clinical manifestations (eg, hallucinations, delusions, other acute psychotic symptoms, lyla, extreme agitation or anxiety) [ ]b) Patient management at lower level of care is not feasible until acute intervention or modification is initiated. Extended stay beyond goal length of stay for the primary condition may be indicated when ANY ONE of the following is present: (1)(2)(3)(4): [ ]a) Patient is a danger to self or others and not manageable at lower level of care. [ ]b) Behavior crisis management, including physical or chemical restraints, is required and is not available at a lower level of care. [ ]c) Behavioral symptoms (e.g., agitation, somnolence, inappropriate behavior) are present, and are not manageable at a lower level of care. [ ]d) Patient cannot understand follow-up treatment and crisis plan. [ ]e) Provider and supports are not sufficiently available at lower level of care. [ ]f) Patient cannot participate (e.g., verify absence of plan for harm) and is in needed of monitoring. The original [facility] content created by [employer] has been revised. The portions of the content which have been revised are identified through the use of italic text or in bold, and [id number] has neither reviewed nor approved the modified material. All other unmodified content is copyright [facility] [employer]. Please see references footnoted in the original [facility] edition 2016 Admission Criteria Met?: Yes LEELEE LEW Sep 06, 2016 11:46
[2016-09-06] MEDS: CARBIDOPA/LEVODOPA 25/100MG TABLET PO SCH ×3 (13:03→20:22)
[2016-09-06] MEDS: DICLOFENAC SODIUM 1% TOPICAL GEL 100GM TUBE. TP SCH ×3 (13:03→22:40)
[2016-09-06 13:57] LABS: THYROID STIM HORMONE (TSH) 0.035 uIU/mL (0.358-3.740)
[2016-09-06] MEDS: ALBUTEROL SULFATE 2.5 MG/3 ML NEBU. NEB SCH ×2 (14:01→20:19)
--- NOTE | 2016-09-06 15:00 | NUR ---
SW tried to meet with pt, however pt was asleep in broda in dayroom.
--- NOTE | 2016-09-06 15:15 | NUR ---
THERAPEUTIC RECREATION GROUP NOTE TITLE :B[employer] ACTIVITY : Arts and Crafts GOAL : Increase socialization, fine motor skills, creativity DURATION : 90 Minutes RESPONSE : No participation.
[2016-09-06] MEDS: traMADol 50 MG TABLET PO PRN (15:40)
--- NOTE | 2016-09-06 15:40 | NUR ---
QTC PROLONGATION: EKG on admin showed QTc-502, patient's serum creatinine-1.4 on admin, estimated creatine clearance of 43mL/min, clinical pharmacology suggests increasing the dosing interval of sotalol to q24hrs for person's with crcl of 40-59mL/min, patient is currently on sotalol bid, which may be responsible for prolonged QTc, may need renal adjustment. Interacting medications include escitalopram (new start) that can also worsen QTc
[2016-09-06 16:03] VITALS: BP 133/85
--- NOTE | 2016-09-06 16:40 | NUR ---
Behavior Intervention Response and Plan: BIRP Note: Behavior: Assumed Care of patient, patient located in Patient Room at shift change. Patient exhibited the following behavior Disorganized, Irritable, Combative. Brief assessment on rounds of vital signs, medication needs, lab studies, and pain. Treatment plan problems . Intervention: Patient assessed and the following interventions initiated safety checks 15 Minute Checks Head to toe Assessment , Medications , Nutrition. Response: After interactions and interventions patient responded in the following manner, Disorganized , Demanding ,Sleeping. Continue to assess behaviors and condition will continue to monitor throughout the shift as needed. Plan: Continue to monitor Master Treatment Plan for patient's progress toward short term goals of Decreased Agitation, No harm To self/ others, long chain beamer goals to return to previous living setting vs placement. Continue to assess patient for changes in above assessment. Monitor for medication needs, pain, and safety concerns. Hourly rounding performed to ensure safe environment.
--- NOTE | 2016-09-06 19:00 | NUR ---
wound care patient seen per wound care consult. see wound assessment. patient has a stage 2 pressure ulcer to the coccyx, the wound bed is pale pink, recommendations of an Exuderm with an Aquacel non-adhesive foam with an Exuderm over. wound was cleaned, measured and redressed with the recommended dressing. wound was already pictured from a previous nurse assessment. notified LOY Fraga about the POC, wound care will continue to f/u for possible changes.
--- NOTE | 2016-09-06 19:31 | HP ---
ADMIT DATE: 09/06/2016 REASON FOR ADMISSION TO SENIOR BEHAVIORAL UNIT: This is an 81-year-old male who has had previous admission to the Senior Behavioral Unit in July 2016, but he came from [facility] in [facility] where he has been verbalizing suicidal ideation with a plan and was found with using shoestring to hang himself. PAST MEDICAL HISTORY: The patient admission in early July for agitated, aggressive, combative behavior, hallucinations, hitting, and kicking. He also has a diagnosis of Lewy body dementia, Parkinson's, type 2 diabetes, dysphagia, afib, weakness, sick sinus syndrome, respiratory failure, pacemaker, apnea, COPD, congestive heart failure, history of sepsis, and altered mental status. On his last admission, he was given some antipsychotic and became unresponsive and wound up down on [address] [place]. As the patient was ambulatory he just fell out after these medications started to take effect. ALLERGIES: None. MEDICATIONS: Reviewed and are available on the MAR. There does not seem to be any changes in his medications since being readmitted from 07/30/2016 except for adding Tylenol as needed. SOCIAL HISTORY: The patient resides at [facility]. No smoking, alcohol, or recreational drugs. REVIEW OF SYSTEMS: Unobtainable. OBJECTIVE: VITAL SIGNS: Blood pressure 127/56, temperature 97.3, pulse 69, respirations 17, and pulse ox 96% on room air. HEENT: The patient's hearing is normal. His eyes are a little bit bloodshot. His nose is patent. His throat was clear. NECK: Supple. LUNGS: Clear. CARDIOVASCULAR: Regular rhythm and rate. ABDOMEN: Soft. Mildly tender. EXTREMITIES: Without edema. NEUROLOGIC: Unable to assess. MENTAL STATUS: Very sleepy, but arousable. Gait was not examined. LABORATORY DATA: White blood cell count is normal. Hemoglobin and hematocrit normal. Platelet count normal. Chemistry, fluctuating blood sugars, hypertriglyceridemia, and hyperlipidemia. Low HDL. His TSH is 0.035, so he has a diagnosis of hyperthyroidism. Iron is 49. Other tests are pending. ASSESSMENT: An 81-year-old with Lewy body dementia with suicidal ideation, also a left frozen shoulder by history, type 2 diabetes, hyperlipidemia, hyperglycemia, chronic kidney disease stage 3, and mild iron deficiency. PLAN: Follow along with Dr. Lima to treat his medical conditions. PIERRE MALIN DO DR: Kandi JOB#: [id number] / [id number]
[2016-09-06] MEDS: BUDESONIDE 0.5 MG/2 ML NEBU NEB SCH (20:19)
[2016-09-06] MEDS: QUEtiapine 100 MG TABLET. PO SCH (20:22)
[2016-09-06] MEDS: MEMANTINE 10 MG TABLET. PO SCH (20:25)
--- NOTE | 2016-09-06 21:09 | PDOC ---
Exam Lobito Demential Exam: Lobito Note: Please also refer to the separate dictated note~for this date of service dictated separately.~Patient seen individually. Discussed the patient with Nursing staff reviewed the chart.~Reviewed interim history and current functioning. Reviewed vital signs,~Labs/ Radiology~and current medications noted below. Continue current treatment with the changes noted in the dictated addendum note Assessment: Vital Signs: Vital Signs Date Time Temp Pulse Resp B/P (MAP) Pulse Ox O2 Delivery O2 Flow Rate FiO2 09/06/16 20:26 96 Room Air 09/06/16 16:03 97.3 70 20 133/85 (101) I&O Intake and Output 09/06/16 07:00 # Voids 1 Labs: Laboratory Tests Test 09/06/16 07:18 09/06/16 11:36 09/06/16 16:49 09/06/16 19:12 Glucose (Fingerstick) 138 mg/dL (70-99) H 297 mg/dL (70-99) H 214 mg/dL (70-99) H 152 mg/dL (70-99) H Current Medications: Meds: Current Medications Multi-Ingredient Ointment (Analgesic [place]) 1 marilyn PRN QID PRN TP MUSCLE PAIN; Start 09/05/16 at 21:30 Acetaminophen (Tylenol) 650 mg Q4HRS PO ; Start 09/06/16 at 00:00; Stop 09/06/16 at 00:00; Status DC Memantine (Namenda) 5 mg BID PO Last administered on 09/06/16 07:38; Start at 22:00; Stop 09/06/16 at 10:44; Status DC Quetiapine Fumarate (SEROquel) 50 mg DAILY PO Last administered on 09/06/16 11: 28; Start 09/06/16 at 09:00 Quetiapine Fumarate (SEROquel) 100 mg QHS PO Last administered on 09/06/16 20: 22; Start 09/05/16 at 22:00 Rivastigmine (Exelon) 1 patch DAILY TD Last administered on 09/06/16 08:28; Start 09/06/16 at 09:00; Stop 09/06/16 at 10:44; Status DC Al Hydroxide/Mg Hydroxide (Mylanta Plus Xs) 15 ml PRN AFTMEALHC PRN PO DYSPEPSIA; Start 09/05/16 at 21:45 Tramadol HCl (Ultram) 50 mg BID PO Last administered on 09/06/16 20:26; Start 09/06/16 at 09:00 Tramadol HCl (Ultram) 50 mg PRN Q6HRS PRN PO PAIN Last administered on 15:40; Start 09/05/16 at 22:15 Acetaminophen (Tylenol) 1,000 mg 1X ONCE PO Last administered on 09/05/16 22: 17; Start 09/05/16 at 22:15; Stop 09/05/16 at 22:17; Status DC Albuterol Sulfate (Ventolin) 2.5 mg TID NEB Last administered on 09/06/16 20:19 ; Start 09/06/16 at 14:00 Budesonide (Pulmicort) 0.5 mg BID NEB Last administered on 09/06/16 20:19; Start 09/06/16 at 21:00 Carbidopa/Levodopa (Sinemet 25/100) 1 tab QID PO Last administered on 09/06/16 20:22; Start 09/06/16 at 13:00 Dabigatran (Pradaxa) 150 mg BID PO Last administered on 09/06/16 20:22; Start 09/06/16 at 10:45 Diclofenac Sodium (Voltaren) 2 marilyn QID TP Last administered on 09/06/16 16:27; Start 09/06/16 at 13:00 Folic Acid (Folic Acid) 1 mg DAILY PO Last administered on 09/06/16 11:28; Start 09/06/16 at 10:45 Glimepiride (Amaryl) 2 mg BID PO Last administered on 09/06/16 20:21; Start 09/06/16 at 10:45 Ketoconazole (Nizoral 2% Shampoo) 1 marilyn 3X/WEEK TP ; Start 09/07/16 at 09:00 Magnesium Hydroxide (Milk Of Magnesia) 2,400 mg PRN QHS PRN PO CONSTIPATION; Start 09/06/16 at 10:30 Methimazole (Tapazole) 5 mg TID PO Last administered on 09/06/16 20:22; Start 09/06/16 at 14:00 Nystatin (Mycostatin) 1 marilyn PRN Q8HRS PRN TP Yeast; Start 09/06/16 at 10:30 Sotalol HCl (Betapace) 80 mg BID PO ; Start 09/06/16 at 21:00 Thiamine HCl (Vitamin B-1) 100 mg DAILY PO Last administered on 09/06/16 11:27 ; Start 09/06/16 at 10:45 Memantine (Namenda) 10 mg BID PO Last administered on 09/06/16 20:25; Start 09/06/16 at 21:00 Rivastigmine (Exelon 13.3mg) 1 patch DAILY TD ; Start 09/07/16 at 09:00 Escitalopram Oxalate (Lexapro) 5 mg DAILY PO ; Start 09/07/16 at 09:00 Active Scripts Active Reported Namenda (Memantine Hcl) 10 Mg Tablet 5 Mg PO BID EXELON 9.5mg/24hr (Rivastigmine) 1 Each Patch.td24 1 Patch TD DAILY Voltaren (Diclofenac Sodium) 100 Gm Gel..gram. 2 Gm TP QID Novolog Flexpen (Insulin Aspart) 100 Unit/1 Ml Insuln.pen 0-5 Unit SQ TIDBFRMEAL Sliding Scale Insulin Accucheck: 70 - 150 = 0 units If Eating/ 0 units If not eating or HS, 151 - 200 = 2 Units If Eating/ 0 Units If not eating or HS, 201 - 250 = 3 Units If Eating/ 0 Units If not eating or HS, 251 - 300 = 4 Units If Eating/ 2 Units If not eating or HS, 301 - 350 = 5 Units If Eating/ 3 Untis If not eating or HS, Accucheck 351 or > Call PCP for additional orders Advanced Antacid Liquid (Mag Hydrox/Al Hydrox/Simeth) 355 Ml Oral.susp 15 Ml PO QIDAFTMEAL PRN Tylenol (Acetaminophen) 325 Mg Tablet 2 Tab PO PRN Q4HRS PRN Sinemet 25-100 Mg Tablet (Carbidopa/Levodopa) 1 Each Tablet 1 Tab PO QID Albuterol Sulfate Neb Soln (Albuterol Sulfate) 2.5 Mg/3 Ml Vial.neb 2.5 Mg NEB TID Tramadol Hcl (Tramadol HCl) 50 Mg Tablet 50 Mg PO BID Tramadol Hcl (Tramadol HCl) 50 Mg Tablet 50 Mg PO PRN Q6HRS PRN Thiamine Hcl 100 Mg Tablet 100 Mg PO DAILY Sotalol (Sotalol Hcl) 80 Mg Tablet 80 Mg PO BID Seroquel (Quetiapine Fumarate) 100 Mg Tablet 100 Mg PO QHS Seroquel (Quetiapine Fumarate) 50 Mg Tablet 50 Mg PO DAILY Pradaxa (Dabigatran Etexilate Mesylate) 150 Mg Capsule 150 Mg PO BID Nystatin 15 Gm Cream..g. 1 Marilyn TP PRN Q8HRS PRN Milk Of Magnesia (Magnesium Hydroxide) 400 Mg/5 Ml Oral.susp 2,400 Mg PO PRN DAILY PRN Methimazole 5 Mg Tablet 5 Mg PO TID Ketoconazole 120 Ml Shampoo 1 Marilyn TP TWICE WEEKLY Glimepiride 2 Mg Tablet 2 Mg PO BID Folic Acid 1 Mg Tablet 1 Mg PO DAILY Doxazosin Mesylate 2 Mg Tablet 2 Mg PO DAILY Budesonide 0.5 Mg/2 Ml Ampul.neb 0.5 Mg NEB BID MARY MAGALLANES MD Sep 06, 2016 21:09
[2016-09-06 22:13] LABS: T3 TOTAL 87 ng/dL (71-180); THYROXINE 7.5 ug/dL (4.5-12.0)
[2016-09-06] MEDS: SOTALOL 80 MG TABLET. PO SCH (22:38)
--- NOTE | 2016-09-06 22:42 | NUR ---
Behavior Intervention Response and Plan: BIRP Note: Behavior: Assumed Care of patient, patient located in Patient Room at shift change. Patient exhibited the following behavior Sleeping, Resistive, Non Compliant with Meds. Brief assessment on rounds of vital signs, medication needs, lab studies, and pain. Treatment plan problems . Intervention: Patient assessed and the following interventions initiated safety checks 15 Minute Checks Cognitive Assessment , Head to toe Assessment , Medications. Response: After interactions and interventions patient responded in the following manner, Compulsive , Disorganized ,Demanding. Continue to assess behaviors and condition will continue to monitor throughout the shift as needed. Plan: Continue to monitor Master Treatment Plan for patient's progress toward short term goals of Medication Compliance, Decreased Anxiety, surg rn goals to return to previous living setting vs placement. Continue to assess patient for changes in above assessment. Monitor for medication needs, pain, and safety concerns. Hourly rounding performed to ensure safe environment.
[2016-09-07 03:19] LABS: HEMOGLOBIN A1C 7.5 % (4.8-5.6)
[2016-09-07] MEDS: ALBUTEROL SULFATE 2.5 MG/3 ML NEBU. NEB SCH ×3 (05:46→20:03)
[2016-09-07 06:21] VITALS: BP 150/78
[2016-09-07] MEDS: DABIGATRAN ETEXILATE 150 MG CAPSULE. PO SCH ×2 (08:34→19:37)
[2016-09-07] MEDS: QUEtiapine 50 MG TABLET. PO SCH (08:34)
[2016-09-07] MEDS: CARBIDOPA/LEVODOPA 25/100MG TABLET PO SCH ×4 (08:34→19:37)
[2016-09-07] MEDS: THIAMINE 100 MG TABLET. PO SCH (08:34)
[2016-09-07] MEDS: FOLIC ACID 1 MG TABLET PO SCH (08:34)
[2016-09-07] MEDS: MEMANTINE 10 MG TABLET. PO SCH ×2 (08:34→19:37)
[2016-09-07] MEDS: GLIMEPIRIDE 2 MG TABLET PO SCH ×2 (08:34→19:37)
[2016-09-07] MEDS: SOTALOL 80 MG TABLET. PO SCH ×2 (08:35→19:38)
[2016-09-07] MEDS: ESCITALOPRAM 5 MG TABLET PO SCH (08:36)
[2016-09-07] MEDS: RIVASTIGMINE 13.3MG PATCH. TD SCH (08:38)
[2016-09-07] MEDS: traMADol 50 MG TABLET PO SCH ×2 (08:38→19:37)
[2016-09-07] MEDS: KETOCONAZOLE 2% SHAMPOO 120ML BOTTLE. TP SCH (08:39)
[2016-09-07] MEDS: DICLOFENAC SODIUM 1% TOPICAL GEL 100GM TUBE. TP SCH ×4 (08:40→19:39)
--- NOTE | 2016-09-07 08:57 | HP ---
ADMIT DATE: PSYCHIATRIC ADMISSION HISTORY/EVALUATION IDENTIFYING DATA: The patient is an 81-year-old male referred to us from [facility] after he voiced suicidal ideation and was found with an arm sling around his neck at the long term. The patient has a history of Lewy body dementia and dementia secondary to Parkinson disease and behaviors were deemed to be potential danger, unmanageable at the long term. He made statements of wanting to use a shoestring to hang himself, verbalizing suicidal ideation resulting in this referral. CHIEF COMPLAINT: "go away." The patient is quite confused, anxious, agitated, paranoid, delusional. He was staffed at a treatment team meeting with the entire team morning of 09/06/2016, seen individually evening of 09/06/2016. HISTORY OF PRESENT ILLNESS: The patient has a history of dementia Lewy body versus secondary to Parkinson's. He was last here with us in July of this year and has been at [facility] since then. Over the past few days, he has been talking about suicide, wanting to hang himself, said us he would by the end of the week. He has appeared more depressed, withdrawn, having sleep and appetite changes. No active homicidal ideation. No clear history of bipolar disorder. PAST PSYCHIATRIC HISTORY: As above. MEDICAL HISTORY: COPD, CHF, seizures, hypertension, hyperlipidemia. Extremely hard of hearing. Parkinson's disease, diabetes mellitus, dysphagia, atrial fibrillation, sick sinus syndrome, respiratory failure, pacemaker in place. DIET: Regular. MEDICATIONS: Takes his medication whole. Ambulates with 2 times assist. UA was negative. CODE STATUS: DNR. ALLERGIES: Negative. CURRENT PSYCHOTROPICS: Exelon patch 9.6 mg a day; Seroquel 50 mg a day, 100 at bedtime; Namenda was 10 mg a day, increased to 10 b.i.d.; Lexapro 5 mg a day. Exelon patch has been increased to 13.3 mg a day. FAMILY HISTORY: Noncontributory. SOCIAL HISTORY: No history of physical, sexual, or elder abuse. He is not known to be a perpetrator. PHYSICAL EXAMINATION: VITAL SIGNS: Noted in my initial note. MENTAL STATUS EXAM: The patient was seen individually in his room. He is oriented to himself, extremely hard of hearing, not very interactive, appears depressed, withdrawn, paranoid. Insight, judgment, recent and remote memory, attention, concentration, fund of knowledge poor, consistent with his diagnosis. LABORATORY DATA: Reviewed. IMPRESSION: Major neurocognitive disorder, Lewy body type with delusion, depression, behavioral disturbance; anxiety disorder, unspecified; impulse control disorder, unspecified. Rest diagnoses as noted above. PLAN: Admit to Geropsychiatry unit at [facility]. I will see the patient daily individually from a psychiatric standpoint. Medical followup with Dr. Antonio/Dr. Sampson. Increase the Exelon patch to 13.3 mg a day, start Seroquel, currently maintain at dosage use prior to admission and start Lexapro 5 mg a day, Namenda increased to 10 b.i.d. Observe baseline and then make further adjustments as clinically indicated. MAN Heaven MAGALLANES MD DR: MARIBEL/harshad JOB#: [id number] / [id number]
[2016-09-07] MEDS: BUDESONIDE 0.5 MG/2 ML NEBU NEB SCH ×2 (09:00→20:03)
--- NOTE | 2016-09-07 11:15 | NUR ---
Behavior Intervention Response and Plan: BIRP Note: Behavior: Assumed Care of patient, patient located in Day Room at shift change. Patient exhibited the following behavior Restless, Disorganized, Compulsive. Brief assessment on rounds of vital signs, medication needs, lab studies, and pain. Treatment plan problems . Intervention: Patient assessed and the following interventions initiated safety checks 15 Minute Checks Cognitive Assessment , Head to toe Assessment , Medications. Response: After interactions and interventions patient responded in the following manner, Compliant , Restless , disorganized. Continue to assess behaviors and condition will continue to monitor throughout the shift as needed. Plan: Continue to monitor Master Treatment Plan for patient's progress toward short term goals of Decreased Agitation, Decreased Aggression, terminal superintendent goals to return to previous living setting vs placement. Continue to assess patient for changes in above assessment. Monitor for medication needs, pain, and safety concerns. Hourly rounding performed to ensure safe environment.
--- NOTE | 2016-09-07 13:06 | NUR ---
Group Note SB Group Type BINGO Start Time: 1315 End Time: 1430 Problem: Anxiety Purpose: Increase Stimulation, Increase socialization Level of Participation: absent Behaviors, or Symptoms Observed: Interventions: Directed Focus Response: Pt's played multiple rounds of BINGO and to listen to numbers called, prizes were given to the winner in each round. Plan: Group Participation Additional Comments: Addendum: 09/07/16 at 1306 by LUIZ HERRERA late entry for 09/06
--- NOTE | 2016-09-07 15:45 | NUR ---
THERAPEUTIC RECREATION GROUP NOTE TITLE :Coloring ACTIVITY : Arts and Crafts GOAL : Reduce stress, anxiety. Increase creativity and fine motor functioning DURATION : 45 Minutes RESPONSE : No participation.
[2016-09-07 15:58] VITALS: BP 138/78
--- NOTE | 2016-09-07 16:20 | NUR ---
ACTIVITY THERAPY ASSESSMENT Completed based on observations and interview on this day at this time in the day room. Pt. was reclined in a wheelchair with his left hand resting in the neck of his shirt, making the neck stretched out. Pt. pretended he couldn't hear NURSE INFORMATICIST but laughed and started answering the assessment questions. Pt. is hard of hearing and favors his right ear. Pt. talked about how much he loved his and reminisced about his family. Pt. keeps to himself most of the time but will participate in groups. He is able to working independently with prompts and demonstrations. He can be resistive against personal care and vitals but was agreeable throughout assessment. Initial goal: Pt. will participation in all groups he is invited to.
[2016-09-07] MEDS: QUEtiapine 100 MG TABLET. PO SCH (19:37)
--- NOTE | 2016-09-07 20:40 | PDOC ---
Exam Lobito Demential Exam: Lobito Note: Please also refer to the separate dictated note~for this date of service dictated separately.~Patient seen individually. Discussed the patient with Nursing staff reviewed the chart.~Reviewed interim history and current functioning. Reviewed vital signs,~Labs/ Radiology~and current medications noted below. Continue current treatment with the changes noted in the dictated addendum note Assessment: Vital Signs: Vital Signs Date Time Temp Pulse Resp B/P (MAP) Pulse Ox O2 Delivery O2 Flow Rate FiO2 09/07/16 19:38 72 138/78 09/07/16 19:37 96 Room Air 09/07/16 15:58 97.8 16 I&O Intake and Output 09/07/16 07:00 Intake Total 480 ml Balance 480 ml Intake Oral 480 ml # Voids 2 # Bowel Movements 1 Labs: Laboratory Tests Test 09/07/16 07:04 09/07/16 11:10 09/07/16 16:18 09/07/16 19:13 Glucose (Fingerstick) 184 mg/dL (70-99) H 291 mg/dL (70-99) H 240 mg/dL (70-99) H 203 mg/dL (70-99) H Current Medications: Meds: Current Medications Multi-Ingredient Ointment (Analgesic [place]) 1 marilyn PRN QID PRN TP MUSCLE PAIN; Start 09/05/16 at 21:30 Acetaminophen (Tylenol) 650 mg Q4HRS PO ; Start 09/06/16 at 00:00; Stop 09/06/16 at 00:00; Status DC Memantine (Namenda) 5 mg BID PO Last administered on 09/06/16 07:38; Start at 22:00; Stop 09/06/16 at 10:44; Status DC Quetiapine Fumarate (SEROquel) 50 mg DAILY PO Last administered on 09/07/16 08: 34; Start 09/06/16 at 09:00 Quetiapine Fumarate (SEROquel) 100 mg QHS PO Last administered on 09/07/16 19: 37; Start 09/05/16 at 22:00 Rivastigmine (Exelon) 1 patch DAILY TD Last administered on 09/06/16 08:28; Start 09/06/16 at 09:00; Stop 09/06/16 at 10:44; Status DC Al Hydroxide/Mg Hydroxide (Mylanta Plus Xs) 15 ml PRN AFTMEALHC PRN PO DYSPEPSIA; Start 09/05/16 at 21:45 Tramadol HCl (Ultram) 50 mg BID PO Last administered on 09/07/16 19:37; Start 09/06/16 at 09:00 Tramadol HCl (Ultram) 50 mg PRN Q6HRS PRN PO PAIN Last administered on 15:40; Start 09/05/16 at 22:15 Acetaminophen (Tylenol) 1,000 mg 1X ONCE PO Last administered on 09/05/16 22: 17; Start 09/05/16 at 22:15; Stop 09/05/16 at 22:17; Status DC Albuterol Sulfate (Ventolin) 2.5 mg TID NEB Last administered on 09/06/16 20:19 ; Start 09/06/16 at 14:00 Budesonide (Pulmicort) 0.5 mg BID NEB Last administered on 09/06/16 20:19; Start 09/06/16 at 21:00 Carbidopa/Levodopa (Sinemet 25/100) 1 tab QID PO Last administered on 09/07/16 19:37; Start 09/06/16 at 13:00 Dabigatran (Pradaxa) 150 mg BID PO Last administered on 09/07/16 19:37; Start 09/06/16 at 10:45 Diclofenac Sodium (Voltaren) 2 marilyn QID TP Last administered on 09/07/16 19:39; Start 09/06/16 at 13:00 Folic Acid (Folic Acid) 1 mg DAILY PO Last administered on 09/07/16 08:34; Start 09/06/16 at 10:45 Glimepiride (Amaryl) 2 mg BID PO Last administered on 09/07/16 19:37; Start 09/06/16 at 10:45 Ketoconazole (Nizoral 2% Shampoo) 1 marilyn 3X/WEEK TP ; Start 09/07/16 at 09:00 Magnesium Hydroxide (Milk Of Magnesia) 2,400 mg PRN QHS PRN PO CONSTIPATION; Start 09/06/16 at 10:30 Methimazole (Tapazole) 5 mg TID PO Last administered on 09/07/16 19:38; Start 09/06/16 at 14:00 Nystatin (Mycostatin) 1 marilyn PRN Q8HRS PRN TP Yeast; Start 09/06/16 at 10:30 Sotalol HCl (Betapace) 80 mg BID PO Last administered on 09/07/16 19:38; Start 09/06/16 at 21:00 Thiamine HCl (Vitamin B-1) 100 mg DAILY PO Last administered on 09/07/16 08:34 ; Start 09/06/16 at 10:45 Memantine (Namenda) 10 mg BID PO Last administered on 09/07/16 19:37; Start 09/06/16 at 21:00 Rivastigmine (Exelon 13.3mg) 1 patch DAILY TD Last administered on 09/07/16 08: 38; Start 09/07/16 at 09:00 Escitalopram Oxalate (Lexapro) 5 mg DAILY PO Last administered on 09/07/16 08: 36; Start 09/07/16 at 09:00 Active Scripts Active Reported Namenda (Memantine Hcl) 10 Mg Tablet 5 Mg PO BID EXELON 9.5mg/24hr (Rivastigmine) 1 Each Patch.td24 1 Patch TD DAILY Voltaren (Diclofenac Sodium) 100 Gm Gel..gram. 2 Gm TP QID Novolog Flexpen (Insulin Aspart) 100 Unit/1 Ml Insuln.pen 0-5 Unit SQ TIDBFRMEAL Sliding Scale Insulin Accucheck: 70 - 150 = 0 units If Eating/ 0 units If not eating or HS, 151 - 200 = 2 Units If Eating/ 0 Units If not eating or HS, 201 - 250 = 3 Units If Eating/ 0 Units If not eating or HS, 251 - 300 = 4 Units If Eating/ 2 Units If not eating or HS, 301 - 350 = 5 Units If Eating/ 3 Untis If not eating or HS, Accucheck 351 or > Call PCP for additional orders Advanced Antacid Liquid (Mag Hydrox/Al Hydrox/Simeth) 355 Ml Oral.susp 15 Ml PO QIDAFTMEAL PRN Tylenol (Acetaminophen) 325 Mg Tablet 2 Tab PO PRN Q4HRS PRN Sinemet 25-100 Mg Tablet (Carbidopa/Levodopa) 1 Each Tablet 1 Tab PO QID Albuterol Sulfate Neb Soln (Albuterol Sulfate) 2.5 Mg/3 Ml Vial.neb 2.5 Mg NEB TID Tramadol Hcl (Tramadol HCl) 50 Mg Tablet 50 Mg PO BID Tramadol Hcl (Tramadol HCl) 50 Mg Tablet 50 Mg PO PRN Q6HRS PRN Thiamine Hcl 100 Mg Tablet 100 Mg PO DAILY Sotalol (Sotalol Hcl) 80 Mg Tablet 80 Mg PO BID Seroquel (Quetiapine Fumarate) 100 Mg Tablet 100 Mg PO QHS Seroquel (Quetiapine Fumarate) 50 Mg Tablet 50 Mg PO DAILY Pradaxa (Dabigatran Etexilate Mesylate) 150 Mg Capsule 150 Mg PO BID Nystatin 15 Gm Cream..g. 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
--- NOTE | 2016-09-07 21:00 | NUR ---
Behavior Intervention Response and Plan: BIRP Note: Behavior: Assumed Care of patient, patient located in Day Room at shift change. Patient exhibited the following behavior Calm, Disorganized, Withdrawn. Brief assessment on rounds of vital signs, medication needs, lab studies, and pain. Treatment plan problems . Intervention: Patient assessed and the following interventions initiated safety checks 15 Minute Checks Cognitive Assessment , Head to toe Assessment , Medications. Response: After interactions and interventions patient responded in the following manner, Compliant , Cooperative ,Drowsy. Continue to assess behaviors and condition will continue to monitor throughout the shift as needed. 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 Continue to assess patient for changes in above assessment. Monitor for medication needs, pain, and safety concerns. Hourly rounding performed to ensure safe environment.
[2016-09-08] MEDS: ALBUTEROL SULFATE 2.5 MG/3 ML NEBU. NEB SCH ×3 (05:25→20:30)
[2016-09-08 06:02] VITALS: BP 142/71
[2016-09-08] MEDS: BUDESONIDE 0.5 MG/2 ML NEBU NEB SCH ×2 (09:00→20:30)
[2016-09-08] MEDS ORDERED: CYANOCOBALAMIN (VITAMIN B-12) 1,000 MCG/ML VIAL IM SCH (09:15)
[2016-09-08] MEDS ORDERED: CHOLECALCIFEROL (VITAMIN D3) 50,000 UNIT CAPSULE PO SCH (09:15)
[2016-09-08] MEDS: GLIMEPIRIDE 2 MG TABLET PO SCH ×2 (09:25→19:55)
[2016-09-08] MEDS: FOLIC ACID 1 MG TABLET PO SCH (09:25)
[2016-09-08] MEDS: ESCITALOPRAM 5 MG TABLET PO SCH (09:25)
[2016-09-08] MEDS: SOTALOL 80 MG TABLET. PO SCH ×2 (09:25→19:56)
[2016-09-08] MEDS: THIAMINE 100 MG TABLET. PO SCH (09:26)
[2016-09-08] MEDS: CARBIDOPA/LEVODOPA 25/100MG TABLET PO SCH ×4 (09:26→19:56)
[2016-09-08] MEDS: MEMANTINE 10 MG TABLET. PO SCH ×2 (09:26→19:56)
[2016-09-08] MEDS: RIVASTIGMINE 13.3MG PATCH. TD SCH (09:26)
[2016-09-08] MEDS: DABIGATRAN ETEXILATE 150 MG CAPSULE. PO SCH ×2 (09:26→19:56)
[2016-09-08] MEDS: traMADol 50 MG TABLET PO SCH ×2 (09:26→19:57)
[2016-09-08] MEDS: QUEtiapine 50 MG TABLET. PO SCH (09:26)
[2016-09-08] MEDS: DICLOFENAC SODIUM 1% TOPICAL GEL 100GM TUBE. TP SCH ×4 (09:27→19:55)
--- NOTE | 2016-09-08 12:09 | NUR ---
Behavior Intervention Response and Plan: BIRP Note: Behavior: Assumed Care of patient, patient located in Day Room at shift change. Patient exhibited the following behavior confused, calm, and compliant. Brief assessment on rounds of vital signs, medication needs, lab studies, and pain. Treatment plan problems . Intervention: Patient assessed and the following interventions initiated safety checks 15 Minute Checks Cognitive Assessment , Head to toe Assessment , Medications. Response: After interactions and interventions patient responded in the following manner, Compliant, calm, and appropriate. Continue to assess behaviors and condition will continue to monitor throughout the shift as needed. 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 Continue to assess patient for changes in above assessment. Monitor for medication needs, pain, and safety concerns. Hourly rounding performed to ensure safe environment.
[2016-09-08 15:53] VITALS: BP 119/76
[2016-09-08] MEDS: QUEtiapine 100 MG TABLET. PO SCH (19:56)
--- NOTE | 2016-09-08 21:00 | NUR ---
Behavior Intervention Response and Plan: BIRP Note: Behavior: Assumed Care of patient, patient located in Day Room at shift change. Patient exhibited the following behavior Calm, Social, Drowsy. Brief assessment on rounds of vital signs, medication needs, lab studies, and pain. Treatment plan problems . Intervention: Patient assessed and the following interventions initiated safety checks 15 Minute Checks Cognitive Assessment , Head to toe Assessment , Medications. Response: After interactions and interventions patient responded in the following manner, Compliant , Cooperative ,Able to Focus on Task. Continue to assess behaviors and condition will continue to monitor throughout the shift as needed. 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 Continue to assess patient for changes in above assessment. Monitor for medication needs, pain, and safety concerns. Hourly rounding performed to ensure safe environment.
--- NOTE | 2016-09-08 21:57 | PDOC ---
Exam Lobito Demential Exam: Lobito Note: Please also refer to the separate dictated note~for this date of service dictated separately.~Patient seen individually. Discussed the patient with Nursing staff reviewed the chart.~Reviewed interim history and current functioning. Reviewed vital signs,~Labs/ Radiology~and current medications noted below. Continue current treatment with the changes noted in the dictated addendum note Assessment: Vital Signs: Vital Signs Date Time Temp Pulse Resp B/P (MAP) Pulse Ox O2 Delivery O2 Flow Rate FiO2 09/08/16 19:57 95 Room Air 09/08/16 19:56 70 119/76 09/08/16 15:53 98.6 20 09/08/16 06:02 96.0 I&O Intake and Output 09/08/16 07:00 Intake Total 960 ml Balance 960 ml Intake Oral 960 ml Labs: Laboratory Tests Test 09/08/16 07:14 09/08/16 11:08 09/08/16 16:22 09/08/16 19:19 Glucose (Fingerstick) 171 mg/dL (70-99) H 259 mg/dL (70-99) H 258 mg/dL (70-99) H 223 mg/dL (70-99) H Current Medications: Meds: Current Medications Multi-Ingredient Ointment (Analgesic [place]) 1 marilyn PRN QID PRN TP MUSCLE PAIN; Start 09/05/16 at 21:30 Acetaminophen (Tylenol) 650 mg Q4HRS PO ; Start 09/06/16 at 00:00; Stop 09/06/16 at 00:00; Status DC Memantine (Namenda) 5 mg BID PO Last administered on 09/06/16 07:38; Start at 22:00; Stop 09/06/16 at 10:44; Status DC Quetiapine Fumarate (SEROquel) 50 mg DAILY PO Last administered on 09/08/16 09: 26; Start 09/06/16 at 09:00 Quetiapine Fumarate (SEROquel) 100 mg QHS PO Last administered on 09/08/16 19: 56; Start 09/05/16 at 22:00 Rivastigmine (Exelon) 1 patch DAILY TD Last administered on 09/06/16 08:28; Start 09/06/16 at 09:00; Stop 09/06/16 at 10:44; Status DC Al Hydroxide/Mg Hydroxide (Mylanta Plus Xs) 15 ml PRN AFTMEALHC PRN PO DYSPEPSIA; Start 09/05/16 at 21:45 Tramadol HCl (Ultram) 50 mg BID PO Last administered on 09/08/16 19:57; Start 09/06/16 at 09:00 Tramadol HCl (Ultram) 50 mg PRN Q6HRS PRN PO PAIN Last administered on 15:40; Start 09/05/16 at 22:15 Acetaminophen (Tylenol) 1,000 mg 1X ONCE PO Last administered on 09/05/16 22: 17; Start 09/05/16 at 22:15; Stop 09/05/16 at 22:17; Status DC Albuterol Sulfate (Ventolin) 2.5 mg TID NEB Last administered on 09/06/16 20:19 ; Start 09/06/16 at 14:00 Budesonide (Pulmicort) 0.5 mg BID NEB Last administered on 09/06/16 20:19; Start 09/06/16 at 21:00 Carbidopa/Levodopa (Sinemet 25/100) 1 tab QID PO Last administered on 09/08/16 19:56; Start 09/06/16 at 13:00 Dabigatran (Pradaxa) 150 mg BID PO Last administered on 09/08/16 19:56; Start 09/06/16 at 10:45 Diclofenac Sodium (Voltaren) 2 marilyn QID TP Last administered on 09/08/16 19:55; Start 09/06/16 at 13:00 Folic Acid (Folic Acid) 1 mg DAILY PO Last administered on 09/08/16 09:25; Start 09/06/16 at 10:45 Glimepiride (Amaryl) 2 mg BID PO Last administered on 09/08/16 19:55; Start 09/06/16 at 10:45 Ketoconazole (Nizoral 2% Shampoo) 1 marilyn 3X/WEEK TP ; Start 09/07/16 at 09:00 Magnesium Hydroxide (Milk Of Magnesia) 2,400 mg PRN QHS PRN PO CONSTIPATION; Start 09/06/16 at 10:30 Methimazole (Tapazole) 5 mg TID PO Last administered on 09/07/16 19:38; Start 09/06/16 at 14:00; Stop 09/08/16 at 09:18; Status DC Nystatin (Mycostatin) 1 marilyn PRN Q8HRS PRN TP Yeast; Start 09/06/16 at 10:30 Sotalol HCl (Betapace) 80 mg BID PO Last administered on 09/08/16 19:56; Start 09/06/16 at 21:00 Thiamine HCl (Vitamin B-1) 100 mg DAILY PO Last administered on 09/08/16 09:26 ; Start 09/06/16 at 10:45 Memantine (Namenda) 10 mg BID PO Last administered on 09/08/16 19:56; Start 09/06/16 at 21:00 Rivastigmine (Exelon 13.3mg) 1 patch DAILY TD Last administered on 09/08/16 09: 26; Start 09/07/16 at 09:00 Escitalopram Oxalate (Lexapro) 5 mg DAILY PO Last administered on 09/08/16 09: 25; Start 09/07/16 at 09:00; Stop 09/08/16 at 20:29; Status DC Methimazole (Tapazole) 7.5 mg TID PO Last administered on 09/08/16 19:57; Start 09/08/16 at 14:00 Cyanocobalamin (Vitamin B-12) 1,000 mcg [id number] IM Last administered on 09:27; Start 09/08/16 at 09:15 Vitamin D (Vitamin D3) 50,000 unit [id number] PO Last administered on 09/08/16 09: 27; Start 09/08/16 at 09:15 Escitalopram Oxalate (Lexapro) 10 mg DAILY PO ; Start 09/09/16 at 09:00 Active Scripts Active Reported Namenda (Memantine Hcl) 10 Mg Tablet 5 Mg PO BID EXELON 9.5mg/24hr (Rivastigmine) 1 Each Patch.td24 1 Patch TD DAILY Voltaren (Diclofenac Sodium) 100 Gm Gel..gram. 2 Gm TP QID Novolog Flexpen (Insulin Aspart) 100 Unit/1 Ml Insuln.pen 0-5 Unit SQ TIDBFRMEAL Sliding Scale Insulin Accucheck: 70 - 150 = 0 units If Eating/ 0 units If not eating or HS, 151 - 200 = 2 Units If Eating/ 0 Units If not eating or HS, 201 - 250 = 3 Units If Eating/ 0 Units If not eating or HS, 251 - 300 = 4 Units If Eating/ 2 Units If not eating or HS, 301 - 350 = 5 Units If Eating/ 3 Untis If not eating or HS, Accucheck 351 or > Call PCP for additional orders Advanced Antacid Liquid (Mag Hydrox/Al Hydrox/Simeth) 355 Ml Oral.susp 15 Ml PO QIDAFTMEAL PRN Tylenol (Acetaminophen) 325 Mg Tablet 2 Tab PO PRN Q4HRS PRN Sinemet 25-100 Mg Tablet (Carbidopa/Levodopa) 1 Each Tablet 1 Tab PO QID Albuterol Sulfate Neb Soln (Albuterol Sulfate) 2.5 Mg/3 Ml Vial.neb 2.5 Mg NEB TID Tramadol Hcl (Tramadol HCl) 50 Mg Tablet 50 Mg PO BID Tramadol Hcl (Tramadol HCl) 50 Mg Tablet 50 Mg PO PRN Q6HRS PRN Thiamine Hcl 100 Mg Tablet 100 Mg PO DAILY Sotalol (Sotalol Hcl) 80 Mg Tablet 80 Mg PO BID Seroquel (Quetiapine Fumarate) 100 Mg Tablet 100 Mg PO QHS Seroquel (Quetiapine Fumarate) 50 Mg Tablet 50 Mg PO DAILY Pradaxa (Dabigatran Etexilate Mesylate) 150 Mg Capsule 150 Mg PO BID Nystatin 15 Gm Cream..g. 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
--- NOTE | 2016-09-09 01:19 | PN ---
DATE: 09/07/2016 PSYCHIATRIC PROGRESS NOTE This is a late entry of 09/07/2016 covers elements not covered in my initial note. Overall, the patient is little more cooperative certainly confused, but as I met with him he seemed to remember I had seen him the day before, but I am not sure if this is because he initiated the visit with "good to see you again." REVIEW OF SYSTEMS: Ambulation impaired in his wheelchair. No CV, , pulmonary, eye, ENT system symptoms on review. Reliability poor. MENTAL STATUS EXAM: Oriented to himself at times to situation. Insight, judgment, recent and remote memory, attention, concentration, fund of knowledge poor, consistent with his diagnosis mentioned in my initial note. 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 Rest unchanged. PLAN: Continue Exelon patch, Seroquel, Namenda, Lexapro, may need to increase Lexapro and/or Seroquel in due course. Consider Depakote if needed for aggression. MAN Heaven MAGALLANES MD DR: MARIBEL/harshad JOB#: [id number] / [id number]
--- NOTE | 2016-09-09 01:28 | PN ---
DATE: 09/08/2016 PSYCHIATRIC PROGRESS NOTE This is a late entry of 09/07/2016. SUBJECTIVE: The patient was seen on rounds the evening of 09/08/2016. Discussed with nursing staff, reviewed the chart. The patient was somewhat delusional last night, talking to nursing staff about police. Today he has been more cooperative, has a sense of humor, alert to person. REVIEW OF SYSTEMS: Ambulation impaired. No CV, , pulmonary, eye system symptoms on review. MENTAL STATUS EXAM: He is very pleasant, verbal, as I met with him, but confused. Insight, judgment, recent and remote memory, attention, concentration, fund of knowledge poor, consistent with his diagnosis mentioned in my initial note. LABORATORY DATA: Reviewed. PLAN: Increase Lexapro to 10 mg a day, continue rest of the psychotropics. Adjust as indicated. MAN Heaven MAGALLANES MD DR: MARIBEL/harshad JOB#: [id number] / [id number]
[2016-09-09] MEDS: ALBUTEROL SULFATE 2.5 MG/3 ML NEBU. NEB SCH ×2 (05:21→10:04)
[2016-09-09 06:11] VITALS: BP 129/56
[2016-09-09] MEDS: GLIMEPIRIDE 2 MG TABLET PO SCH ×2 (09:12→19:59)
[2016-09-09] MEDS: FOLIC ACID 1 MG TABLET PO SCH (09:14)
[2016-09-09] MEDS: SOTALOL 80 MG TABLET. PO SCH ×2 (09:14→20:07)
[2016-09-09] MEDS: DABIGATRAN ETEXILATE 150 MG CAPSULE. PO SCH ×2 (09:15→19:59)
[2016-09-09] MEDS: QUEtiapine 50 MG TABLET. PO SCH (09:15)
[2016-09-09] MEDS: MEMANTINE 10 MG TABLET. PO SCH ×2 (09:15→20:00)
[2016-09-09] MEDS: ESCITALOPRAM 10 MG TABLET. PO SCH (09:15)
[2016-09-09] MEDS: CARBIDOPA/LEVODOPA 25/100MG TABLET PO SCH ×4 (09:15→20:01)
[2016-09-09] MEDS: THIAMINE 100 MG TABLET. PO SCH (09:16)
[2016-09-09] MEDS: RIVASTIGMINE 13.3MG PATCH. TD SCH (09:23)
[2016-09-09] MEDS: traMADol 50 MG TABLET PO SCH ×2 (09:23→20:00)
[2016-09-09] MEDS: DICLOFENAC SODIUM 1% TOPICAL GEL 100GM TUBE. TP SCH ×4 (09:24→20:02)
[2016-09-09] MEDS: BUDESONIDE 0.5 MG/2 ML NEBU NEB SCH (10:04)
[2016-09-09] MEDS ORDERED: BUDESONIDE 0.5 MG/2 ML NEBU NEB PRN (11:00)
[2016-09-09] MEDS ORDERED: ALBUTEROL SULFATE 2.5 MG/3 ML NEBU. NEB PRN (11:00)
--- NOTE | 2016-09-09 11:03 | NUR ---
Behavior Intervention Response and Plan: BIRP Note: Behavior: Assumed Care of patient, patient located in Day Room at shift change. Patient exhibited the following behavior confused, calm, and compliant. Brief assessment on rounds of vital signs, medication needs, lab studies, and pain. Treatment plan problems . Intervention: Patient assessed and the following interventions initiated safety checks 15 Minute Checks Cognitive Assessment , Head to toe Assessment , Medications. Response: After interactions and interventions patient responded in the following manner, Compliant, calm, and appropriate. Continue to assess behaviors and condition will continue to monitor throughout the shift as needed. 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 Continue to assess patient for changes in above assessment. Monitor for medication needs, pain, and safety concerns. Hourly rounding performed to ensure safe environment.
[2016-09-09 16:17] VITALS: BP 147/82
--- NOTE | 2016-09-09 19:54 | PDOC ---
Exam Lobito Demential Exam: Lobito Note: Please also refer to the separate dictated note~for this date of service dictated separately.~Patient seen individually. Discussed the patient with Nursing staff reviewed the chart.~Reviewed interim history and current functioning. Reviewed vital signs,~Labs/ Radiology~and current medications noted below. Continue current treatment with the changes noted in the dictated addendum note Assessment: Vital Signs: Vital Signs Date Time Temp Pulse Resp B/P (MAP) Pulse Ox O2 Delivery O2 Flow Rate FiO2 09/09/16 16:17 97.1 71 18 147/82 (103) 97.0 09/09/16 06:11 96 Room Air I&O Intake and Output 09/09/16 07:00 Intake Total 840 ml Balance 840 ml Intake Oral 840 ml # Voids 1 Labs: Laboratory Tests Test 09/09/16 08:25 09/09/16 11:34 09/09/16 17:01 09/09/16 19:18 Glucose (Fingerstick) 137 mg/dL (70-99) H 267 mg/dL (70-99) H 196 mg/dL (70-99) H 242 mg/dL (70-99) H Current Medications: Meds: Current Medications Multi-Ingredient Ointment (Analgesic Ducor) 1 marilyn PRN QID PRN TP MUSCLE PAIN; Start 09/05/16 at 21:30 Acetaminophen (Tylenol) 650 mg Q4HRS PO ; Start 09/06/16 at 00:00; Stop 09/06/16 at 00:00; Status DC Memantine (Namenda) 5 mg BID PO Last administered on 09/06/16 07:38; Start at 22:00; Stop 09/06/16 at 10:44; Status DC Quetiapine Fumarate (SEROquel) 50 mg DAILY PO Last administered on 09/09/16 09: 15; Start 09/06/16 at 09:00 Quetiapine Fumarate (SEROquel) 100 mg QHS PO Last administered on 09/08/16 19: 56; Start 09/05/16 at 22:00 Rivastigmine (Exelon) 1 patch DAILY TD Last administered on 09/06/16 08:28; Start 09/06/16 at 09:00; Stop 09/06/16 at 10:44; Status DC Al Hydroxide/Mg Hydroxide (Mylanta Plus Xs) 15 ml PRN AFTMEALHC PRN PO DYSPEPSIA; Start 09/05/16 at 21:45 Tramadol HCl (Ultram) 50 mg BID PO Last administered on 09/09/16 09:23; Start 09/06/16 at 09:00 Tramadol HCl (Ultram) 50 mg PRN Q6HRS PRN PO PAIN Last administered on 15:40; Start 09/05/16 at 22:15 Acetaminophen (Tylenol) 1,000 mg 1X ONCE PO Last administered on 09/05/16 22: 17; Start 09/05/16 at 22:15; Stop 09/05/16 at 22:17; Status DC Albuterol Sulfate (Ventolin) 2.5 mg TID NEB Last administered on 09/09/16 10:04 ; Start 09/06/16 at 14:00; Stop 09/09/16 at 10:49; Status DC Budesonide (Pulmicort) 0.5 mg BID NEB Last administered on 09/09/16 10:04; Start 09/06/16 at 21:00; Stop 09/09/16 at 10:49; Status DC Carbidopa/Levodopa (Sinemet 25/100) 1 tab QID PO Last administered on 09/09/16 17:08; Start 09/06/16 at 13:00 Dabigatran (Pradaxa) 150 mg BID PO Last administered on 09/09/16 09:15; Start 09/06/16 at 10:45 Diclofenac Sodium (Voltaren) 2 marilyn QID TP Last administered on 09/09/16 17:08; Start 09/06/16 at 13:00 Folic Acid (Folic Acid) 1 mg DAILY PO Last administered on 09/09/16 09:14; Start 09/06/16 at 10:45 Glimepiride (Amaryl) 2 mg BID PO Last administered on 09/09/16 09:12; Start 09/06/16 at 10:45 Ketoconazole (Nizoral 2% Shampoo) 1 marilyn 3X/WEEK TP ; Start 09/07/16 at 09:00 Magnesium Hydroxide (Milk Of Magnesia) 2,400 mg PRN QHS PRN PO CONSTIPATION; Start 09/06/16 at 10:30 Methimazole (Tapazole) 5 mg TID PO Last administered on 09/07/16 19:38; Start 09/06/16 at 14:00; Stop 09/08/16 at 09:18; Status DC Nystatin (Mycostatin) 1 marilyn PRN Q8HRS PRN TP Yeast; Start 09/06/16 at 10:30 Sotalol HCl (Betapace) 80 mg BID PO Last administered on 09/09/16 09:14; Start 09/06/16 at 21:00 Thiamine HCl (Vitamin B-1) 100 mg DAILY PO Last administered on 09/09/16 09:16 ; Start 09/06/16 at 10:45 Memantine (Namenda) 10 mg BID PO Last administered on 09/09/16 09:15; Start 09/06/16 at 21:00 Rivastigmine (Exelon 13.3mg) 1 patch DAILY TD Last administered on 09/09/16 09: 23; Start 09/07/16 at 09:00 Escitalopram Oxalate (Lexapro) 5 mg DAILY PO Last administered on 09/08/16 09: 25; Start 09/07/16 at 09:00; Stop 09/08/16 at 20:29; Status DC Methimazole (Tapazole) 7.5 mg TID PO Last administered on 09/09/16 13:24; Start 09/08/16 at 14:00 Cyanocobalamin (Vitamin B-12) 1,000 mcg [id number] IM Last administered on 09:27; Start 09/08/16 at 09:15 Vitamin D (Vitamin D3) 50,000 unit [id number] PO Last administered on 09/08/16 09: 27; Start 09/08/16 at 09:15 Escitalopram Oxalate (Lexapro) 10 mg DAILY PO Last administered on 09/09/16 09: 15; Start 09/09/16 at 09:00 Albuterol Sulfate (Ventolin) 2.5 mg PRN TID PRN NEB WHEEZING; Start 09/09/16 at 11:00 Budesonide (Pulmicort) 0.5 mg PRN BID PRN NEB WHEEZING; Start 09/09/16 at 11:00 Active Scripts Active Reported Namenda (Memantine Hcl) 10 Mg Tablet 5 Mg PO BID EXELON 9.5mg/24hr (Rivastigmine) 1 Each Patch.td24 1 Patch TD DAILY Voltaren (Diclofenac Sodium) 100 Gm Gel..gram. 2 Gm TP QID Novolog Flexpen (Insulin Aspart) 100 Unit/1 Ml Insuln.pen 0-5 Unit SQ TIDBFRMEAL Sliding Scale Insulin Accucheck: 70 - 150 = 0 units If Eating/ 0 units If not eating or HS, 151 - 200 = 2 Units If Eating/ 0 Units If not eating or HS, 201 - 250 = 3 Units If Eating/ 0 Units If not eating or HS, 251 - 300 = 4 Units If Eating/ 2 Units If not eating or HS, 301 - 350 = 5 Units If Eating/ 3 Untis If not eating or HS, Accucheck 351 or > Call PCP for additional orders Advanced Antacid Liquid (Mag Hydrox/Al Hydrox/Simeth) 355 Ml Oral.susp 15 Ml PO QIDAFTMEAL PRN Tylenol (Acetaminophen) 325 Mg Tablet 2 Tab PO PRN Q4HRS PRN Sinemet 25-100 Mg Tablet (Carbidopa/Levodopa) 1 Each Tablet 1 Tab PO QID Albuterol Sulfate Neb Soln (Albuterol Sulfate) 2.5 Mg/3 Ml Vial.neb 2.5 Mg NEB TID Tramadol Hcl (Tramadol HCl) 50 Mg Tablet 50 Mg PO BID Tramadol Hcl (Tramadol HCl) 50 Mg Tablet 50 Mg PO PRN Q6HRS PRN Thiamine Hcl 100 Mg Tablet 100 Mg PO DAILY Sotalol (Sotalol Hcl) 80 Mg Tablet 80 Mg PO BID Seroquel (Quetiapine Fumarate) 100 Mg Tablet 100 Mg PO QHS Seroquel (Quetiapine Fumarate) 50 Mg Tablet 50 Mg PO DAILY Pradaxa (Dabigatran Etexilate Mesylate) 150 Mg Capsule 150 Mg PO BID Nystatin 15 Gm Cream..g. 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
[2016-09-09] MEDS: QUEtiapine 100 MG TABLET. PO SCH (20:01)
--- NOTE | 2016-09-09 23:48 | NUR ---
Behavior Intervention Response and Plan: BIRP Note: Behavior: Assumed Care of patient, patient located in Day Room at shift change. Patient exhibited the following behavior confused, calm, and compliant. Brief assessment on rounds of vital signs, medication needs, lab studies, and pain. Treatment plan problems 1-2. Intervention: Patient assessed and the following interventions initiated safety checks 15 Minute Checks Cognitive Assessment , Head to toe Assessment , Medications. Response: After interactions and interventions patient responded in the following manner, Compliant, calm, and appropriate. Continue to assess behaviors and condition will continue to monitor throughout the shift as needed. 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 Continue to assess patient for changes in above assessment. Monitor for medication needs, pain, and safety concerns. Hourly rounding performed to ensure safe environment.
[2016-09-10 06:04] VITALS: BP 118/74
--- NOTE | 2016-09-10 06:10 | NUR ---
Nursing Note Pt compliant calm cooperative.
[2016-09-10] MEDS: GLIMEPIRIDE 2 MG TABLET PO SCH ×2 (08:51→19:20)
[2016-09-10] MEDS: MEMANTINE 10 MG TABLET. PO SCH ×2 (08:52→19:21)
[2016-09-10] MEDS: FOLIC ACID 1 MG TABLET PO SCH (08:52)
[2016-09-10] MEDS: SOTALOL 80 MG TABLET. PO SCH ×2 (08:52→19:26)
[2016-09-10] MEDS: ESCITALOPRAM 10 MG TABLET. PO SCH (08:52)
[2016-09-10] MEDS: DABIGATRAN ETEXILATE 150 MG CAPSULE. PO SCH ×2 (08:52→19:20)
[2016-09-10] MEDS: CARBIDOPA/LEVODOPA 25/100MG TABLET PO SCH ×4 (08:53→19:21)
[2016-09-10] MEDS: RIVASTIGMINE 13.3MG PATCH. TD SCH (08:53)
[2016-09-10] MEDS: traMADol 50 MG TABLET PO SCH ×2 (08:53→19:28)
[2016-09-10] MEDS: QUEtiapine 50 MG TABLET. PO SCH (08:53)
[2016-09-10] MEDS: THIAMINE 100 MG TABLET. PO SCH (08:53)
[2016-09-10] MEDS: KETOCONAZOLE 2% SHAMPOO 120ML BOTTLE. TP SCH (08:54)
[2016-09-10] MEDS: DICLOFENAC SODIUM 1% TOPICAL GEL 100GM TUBE. TP SCH ×4 (08:54→19:28)
--- NOTE | 2016-09-10 11:15 | NUR ---
THERAPEUTIC RECREATION GROUP NOTE TITLE :Movement to Music: Flexibility ACTIVITY : Movement/ Exercise GOAL : Increase morale, attention, flexibility. Decrease stress/anxiety. DURATION : 30 Minutes RESPONSE : No participation.
--- NOTE | 2016-09-10 11:18 | NUR ---
Behavior Intervention Response and Plan: BIRP Note: Behavior: Assumed Care of patient, patient located in Day Room at shift change. Patient exhibited the following behavior confused, calm, and compliant. Brief assessment on rounds of vital signs, medication needs, lab studies, and pain. Treatment plan problems . Intervention: Patient assessed and the following interventions initiated safety checks 15 Minute Checks Cognitive Assessment , Head to toe Assessment , Medications. Response: After interactions and interventions patient responded in the following manner, Compliant, calm, able to focus on a task, and appropriate. Continue to assess behaviors and condition will continue to monitor throughout the shift as needed. 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 Continue to assess patient for changes in above assessment. Monitor for medication needs, pain, and safety concerns. Hourly rounding performed to ensure safe environment.
--- NOTE | 2016-09-10 15:15 | NUR ---
THERAPEUTIC RECREATION GROUP NOTE TITLE :Painting Popsicle Sticks ACTIVITY : Arts and Crafts GOAL : Reduce stress, anxiety. Increase creativity and fine motor functioning DURATION : 75 Minutes RESPONSE : Full participation. Pt. needed demonstrations and prompting at the beginning but was able to work independently as the session progressed. He was playful, made jokes and silly faces often throughout the group.
[2016-09-10 16:44] VITALS: BP 149/84
[2016-09-10] MEDS: QUEtiapine 100 MG TABLET. PO SCH (19:21)
--- NOTE | 2016-09-10 21:00 | PDOC ---
Exam Lobito Demential Exam: Lobito Note: Please also refer to the separate dictated note~for this date of service dictated separately.~Patient seen individually. Discussed the patient with Nursing staff reviewed the chart.~Reviewed interim history and current functioning. Reviewed vital signs,~Labs/ Radiology~and current medications noted below. Continue current treatment with the changes noted in the dictated addendum note Assessment: Vital Signs: Vital Signs Date Time Temp Pulse Resp B/P (MAP) Pulse Ox O2 Delivery O2 Flow Rate FiO2 09/10/16 19:28 18 Room Air 09/10/16 19:26 80 149/84 09/10/16 16:44 97.7 94 09/09/16 16:17 97.0 I&O Intake and Output 09/10/16 07:00 Intake Total 1160 ml Balance 1160 ml Intake Oral 1160 ml Labs: Laboratory Tests Test 09/10/16 07:29 09/10/16 11:22 09/10/16 16:59 09/10/16 19:06 Glucose (Fingerstick) 126 mg/dL (70-99) H 179 mg/dL (70-99) H 208 mg/dL (70-99) H 194 mg/dL (70-99) H Current Medications: Meds: Current Medications Multi-Ingredient Ointment (Analgesic Benld) 1 marilyn PRN QID PRN TP MUSCLE PAIN; Start 09/05/16 at 21:30 Acetaminophen (Tylenol) 650 mg Q4HRS PO ; Start 09/06/16 at 00:00; Stop 09/06/16 at 00:00; Status DC Memantine (Namenda) 5 mg BID PO Last administered on 09/06/16 07:38; Start at 22:00; Stop 09/06/16 at 10:44; Status DC Quetiapine Fumarate (SEROquel) 50 mg DAILY PO Last administered on 09/10/16 08: 53; Start 09/06/16 at 09:00 Quetiapine Fumarate (SEROquel) 100 mg QHS PO Last administered on 09/10/16 19: 21; Start 09/05/16 at 22:00 Rivastigmine (Exelon) 1 patch DAILY TD Last administered on 09/06/16 08:28; Start 09/06/16 at 09:00; Stop 09/06/16 at 10:44; Status DC Al Hydroxide/Mg Hydroxide (Mylanta Plus Xs) 15 ml PRN AFTMEALHC PRN PO DYSPEPSIA; Start 09/05/16 at 21:45 Tramadol HCl (Ultram) 50 mg BID PO Last administered on 09/10/16 19:28; Start 09/06/16 at 09:00 Tramadol HCl (Ultram) 50 mg PRN Q6HRS PRN PO PAIN Last administered on 15:40; Start 09/05/16 at 22:15 Acetaminophen (Tylenol) 1,000 mg 1X ONCE PO Last administered on 09/05/16 22: 17; Start 09/05/16 at 22:15; Stop 09/05/16 at 22:17; Status DC Albuterol Sulfate (Ventolin) 2.5 mg TID NEB Last administered on 09/09/16 10:04 ; Start 09/06/16 at 14:00; Stop 09/09/16 at 10:49; Status DC Budesonide (Pulmicort) 0.5 mg BID NEB Last administered on 09/09/16 10:04; Start 09/06/16 at 21:00; Stop 09/09/16 at 10:49; Status DC Carbidopa/Levodopa (Sinemet 25/100) 1 tab QID PO Last administered on 09/10/16 19:21; Start 09/06/16 at 13:00 Dabigatran (Pradaxa) 150 mg BID PO Last administered on 09/10/16 19:20; Start 09/06/16 at 10:45 Diclofenac Sodium (Voltaren) 2 marilyn QID TP Last administered on 09/10/16 19:28; Start 09/06/16 at 13:00 Folic Acid (Folic Acid) 1 mg DAILY PO Last administered on 09/10/16 08:52; Start 09/06/16 at 10:45 Glimepiride (Amaryl) 2 mg BID PO Last administered on 09/10/16 19:20; Start 09/06/16 at 10:45 Ketoconazole (Nizoral 2% Shampoo) 1 marilyn 3X/WEEK TP Last administered on 08:54; Start 09/07/16 at 09:00 Magnesium Hydroxide (Milk Of Magnesia) 2,400 mg PRN QHS PRN PO CONSTIPATION; Start 09/06/16 at 10:30 Methimazole (Tapazole) 5 mg TID PO Last administered on 09/07/16 19:38; Start 09/06/16 at 14:00; Stop 09/08/16 at 09:18; Status DC Nystatin (Mycostatin) 1 marilyn PRN Q8HRS PRN TP Yeast; Start 09/06/16 at 10:30 Sotalol HCl (Betapace) 80 mg BID PO Last administered on 09/10/16 19:26; Start 09/06/16 at 21:00 Thiamine HCl (Vitamin B-1) 100 mg DAILY PO Last administered on 09/10/16 08:53 ; Start 09/06/16 at 10:45 Memantine (Namenda) 10 mg BID PO Last administered on 09/10/16 19:21; Start 09/06/16 at 21:00 Rivastigmine (Exelon 13.3mg) 1 patch DAILY TD Last administered on 09/10/16 08: 53; Start 09/07/16 at 09:00 Escitalopram Oxalate (Lexapro) 5 mg DAILY PO Last administered on 09/08/16 09: 25; Start 09/07/16 at 09:00; Stop 09/08/16 at 20:29; Status DC Methimazole (Tapazole) 7.5 mg TID PO Last administered on 09/10/16 19:27; Start 09/08/16 at 14:00 Cyanocobalamin (Vitamin B-12) 1,000 mcg [id number] IM Last administered on 09:27; Start 09/08/16 at 09:15 Vitamin D (Vitamin D3) 50,000 unit [id number] PO Last administered on 09/08/16 09: 27; Start 09/08/16 at 09:15 Escitalopram Oxalate (Lexapro) 10 mg DAILY PO Last administered on 09/10/16 08: 52; Start 09/09/16 at 09:00 Albuterol Sulfate (Ventolin) 2.5 mg PRN TID PRN NEB WHEEZING; Start 09/09/16 at 11:00 Budesonide (Pulmicort) 0.5 mg PRN BID PRN NEB WHEEZING; Start 09/09/16 at 11:00 Active Scripts Active Reported Namenda (Memantine Hcl) 10 Mg Tablet 5 Mg PO BID EXELON 9.5mg/24hr (Rivastigmine) 1 Each Patch.td24 1 Patch TD DAILY Voltaren (Diclofenac Sodium) 100 Gm Gel..gram. 2 Gm TP QID Novolog Flexpen (Insulin Aspart) 100 Unit/1 Ml Insuln.pen 0-5 Unit SQ TIDBFRMEAL Sliding Scale Insulin Accucheck: 70 - 150 = 0 units If Eating/ 0 units If not eating or HS, 151 - 200 = 2 Units If Eating/ 0 Units If not eating or HS, 201 - 250 = 3 Units If Eating/ 0 Units If not eating or HS, 251 - 300 = 4 Units If Eating/ 2 Units If not eating or HS, 301 - 350 = 5 Units If Eating/ 3 Untis If not eating or HS, Accucheck 351 or > Call PCP for additional orders Advanced Antacid Liquid (Mag Hydrox/Al Hydrox/Simeth) 355 Ml Oral.susp 15 Ml PO QIDAFTMEAL PRN Tylenol (Acetaminophen) 325 Mg Tablet 2 Tab PO PRN Q4HRS PRN Sinemet 25-100 Mg Tablet (Carbidopa/Levodopa) 1 Each Tablet 1 Tab PO QID Albuterol Sulfate Neb Soln (Albuterol Sulfate) 2.5 Mg/3 Ml Vial.neb 2.5 Mg NEB TID Tramadol Hcl (Tramadol HCl) 50 Mg Tablet 50 Mg PO BID Tramadol Hcl (Tramadol HCl) 50 Mg Tablet 50 Mg PO PRN Q6HRS PRN Thiamine Hcl 100 Mg Tablet 100 Mg PO DAILY Sotalol (Sotalol Hcl) 80 Mg Tablet 80 Mg PO BID Seroquel (Quetiapine Fumarate) 100 Mg Tablet 100 Mg PO QHS Seroquel (Quetiapine Fumarate) 50 Mg Tablet 50 Mg PO DAILY Pradaxa (Dabigatran Etexilate Mesylate) 150 Mg Capsule 150 Mg PO BID Nystatin 15 Gm Cream..g. 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
--- NOTE | 2016-09-10 23:09 | NUR ---
Behavior Intervention Response and Plan: BIRP Note: Behavior: Assumed Care of patient, patient located in Day Room at shift change. Patient exhibited the following behavior Calm, Compliant, Cooperative. Brief assessment on rounds of vital signs, medication needs, lab studies, and pain. Treatment plan problems Danger to Self and Fall risk. Intervention: Patient assessed and the following interventions initiated safety checks 15 Minute Checks Personal Alarm in place , Cognitive Assessment , Medications. Response: After interactions and interventions patient responded in the following manner, Calm , Compliant ,Cooperative. Continue to assess behaviors and condition will continue to monitor throughout the shift as needed. 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 Continue to assess patient for changes in above assessment. Monitor for medication needs, pain, and safety concerns. Hourly rounding performed to ensure safe environment.
--- NOTE | 2016-09-11 01:42 | PN ---
DATE: 09/09/2016 PSYCHIATRIC PROGRESS NOTE This is a late entry of 09/09/2016 covers elements not covered in my initial note. SUBJECTIVE: Per nursing report, the patient has been calm, cooperative, pleasant, quite confused, has her rather caustic sense of humor and according to nursing staff making "smart chela" responses and somewhat condescending. REVIEW OF SYSTEMS: Ambulation impaired. No CV, , pulmonary, eye system symptoms on review. MENTAL STATUS EXAM: Oriented to himself. Insight, judgment, recent and remote memory, attention, concentration, fund of knowledge poor, consistent with his diagnosis mentioned in my initial note. 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 Rest diagnosis unchanged. PLAN: Continue Seroquel, Namenda, and Exelon patch, Lexapro, consider BuSpar for anxiety. MAN Heaven MAGALLANES MD DR: MARIBEL/harshad JOB#: [id number] / [id number]
[2016-09-11 06:20] VITALS: BP 137/89
[2016-09-11] MEDS: THIAMINE 100 MG TABLET. PO SCH (08:14)
[2016-09-11] MEDS: RIVASTIGMINE 13.3MG PATCH. TD SCH (08:14)
[2016-09-11] MEDS: GLIMEPIRIDE 2 MG TABLET PO SCH ×2 (08:14→19:16)
[2016-09-11] MEDS: QUEtiapine 50 MG TABLET. PO SCH (08:15)
[2016-09-11] MEDS: ESCITALOPRAM 10 MG TABLET. PO SCH (08:15)
[2016-09-11] MEDS: DABIGATRAN ETEXILATE 150 MG CAPSULE. PO SCH ×2 (08:15→19:21)
[2016-09-11] MEDS: FOLIC ACID 1 MG TABLET PO SCH (08:15)
[2016-09-11] MEDS: CARBIDOPA/LEVODOPA 25/100MG TABLET PO SCH ×4 (08:15→19:16)
[2016-09-11] MEDS: traMADol 50 MG TABLET PO SCH ×2 (08:18→19:21)
[2016-09-11] MEDS: DICLOFENAC SODIUM 1% TOPICAL GEL 100GM TUBE. TP SCH ×4 (08:18→19:25)
[2016-09-11] MEDS: SOTALOL 80 MG TABLET. PO SCH ×2 (08:19→19:21)
[2016-09-11] MEDS: MEMANTINE 10 MG TABLET. PO SCH ×2 (08:20→19:16)
--- NOTE | 2016-09-11 09:54 | NUR ---
Behavior Intervention Response and Plan: BIRP Note: Behavior: Assumed Care of patient, patient located in Patient Room at shift change. Patient exhibited the following behavior Disorganized, Compliant, Calm. Brief assessment on rounds of vital signs, medication needs, lab studies, and pain. Treatment plan problems . Intervention: Patient assessed and the following interventions initiated safety checks 15 Minute Checks Head to toe Assessment , Medications , Nutrition. Response: After interactions and interventions patient responded in the following manner, Calm , Wandering ,Delusions. Continue to assess behaviors and condition will continue to monitor throughout the shift as needed. Plan: Continue to monitor Master Treatment Plan for patient's progress toward short term goals of No harm To self/ others, Decreased Aggression, residential goals to return to previous living setting vs placement. Continue to assess patient for changes in above assessment. Monitor for medication needs, pain, and safety concerns. Hourly rounding performed to ensure safe environment.
--- NOTE | 2016-09-11 14:00 | NUR ---
THERAPEUTIC RECREATION GROUP NOTE TITLE :Sing along with [employer]ha ACTIVITY : Music GOAL : Increase socialization, elevate mood, stimulate memory DURATION : 50 minutes RESPONSE : Moderate participation. Pt. participated off and on throughout the entire session. He sang along with the lyrics and started singing his own song.
--- NOTE | 2016-09-11 15:15 | NUR ---
THERAPEUTIC RECREATION GROUP NOTE TITLE :Music Bingo! ACTIVITY : Music GOAL : Increase socialization, elevate mood, stimulate memory DURATION : 60 minutes RESPONSE : No participation.
[2016-09-11 16:18] VITALS: BP 136/83
[2016-09-11] MEDS: QUEtiapine 100 MG TABLET. PO SCH (19:16)
--- NOTE | 2016-09-11 20:22 | PDOC ---
Exam Lobito Demential Exam: Lobito Note: Please also refer to the separate dictated note~for this date of service dictated separately.~Patient seen individually. Discussed the patient with Nursing staff reviewed the chart.~Reviewed interim history and current functioning. Reviewed vital signs,~Labs/ Radiology~and current medications noted below. Continue current treatment with the changes noted in the dictated addendum note Assessment: Vital Signs: Vital Signs Date Time Temp Pulse Resp B/P (MAP) Pulse Ox O2 Delivery O2 Flow Rate FiO2 09/11/16 19:21 78 136/83 09/11/16 19:21 18 Room Air 09/11/16 16:18 96.5 97 09/09/16 16:17 97.0 I&O Intake and Output 09/11/16 07:00 Intake Total 840 ml Balance 840 ml Intake Oral 840 ml Labs: Laboratory Tests Test 09/11/16 07:43 09/11/16 11:20 09/11/16 17:17 09/11/16 19:15 Glucose (Fingerstick) 136 mg/dL (70-99) H 246 mg/dL (70-99) H 168 mg/dL (70-99) H 197 mg/dL (70-99) H Current Medications: Meds: Current Medications Multi-Ingredient Ointment (Analgesic [place]) 1 marilyn PRN QID PRN TP MUSCLE PAIN; Start 09/05/16 at 21:30 Acetaminophen (Tylenol) 650 mg Q4HRS PO ; Start 09/06/16 at 00:00; Stop 09/06/16 at 00:00; Status DC Memantine (Namenda) 5 mg BID PO Last administered on 09/06/16 07:38; Start at 22:00; Stop 09/06/16 at 10:44; Status DC Quetiapine Fumarate (SEROquel) 50 mg DAILY PO Last administered on 09/11/16 08: 15; Start 09/06/16 at 09:00 Quetiapine Fumarate (SEROquel) 100 mg QHS PO Last administered on 09/11/16 19: 16; Start 09/05/16 at 22:00 Rivastigmine (Exelon) 1 patch DAILY TD Last administered on 09/06/16 08:28; Start 09/06/16 at 09:00; Stop 09/06/16 at 10:44; Status DC Al Hydroxide/Mg Hydroxide (Mylanta Plus Xs) 15 ml PRN AFTMEALHC PRN PO DYSPEPSIA; Start 09/05/16 at 21:45 Tramadol HCl (Ultram) 50 mg BID PO Last administered on 09/11/16 19:21; Start 09/06/16 at 09:00 Tramadol HCl (Ultram) 50 mg PRN Q6HRS PRN PO PAIN Last administered on 15:40; Start 09/05/16 at 22:15 Acetaminophen (Tylenol) 1,000 mg 1X ONCE PO Last administered on 09/05/16 22: 17; Start 09/05/16 at 22:15; Stop 09/05/16 at 22:17; Status DC Albuterol Sulfate (Ventolin) 2.5 mg TID NEB Last administered on 09/09/16 10:04 ; Start 09/06/16 at 14:00; Stop 09/09/16 at 10:49; Status DC Budesonide (Pulmicort) 0.5 mg BID NEB Last administered on 09/09/16 10:04; Start 09/06/16 at 21:00; Stop 09/09/16 at 10:49; Status DC Carbidopa/Levodopa (Sinemet 25/100) 1 tab QID PO Last administered on 09/11/16 19:16; Start 09/06/16 at 13:00 Dabigatran (Pradaxa) 150 mg BID PO Last administered on 09/11/16 19:21; Start 09/06/16 at 10:45 Diclofenac Sodium (Voltaren) 2 marilyn QID TP Last administered on 09/11/16 19:25; Start 09/06/16 at 13:00 Folic Acid (Folic Acid) 1 mg DAILY PO Last administered on 09/11/16 08:15; Start 09/06/16 at 10:45 Glimepiride (Amaryl) 2 mg BID PO Last administered on 09/11/16 19:16; Start 09/06/16 at 10:45 Ketoconazole (Nizoral 2% Shampoo) 1 marilyn 3X/WEEK TP Last administered on 08:54; Start 09/07/16 at 09:00 Magnesium Hydroxide (Milk Of Magnesia) 2,400 mg PRN QHS PRN PO CONSTIPATION; Start 09/06/16 at 10:30 Methimazole (Tapazole) 5 mg TID PO Last administered on 09/07/16 19:38; Start 09/06/16 at 14:00; Stop 09/08/16 at 09:18; Status DC Nystatin (Mycostatin) 1 marilyn PRN Q8HRS PRN TP Yeast; Start 09/06/16 at 10:30 Sotalol HCl (Betapace) 80 mg BID PO Last administered on 09/11/16 19:21; Start 09/06/16 at 21:00 Thiamine HCl (Vitamin B-1) 100 mg DAILY PO Last administered on 09/11/16 08:14 ; Start 09/06/16 at 10:45 Memantine (Namenda) 10 mg BID PO Last administered on 09/11/16 19:16; Start 09/06/16 at 21:00 Rivastigmine (Exelon 13.3mg) 1 patch DAILY TD Last administered on 09/11/16 08: 14; Start 09/07/16 at 09:00 Escitalopram Oxalate (Lexapro) 5 mg DAILY PO Last administered on 09/08/16 09: 25; Start 09/07/16 at 09:00; Stop 09/08/16 at 20:29; Status DC Methimazole (Tapazole) 7.5 mg TID PO Last administered on 09/11/16 19:20; Start 09/08/16 at 14:00 Cyanocobalamin (Vitamin B-12) 1,000 mcg [id number] IM Last administered on 09:27; Start 09/08/16 at 09:15 Vitamin D (Vitamin D3) 50,000 unit [id number] PO Last administered on 09/08/16 09: 27; Start 09/08/16 at 09:15 Escitalopram Oxalate (Lexapro) 10 mg DAILY PO Last administered on 09/11/16 08: 15; Start 09/09/16 at 09:00 Albuterol Sulfate (Ventolin) 2.5 mg PRN TID PRN NEB WHEEZING; Start 09/09/16 at 11:00 Budesonide (Pulmicort) 0.5 mg PRN BID PRN NEB WHEEZING; Start 09/09/16 at 11:00 Active Scripts Active Reported Namenda (Memantine Hcl) 10 Mg Tablet 5 Mg PO BID EXELON 9.5mg/24hr (Rivastigmine) 1 Each Patch.td24 1 Patch TD DAILY Voltaren (Diclofenac Sodium) 100 Gm Gel..gram. 2 Gm TP QID Novolog Flexpen (Insulin Aspart) 100 Unit/1 Ml Insuln.pen 0-5 Unit SQ TIDBFRMEAL Sliding Scale Insulin Accucheck: 70 - 150 = 0 units If Eating/ 0 units If not eating or HS, 151 - 200 = 2 Units If Eating/ 0 Units If not eating or HS, 201 - 250 = 3 Units If Eating/ 0 Units If not eating or HS, 251 - 300 = 4 Units If Eating/ 2 Units If not eating or HS, 301 - 350 = 5 Units If Eating/ 3 Untis If not eating or HS, Accucheck 351 or > Call PCP for additional orders Advanced Antacid Liquid (Mag Hydrox/Al Hydrox/Simeth) 355 Ml Oral.susp 15 Ml PO QIDAFTMEAL PRN Tylenol (Acetaminophen) 325 Mg Tablet 2 Tab PO PRN Q4HRS PRN Sinemet 25-100 Mg Tablet (Carbidopa/Levodopa) 1 Each Tablet 1 Tab PO QID Albuterol Sulfate Neb Soln (Albuterol Sulfate) 2.5 Mg/3 Ml Vial.neb 2.5 Mg NEB TID Tramadol Hcl (Tramadol HCl) 50 Mg Tablet 50 Mg PO BID Tramadol Hcl (Tramadol HCl) 50 Mg Tablet 50 Mg PO PRN Q6HRS PRN Thiamine Hcl 100 Mg Tablet 100 Mg PO DAILY Sotalol (Sotalol Hcl) 80 Mg Tablet 80 Mg PO BID Seroquel (Quetiapine Fumarate) 100 Mg Tablet 100 Mg PO QHS Seroquel (Quetiapine Fumarate) 50 Mg Tablet 50 Mg PO DAILY Pradaxa (Dabigatran Etexilate Mesylate) 150 Mg Capsule 150 Mg PO BID Nystatin 15 Gm Cream..g. 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
--- NOTE | 2016-09-12 02:34 | NUR ---
Behavior Intervention Response and Plan: BIRP Note: Behavior: Assumed Care of patient, patient located in Day Room at shift change. Patient exhibited the following behavior Disorganized, Defensive, Resistive. Brief assessment on rounds of vital signs, medication needs, lab studies, and pain. Treatment plan problems Danger to Self and Fall risk. Intervention: Patient assessed and the following interventions initiated safety checks 15 Minute Checks Personal Alarm in place , Cognitive Assessment , Medications. Response: After interactions and interventions patient responded in the following manner, Disorganized , Irritable ,Agitated. Continue to assess behaviors and condition will continue to monitor throughout the shift as needed. 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 Continue to assess patient for changes in above assessment. Monitor for medication needs, pain, and safety concerns. Hourly rounding performed to ensure safe environment.
--- NOTE | 2016-09-12 03:19 | PN ---
DATE: 09/10/2016 This late entry for 09/10/2016 covers elements not covered in my initial note. SUBJECTIVE: The patient seems to have a sense of humor, has been quite pleasant, takes his medications whole, noted to be funny per nursing report, certainly very confused. REVIEW OF SYSTEMS: Ambulation impaired, in his wheelchair. No CV, , pulmonary, eye system symptoms on review. MENTAL STATUS EXAM: Oriented to himself. Insight, judgment, recent, remote memory, attention, concentration, fund of knowledge poor, consistent with his diagnosis mentioned in my initial note. LABORATORY DATA: Reviewed. IMPRESSION: Major neurocognitive disorder, Lewy body with delusion, depression, behavioral disturbance; anxiety disorder, unspecified; impulse control disorder, unspecified. PLAN: Maintain Exelon patch 13.3 mg a day, Namenda 10 b.i.d., Lexapro 10 mg a day, Seroquel 50 a.m., 100 at bedtime. Adjust further as clinically indicated. MAN Heaven MAGALLANES MD DR: MARIBEL/harshad JOB#: [id number] / [id number]
[2016-09-12 06:10] VITALS: BP 147/96
[2016-09-12] MEDS: ESCITALOPRAM 10 MG TABLET. PO SCH (08:23)
[2016-09-12] MEDS: DABIGATRAN ETEXILATE 150 MG CAPSULE. PO SCH ×2 (08:24→19:44)
[2016-09-12] MEDS: QUEtiapine 50 MG TABLET. PO SCH (08:24)
[2016-09-12] MEDS: MEMANTINE 10 MG TABLET. PO SCH ×2 (08:24→19:44)
[2016-09-12] MEDS: THIAMINE 100 MG TABLET. PO SCH (08:24)
[2016-09-12] MEDS: CARBIDOPA/LEVODOPA 25/100MG TABLET PO SCH ×4 (08:24→19:44)
[2016-09-12] MEDS: GLIMEPIRIDE 2 MG TABLET PO SCH ×2 (08:24→19:44)
[2016-09-12] MEDS: FOLIC ACID 1 MG TABLET PO SCH (08:24)
[2016-09-12] MEDS: RIVASTIGMINE 13.3MG PATCH. TD SCH (08:25)
[2016-09-12] MEDS: traMADol 50 MG TABLET PO SCH ×2 (08:28→19:50)
[2016-09-12] MEDS: SOTALOL 80 MG TABLET. PO SCH ×2 (08:29→19:46)
[2016-09-12] MEDS: KETOCONAZOLE 2% SHAMPOO 120ML BOTTLE. TP SCH (08:29)
[2016-09-12] MEDS: DICLOFENAC SODIUM 1% TOPICAL GEL 100GM TUBE. TP SCH ×4 (08:30→19:45)
--- NOTE | 2016-09-12 09:33 | NUR ---
Behavior Intervention Response and Plan: BIRP Note: Behavior: Assumed Care of patient, patient located in Patient Room at shift change. Patient exhibited the following behavior Disorganized, Motor Retardation, Compliant. Brief assessment on rounds of vital signs, medication needs, lab studies, and pain. Treatment plan problems . Intervention: Patient assessed and the following interventions initiated safety checks 15 Minute Checks Head to toe Assessment , Medications , Oral Hydration. Response: After interactions and interventions patient responded in the following manner, Disorganized , Calm ,Wandering. Continue to assess behaviors and condition will continue to monitor throughout the shift as needed. 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 Continue to assess patient for changes in above assessment. Monitor for medication needs, pain, and safety concerns. Hourly rounding performed to ensure safe environment.
[2016-09-12 09:34] LABS: BASO # 0.1 x10^3/uL (0.0-0.2); BASO % 1 % (0-3); EOS # 0.6 x10^3/uL (0.0-0.7); EOS % 9 % (0-3); HEMATOCRIT 42.7 % (39.0-53.0); HEMOGLOBIN 14.3 g/dL (13.0-17.5); LYMPH # 1.3 x10^3/uL (1.0-4.8); LYMPH % 18 % (24-48); MEAN CORPUSCULAR HEMOGLOBIN 27 pg (25-35); MEAN CORPUSCULAR HGB CONC 33 g/dL (31-37); MEAN CORPUSCULAR VOLUME 82 fL (79-100); MONO # 0.7 x10^3/uL (0.0-1.1); MONO % 9 % (0-9); NEUT # 4.7 x10^3uL (1.8-7.7); NEUT % 64 % (31-73); PLATELET COUNT 164 x10^3/uL (140-400); RED BLOOD COUNT 5.19 x10^6/uL (4.30-5.70); RED CELL DISTRIBUTION WIDTH 17.3 % (11.5-14.5); WHITE BLOOD COUNT 7.4 x10^3/uL (4.0-11.0)
[2016-09-12 09:53] LABS: ALBUMIN 3.4 g/dL (3.4-5.0); ALBUMIN/GLOBULIN RATIO 0.8 (1.0-1.7); CALCIUM 8.9 mg/dL (8.5-10.1); CREATININE 1.4 mg/dL (0.7-1.3); GFR 48.5; MAGNESIUM 1.9 mg/dL (1.8-2.4); POTASSIUM 4.7 mmol/L (3.5-5.1); TOTAL BILIRUBIN 0.5 mg/dL (0.2-1.0); TOTAL PROTEIN 7.7 g/dL (6.4-8.2)
--- NOTE | 2016-09-12 10:15 | NUR ---
THERAPEUTIC RECREATION GROUP NOTE TITLE :Balloon Bop with Noodles ACTIVITY : Activities and Games GOAL : Increase socialization and alertness. Maintain/improve mental and physical functioning. DURATION : 60 Minutes RESPONSE : No participation.
[2016-09-12 15:51] VITALS: BP 151/90
--- NOTE | 2016-09-12 18:10 | NUR ---
wound care patient seen per f/u of wound care consult. patients wound is closed at this time. recommendations of Calazime cream, prn. Notified LOY Varghese about the POC and wound care is signing off at this time, please reconsult if the integumentary assessment changes.
[2016-09-12] MEDS: QUEtiapine 100 MG TABLET. PO SCH (19:44)
--- NOTE | 2016-09-12 19:47 | PDOC ---
Exam Lobito Demential Exam: Lobito Note: Please also refer to the separate dictated note~for this date of service dictated separately.~Patient seen individually. Discussed the patient with Nursing staff reviewed the chart.~Reviewed interim history and current functioning. Reviewed vital signs,~Labs/ Radiology~and current medications noted below. Continue current treatment with the changes noted in the dictated addendum note Assessment: Vital Signs: Vital Signs Date Time Temp Pulse Resp B/P (MAP) Pulse Ox O2 Delivery O2 Flow Rate FiO2 09/12/16 15:51 97.8 70 18 151/90 (110) 95 09/11/16 20:21 Room Air 09/09/16 16:17 97.0 I&O Intake and Output 09/12/16 07:00 Intake Total 1440 ml Balance 1440 ml Intake Oral 1440 ml Labs: Laboratory Tests Test 09/12/16 07:23 09/12/16 09:14 09/12/16 11:10 09/12/16 16:32 Glucose (Fingerstick) 137 mg/dL (70-99) H 237 mg/dL (70-99) H 197 mg/dL (70-99) H White Blood Count 7.4 x10^3/uL (4.0-11.0) Red Blood Count 5.19 x10^6/uL (4.30-5.70) Hemoglobin 14.3 g/dL (13.0-17.5) Hematocrit 42.7 % (39.0-53.0) Mean Corpuscular Volume 82 fL (79-100) Mean Corpuscular Hemoglobin 27 pg (25-35) Mean Corpuscular Hemoglobin Concent 33 g/dL (31-37) Red Cell Distribution Width 17.3 % (11.5-14.5) H Platelet Count 164 x10^3/uL (140-400) Neutrophils (%) (Auto) 64 % (31-73) Lymphocytes (%) (Auto) 18 % (24-48) L Monocytes (%) (Auto) 9 % (0-9) Eosinophils (%) (Auto) 9 % (0-3) H Basophils (%) (Auto) 1 % (0-3) Neutrophils # (Auto) 4.7 x10^3uL (1.8-7.7) Lymphocytes # (Auto) 1.3 x10^3/uL (1.0-4.8) Monocytes # (Auto) 0.7 x10^3/uL (0.0-1.1) Eosinophils # (Auto) 0.6 x10^3/uL (0.0-0.7) Basophils # (Auto) 0.1 x10^3/uL (0.0-0.2) Sodium Level 140 mmol/L (136-145) Potassium Level 4.7 mmol/L (3.5-5.1) Chloride Level 106 mmol/L (98-107) Carbon Dioxide Level 28 mmol/L (21-32) Anion Gap 6 (6-14) Blood Urea Nitrogen 28 mg/dL (8-26) H Creatinine 1.4 mg/dL (0.7-1.3) H Estimated GFR (Cockcroft-Gault) 48.5 BUN/Creatinine Ratio 20 (6-20) Glucose Level 270 mg/dL (70-99) H Calcium Level 8.9 mg/dL (8.5-10.1) Magnesium Level 1.9 mg/dL (1.8-2.4) Total Bilirubin 0.5 mg/dL (0.2-1.0) Aspartate Amino Transferase (AST) 15 U/L (15-37) Alanine Aminotransferase (ALT) 14 U/L (16-63) L Alkaline Phosphatase 95 U/L (46-116) Total Protein 7.7 g/dL (6.4-8.2) Albumin 3.4 g/dL (3.4-5.0) Albumin/Globulin Ratio 0.8 (1.0-1.7) L Test 09/12/16 19:03 Glucose (Fingerstick) 235 mg/dL (70-99) H Current Medications: Meds: Current Medications Multi-Ingredient Ointment (Analgesic [place]) 1 marilyn PRN QID PRN TP MUSCLE PAIN; Start 09/05/16 at 21:30 Acetaminophen (Tylenol) 650 mg Q4HRS PO ; Start 09/06/16 at 00:00; Stop 09/06/16 at 00:00; Status DC Memantine (Namenda) 5 mg BID PO Last administered on 09/06/16t 07:38; Start at 22:00; Stop 09/06/16 at 10:44; Status DC Quetiapine Fumarate (SEROquel) 50 mg DAILY PO Last administered on 09/12/16 08: 24; Start 09/06/16 at 09:00 Quetiapine Fumarate (SEROquel) 100 mg QHS PO Last administered on 09/11/16 19: 16; Start 09/05/16 at 22:00 Rivastigmine (Exelon) 1 patch DAILY TD Last administered on 09/06/16 08:28; Start 09/06/16 at 09:00; Stop 09/06/16 at 10:44; Status DC Al Hydroxide/Mg Hydroxide (Mylanta Plus Xs) 15 ml PRN AFTMEALHC PRN PO DYSPEPSIA; Start 09/05/16 at 21:45 Tramadol HCl (Ultram) 50 mg BID PO Last administered on 09/12/16 08:28; Start 09/06/16 at 09:00 Tramadol HCl (Ultram) 50 mg PRN Q6HRS PRN PO PAIN Last administered on 15:40; Start 09/05/16 at 22:15 Acetaminophen (Tylenol) 1,000 mg 1X ONCE PO Last administered on 09/05/16 22: 17; Start 09/05/16 at 22:15; Stop 09/05/16 at 22:17; Status DC Albuterol Sulfate (Ventolin) 2.5 mg TID NEB Last administered on 09/09/16 10:04 ; Start 09/06/16 at 14:00; Stop 09/09/16 at 10:49; Status DC Budesonide (Pulmicort) 0.5 mg BID NEB Last administered on 09/09/16 10:04; Start 09/06/16 at 21:00; Stop 09/09/16 at 10:49; Status DC Carbidopa/Levodopa (Sinemet 25/100) 1 tab QID PO Last administered on 09/12/16 16:54; Start 09/06/16 at 13:00 Dabigatran (Pradaxa) 150 mg BID PO Last administered on 09/12/16 08:24; Start 09/06/16 at 10:45 Diclofenac Sodium (Voltaren) 2 marilyn QID TP Last administered on 09/12/16 16:54; Start 09/06/16 at 13:00 Folic Acid (Folic Acid) 1 mg DAILY PO Last administered on 09/12/16 08:24; Start 09/06/16 at 10:45 Glimepiride (Amaryl) 2 mg BID PO Last administered on 09/12/16 08:24; Start 09/06/16 at 10:45 Ketoconazole (Nizoral 2% Shampoo) 1 marilyn 3X/WEEK TP Last administered on 08:29; Start 09/07/16 at 09:00 Magnesium Hydroxide (Milk Of Magnesia) 2,400 mg PRN QHS PRN PO CONSTIPATION; Start 09/06/16 at 10:30 Methimazole (Tapazole) 5 mg TID PO Last administered on 09/07/16 19:38; Start 09/06/16 at 14:00; Stop 09/08/16 at 09:18; Status DC Nystatin (Mycostatin) 1 marilyn PRN Q8HRS PRN TP Yeast; Start 09/06/16 at 10:30 Sotalol HCl (Betapace) 80 mg BID PO Last administered on 09/12/16 08:29; Start 09/06/16 at 21:00 Thiamine HCl (Vitamin B-1) 100 mg DAILY PO Last administered on 09/12/16 08:24 ; Start 09/06/16 at 10:45 Memantine (Namenda) 10 mg BID PO Last administered on 09/12/16 08:24; Start 09/06/16 at 21:00 Rivastigmine (Exelon 13.3mg) 1 patch DAILY TD Last administered on 09/12/16 08: 25; Start 09/07/16 at 09:00 Escitalopram Oxalate (Lexapro) 5 mg DAILY PO Last administered on 09/08/16 09: 25; Start 09/07/16 at 09:00; Stop 09/08/16 at 20:29; Status DC Methimazole (Tapazole) 7.5 mg TID PO Last administered on 09/12/16 12:27; Start 09/08/16 at 14:00 Cyanocobalamin (Vitamin B-12) 1,000 mcg [id number] IM Last administered on 09:27; Start 09/08/16 at 09:15 Vitamin D (Vitamin D3) 50,000 unit [id number] PO Last administered on 09/08/16 09: 27; Start 09/08/16 at 09:15 Escitalopram Oxalate (Lexapro) 10 mg DAILY PO Last administered on 09/12/16 08: 23; Start 09/09/16 at 09:00 Albuterol Sulfate (Ventolin) 2.5 mg PRN TID PRN NEB WHEEZING; Start 09/09/16 at 11:00 Budesonide (Pulmicort) 0.5 mg PRN BID PRN NEB WHEEZING; Start 09/09/16 at 11:00 Active Scripts Active Reported Namenda (Memantine Hcl) 10 Mg Tablet 5 Mg PO BID EXELON 9.5mg/24hr (Rivastigmine) 1 Each Patch.td24 1 Patch TD DAILY Voltaren (Diclofenac Sodium) 100 Gm Gel..gram. 2 Gm TP QID Novolog Flexpen (Insulin Aspart) 100 Unit/1 Ml Insuln.pen 0-5 Unit SQ TIDBFRMEAL Sliding Scale Insulin Accucheck: 70 - 150 = 0 units If Eating/ 0 units If not eating or HS, 151 - 200 = 2 Units If Eating/ 0 Units If not eating or HS, 201 - 250 = 3 Units If Eating/ 0 Units If not eating or HS, 251 - 300 = 4 Units If Eating/ 2 Units If not eating or HS, 301 - 350 = 5 Units If Eating/ 3 Untis If not eating or HS, Accucheck 351 or > Call PCP for additional orders Advanced Antacid Liquid (Mag Hydrox/Al Hydrox/Simeth) 355 Ml Oral.susp 15 Ml PO QIDAFTMEAL PRN Tylenol (Acetaminophen) 325 Mg Tablet 2 Tab PO PRN Q4HRS PRN Sinemet 25-100 Mg Tablet (Carbidopa/Levodopa) 1 Each Tablet 1 Tab PO QID Albuterol Sulfate Neb Soln (Albuterol Sulfate) 2.5 Mg/3 Ml Vial.neb 2.5 Mg NEB TID Tramadol Hcl (Tramadol HCl) 50 Mg Tablet 50 Mg PO BID Tramadol Hcl (Tramadol HCl) 50 Mg Tablet 50 Mg PO PRN Q6HRS PRN Thiamine Hcl 100 Mg Tablet 100 Mg PO DAILY Sotalol (Sotalol Hcl) 80 Mg Tablet 80 Mg PO BID Seroquel (Quetiapine Fumarate) 100 Mg Tablet 100 Mg PO QHS Seroquel (Quetiapine Fumarate) 50 Mg Tablet 50 Mg PO DAILY Pradaxa (Dabigatran Etexilate Mesylate) 150 Mg Capsule 150 Mg PO BID Nystatin 15 Gm Cream..g. 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
--- NOTE | 2016-09-13 03:36 | PN ---
DATE: 09/11/2016 This late entry 09/11/2016 covers elements not covered in my initial note. SUBJECTIVE: The patient slept 7-1/4 hours previous night, napping off and on during the day, confused, not agitated or aggressive. REVIEW OF SYSTEMS: Ambulation impaired, in his Broda chair. No CV, , pulmonary, eye system symptoms on review. MENTAL STATUS EXAM: Oriented to himself, situation and seemed to recognize me, but I am not sure of that, very animated in his speech with me. Has a sense of humor. Short term memory is impaired, abstraction fair, computation impaired, language function intact. Mood and affect, lability is improved. LABORATORY DATA: Reviewed. IMPRESSION: Major neurocognitive disorder, Lewy body type with delusion, depression; anxiety disorder, unspecified; impulse control disorder, unspecified. PLAN: Continue Exelon patch 13.3 mg a day; Seroquel 50 mg in the morning, 100 at night; Namenda 10 b.i.d.; Lexapro 10 mg a day. Adjust further as clinically indicated. May consider BuSpar if anxiety, restlessness resurfaces. MAN Heaven MAGALLANES MD DR: MARIBEL/harshad JOB#: [id number] / [id number]
[2016-09-13 05:51] VITALS: BP 142/89
--- NOTE | 2016-09-13 06:43 | NUR ---
Behavior Intervention Response and Plan: BIRP Note: Behavior: Assumed Care of patient, patient located in Day Room at shift change. Patient exhibited the following behavior Disorganized, Irritable, Agitated. Brief assessment on rounds of vital signs, medication needs, lab studies, and pain. Treatment plan problems Danger to Self and Fall risk. Intervention: Patient assessed and the following interventions initiated safety checks 15 Minute Checks Cognitive Assessment , Medications , Oral Hydration. Response: After interactions and interventions patient responded in the following manner, Disorganized , Delusions ,Irritable. Continue to assess behaviors and condition will continue to monitor throughout the shift as needed. 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 Continue to assess patient for changes in above assessment. Monitor for medication needs, pain, and safety concerns. Hourly rounding performed to ensure safe environment.
[2016-09-13] MEDS: RIVASTIGMINE 13.3MG PATCH. TD SCH (09:29)
[2016-09-13] MEDS: THIAMINE 100 MG TABLET. PO SCH (09:29)
[2016-09-13] MEDS: CARBIDOPA/LEVODOPA 25/100MG TABLET PO SCH ×4 (09:29→20:54)
[2016-09-13] MEDS: FOLIC ACID 1 MG TABLET PO SCH (09:29)
[2016-09-13] MEDS: MEMANTINE 10 MG TABLET. PO SCH ×2 (09:29→20:54)
[2016-09-13] MEDS: ESCITALOPRAM 10 MG TABLET. PO SCH (09:29)
[2016-09-13] MEDS: QUEtiapine 50 MG TABLET. PO SCH (09:29)
[2016-09-13] MEDS: GLIMEPIRIDE 2 MG TABLET PO SCH ×2 (09:29→20:54)
[2016-09-13] MEDS: DABIGATRAN ETEXILATE 150 MG CAPSULE. PO SCH ×2 (09:29→20:54)
[2016-09-13] MEDS: traMADol 50 MG TABLET PO SCH ×2 (09:32→21:01)
[2016-09-13] MEDS: SOTALOL 80 MG TABLET. PO SCH ×2 (09:32→20:57)
[2016-09-13] MEDS: DICLOFENAC SODIUM 1% TOPICAL GEL 100GM TUBE. TP SCH ×4 (09:35→20:59)
[2016-09-13] MEDS: DIVALPROEX 125 MG CAP.SPRINK PO SCH (13:08)
[2016-09-13 15:33] VITALS: BP 138/88
[2016-09-13] MEDS: QUEtiapine 100 MG TABLET. PO SCH (20:54)
--- NOTE | 2016-09-13 21:10 | NUR ---
Behavior Intervention Response and Plan: BIRP Note: Behavior: Assumed Care of patient, patient located in Day Room at shift change. Patient exhibited the following behavior Disorganized, Calm , Interactive. Brief assessment on rounds of vital signs, medication needs, lab studies, and pain. Treatment plan problems Danger to Self and Fall risk. Intervention: Patient assessed and the following interventions initiated safety checks 15 Minute Checks Cognitive Assessment , Medications , Oral Hydration, Nutrition. Response: After interactions and interventions patient responded in the following manner, Disorganized , Calm , Cooperative. Continue to assess behaviors and condition will continue to monitor throughout the shift as needed. 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 Continue to assess patient for changes in above assessment. Monitor for medication needs, pain, and safety concerns. Hourly rounding performed to ensure safe environment.
--- NOTE | 2016-09-13 21:14 | PDOC ---
Exam Lobito Demential Exam: Lobito Note: Please also refer to the separate dictated note~for this date of service dictated separately.~Patient seen individually. Discussed the patient with Nursing staff reviewed the chart.~Reviewed interim history and current functioning. Reviewed vital signs,~Labs/ Radiology~and current medications noted below. Continue current treatment with the changes noted in the dictated addendum note Assessment: Vital Signs: Vital Signs Date Time Temp Pulse Resp B/P (MAP) Pulse Ox O2 Delivery O2 Flow Rate FiO2 09/13/16 21:01 16 Room Air 09/13/16 20:57 68 138/88 09/13/16 15:33 97.8 95 09/09/16 16:17 97.0 I&O Intake and Output 09/13/16 07:00 Intake Total 1320 ml Balance 1320 ml Intake Oral 1320 ml # Voids 1 # Bowel Movements 1 Labs: Laboratory Tests Test 09/13/16 07:20 09/13/16 11:17 09/13/16 16:31 09/13/16 19:36 Glucose (Fingerstick) 145 mg/dL (70-99) H 251 mg/dL (70-99) H 208 mg/dL (70-99) H 252 mg/dL (70-99) H Current Medications: Meds: Current Medications Multi-Ingredient Ointment (Analgesic [place]) 1 marilyn PRN QID PRN TP MUSCLE PAIN; Start 09/05/16 at 21:30 Acetaminophen (Tylenol) 650 mg Q4HRS PO ; Start 09/06/16 at 00:00; Stop 09/06/16 at 00:00; Status DC Memantine (Namenda) 5 mg BID PO Last administered on 09/06/16 07:38; Start at 22:00; Stop 09/06/16 at 10:44; Status DC Quetiapine Fumarate (SEROquel) 50 mg DAILY PO Last administered on 09/13/16 09: 29; Start 09/06/16 at 09:00 Quetiapine Fumarate (SEROquel) 100 mg QHS PO Last administered on 09/13/16 20: 54; Start 09/05/16 at 22:00 Rivastigmine (Exelon) 1 patch DAILY TD Last administered on 09/06/16 08:28; Start 09/06/16 at 09:00; Stop 09/06/16 at 10:44; Status DC Al Hydroxide/Mg Hydroxide (Mylanta Plus Xs) 15 ml PRN AFTMEALHC PRN PO DYSPEPSIA; Start 09/05/16 at 21:45 Tramadol HCl (Ultram) 50 mg BID PO Last administered on 09/13/16 21:01; Start 09/06/16 at 09:00 Tramadol HCl (Ultram) 50 mg PRN Q6HRS PRN PO PAIN Last administered on 15:40; Start 09/05/16 at 22:15 Acetaminophen (Tylenol) 1,000 mg 1X ONCE PO Last administered on 09/05/16 22: 17; Start 09/05/16 at 22:15; Stop 09/05/16 at 22:17; Status DC Albuterol Sulfate (Ventolin) 2.5 mg TID NEB Last administered on 09/09/16 10:04 ; Start 09/06/16 at 14:00; Stop 09/09/16 at 10:49; Status DC Budesonide (Pulmicort) 0.5 mg BID NEB Last administered on 09/09/16 10:04; Start 09/06/16 at 21:00; Stop 09/09/16 at 10:49; Status DC Carbidopa/Levodopa (Sinemet 25/100) 1 tab QID PO Last administered on 09/13/16 20:54; Start 09/06/16 at 13:00 Dabigatran (Pradaxa) 150 mg BID PO Last administered on 09/13/16 20:54; Start 09/06/16 at 10:45 Diclofenac Sodium (Voltaren) 2 marilyn QID TP Last administered on 09/13/16 20:59; Start 09/06/16 at 13:00 Folic Acid (Folic Acid) 1 mg DAILY PO Last administered on 09/13/16 09:29; Start 09/06/16 at 10:45 Glimepiride (Amaryl) 2 mg BID PO Last administered on 09/13/16 20:54; Start 09/06/16 at 10:45 Ketoconazole (Nizoral 2% Shampoo) 1 marilyn 3X/WEEK TP Last administered on 08:29; Start 09/07/16 at 09:00 Magnesium Hydroxide (Milk Of Magnesia) 2,400 mg PRN QHS PRN PO CONSTIPATION; Start 09/06/16 at 10:30 Methimazole (Tapazole) 5 mg TID PO Last administered on 09/07/16 19:38; Start 09/06/16 at 14:00; Stop 09/08/16 at 09:18; Status DC Nystatin (Mycostatin) 1 marilyn PRN Q8HRS PRN TP Yeast; Start 09/06/16 at 10:30 Sotalol HCl (Betapace) 80 mg BID PO Last administered on 09/13/16 20:57; Start 09/06/16 at 21:00 Thiamine HCl (Vitamin B-1) 100 mg DAILY PO Last administered on 09/13/16 09:29 ; Start 09/06/16 at 10:45 Memantine (Namenda) 10 mg BID PO Last administered on 09/13/16 20:54; Start 09/06/16 at 21:00 Rivastigmine (Exelon 13.3mg) 1 patch DAILY TD Last administered on 09/13/16 09: 29; Start 09/07/16 at 09:00 Escitalopram Oxalate (Lexapro) 5 mg DAILY PO Last administered on 09/08/16 09: 25; Start 09/07/16 at 09:00; Stop 09/08/16 at 20:29; Status DC Methimazole (Tapazole) 7.5 mg TID PO Last administered on 09/13/16 20:58; Start 09/08/16 at 14:00 Cyanocobalamin (Vitamin B-12) 1,000 mcg [id number] IM Last administered on 09:27; Start 09/08/16 at 09:15 Vitamin D (Vitamin D3) 50,000 unit [id number] PO Last administered on 09/08/16 09: 27; Start 09/08/16 at 09:15 Escitalopram Oxalate (Lexapro) 10 mg DAILY PO Last administered on 09/13/16 09: 29; Start 09/09/16 at 09:00 Albuterol Sulfate (Ventolin) 2.5 mg PRN TID PRN NEB WHEEZING; Start 09/09/16 at 11:00 Budesonide (Pulmicort) 0.5 mg PRN BID PRN NEB WHEEZING; Start 09/09/16 at 11:00 Divalproex Sodium (Depakote Sprinkles) 125 mg [id number] PO Last administered on 09/13t 13:08; Start 09/13/16 at 14:00 Active Scripts Active Reported Namenda (Memantine Hcl) 10 Mg Tablet 5 Mg PO BID EXELON 9.5mg/24hr (Rivastigmine) 1 Each Patch.td24 1 Patch TD DAILY Voltaren (Diclofenac Sodium) 100 Gm Gel..gram. 2 Gm TP QID Novolog Flexpen (Insulin Aspart) 100 Unit/1 Ml Insuln.pen 0-5 Unit SQ TIDBFRMEAL Sliding Scale Insulin Accucheck: 70 - 150 = 0 units If Eating/ 0 units If not eating or HS, 151 - 200 = 2 Units If Eating/ 0 Units If not eating or HS, 201 - 250 = 3 Units If Eating/ 0 Units If not eating or HS, 251 - 300 = 4 Units If Eating/ 2 Units If not eating or HS, 301 - 350 = 5 Units If Eating/ 3 Untis If not eating or HS, Accucheck 351 or > Call PCP for additional orders Advanced Antacid Liquid (Mag Hydrox/Al Hydrox/Simeth) 355 Ml Oral.susp 15 Ml PO QIDAFTMEAL PRN Tylenol (Acetaminophen) 325 Mg Tablet 2 Tab PO PRN Q4HRS PRN Sinemet 25-100 Mg Tablet (Carbidopa/Levodopa) 1 Each Tablet 1 Tab PO QID Albuterol Sulfate Neb Soln (Albuterol Sulfate) 2.5 Mg/3 Ml Vial.neb 2.5 Mg NEB TID Tramadol Hcl (Tramadol HCl) 50 Mg Tablet 50 Mg PO BID Tramadol Hcl (Tramadol HCl) 50 Mg Tablet 50 Mg PO PRN Q6HRS PRN Thiamine Hcl 100 Mg Tablet 100 Mg PO DAILY Sotalol (Sotalol Hcl) 80 Mg Tablet 80 Mg PO BID Seroquel (Quetiapine Fumarate) 100 Mg Tablet 100 Mg PO QHS Seroquel (Quetiapine Fumarate) 50 Mg Tablet 50 Mg PO DAILY Pradaxa (Dabigatran Etexilate Mesylate) 150 Mg Capsule 150 Mg PO BID Nystatin 15 Gm Cream..g. 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
[2016-09-14 06:30] VITALS: BP 108/55
[2016-09-14] MEDS: RIVASTIGMINE 13.3MG PATCH. TD SCH (07:25)
[2016-09-14] MEDS: DIVALPROEX 125 MG CAP.SPRINK PO SCH ×2 (07:25→12:23)
[2016-09-14] MEDS: QUEtiapine 50 MG TABLET. PO SCH (07:25)
[2016-09-14] MEDS: THIAMINE 100 MG TABLET. PO SCH (07:25)
[2016-09-14] MEDS: FOLIC ACID 1 MG TABLET PO SCH (07:25)
[2016-09-14] MEDS: ESCITALOPRAM 10 MG TABLET. PO SCH (07:25)
[2016-09-14] MEDS: GLIMEPIRIDE 2 MG TABLET PO SCH ×2 (07:26→20:11)
[2016-09-14] MEDS: CARBIDOPA/LEVODOPA 25/100MG TABLET PO SCH ×4 (07:26→20:11)
[2016-09-14] MEDS: DABIGATRAN ETEXILATE 150 MG CAPSULE. PO SCH ×2 (07:26→20:11)
[2016-09-14] MEDS: MEMANTINE 10 MG TABLET. PO SCH ×2 (07:26→20:36)
[2016-09-14] MEDS: SOTALOL 80 MG TABLET. PO SCH ×2 (07:26→20:37)
[2016-09-14] MEDS: traMADol 50 MG TABLET PO SCH ×2 (07:30→20:11)
[2016-09-14] MEDS: KETOCONAZOLE 2% SHAMPOO 120ML BOTTLE. TP SCH (07:30)
[2016-09-14] MEDS: DICLOFENAC SODIUM 1% TOPICAL GEL 100GM TUBE. TP SCH ×4 (07:30→20:39)
--- NOTE | 2016-09-14 10:02 | NUR ---
Behavior Intervention Response and Plan: BIRP Note: Behavior: Assumed Care of patient, patient located in Dining Room at shift change. Patient exhibited the following behavior Calm, Disorganized, Compliant. Brief assessment on rounds of vital signs, medication needs, lab studies, and pain. Treatment plan problems . Intervention: Patient assessed and the following interventions initiated safety checks 15 Minute Checks Cognitive Assessment , Head to toe Assessment , Medications. Response: After interactions and interventions patient responded in the following manner, Interactive , Calm ,Compliant. Continue to assess behaviors and condition will continue to monitor throughout the shift as needed. Plan: Continue to monitor Master Treatment Plan for patient's progress toward short term goals of Decreased Agitation, Decreased Aggression, extermination inspector goals to return to previous living setting vs placement. Continue to assess patient for changes in above assessment. Monitor for medication needs, pain, and safety concerns. Hourly rounding performed to ensure safe environment.
--- NOTE | 2016-09-14 14:00 | NUR ---
THERAPEUTIC RECREATION GROUP NOTE TITLE :Movie ACTIVITY : Activities and Games GOAL : Increase alertness/focus, decrease stress DURATION : 90 Minutes RESPONSE : No participation.
[2016-09-14 15:34] VITALS: BP 159/92
--- NOTE | 2016-09-14 15:48 | NUR ---
pt robert matias. in pleasant spirits. compliant with meds and cares. resting quietly in chair at this time.
[2016-09-14] MEDS: QUEtiapine 100 MG TABLET. PO SCH (20:36)
--- NOTE | 2016-09-14 21:35 | PDOC ---
Exam Lobito Demential Exam: Lobito Note: Please also refer to the separate dictated note~for this date of service dictated separately.~Patient seen individually. Discussed the patient with Nursing staff reviewed the chart.~Reviewed interim history and current functioning. Reviewed vital signs,~Labs/ Radiology~and current medications noted below. Continue current treatment with the changes noted in the dictated addendum note Assessment: Vital Signs: Vital Signs Date Time Temp Pulse Resp B/P (MAP) Pulse Ox O2 Delivery O2 Flow Rate FiO2 09/14/16 20:37 79 159/92 09/14/16 20:11 20 09/14/16 15:34 97.7 96 Room Air 09/09/16 16: 97.0 I&O Intake and Output 09/14/16 06:59 Intake Total 1320 ml Output Total 150 ml Balance 1170 ml Intake Oral 1320 ml Output Urine Total 150 ml # Voids 2 Labs: Laboratory Tests Test 09/14/16 07:10 09/14/16 11:08 09/14/16 16:56 09/14/16 19:29 Glucose (Fingerstick) 160 mg/dL (70-99) H 244 mg/dL (70-99) H 181 mg/dL (70-99) H 255 mg/dL (70-99) H Current Medications: Meds: Current Medications Multi-Ingredient Ointment (Analgesic [place]) 1 marilyn PRN QID PRN TP MUSCLE PAIN; Start 09/05/16 at 21:30 Acetaminophen (Tylenol) 650 mg Q4HRS PO ; Start 09/06/16 at 00:00; Stop 09/06/16 at 00:00; Status DC Memantine (Namenda) 5 mg BID PO Last administered on 09/06/16 07:38; Start at 22:00; Stop 09/06/16 at 10:44; Status DC Quetiapine Fumarate (SEROquel) 50 mg DAILY PO Last administered on 09/14/16 07: 25; Start 09/06/16 at 09:00 Quetiapine Fumarate (SEROquel) 100 mg QHS PO Last administered on 09/14/16 20: 36; Start 09/05/16 at 22:00 Rivastigmine (Exelon) 1 patch DAILY TD Last administered on 09/06/16 08:28; Start 09/06/16 at 09:00; Stop 09/06/16 at 10:44; Status DC Al Hydroxide/Mg Hydroxide (Mylanta Plus Xs) 15 ml PRN AFTMEALHC PRN PO DYSPEPSIA; Start 09/05/16 at 21:45 Tramadol HCl (Ultram) 50 mg BID PO Last administered on 09/14/16 20:11; Start 09/06/16 at 09:00 Tramadol HCl (Ultram) 50 mg PRN Q6HRS PRN PO PAIN Last administered on 15:40; Start 09/05/16 at 22:15 Acetaminophen (Tylenol) 1,000 mg 1X ONCE PO Last administered on 09/05/16 22: 17; Start 09/05/16 at 22:15; Stop 09/05/16 at 22:17; Status DC Albuterol Sulfate (Ventolin) 2.5 mg TID NEB Last administered on 09/09/16 10:04 ; Start 09/06/16 at 14:00; Stop 09/09/16 at 10:49; Status DC Budesonide (Pulmicort) 0.5 mg BID NEB Last administered on 09/09/16 10:04; Start 09/06/16 at 21:00; Stop 09/09/16 at 10:49; Status DC Carbidopa/Levodopa (Sinemet 25/100) 1 tab QID PO Last administered on 09/14/16 20:11; Start 09/06/16 at 13:00 Dabigatran (Pradaxa) 150 mg BID PO Last administered on 09/14/16 20:11; Start 09/06/16 at 10:45 Diclofenac Sodium (Voltaren) 2 marilyn QID TP Last administered on 09/14/16 20:39; Start 09/06/16 at 13:00 Folic Acid (Folic Acid) 1 mg DAILY PO Last administered on 09/14/16 07:25; Start 09/06/16 at 10:45 Glimepiride (Amaryl) 2 mg BID PO Last administered on 09/14/16 20:11; Start 09/06/16 at 10:45 Ketoconazole (Nizoral 2% Shampoo) 1 marilyn 3X/WEEK TP Last administered on 07:30; Start 09/07/16 at 09:00 Magnesium Hydroxide (Milk Of Magnesia) 2,400 mg PRN QHS PRN PO CONSTIPATION; Start 09/06/16 at 10:30 Methimazole (Tapazole) 5 mg TID PO Last administered on 09/07/16 19:38; Start 09/06/16 at 14:00; Stop 09/08/16 at 09:18; Status DC Nystatin (Mycostatin) 1 marilyn PRN Q8HRS PRN TP Yeast; Start 09/06/16 at 10:30 Sotalol HCl (Betapace) 80 mg BID PO Last administered on 09/14/16 20:37; Start 09/06/16 at 21:00 Thiamine HCl (Vitamin B-1) 100 mg DAILY PO Last administered on 09/14/16 07:25 ; Start 09/06/16 at 10:45 Memantine (Namenda) 10 mg BID PO Last administered on 09/14/16 20:36; Start 09/06/16 at 21:00 Rivastigmine (Exelon 13.3mg) 1 patch DAILY TD Last administered on 09/14/16 07: 25; Start 09/07/16 at 09:00 Escitalopram Oxalate (Lexapro) 5 mg DAILY PO Last administered on 09/08/16 09: 25; Start 09/07/16 at 09:00; Stop 09/08/16 at 20:29; Status DC Methimazole (Tapazole) 7.5 mg TID PO Last administered on 09/14/16 20:36; Start 09/08/16 at 14:00 Cyanocobalamin (Vitamin B-12) 1,000 mcg [id number] IM Last administered on 09:27; Start 09/08/16 at 09:15 Vitamin D (Vitamin D3) 50,000 unit [id number] PO Last administered on 09/08/16 09: 27; Start 09/08/16 at 09:15 Escitalopram Oxalate (Lexapro) 10 mg DAILY PO Last administered on 09/14/16 07: 25; Start 09/09/16 at 09:00 Albuterol Sulfate (Ventolin) 2.5 mg PRN TID PRN NEB WHEEZING; Start 09/09/16 at 11:00 Budesonide (Pulmicort) 0.5 mg PRN BID PRN NEB WHEEZING; Start 09/09/16 at 11:00 Divalproex Sodium (Depakote Sprinkles) 125 mg [id number] PO Last administered on 09/14 12:23; Start 09/13/16 at 14:00 Olanzapine (ZyPREXA ZYDIS) 2.5 mg PRN Q2HR PRN PO PSYCHOSIS Last administered on 09/14/16 17:21; Start 09/14/16 at 15:00 Active Scripts Active Reported Namenda (Memantine Hcl) 10 Mg Tablet 5 Mg PO BID EXELON 9.5mg/24hr (Rivastigmine) 1 Each Patch.td24 1 Patch TD DAILY Voltaren (Diclofenac Sodium) 100 Gm Gel..gram. 2 Gm TP QID Novolog Flexpen (Insulin Aspart) 100 Unit/1 Ml Insuln.pen 0-5 Unit SQ TIDBFRMEAL Sliding Scale Insulin Accucheck: 70 - 150 = 0 units If Eating/ 0 units If not eating or HS, 151 - 200 = 2 Units If Eating/ 0 Units If not eating or HS, 201 - 250 = 3 Units If Eating/ 0 Units If not eating or HS, 251 - 300 = 4 Units If Eating/ 2 Units If not eating or HS, 301 - 350 = 5 Units If Eating/ 3 Untis If not eating or HS, Accucheck 351 or > Call PCP for additional orders Advanced Antacid Liquid (Mag Hydrox/Al Hydrox/Simeth) 355 Ml Oral.susp 15 Ml PO QIDAFTMEAL PRN Tylenol (Acetaminophen) 325 Mg Tablet 2 Tab PO PRN Q4HRS PRN Sinemet 25-100 Mg Tablet (Carbidopa/Levodopa) 1 Each Tablet 1 Tab PO QID Albuterol Sulfate Neb Soln (Albuterol Sulfate) 2.5 Mg/3 Ml Vial.neb 2.5 Mg NEB TID Tramadol Hcl (Tramadol HCl) 50 Mg Tablet 50 Mg PO BID Tramadol Hcl (Tramadol HCl) 50 Mg Tablet 50 Mg PO PRN Q6HRS PRN Thiamine Hcl 100 Mg Tablet 100 Mg PO DAILY Sotalol (Sotalol Hcl) 80 Mg Tablet 80 Mg PO BID Seroquel (Quetiapine Fumarate) 100 Mg Tablet 100 Mg PO QHS Seroquel (Quetiapine Fumarate) 50 Mg Tablet 50 Mg PO DAILY Pradaxa (Dabigatran Etexilate Mesylate) 150 Mg Capsule 150 Mg PO BID Nystatin 15 Gm Cream..g. 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
--- NOTE | 2016-09-15 04:00 | PN ---
DATE: 09/12/2016 This late entry 09/12/2016 covers elements not covered in my initial note. SUBJECTIVE: The patient remains confused, but covers this up with a sense of humor in conversation. He has been paranoid, thinks he is in [facility]. No combativeness noted. Takes his medications crushed, is in a Broda chair. REVIEW OF SYSTEMS: Ambulation impaired. No CV, , pulmonary, eye, ENT system symptoms on review. Reliability poor. MENTAL STATUS EXAM: Oriented to himself. Insight, judgment, recent and remote memory, attention, concentration, fund of knowledge poor, consistent with his diagnosis mentioned in my initial note. LABORATORY DATA: Reviewed. PLAN: Continue current psychotropics mentioned in my initial note. Adjust as clinically indicated. MAN Heaven MAGALLANES MD DR: MARIBEL/harshad JOB#: [id number] / [id number]
--- NOTE | 2016-09-15 04:01 | PN ---
DATE: 09/13/2016 PSYCHIATRIC PROGRESS NOTE This is a late entry of 09/13/2016, covers at covers elements not covered in my initial note. SUBJECTIVE: The patient was staffed at a treatment team meeting with the entire team seen individually. He remains cooperative, compliant, but little irritable at times, but not aggressive or suicidal, which is what prompted this referral. REVIEW OF SYSTEMS: Ambulation impaired, in a Broda chair. No CV, , pulmonary, eye system symptoms on review. MENTAL STATUS EXAM: Oriented to himself. Insight, judgment, recent and remote memory, attention, concentration, fund of knowledge poor, consistent with his diagnosis. LABORATORY DATA: Reviewed. IMPRESSION: Unchanged from initial note. PLAN: Continue current psychotropics. Start Depakote Sprinkles 125 mg twice a day. Follow labs level, adjust as indicated. MAN Heaven MAGALLANES MD DR: MARIBEL/harshad JOB#: [id number] / [id number]
[2016-09-15 06:27] VITALS: BP 139/84
[2016-09-15] MEDS: GLIMEPIRIDE 2 MG TABLET PO SCH ×2 (07:37→21:35)
[2016-09-15] MEDS: DIVALPROEX 125 MG CAP.SPRINK PO SCH ×2 (07:37→12:34)
[2016-09-15] MEDS: RIVASTIGMINE 13.3MG PATCH. TD SCH (07:37)
[2016-09-15] MEDS: QUEtiapine 50 MG TABLET. PO SCH (07:37)
[2016-09-15] MEDS: MEMANTINE 10 MG TABLET. PO SCH ×2 (07:37→21:35)
[2016-09-15] MEDS: THIAMINE 100 MG TABLET. PO SCH (07:37)
[2016-09-15] MEDS: CARBIDOPA/LEVODOPA 25/100MG TABLET PO SCH ×4 (07:38→21:36)
[2016-09-15] MEDS: DICLOFENAC SODIUM 1% TOPICAL GEL 100GM TUBE. TP SCH ×4 (07:38→21:39)
[2016-09-15] MEDS: FOLIC ACID 1 MG TABLET PO SCH (07:38)
[2016-09-15] MEDS: DABIGATRAN ETEXILATE 150 MG CAPSULE. PO SCH ×2 (07:38→21:38)
[2016-09-15] MEDS: ESCITALOPRAM 10 MG TABLET. PO SCH (07:38)
[2016-09-15] MEDS: traMADol 50 MG TABLET PO SCH ×2 (07:40→21:35)
[2016-09-15] MEDS: SOTALOL 80 MG TABLET. PO SCH ×2 (07:40→21:38)
--- NOTE | 2016-09-15 09:58 | NUR ---
Behavior Intervention Response and Plan: BIRP Note: Behavior: Assumed Care of patient, patient located in Dining Room at shift change. Patient exhibited the following behavior Calm, Disorganized, Compliant. Brief assessment on rounds of vital signs, medication needs, lab studies, and pain. Treatment plan problems . Intervention: Patient assessed and the following interventions initiated safety checks 15 Minute Checks Cognitive Assessment , Head to toe Assessment , Medications. Response: After interactions and interventions patient responded in the following manner, Interactive , Calm ,Compliant. Continue to assess behaviors and condition will continue to monitor throughout the shift as needed. Plan: Continue to monitor Master Treatment Plan for patient's progress toward short term goals of Decreased Agitation, Decreased Aggression, terminal worker goals to return to previous living setting vs placement. Continue to assess patient for changes in above assessment. Monitor for medication needs, pain, and safety concerns. Hourly rounding performed to ensure safe environment.
--- NOTE | 2016-09-15 11:14 | PDOC ---
Exam Lobito Demential Exam: Lobito Note: Please also refer to the separate dictated note~for this date of service dictated separately.~Patient seen individually. Discussed the patient with Nursing staff reviewed the chart.~Reviewed interim history and current functioning. Reviewed vital signs,~Labs/ Radiology~and current medications noted below. Continue current treatment with the changes noted in the dictated addendum note Assessment: Vital Signs: Vital Signs Date Time Temp Pulse Resp B/P (MAP) Pulse Ox O2 Delivery O2 Flow Rate FiO2 09/15/16 07:40 83 139/84 09/15/16 06:27 97.6 16 97 Room Air 09/09/16 16:17 97.0 I&O Intake and Output 09/15/16 07:00 Intake Total 960 ml Balance 960 ml Intake Oral 960 ml # Voids 1 # Bowel Movements 2 Labs: Laboratory Tests Test 09/14/16 16:56 09/14/16 19:29 09/15/16 07:23 Glucose (Fingerstick) 181 mg/dL (70-99) H 255 mg/dL (70-99) H 152 mg/dL (70-99) H Current Medications: Meds: Current Medications Multi-Ingredient Ointment (Analgesic S[place]) 1 marilyn PRN QID PRN TP MUSCLE PAIN; Start 09/05/16 at 21:30 Acetaminophen (Tylenol) 650 mg Q4HRS PO ; Start 09/06/16 at 00:00; Stop 09/06/16 at 00:00; Status DC Memantine (Namenda) 5 mg BID PO Last administered on 09/06/16 07:38; Start at 22:00; Stop 09/06/16 at 10:44; Status DC Quetiapine Fumarate (SEROquel) 50 mg DAILY PO Last administered on 09/15/16 07 :37; Start 09/06/16 at 09:00 Quetiapine Fumarate (SEROquel) 100 mg QHS PO Last administered on 09/14/16 20: 36; Start 09/05/16 at 22:00 Rivastigmine (Exelon) 1 patch DAILY TD Last administered on 09/06/16 08:28; Start 09/06/16 at 09:00; Stop 09/06/16 at 10:44; Status DC Al Hydroxide/Mg Hydroxide (Mylanta Plus Xs) 15 ml PRN AFTMEALHC PRN PO DYSPEPSIA; Start 09/05/16 at 21:45 Tramadol HCl (Ultram) 50 mg BID PO Last administered on 09/15/16 07:40; Start 09/06/16 at 09:00 Tramadol HCl (Ultram) 50 mg PRN Q6HRS PRN PO PAIN Last administered on 15:40; Start 09/05/16 at 22:15 Acetaminophen (Tylenol) 1,000 mg 1X ONCE PO Last administered on 09/05/16 22: 17; Start 09/05/16 at 22:15; Stop 09/05/16 at 22:17; Status DC Albuterol Sulfate (Ventolin) 2.5 mg TID NEB Last administered on 09/09/16 10:04 ; Start 09/06/16 at 14:00; Stop 09/09/16 at 10:49; Status DC Budesonide (Pulmicort) 0.5 mg BID NEB Last administered on 09/09/16 10:04; Start 09/06/16 at 21:00; Stop 09/09/16 at 10:49; Status DC Carbidopa/Levodopa (Sinemet 25/100) 1 tab QID PO Last administered on 07:38; Start 09/06/16 at 13:00 Dabigatran (Pradaxa) 150 mg BID PO Last administered on 09/15/16 07:38; Start 09/06/16 at 10:45 Diclofenac Sodium (Voltaren) 2 marilyn QID TP Last administered on 09/15/16 07:38 ; Start 09/06/16 at 13:00 Folic Acid (Folic Acid) 1 mg DAILY PO Last administered on 09/15/16 07:38; Start 09/06/16 at 10:45 Glimepiride (Amaryl) 2 mg BID PO Last administered on 09/15/16 07:37; Start at 10:45 Ketoconazole (Nizoral 2% Shampoo) 1 marilyn 3X/WEEK TP Last administered on 07:30; Start 09/07/16 at 09:00 Magnesium Hydroxide (Milk Of Magnesia) 2,400 mg PRN QHS PRN PO CONSTIPATION; Start 09/06/16 at 10:30 Methimazole (Tapazole) 5 mg TID PO Last administered on 09/07/16 19:38; Start 09/06/16 at 14:00; Stop 09/08/16 at 09:18; Status DC Nystatin (Mycostatin) 1 marilyn PRN Q8HRS PRN TP Yeast; Start 09/06/16 at 10:30 Sotalol HCl (Betapace) 80 mg BID PO Last administered on 09/15/16 07:40; Start 09/06/16 at 21:00 Thiamine HCl (Vitamin B-1) 100 mg DAILY PO Last administered on 09/15/16 07:37 ; Start 09/06/16 at 10:45 Memantine (Namenda) 10 mg BID PO Last administered on 09/15/16 07:37; Start at 21:00 Rivastigmine (Exelon 13.3mg) 1 patch DAILY TD Last administered on 09/15/16 07 :37; Start 09/07/16 at 09:00 Escitalopram Oxalate (Lexapro) 5 mg DAILY PO Last administered on 09/08/16 09: 25; Start 09/07/16 at 09:00; Stop 09/08/16 at 20:29; Status DC Methimazole (Tapazole) 7.5 mg TID PO Last administered on 09/15/16 07:40; Start 09/08/16 at 14:00 Cyanocobalamin (Vitamin B-12) 1,000 mcg [id number] IM Last administered on 09:27; Start 09/08/16 at 09:15 Vitamin D (Vitamin D3) 50,000 unit [id number] PO Last administered on 09/08/16 09: 27; Start 09/08/16 at 09:15 Escitalopram Oxalate (Lexapro) 10 mg DAILY PO Last administered on 09/15/16 07 :38; Start 09/09/16 at 09:00 Albuterol Sulfate (Ventolin) 2.5 mg PRN TID PRN NEB WHEEZING; Start 09/09/16 at 11:00 Budesonide (Pulmicort) 0.5 mg PRN BID PRN NEB WHEEZING; Start 09/09/16 at 11:00 Divalproex Sodium (Depakote Sprinkles) 125 mg [id number] PO Last administered on 07:37; Start 09/13/16 at 14:00 Olanzapine (ZyPREXA ZYDIS) 2.5 mg PRN Q2HR PRN PO PSYCHOSIS Last administered on 09/14/16 17:21; Start 09/14/16 at 15:00 Active Scripts Active Reported Namenda (Memantine Hcl) 10 Mg Tablet 5 Mg PO BID EXELON 9.5mg/24hr (Rivastigmine) 1 Each Patch.td24 1 Patch TD DAILY Voltaren (Diclofenac Sodium) 100 Gm Gel..gram. 2 Gm TP QID Novolog Flexpen (Insulin Aspart) 100 Unit/1 Ml Insuln.pen 0-5 Unit SQ TIDBFRMEAL Sliding Scale Insulin Accucheck: 70 - 150 = 0 units If Eating/ 0 units If not eating or HS, 151 - 200 = 2 Units If Eating/ 0 Units If not eating or HS, 201 - 250 = 3 Units If Eating/ 0 Units If not eating or HS, 251 - 300 = 4 Units If Eating/ 2 Units If not eating or HS, 301 - 350 = 5 Units If Eating/ 3 Untis If not eating or HS, Accucheck 351 or > Call PCP for additional orders Advanced Antacid Liquid (Mag Hydrox/Al Hydrox/Simeth) 355 Ml Oral.susp 15 Ml PO QIDAFTMEAL PRN Tylenol (Acetaminophen) 325 Mg Tablet 2 Tab PO PRN Q4HRS PRN Sinemet 25-100 Mg Tablet (Carbidopa/Levodopa) 1 Each Tablet 1 Tab PO QID Albuterol Sulfate Neb Soln (Albuterol Sulfate) 2.5 Mg/3 Ml Vial.neb 2.5 Mg NEB TID Tramadol Hcl (Tramadol HCl) 50 Mg Tablet 50 Mg PO BID Tramadol Hcl (Tramadol HCl) 50 Mg Tablet 50 Mg PO PRN Q6HRS PRN Thiamine Hcl 100 Mg Tablet 100 Mg PO DAILY Sotalol (Sotalol Hcl) 80 Mg Tablet 80 Mg PO BID Seroquel (Quetiapine Fumarate) 100 Mg Tablet 100 Mg PO QHS Seroquel (Quetiapine Fumarate) 50 Mg Tablet 50 Mg PO DAILY Pradaxa (Dabigatran Etexilate Mesylate) 150 Mg Capsule 150 Mg PO BID Nystatin 15 Gm Cream..g. 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
[2016-09-15 15:49] VITALS: BP 131/65
--- NOTE | 2016-09-15 16:07 | NUR ---
pt up in [place] for meals and out to day room. complaint with meds and cares.
[2016-09-15] MEDS: QUEtiapine 100 MG TABLET. PO SCH (21:36)
--- NOTE | 2016-09-15 22:45 | NUR ---
Behavior Intervention Response and Plan: BIRP Note: Behavior: Assumed Care of patient, patient located in Day Room at shift change. Patient exhibited the following behavior Disorganized, Calm , Interactive. Brief assessment on rounds of vital signs, medication needs, lab studies, and pain. Treatment plan problems Danger to Self and Fall risk. Intervention: Patient assessed and the following interventions initiated safety checks 15 Minute Checks Cognitive Assessment , Medications , Oral Hydration, Nutrition. Response: After interactions and interventions patient responded in the following manner, Disorganized , Calm , Cooperative. Continue to assess behaviors and condition will continue to monitor throughout the shift as needed. 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 Continue to assess patient for changes in above assessment. Monitor for medication needs, pain, and safety concerns. Hourly rounding performed to ensure safe environment.
[2016-09-16 06:05] VITALS: BP 127/75
[2016-09-16] MEDS: GLIMEPIRIDE 2 MG TABLET PO SCH ×2 (08:56→17:18)
[2016-09-16] MEDS: FOLIC ACID 1 MG TABLET PO SCH (08:57)
[2016-09-16] MEDS: RIVASTIGMINE 13.3MG PATCH. TD SCH (08:57)
[2016-09-16] MEDS: DIVALPROEX 125 MG CAP.SPRINK PO SCH ×2 (08:57→12:36)
[2016-09-16] MEDS: THIAMINE 100 MG TABLET. PO SCH (08:57)
[2016-09-16] MEDS: DABIGATRAN ETEXILATE 150 MG CAPSULE. PO SCH ×2 (08:58→19:53)
[2016-09-16] MEDS: CARBIDOPA/LEVODOPA 25/100MG TABLET PO SCH ×4 (08:58→19:53)
[2016-09-16] MEDS: QUEtiapine 50 MG TABLET. PO SCH (08:58)
[2016-09-16] MEDS: traMADol 50 MG TABLET PO SCH ×2 (08:58→19:54)
[2016-09-16] MEDS: MEMANTINE 10 MG TABLET. PO SCH ×2 (08:58→19:53)
[2016-09-16] MEDS: ESCITALOPRAM 10 MG TABLET. PO SCH (08:59)
[2016-09-16] MEDS: DICLOFENAC SODIUM 1% TOPICAL GEL 100GM TUBE. TP SCH ×4 (09:02→19:54)
[2016-09-16] MEDS: SOTALOL 80 MG TABLET. PO SCH ×2 (09:03→19:53)
--- NOTE | 2016-09-16 10:34 | NUR ---
Behavior Intervention Response and Plan: BIRP Note: Behavior: Assumed Care of patient, patient located in Day Room at shift change. Patient exhibited the following behavior Calm, Disorganized, Compliant. Brief assessment on rounds of vital signs, medication needs, lab studies, and pain. Treatment plan problems . Intervention: Patient assessed and the following interventions initiated safety checks 15 Minute Checks Cognitive Assessment , Head to toe Assessment , Medications. Response: After interactions and interventions patient responded in the following manner, Interactive , Calm ,Compliant. Continue to assess behaviors and condition will continue to monitor throughout the shift as needed. Plan: Continue to monitor Master Treatment Plan for patient's progress toward short term goals of Decreased Agitation, Decreased Aggression, retirement goals to return to previous living setting vs placement. Continue to assess patient for changes in above assessment. Monitor for medication needs, pain, and safety concerns. Hourly rounding performed to ensure safe environment.
[2016-09-16 16:20] VITALS: BP 133/81
--- NOTE | 2016-09-16 19:40 | NUR ---
Behavior Intervention Response and Plan: BIRP Note: Behavior: Assumed Care of patient, patient located in Day Room at shift change. Patient exhibited the following behavior Calm, Compliant, Cooperative. Brief assessment on rounds of vital signs, medication needs, lab studies, and pain. Treatment plan problems . Intervention: Patient assessed and the following interventions initiated safety checks 15 Minute Checks Medications , Head to toe Assessment , Cognitive Assessment. Response: After interactions and interventions patient responded in the following manner, Calm , Compliant ,Cooperative. Continue to assess behaviors and condition will continue to monitor throughout the shift as needed. Plan: Continue to monitor Master Treatment Plan for patient's progress toward short term goals of Improved Mood, No harm To self/ others, fdc goals to return to previous living setting vs placement. Continue to assess patient for changes in above assessment. Monitor for medication needs, pain, and safety concerns. Hourly rounding performed to ensure safe environment.
[2016-09-16] MEDS: QUEtiapine 100 MG TABLET. PO SCH (19:53)
--- NOTE | 2016-09-16 21:12 | PDOC ---
Exam Lobito Demential Exam: Lobito Note: Please also refer to the separate dictated note~for this date of service dictated separately.~Patient seen individually. Discussed the patient with Nursing staff reviewed the chart.~Reviewed interim history and current functioning. Reviewed vital signs,~Labs/ Radiology~and current medications noted below. Continue current treatment with the changes noted in the dictated addendum note Assessment: Vital Signs: Vital Signs Date Time Temp Pulse Resp B/P (MAP) Pulse Ox O2 Delivery O2 Flow Rate FiO2 09/16/16 19:54 18 Room Air 09/16/16 19:53 69 133/81 09/16/16 16:20 98.6 95 I&O Intake and Output 09/16/16 07:00 Intake Total 1200 ml Balance 1200 ml Intake Oral 1200 ml # Voids 2 Labs: Laboratory Tests Test 09/16/16 07:27 09/16/16 11:38 09/16/16 16:52 09/16/16 19:21 Glucose (Fingerstick) 149 mg/dL (70-99) H 283 mg/dL (70-99) H 256 mg/dL (70-99) H 221 mg/dL (70-99) H Current Medications: Meds: Current Medications Multi-Ingredient Ointment (Analgesic Blessing) 1 marilyn PRN QID PRN TP MUSCLE PAIN; Start 09/05/16 at 21:30 Acetaminophen (Tylenol) 650 mg Q4HRS PO ; Start 09/06/16 at 00:00; Stop 09/06/16 at 00:00; Status DC Memantine (Namenda) 5 mg BID PO Last administered on 09/06/16 07:38; Start at 22:00; Stop 09/06/16 at 10:44; Status DC Quetiapine Fumarate (SEROquel) 50 mg DAILY PO Last administered on 09/16/16 08 :58; Start 09/06/16 at 09:00 Quetiapine Fumarate (SEROquel) 100 mg QHS PO Last administered on 09/16/16 19: 53; Start 09/05/16 at 22:00 Rivastigmine (Exelon) 1 patch DAILY TD Last administered on 09/06/16 08:28; Start 09/06/16 at 09:00; Stop 09/06/16 at 10:44; Status DC Al Hydroxide/Mg Hydroxide (Mylanta Plus Xs) 15 ml PRN AFTMEALHC PRN PO DYSPEPSIA; Start 09/05/16 at 21:45 Tramadol HCl (Ultram) 50 mg BID PO Last administered on 09/16/16 19:54; Start 09/06/16 at 09:00 Tramadol HCl (Ultram) 50 mg PRN Q6HRS PRN PO PAIN Last administered on 15:40; Start 09/05/16 at 22:15 Acetaminophen (Tylenol) 1,000 mg 1X ONCE PO Last administered on 09/05/16 22: 17; Start 09/05/16 at 22:15; Stop 09/05/16 at 22:17; Status DC Albuterol Sulfate (Ventolin) 2.5 mg TID NEB Last administered on 09/09/16 10:04 ; Start 09/06/16 at 14:00; Stop 09/09/16 at 10:49; Status DC Budesonide (Pulmicort) 0.5 mg BID NEB Last administered on 09/09/16 10:04; Start 09/06/16 at 21:00; Stop 09/09/16 at 10:49; Status DC Carbidopa/Levodopa (Sinemet 25/100) 1 tab QID PO Last administered on 19:53; Start 09/06/16 at 13:00 Dabigatran (Pradaxa) 150 mg BID PO Last administered on 09/16/16 19:53; Start 09/06/16 at 10:45 Diclofenac Sodium (Voltaren) 2 marilyn QID TP Last administered on 09/16/16 19:54 ; Start 09/06/16 at 13:00 Folic Acid (Folic Acid) 1 mg DAILY PO Last administered on 09/16/16 08:57; Start 09/06/16 at 10:45 Glimepiride (Amaryl) 2 mg BID PO Last administered on 09/16/16 08:56; Start at 10:45; Stop 09/16/16 at 13:20; Status DC Ketoconazole (Nizoral 2% Shampoo) 1 marilyn 3X/WEEK TP Last administered on 07:30; Start 09/07/16 at 09:00 Magnesium Hydroxide (Milk Of Magnesia) 2,400 mg PRN QHS PRN PO CONSTIPATION; Start 09/06/16 at 10:30 Methimazole (Tapazole) 5 mg TID PO Last administered on 09/07/16 19:38; Start 09/06/16 at 14:00; Stop 09/08/16 at 09:18; Status DC Nystatin (Mycostatin) 1 marilyn PRN Q8HRS PRN TP Yeast; Start 09/06/16 at 10:30 Sotalol HCl (Betapace) 80 mg BID PO Last administered on 09/16/16 19:53; Start 09/06/16 at 21:00 Thiamine HCl (Vitamin B-1) 100 mg DAILY PO Last administered on 09/16/16 08:57 ; Start 09/06/16 at 10:45 Memantine (Namenda) 10 mg BID PO Last administered on 09/16/16 19:53; Start at 21:00 Rivastigmine (Exelon 13.3mg) 1 patch DAILY TD Last administered on 09/16/16 08 :57; Start 09/07/16 at 09:00 Escitalopram Oxalate (Lexapro) 5 mg DAILY PO Last administered on 09/08/16 09: 25; Start 09/07/16 at 09:00; Stop 09/08/16 at 20:29; Status DC Methimazole (Tapazole) 7.5 mg TID PO Last administered on 09/16/16 19:54; Start 09/08/16 at 14:00 Cyanocobalamin (Vitamin B-12) 1,000 mcg [id number] IM Last administered on 09:27; Start 09/08/16 at 09:15 Vitamin D (Vitamin D3) 50,000 unit [id number] PO Last administered on 09/08/16 09: 27; Start 09/08/16 at 09:15 Escitalopram Oxalate (Lexapro) 10 mg DAILY PO Last administered on 09/16/16 08 :59; Start 09/09/16 at 09:00 Albuterol Sulfate (Ventolin) 2.5 mg PRN TID PRN NEB WHEEZING; Start 09/09/16 at 11:00 Budesonide (Pulmicort) 0.5 mg PRN BID PRN NEB WHEEZING; Start 09/09/16 at 11:00 Divalproex Sodium (Depakote Sprinkles) 125 mg [id number] PO Last administered on 12:36; Start 09/13/16 at 14:00 Olanzapine (ZyPREXA ZYDIS) 2.5 mg PRN Q2HR PRN PO PSYCHOSIS Last administered on 09/15/16 17:43; Start 09/14/16 at 15:00 Glimepiride (Amaryl) 4 mg [id number] PO ; Start 09/17/16 at 08:00 Glimepiride (Amaryl) 2 mg DAILYWSUP PO Last administered on 09/16/16 17:18; Start 09/16/16 at 17:00 Active Scripts Active Reported Namenda (Memantine Hcl) 10 Mg Tablet 5 Mg PO BID EXELON 9.5mg/24hr (Rivastigmine) 1 Each Patch.td24 1 Patch TD DAILY Voltaren (Diclofenac Sodium) 100 Gm Gel..gram. 2 Gm TP QID Novolog Flexpen (Insulin Aspart) 100 Unit/1 Ml Insuln.pen 0-5 Unit SQ TIDBFRMEAL Sliding Scale Insulin Accucheck: 70 - 150 = 0 units If Eating/ 0 units If not eating or HS, 151 - 200 = 2 Units If Eating/ 0 Units If not eating or HS, 201 - 250 = 3 Units If Eating/ 0 Units If not eating or HS, 251 - 300 = 4 Units If Eating/ 2 Units If not eating or HS, 301 - 350 = 5 Units If Eating/ 3 Untis If not eating or HS, Accucheck 351 or > Call PCP for additional orders Advanced Antacid Liquid (Mag Hydrox/Al Hydrox/Simeth) 355 Ml Oral.susp 15 Ml PO QIDAFTMEAL PRN Tylenol (Acetaminophen) 325 Mg Tablet 2 Tab PO PRN Q4HRS PRN Sinemet 25-100 Mg Tablet (Carbidopa/Levodopa) 1 Each Tablet 1 Tab PO QID Albuterol Sulfate Neb Soln (Albuterol Sulfate) 2.5 Mg/3 Ml Vial.neb 2.5 Mg NEB TID Tramadol Hcl (Tramadol HCl) 50 Mg Tablet 50 Mg PO BID Tramadol Hcl (Tramadol HCl) 50 Mg Tablet 50 Mg PO PRN Q6HRS PRN Thiamine Hcl 100 Mg Tablet 100 Mg PO DAILY Sotalol (Sotalol Hcl) 80 Mg Tablet 80 Mg PO BID Seroquel (Quetiapine Fumarate) 100 Mg Tablet 100 Mg PO QHS Seroquel (Quetiapine Fumarate) 50 Mg Tablet 50 Mg PO DAILY Pradaxa (Dabigatran Etexilate Mesylate) 150 Mg Capsule 150 Mg PO BID Nystatin 15 Gm Cream..g. 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
[2016-09-17] MEDS: traMADol 50 MG TABLET PO PRN (05:25)
[2016-09-17 06:16] VITALS: BP 120/60
[2016-09-17 07:24] LABS: HEMATOCRIT 39.7 % (39.0-53.0); HEMOGLOBIN 12.9 g/dL (13.0-17.5); RED BLOOD COUNT 4.77 x10^6/uL (4.30-5.70); RED CELL DISTRIBUTION WIDTH 17.2 % (11.5-14.5)
[2016-09-17 07:43] LABS: ALBUMIN/GLOBULIN RATIO 0.8 (1.0-1.7); ALK PHOS 91 U/L (46-116); ALT (SGPT) 8 U/L (16-63); ANION GAP 7 (6-14); AST (SGOT) 12 U/L (15-37); BLOOD UREA NITROGEN 24 mg/dL (8-26); BUN/CREATININE RATIO 18 (6-20); CALCIUM 8.6 mg/dL (8.5-10.1); CARBON DIOXIDE 27 mmol/L (21-32); CHLORIDE 107 mmol/L (98-107); CREATININE 1.3 mg/dL (0.7-1.3); GFR 52.9; GLUCOSE 170 mg/dL (70-99); POTASSIUM 4.2 mmol/L (3.5-5.1); SODIUM 141 mmol/L (136-145); TOTAL BILIRUBIN 0.3 mg/dL (0.2-1.0); TOTAL PROTEIN 6.9 g/dL (6.4-8.2); VAL ACID 17 mcg/mL (50-100)
[2016-09-17] MEDS: RIVASTIGMINE 13.3MG PATCH. TD SCH (07:45)
[2016-09-17] MEDS: ESCITALOPRAM 10 MG TABLET. PO SCH (07:45)
[2016-09-17] MEDS: DABIGATRAN ETEXILATE 150 MG CAPSULE. PO SCH ×2 (07:45→19:31)
[2016-09-17] MEDS: FOLIC ACID 1 MG TABLET PO SCH (07:45)
[2016-09-17] MEDS: DIVALPROEX 125 MG CAP.SPRINK PO SCH ×2 (07:45→12:53)
[2016-09-17] MEDS: MEMANTINE 10 MG TABLET. PO SCH ×2 (07:47→19:31)
[2016-09-17] MEDS: GLIMEPIRIDE 2 MG TABLET PO SCH ×2 (07:47→17:16)
[2016-09-17] MEDS: CARBIDOPA/LEVODOPA 25/100MG TABLET PO SCH ×4 (07:47→19:31)
[2016-09-17] MEDS: QUEtiapine 50 MG TABLET. PO SCH (07:47)
[2016-09-17] MEDS: traMADol 50 MG TABLET PO SCH ×2 (07:47→19:33)
[2016-09-17] MEDS: THIAMINE 100 MG TABLET. PO SCH (07:48)
[2016-09-17] MEDS: SOTALOL 80 MG TABLET. PO SCH ×2 (07:49→19:34)
[2016-09-17] MEDS: DICLOFENAC SODIUM 1% TOPICAL GEL 100GM TUBE. TP SCH ×4 (07:51→19:34)
[2016-09-17] MEDS: KETOCONAZOLE 2% SHAMPOO 120ML BOTTLE. TP SCH (07:52)
--- NOTE | 2016-09-17 09:11 | PN ---
DATE: 09/14/2016 PSYCHIATRIC PROGRESS NOTE This late entry for 09/14/2016 covers elements not covered in my initial note. SUBJECTIVE: The patient was quite agitated, aggressive previous evening, received Zyprexa p.r.n. During the day on 09/14/2016, he did better, remains confused, but pleasant, compliant with his medications, cares, and had a shower. REVIEW OF SYSTEMS: Ambulation impaired, in his wheelchair. No CV, , pulmonary, eye system symptoms on review. Reliability poor. MENTAL STATUS EXAM: Oriented to himself. Insight, judgment, recent and remote memory, attention, concentration, fund of knowledge poor, consistent with his diagnosis mentioned in my initial note. PLAN: Continue psychotropics mentioned in my initial note. Adjust further as clinically indicated. We will check labs level on Depakote on 09/17/2016 and then adjust Depakote thereafter. MAN Heaven MAGALLANES MD DR: MARIBEL/harshad JOB#: [id number] / [id number]
--- NOTE | 2016-09-17 09:13 | PN ---
DATE: 09/15/2016 SUBJECTIVE: This note covers elements not covered in my initial note on 09/15/2016. Per nursing report, the patient has had a good day. Remains confused; not agitated or aggressive. REVIEW OF SYSTEMS: Ambulation impaired in his wheelchair. No CV, , pulmonary, or eye system symptoms on review. MENTAL STATUS EXAM: Oriented to himself and situation. Speech coherent, pleasant, and has a sense of humor. Abstraction fair, computation impaired, and language function intact. Mood and affect is improved. IMPRESSION: Unchanged from initial note. PLAN: Continue psychotropics mentioned in my initial note. MAN Heaven MAGALLANES MD DR: MARIBEL/harshad JOB#: [id number] / [id number]
--- NOTE | 2016-09-17 10:00 | NUR ---
THERAPEUTIC RECREATION GROUP NOTE TITLE :Color Your Flag ACTIVITY : Arts [employer] GOAL : Increase creativity and fine motor functioning, reduce stress, anxiety. DURATION : Available for 90 minutes RESPONSE : No participation.
--- NOTE | 2016-09-17 10:46 | NUR ---
Behavior Intervention Response and Plan: BIRP Note: Behavior: Assumed Care of patient, patient located in Day Room at shift change. Patient exhibited the following behavior Calm, Cooperative, Compliant. Brief assessment on rounds of vital signs, medication needs, lab studies, and pain. Treatment plan problems 1 and 2. Intervention: Patient assessed and the following interventions initiated safety checks 15 Minute Checks Personal Alarm in place , Cognitive Assessment , Head to toe Assessment. Response: After interactions and interventions patient responded in the following manner, Calm , Interactive ,Appropriate. Continue to assess behaviors and condition will continue to monitor throughout the shift as needed. 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 Continue to assess patient for changes in above assessment. Monitor for medication needs, pain, and safety concerns. Hourly rounding performed to ensure safe environment.
--- NOTE | 2016-09-17 11:04 | NUR ---
JAVIER called and spoke with Cherelle at facility provided update and faxed update. Cherelle reports she will call this play writer back with a discharge time.
--- NOTE | 2016-09-17 13:30 | NUR ---
THERAPEUTIC RECREATION GROUP NOTE TITLE :Musical Flags ACTIVITY : Activities and Games GOAL : Increase alertness/focus, socialization, group cohesion DURATION : 40 Minutes RESPONSE : Full participation. Pt. needed demonstration and directions spoken loudly to him but he was compliant and able to pass the flag and answer his question. ORDNANCE TECHNICIAN wrote his question on a piece of paper. He needed clarification and clear directions.
[2016-09-17 15:49] VITALS: BP 131/62
[2016-09-17] MEDS: QUEtiapine 100 MG TABLET. PO SCH (19:31)
--- NOTE | 2016-09-17 23:13 | PDOC ---
Exam Lobito Demential Exam: Lobito Note: Please also refer to the separate dictated note~for this date of service dictated separately.~Patient seen individually. Discussed the patient with Nursing staff reviewed the chart.~Reviewed interim history and current functioning. Reviewed vital signs,~Labs/ Radiology~and current medications noted below. Continue current treatment with the changes noted in the dictated addendum note Assessment: Vital Signs: Vital Signs Date Time Temp Pulse Resp B/P (MAP) Pulse Ox O2 Delivery O2 Flow Rate FiO2 09/17/16 20:33 Room Air 09/17/16 19:34 124 131/62 09/17/16 15:49 97.8 16 95 I&O Intake and Output 09/17/16 07:00 Intake Total 885 ml Balance 885 ml Intake Oral 885 ml # Voids 1 Labs: Laboratory Tests Test 09/17/16 06:42 09/17/16 07:19 White Blood Count 8.0 x10^3/uL (4.0-11.0) Red Blood Count 4.77 x10^6/uL (4.30-5.70) Hemoglobin 12.9 g/dL (13.0-17.5) L Hematocrit 39.7 % (39.0-53.0) Mean Corpuscular Volume 83 fL (79-100) Mean Corpuscular Hemoglobin 27 pg (25-35) Mean Corpuscular Hemoglobin Concent 33 g/dL (31-37) Red Cell Distribution Width 17.2 % (11.5-14.5) H Platelet Count 128 x10^3/uL (140-400) L Sodium Level 141 mmol/L (136-145) Potassium Level 4.2 mmol/L (3.5-5.1) Chloride Level 107 mmol/L (98-107) Carbon Dioxide Level 27 mmol/L (21-32) Anion Gap 7 (6-14) Blood Urea Nitrogen 24 mg/dL (8-26) Creatinine 1.3 mg/dL (0.7-1.3) Estimated GFR (Cockcroft-Gault) 52.9 BUN/Creatinine Ratio 18 (6-20) Glucose Level 170 mg/dL (70-99) H Calcium Level 8.6 mg/dL (8.5-10.1) Total Bilirubin 0.3 mg/dL (0.2-1.0) Aspartate Amino Transferase (AST) 12 U/L (15-37) L Alanine Aminotransferase (ALT) 8 U/L (16-63) L Alkaline Phosphatase 91 U/L (46-116) Total Protein 6.9 g/dL (6.4-8.2) Albumin 3.0 g/dL (3.4-5.0) L Albumin/Globulin Ratio 0.8 (1.0-1.7) L Valproic Acid Level 17 mcg/mL (50-100) L Valproic Acid Last Dose Date 09/16/16 Valproic Acid Last Dose Time 1500 Glucose (Fingerstick) 149 mg/dL (70-99) H Current Medications: Meds: Current Medications Multi-Ingredient Ointment (Analgesic [place]) 1 marilyn PRN QID PRN TP MUSCLE PAIN; Start 09/05/16 at 21:30 Acetaminophen (Tylenol) 650 mg Q4HRS PO ; Start 09/06/16 at 00:00; Stop 09/06/16 at 00:00; Status DC Memantine (Namenda) 5 mg BID PO Last administered on 09/06/16 07:38; Start at 22:00; Stop 09/06/16 at 10:44; Status DC Quetiapine Fumarate (SEROquel) 50 mg DAILY PO Last administered on 09/17/16 07 :47; Start 09/06/16 at 09:00 Quetiapine Fumarate (SEROquel) 100 mg QHS PO Last administered on 09/17/16 19: 31; Start 09/05/16 at 22:00 Rivastigmine (Exelon) 1 patch DAILY TD Last administered on 09/06/16 08:28; Start 09/06/16 at 09:00; Stop 09/06/16 at 10:44; Status DC Al Hydroxide/Mg Hydroxide (Mylanta Plus Xs) 15 ml PRN AFTMEALHC PRN PO DYSPEPSIA; Start 09/05/16 at 21:45 Tramadol HCl (Ultram) 50 mg BID PO Last administered on 09/17/16 19:33; Start 09/06/16 at 09:00 Tramadol HCl (Ultram) 50 mg PRN Q6HRS PRN PO PAIN Last administered on 05:25; Start 09/05/16 at 22:15 Acetaminophen (Tylenol) 1,000 mg 1X ONCE PO Last administered on 09/05/16 22: 17; Start 09/05/16 at 22:15; Stop 09/05/16 at 22:17; Status DC Albuterol Sulfate (Ventolin) 2.5 mg TID NEB Last administered on 09/09/16 10:04 ; Start 09/06/16 at 14:00; Stop 09/09/16 at 10:49; Status DC Budesonide (Pulmicort) 0.5 mg BID NEB Last administered on 09/09/16 10:04; Start 09/06/16 at 21:00; Stop 09/09/16 at 10:49; Status DC Carbidopa/Levodopa (Sinemet 25/100) 1 tab QID PO Last administered on 19:31; Start 09/06/16 at 13:00 Dabigatran (Pradaxa) 150 mg BID PO Last administered on 09/17/16 19:31; Start 09/06/16 at 10:45 Diclofenac Sodium (Voltaren) 2 marilyn QID TP Last administered on 09/17/16 19:34 ; Start 09/06/16 at 13:00 Folic Acid (Folic Acid) 1 mg DAILY PO Last administered on 09/17/16 07:45; Start 09/06/16 at 10:45 Glimepiride (Amaryl) 2 mg BID PO Last administered on 09/16/16 08:56; Start at 10:45; Stop 09/16/16 at 13:20; Status DC Ketoconazole (Nizoral 2% Shampoo) 1 marilyn 3X/WEEK TP Last administered on 07:30; Start 09/07/16 at 09:00 Magnesium Hydroxide (Milk Of Magnesia) 2,400 mg PRN QHS PRN PO CONSTIPATION; Start 09/06/16 at 10:30 Methimazole (Tapazole) 5 mg TID PO Last administered on 09/07/16 19:38; Start 09/06/16 at 14:00; Stop 09/08/16 at 09:18; Status DC Nystatin (Mycostatin) 1 marilyn PRN Q8HRS PRN TP Yeast; Start 09/06/16 at 10:30 Sotalol HCl (Betapace) 80 mg BID PO Last administered on 09/17/16 19:34; Start 09/06/16 at 21:00 Thiamine HCl (Vitamin B-1) 100 mg DAILY PO Last administered on 09/17/16 07:48 ; Start 09/06/16 at 10:45 Memantine (Namenda) 10 mg BID PO Last administered on 09/17/16 19:31; Start at 21:00 Rivastigmine (Exelon 13.3mg) 1 patch DAILY TD Last administered on 09/17/16 07 :45; Start 09/07/16 at 09:00 Escitalopram Oxalate (Lexapro) 5 mg DAILY PO Last administered on 09/08/16 09: 25; Start 09/07/16 at 09:00; Stop 09/08/16 at 20:29; Status DC Methimazole (Tapazole) 7.5 mg TID PO Last administered on 09/17/16 19:34; Start 09/08/16 at 14:00 Cyanocobalamin (Vitamin B-12) 1,000 mcg [id number] IM Last administered on 09:27; Start 09/08/16 at 09:15 Vitamin D (Vitamin D3) 50,000 unit [id number] PO Last administered on 09/08/16 09: 27; Start 09/08/16 at 09:15 Escitalopram Oxalate (Lexapro) 10 mg DAILY PO Last administered on 09/17/16 07 :45; Start 09/09/16 at 09:00 Albuterol Sulfate (Ventolin) 2.5 mg PRN TID PRN NEB WHEEZING; Start 09/09/16 at 11:00 Budesonide (Pulmicort) 0.5 mg PRN BID PRN NEB WHEEZING; Start 09/09/16 at 11:00 Divalproex Sodium (Depakote Sprinkles) 125 mg [id number] PO Last administered on 12:53; Start 09/13/16 at 14:00 Olanzapine (ZyPREXA ZYDIS) 2.5 mg PRN Q2HR PRN PO PSYCHOSIS Last administered on 09/15/16 17:43; Start 09/14/16 at 15:00 Glimepiride (Amaryl) 4 mg [id number] PO Last administered on 09/17/16 07:47; Start 09/17/16 at 08:00 Glimepiride (Amaryl) 2 mg DAILYWSUP PO Last administered on 09/17/16 17:16; Start 09/16/16 at 17:00 Active Scripts Active Reported Namenda (Memantine Hcl) 10 Mg Tablet 5 Mg PO BID EXELON 9.5mg/24hr (Rivastigmine) 1 Each Patch.td24 1 Patch TD DAILY Voltaren (Diclofenac Sodium) 100 Gm Gel..gram. 2 Gm TP QID Novolog Flexpen (Insulin Aspart) 100 Unit/1 Ml Insuln.pen 0-5 Unit SQ TIDBFRMEAL Sliding Scale Insulin Accucheck: 70 - 150 = 0 units If Eating/ 0 units If not eating or HS, 151 - 200 = 2 Units If Eating/ 0 Units If not eating or HS, 201 - 250 = 3 Units If Eating/ 0 Units If not eating or HS, 251 - 300 = 4 Units If Eating/ 2 Units If not eating or HS, 301 - 350 = 5 Units If Eating/ 3 Untis If not eating or HS, Accucheck 351 or > Call PCP for additional orders Advanced Antacid Liquid (Mag Hydrox/Al Hydrox/Simeth) 355 Ml Oral.susp 15 Ml PO QIDAFTMEAL PRN Tylenol (Acetaminophen) 325 Mg Tablet 2 Tab PO PRN Q4HRS PRN Sinemet 25-100 Mg Tablet (Carbidopa/Levodopa) 1 Each Tablet 1 Tab PO QID Albuterol Sulfate Neb Soln (Albuterol Sulfate) 2.5 Mg/3 Ml Vial.neb 2.5 Mg NEB TID Tramadol Hcl (Tramadol HCl) 50 Mg Tablet 50 Mg PO BID Tramadol Hcl (Tramadol HCl) 50 Mg Tablet 50 Mg PO PRN Q6HRS PRN Thiamine Hcl 100 Mg Tablet 100 Mg PO DAILY Sotalol (Sotalol Hcl) 80 Mg Tablet 80 Mg PO BID Seroquel (Quetiapine Fumarate) 100 Mg Tablet 100 Mg PO QHS Seroquel (Quetiapine Fumarate) 50 Mg Tablet 50 Mg PO DAILY Pradaxa (Dabigatran Etexilate Mesylate) 150 Mg Capsule 150 Mg PO BID Nystatin 15 Gm Cream..g. 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
[2016-09-17] MEDS ORDERED: CHOL500016 PO (23:30)
[2016-09-17] MEDS ORDERED: DIVA125C PO (23:33)
[2016-09-17] MEDS ORDERED: ESCITALOPRAM OX10 MG PO (23:35)
[2016-09-17] MEDS ORDERED: GLIM2TAB2 PO (23:40)
[2016-09-17] MEDS ORDERED: NYST15CR TP (23:48)
[2016-09-17] MEDS ORDERED: OLAN2.5T3 PO (23:49)
[2016-09-17] MEDS ORDERED: RIVA1PAT22 TD (23:56)
[2016-09-18] MEDS ORDERED: METH10TA6 PO
[2016-09-18] MEDS ORDERED: CYAN10002 IM (00:07)
[2016-09-18] MEDS ORDERED: METH29OI TP (00:19)
--- NOTE | 2016-09-18 00:32 | NUR ---
Behavior Intervention Response and Plan: BIRP Note: Behavior: Assumed Care of patient, patient located in Day Room at shift change. Patient exhibited the following behavior Calm, Compliant, Cooperative. Brief assessment on rounds of vital signs, medication needs, lab studies, and pain. Treatment plan problems . Intervention: Patient assessed and the following interventions initiated safety checks 15 Minute Checks Medications , Head to toe Assessment , Cognitive Assessment. Response: After interactions and interventions patient responded in the following manner, Calm , Compliant ,Cooperative. Continue to assess behaviors and condition will continue to monitor throughout the shift as needed. Plan: Continue to monitor Master Treatment Plan for patient's progress toward short term goals of Improved Mood, No harm To self/ others, care home goals to return to previous living setting vs placement. Continue to assess patient for changes in above assessment. Monitor for medication needs, pain, and safety concerns. Hourly rounding performed to ensure safe environment.
--- NOTE | 2016-09-18 00:34 | PN ---
DATE: 09/16/2016 This late entry for 09/16/2016 covers elements not covered in my initial note. SUBJECTIVE: The patient has been more cooperative on the unit. Blood sugar was increased. Dr. Sampson is addressing this. REVIEW OF SYSTEMS: Ambulation impaired, in his Broda chair. No CV, , pulmonary, eye system symptoms on review. Reliability poor. MENTAL STATUS EXAM: Oriented to himself. Insight, judgment, recent and remote memory, attention, concentration, fund of knowledge poor, consistent with his diagnosis mentioned in my initial note. IMPRESSION: Major neurocognitive disorder, Lewy body type with depression, delusions. No suicidal ideation noted. PLAN: Continue current psychotropics mentioned in my initial note. Adjust further as clinically indicated. MAN Heaven MAGALLANES MD DR: MARIBEL/harshad JOB#: [id number] / [id number]
[2016-09-18 06:02] VITALS: BP 117/68
--- NOTE | 2016-09-18 07:33 | NUR ---
[facility] Social Work Discharge Planning Form Patient Name JED ADLER Admit Date: 09/05/16 DISCHARGE PLAN Discharge Destination: [place] Transportation: AM Special Instructions/Notes: DISCHARGE TO FACILITY Facility: [facility] Address:[address] Contact Name: Krysten ALEXANDER, Other: Contact Name: JAVIER ALEXANDER, Other: PCP: at facility Psychiatrist: at facility Psychiatrist/Mental Health Follow Up at facility Primary Care Follow Up at facility
[2016-09-18] MEDS: GLIMEPIRIDE 2 MG TABLET PO SCH (08:33)
[2016-09-18] MEDS: DABIGATRAN ETEXILATE 150 MG CAPSULE. PO SCH (08:33)
[2016-09-18] MEDS: CARBIDOPA/LEVODOPA 25/100MG TABLET PO SCH (08:33)
[2016-09-18] MEDS: QUEtiapine 50 MG TABLET. PO SCH (08:34)
[2016-09-18] MEDS: DIVALPROEX 125 MG CAP.SPRINK PO SCH (08:34)
[2016-09-18] MEDS: ESCITALOPRAM 10 MG TABLET. PO SCH (08:34)
[2016-09-18] MEDS: THIAMINE 100 MG TABLET. PO SCH (08:34)
[2016-09-18] MEDS: MEMANTINE 10 MG TABLET. PO SCH (08:34)
[2016-09-18] MEDS: FOLIC ACID 1 MG TABLET PO SCH (08:34)
[2016-09-18] MEDS: RIVASTIGMINE 13.3MG PATCH. TD SCH (08:34)
[2016-09-18 08:35] VITALS: BP 117/68
[2016-09-18] MEDS: SOTALOL 80 MG TABLET. PO SCH (08:35)
[2016-09-18] MEDS: DICLOFENAC SODIUM 1% TOPICAL GEL 100GM TUBE. TP SCH (08:36)
[2016-09-18] MEDS: traMADol 50 MG TABLET PO SCH (08:37)
--- NOTE | 2016-09-18 09:00 | NUR ---
THERAPE[employer]IC RECREATION [employer] NOTE TITLE :Beach Ball Bop ACTIVITY : Movement/ Exercise GOAL : Increase morale, attention, endurance, socialization. Decrease stress/anxiety. DURATION : 50 Minutes RESPONSE : Full participation. Pt. pretended to ignore DIRECTOR OF [employer] when she was inviting him to play. He looked away but began to smile. He was alert and needed no prompting to stay on task. He kicked the ball most of the time, only bumping it with his hands twice. He smiled often and was playful.
--- NOTE | 2016-09-18 09:30 | NUR ---
patient in Broda, pleasant and cooperative. Medications crushed in pudding. Complaint of Left shoulder pain.
--- NOTE | 2016-09-18 11:09 | NUR ---
Behavior Intervention Response and Plan: BIRP Note: Behavior: Assumed Care of patient, patient located in Day Room at shift change. Patient exhibited the following behavior Calm, Appropriate, Cooperative. Brief assessment on rounds of vital signs, medication needs, lab studies, and pain. Treatment plan problems 1 and 2. Intervention: Patient assessed and the following interventions initiated safety checks 15 Minute Checks Cognitive Assessment , Head to toe Assessment , Medications. Response: After interactions and interventions patient responded in the following manner, Calm , Interactive ,Disorganized. Continue to assess behaviors and condition will continue to monitor throughout the shift as needed. Plan: Continue to monitor Master Treatment Plan for patient's progress toward short term goals of No harm To self/ others, Improved Mood, terminal gauger goals to return to previous living setting vs placement. Continue to assess patient for changes in above assessment. Monitor for medication needs, pain, and safety concerns. Hourly rounding performed to ensure safe environment.
--- NOTE | 2016-09-18 11:52 | NUR ---
Patient picked up by transportation at 1150. Left unit in wheelchair accompanied by transportation modeler with belongings in sack. Report called to facility.
--- NOTE | 2016-09-18 11:53 | NUR ---
Discharge Note [facility] Patient is not currently a tobacco user. Follow up Appointment made: PCP and psychiatry follow up at facility. Date and Time instructions and Social Work Discharge planning sheet sent to next level of care. 09/18/16 0831 [facility] Unit contact Number for 24 hour support [phone] Discharge Packet Sent, and discusssed with patient and caregiver that includes Copies from the record of current medications with indications and frequencies, history and physical, Psychiatric Eval with reason and justification for admission, Lab values, Radiology results , follow up instructions for continuation of care, and Social Work discharge planning form: yes Discharge Packet Faxed to Provider/Next Level of Care: yes Discharge Packet Faxed with discharge Order and Discharge diagnosis sent to: [facility]. Discharge Packet Discussed, and report Given to: [facility] Discharge instruction sheet was included in the packet and sent with the patient upon discharge. Any Pending lab results can be obtained by calling [phone] Discharge Summary will be sent to next care provider when available. This includes the reason for admission, DC diagnosis, and next level of care recommendations.
--- NOTE | 2016-09-18 22:58 | PN ---
DATE: 09/17/2016 This late entry 09/17/2016 covers elements not covered in my initial note. The patient has been tearful at times, complains of pain in left shoulder. REVIEW OF SYSTEMS: Ambulation impaired, in his wheelchair. No CV, , pulmonary, eye system symptoms on review. Reliability poor. MENTAL STATUS EXAM: Oriented to himself in his wheelchair. Insight, judgment, recent and remote memory, attention, concentration, fund of knowledge poor, consistent with his diagnosis. He is quite animated, interactive but this is typical of him. LABORATORY DATA: Reviewed. IMPRESSION: Major neurocognitive disorder, Lewy body with delusion, depression, in partial remission. Rest diagnoses unchanged. PLAN: Continue current psychotropics. Valproic acid level is therapeutic at 17, but clinically adequate perhaps transition to care home on 09/18/2016. MAN Heaven MAGALLANES MD DR: MARIBEL/harshad JOB#: [id number] / [id number]
--- NOTE | 2016-09-19 10:47 | DS ---
DATE OF DISCHARGE: 09/18/2016 DISCHARGE SUMMARY/PSYCHIATRIC PROGRESS NOTE This is a late entry 09/18/2016, covers elements not covered in my initial note. REASON FOR ADMISSION: Please refer to the admission history for details. Briefly, the patient is an 81-year-old male with a history of Lewy body dementia, referred back to us from [facility] on account of voicing suicidal ideation after he was found with his arm sling around the neck at the halfway. The patient's behaviors were deemed dangerous to himself, referred for inpatient psychiatric stabilization. SIGNIFICANT FINDINGS AND CLINICAL COURSE: Following admission, the patient was seen daily individually by myself, followed medically per Dr. Antonio/Dr Sampson. The patient was somewhat paranoid, suspicious, depressed initially, minimized his suicidal ideation. Gradually mood appeared to improve. He seemed to respond to a combination of Exelon patch 13.3 mg a day, Seroquel 50 mg a.m., 100 at bedtime, Namenda 10 b.i.d., Lexapro 10 mg a day, Depakote Sprinkles 125 mg at 0900 and 1400, Zyprexa p.r.n. Valproic acid level was 17, subtherapeutic, but clinically adequate. As his mood improved, impulse control was better and he was still confused with short-term memory deficits. REVIEW OF SYSTEMS: Prior to discharge on 09/18/2016 ambulation impaired in his wheelchair. No CV, , pulmonary, eye, ENT system symptoms on review. MENTAL STATUS EXAM: Oriented to himself, quite animated, verbal, holding my hand, calling me "angeli" which is typical for him. Insight, judgment, recent and remote memory, attention, concentration, fund of knowledge poor, consistent with his diagnoses. CONDITION AT DISCHARGE: Improved. FINAL DIAGNOSES: Major neurocognitive disorder with Lewy body type with depression, delusions latter in partial remission; anxiety disorder, unspecified; impulse control disorder, unspecified. Rest diagnoses unchanged from admission. DISCHARGE MEDICATIONS: Please refer to the [facility]AD. DISCHARGE INSTRUCTIONS: Outpatient psychiatric and medical followup at the halfway. Time for discharge day management greater than 30 minutes. MARY MAGALLANES MD DR: MARIBEL/harshad JOB#: [id number] / [id number]
== END 2016-09-18 11:57 | DRG 884 ==
LOC: ER 17:58 → GEROPSY 21:09
PROVIDERS: ADMIT Psychiatry & Neurology Psychiatry; ATTEND Psychiatry & Neurology Psychiatry
DX: F01.51 Vascular dementia, unspecified severity, with behavioral disturbance (principal); F02.81 Dementia in other diseases classified elsewhere, unspecified severity, with behavioral disturbance; I13.0 Hypertensive heart and chronic kidney disease with heart failure and stage 1 through stage 4 chronic kidney disease, or unspecified chronic kidney disease; G31.83 Neurocognitive disorder with Lewy bodies; E61.1 Iron deficiency; R56.9 Unspecified convulsions; F32.4 Major depressive disorder, single episode, in partial remission; E78.5 Hyperlipidemia, unspecified; F41.9 Anxiety disorder, unspecified; Z00.8 Encounter for other general examination; E11.22 Type 2 diabetes mellitus with diabetic chronic kidney disease; N18.3 Chronic kidney disease, stage 3 (moderate); F63.9 Impulse disorder, unspecified; H91.90 Unspecified hearing loss, unspecified ear; E11.65 Type 2 diabetes mellitus with hyperglycemia; I48.91 Unspecified atrial fibrillation; I50.9 Heart failure, unspecified; J44.9 Chronic obstructive pulmonary disease, unspecified; R13.10 Dysphagia, unspecified; Z66 Do not resuscitate; Z79.899 Other long term (current) drug therapy; Z95.0 Presence of cardiac pacemaker; Z87.01 Personal history of pneumonia (recurrent)
CPT/HCPCS: 36415; 80053; 80061; 80164; 81001; 82306; 82607; 82947; 83036; 83540; 83550; 83735; 84436; 84443; 84480; 85027; 86592; 86593; 93005; 94640; G0481; J3420; J7613; J7626; 99285-25